=== PATIENT | male | born 1960 | race Caucasian/White ===

== ENCOUNTER 2016-04-30 10:47 | Inpatient (IN) | payer SELFPAY ==
[~2016-04-30] VITALS: Ht 167.6 cm; Wt 80.5 kg
[2016-04-30] VITALS (13 sets, daily range): BP systolic 103–220; BP diastolic 74–139
[2016-04-30] MEDS ORDERED: LABETALOL 20 MG/4 ML DISP.SYRIN. IVP ONE (12:15)
[2016-04-30] MEDS ORDERED: SULFUR HEXAFLUORIDE MICROSPHR 25 MG VIAL. IVP ONE ×3 (12:45→14:15)
[2016-04-30] MEDS: IV NORMAL SALINE 1000ML BAG 1,000 ML IV SCH (13:05)
--- NOTE | 2016-04-30 13:05 | PDOC2 ---
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 He was initially admitted at [facility] and transferred to [facility] for further treatment. Reports of sharp pain between shoulder blades, this started over a a week ago in which he went a PCP and CXR was done which just showed some degenerative changes of the spine and he was given lortab, flexeril, prednisone and ibuprofen (he did not start the ibuprofen). This has been going on everyday and he has been getting some massage treatment as well. There was no noted respiratory infections that involves coughing, fever, nor falls or any injury. Reports that 2 days ago in the morning he had the same pain and started having tingling to his left arm. This increased throughout the day and it got better at some point especially with prednisone. Yesterday he actually felt a little better and actually operated a bobcat but it got worse again. His symptoms became associated with diaphoresis and some SOA otherwise no nausea /vomiting, palpitations. Prior to the medications he started last week, he has not taken any other routine medications and has not seen a physician in the last 15 yrs. 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 He has known HTN but decided not to have this addressed and this has been chronic for him. PAST MEDICAL HISTORY Past Medical History HTN otherwise no other known medical history PAST SURGICAL HISTORY Past Surgical History right hand repair from trauma otherwise no other surgery. FAMILY HISTORY Family History: Coronary Artery Disease (sister at 58) SOCIAL HISTORY Smoke: No ALCOHOL: heavy (6-10 beers daily) Drugs: None Lives: with Family CURRENT MEDICATIONS CURRENT MEDICATIONS Current Medications Medications (Trade) Dose Ordered Sig/Isabel Route PRN Reason Start Time Stop Time Status Last Admin Dose Admin Labetalol HCl (Normodyne) 20 mg 1X ONCE IVP 04/30/16 12:15 04/30/16 12:16 DC 04/30/16 12:14 ALLERGIES ALLERGIES: Coded Allergies: Penicillins (Verified Allergy, Severe, 04/30/16) ROS Review of System 14 point ROS evaluated with pertinent positives noted per HPI PHYSICAL EXAM General: Alert, Oriented X3, Cooperative, No acute distress HEENT: Atraumatic, Mucous membr. moist/pink Heart: Regular rate, Normal S1, Normal S2, No murmurs Abdomen: Soft, No tenderness Extremities: No cyanosis, No edema Skin: No breakdown, No significant lesion Neuro: Sensation intact Psych/Mental Status: Mental status NL, Mood NL MUSCULOSKELETAL: Osteoarthritic changes both hands VITALS VITALS Vital Signs Date Time Temp Pulse Resp B/P Pulse Ox O2 Delivery O2 Flow Rate FiO2 04/30/16 12:14 85 224/139 ASSESSMENT/PLAN ASSESSMENT/PLAN 1. NSTEMI: Initial troponin 18.3. Initial EKG noted with SR with acute ST changes to inferior and anteroseptal leads. ASA was given at [place]. DDIMER normal. CTA chest/abd/pelvis with no acute changes. TTE now. LH today, risks and benefits discussed with pt and spouse and agreeable to proceed. IVF maintenance to start. Lipid panel. 2. Malignant HTN: became hypotensive with NTG/clonidine at [place] and treated with IVF. Currently SBP in the 220s. Will give labetolol x1. Routine antiHTN to start post cath. 3. Rhabdomyolysis with mild transaminitis: Likely related to NSTEMI but ETOH contributing as well. Treatment as above. 4. Alcoholism: 6-10 beers daily. Defer to PCP. Problems: JANA CANCHOLA MD 04/30/16 1737: CARDIAC CONSULT ALLERGIES ALLERGIES: Coded Allergies: Penicillins (Verified Allergy, Severe, 04/30/16) ASSESSMENT/PLAN ASSESSMENT/PLAN Patient seen and examined. Agree with the nurse practitioner note. 55-year-old male initially presented to the outside hospital with stuttering chest pain and malignant hypertension. He underwent a CT scan of the chest that ruled out aortic aneurysm/dissection. Due to an elevated troponin of 18 he was referred to the cardiac catheterization laboratory for further evaluation. He was found to have a mid left circumflex occlusion which was successfully treated with a drug-eluting stent. Medical therapy has been initiated for his cardiovascular comorbidities. Continue supportive care. Anticipate discharge tomorrow if stable overnight with better blood pressure control. Problems: ALBERT SANCHES APRN Apr 30, 2016 13:05 JANA CANCHOLA MD Apr 30, 2016 17:37
[2016-04-30] MEDS ORDERED: MORPHINE SULFATE 2 MG/ML DISP.SYRIN. IV PRN (13:15)
--- NOTE | 2016-04-30 13:21 | PDOC1 ---
History and Physical Past Medical History Past Medical History HTN Family History Family History: Coronary Artery Disease (sister at 58) Social History Smoke: No ALCOHOL: heavy (6-10 beers daily) Drugs: None Current Medications Current Medications Current Medications Medications (Trade) Dose Ordered Sig/Isabel Start Time Stop Time Status Last Admin Dose Admin Labetalol HCl (Normodyne) 20 mg 1X ONCE 04/30/16 12:15 04/30/16 12:16 DC 04/30/16 12:14 20 MG Morphine Sulfate 2 mg PRN Q2HR PRN 04/30/16 13:15 Sodium Chloride (Iv Sodium Chloride 0.9% 1000ml Bag) 1,000 ml @ 75 mls/hr [id number] 04/30/16 13:15 04/30/16 13:05 75 MLS/HR Sulfur Hexafluoride Microspheres 25 mg 25 mg STK-MED ONCE 04/30/16 12:45 04/30/16 12:46 DC Allergies Allergies Allergies Coded Allergies Type Severity Reaction Last Updated Verified Penicillins Allergy Severe 04/30/16 Yes ROS Review of System CONSTITUTIONAL: No fever or chills EYES: No recent changes SKIN: No rash or itching CARDIOVASCULAR: chest pain, NO syncope, palpitations, or edema RESPIRATORY: No SOB or cough GASTROINTESTINAL: No nausea, vomiting or abdominal pain NEUROLOGICAL: No headaches or weakness ENDOCRINE: No cold or heat intolerance GENITOURINARY: No urgency or frequency of urination MUSCULOSKELETAL: No back pain or joint pain LYMPHATICS: No enlarged lymph nodes PSYCHIATRIC: No anxiety or depression Physical Exam Physical Exam GEN.: No apparent distress. Alert and oriented. HEENT: Head is normocephalic, atraumatic NECK: Supple. no jvd LUNGS: Clear to auscultation.normal airflow HEART: RRR, S1, S2 present. Peripheral pulses intact ABDOMEN: Soft, nontender. Positive bowel sounds. EXTREMITIES: Without any cyanosis. NEUROLOGIC: Normal speech, normal tone PSYCHIATRIC: Normal affect, normal mood. SKIN: No visible ulcerations Vitals Vitals Vital Signs Date Time Temp Pulse Resp B/P Pulse Ox O2 Delivery O2 Flow Rate FiO2 04/30/16 13:00 84 21 186/123 97 Room Air 04/30/16 12:15 98.9 2.0 98.9 VTE Prophylaxis Ordered VTE Prophylaxis Devices: Yes VTE Pharmacological Prophylaxi: Yes SHAHEEN SEGURA MD Apr 30, 2016 13:21
[2016-04-30] MEDS ORDERED: LIDOCAINE 2% 20 ML VIAL. ONE (13:26)
[2016-04-30] MEDS ORDERED: IOHEXOL 300 MG/ML 100ML VIAL. ONE ×2 (13:26→14:28)
[2016-04-30] MEDS ORDERED: MIDAZOLAM HCL 2 MG/2 ML VIAL. ONE ×2 (13:27→14:00)
[2016-04-30] MEDS ORDERED: NITROGLYCERIN 200 MCG/2 ML SYRINGE FOR CATH/VASC LAB. ONE (13:27)
[2016-04-30] MEDS ORDERED: HEPARIN for IV BOLUS 10,000 UNIT/10 ML VIAL. ONE (13:27)
[2016-04-30] MEDS ORDERED: VERAPAMIL 5 MG/2 ML VIAL. ONE (13:27)
[2016-04-30] MEDS ORDERED: FENTANYL PF 100 MCG/2 ML VIAL. ONE ×2 (13:27→14:00)
[2016-04-30] MEDS ORDERED: FENTANYL PF 100 MCG/2 ML VIAL. IV ONE ×2 (13:30→14:00)
[2016-04-30] MEDS ORDERED: NITROGLYCERIN 200 MCG/2 ML SYRINGE FOR CATH/VASC LAB. IART ONE (14:00)
[2016-04-30] MEDS ORDERED: LIDOCAINE 2% 20 ML VIAL. IJ ONE (14:00)
[2016-04-30] MEDS ORDERED: HEPARIN for IV BOLUS 10,000 UNIT/10 ML VIAL. IART ONE (14:00)
[2016-04-30] MEDS ORDERED: VERAPAMIL 5 MG/2 ML VIAL. IART ONE (14:00)
[2016-04-30] MEDS ORDERED: MIDAZOLAM HCL 2 MG/2 ML VIAL. IV ONE (14:00)
[2016-04-30] MEDS ORDERED: IOHEXOL 300 MG/ML 100ML VIAL. IART ONE (14:00)
[2016-04-30] MEDS ORDERED: CONTRAST GIVEN MC PRN (14:00)
--- NOTE | 2016-04-30 14:04 | CARD ---
APPROVED REPORT EXAM: Two-dimensional and M-mode echocardiogram with Doppler, color Doppler with contrast. Other Information Quality : Average Rhythm : NSR INDICATION Chest Pain Echo Enhancing Agent Indication: Endocardial border delineation Agent/Amount Used: Lumason 2mL 2D DIMENSIONS RVDd2.3 (2.9-3.5cm)Left Atrium(2D)2.6 (1.6-4.0cm) IVSd1.3 (0.7-1.1cm)Aortic Root(2D)3.1 (2.0-3.7cm) LVDd4.3 (3.9-5.9cm)LVOT Diameter2.4 (1.8-2.4cm) PWd1.3 (0.7-1.1cm)LVDs3.3 (2.5-4.0cm) FS (%) 20.5 %SV39.2 ml LVEF(%)50.3 (>50%) Aortic Valve AoV Peak Hua.85.0cm/sAoV VTI15.0cm AO Peak GR.2.9mmHgLVOT VTI 12.32cm AO Mean GR.2mmHgAVA (VTI)3.60cm2 Mitral Valve MV E Ttmgpcej63.2cm/sMV E Peak Gr.2mmHg MV DECEL [id number] A Gcrzlalx44.5cm/s MV E Mean Gr.1mmHgMV LGT61wp E/A Ratio0.9MV A Fonjhmzg293jg MVA (PHT)4.07cm2 TDI Lateral E' P. V5.63cm/sMedial E' P. V5.13cm/s E/Lateral E'7.9E/Medial E'8.6 Tricuspid Valve TR P. Gimnvtoa613de/sRAP CILKEYMV4gjPn TR Peak Gr.22lkSyNNVQ05haGl LEFT VENTRICLE The left ventricle is normal size. There is borderline to mild concentric left ventricular hypertroph y. Left ventricle systolic function is normal. The Ejection Fraction is 50-55%. There is normal LV se gmental wall motion. The left ventricular diastolic function and filling is normal for age. RIGHT VENTRICLE The right ventricle is normal size. The right ventricular systolic function is normal. ATRIA The left atrium size is normal. The right atrium size is normal. The interatrial septum is intact wit h no evidence for an atrial septal defect or patent foramen ovale as noted on 2-D or Doppler imaging. AORTIC VALVE The aortic valve is normal in structure and function. The aortic valve is trileaflet. Doppler and Col or Flow revealed no significant aortic regurgitation. There is no significant aortic valvular stenosi s. MITRAL VALVE The mitral valve is normal in structure and function. There is no mitral valve stenosis. Doppler and Color Flow revealed mild mitral regurgitation. TRICUSPID VALVE The tricuspid valve is not well visualized. Doppler and Color Flow revealed trace tricuspid regurgita tion. The PA pressure was estimated at 22 mmHg. There is no tricuspid valve stenosis. PULMONIC VALVE The pulmonic valve is not well visualized. Doppler and Color Flow revealed no pulmonic valvular regur gitation. There is no pulmonic valvular stenosis. GREAT VESSELS The aortic root is normal in size. The ascending aorta is normal in size. The IVC was not visualized. PERICARDIAL EFFUSION There is no evidence of significant pericardial effusion. Critical Notification Critical Value: No <Conclusion> The left ventricle is normal size. Left ventricle systolic function is normal. The Ejection Fraction is 50-55%. There is borderline to mild concentric left ventricular hypertrophy. There is no significant aortic valvular stenosis. Doppler and Color Flow revealed no significant aortic regurgitation. Doppler and Color Flow revealed mild mitral regurgitation. Doppler and Color Flow revealed trace tricuspid regurgitation. The PA pressure was estimated at 22 mmHg.
[2016-04-30] MEDS ORDERED: TIROFIBAN 12.5MG -0.9% NS 250 ML IV ONE (14:06)
[2016-04-30 14:09] LABS: CHOLESTEROL/HDL RATIO 4.2
[2016-04-30] MEDS ORDERED: HEPARIN for IV BOLUS 10,000 UNIT/10 ML VIAL. IV ONE (14:15)
[2016-04-30] MEDS ORDERED: TIROFIBAN 12.5MG -0.9% NS 250 ML IV PRN ×2 (14:15→14:45)
[2016-04-30] MEDS ORDERED: ACETAMINOPHEN 325 MG TABLET. PO PRN (14:30)
[2016-04-30] MEDS ORDERED: HYDROCODONE/APAP 5/325MG TABLET. PO PRN (14:30)
[2016-04-30] MEDS ORDERED: ALBUTEROL SULFATE 2.5 MG/3 ML NEBU. NEB PRN (14:30)
[2016-04-30] MEDS ORDERED: ONDANSETRON PF 4 MG/2 ML VIAL. IV PRN (14:30)
[2016-04-30] MEDS ORDERED: NITROGLYCERIN 200 MCG/2 ML SYRINGE FOR CATH/VASC LAB. ICAR ONE (14:30)
[2016-04-30] MEDS ORDERED: hydrALAZINE 20 MG/ML VIAL. IVP PRN (14:30)
[2016-04-30] MEDS ORDERED: TICAGRELOR 90 MG TABLET. PO ONE (14:45)
[2016-04-30] MEDS: CHLORDIAZEPOXIDE HCL 25 MG CAPSULE PO SCH ×2 (16:26→21:50)
[2016-04-30] MEDS: MVI, ADULT NO.4 WITH VIT K 10 ML, THIAMINE 100 MG, FOLIC ACID 1 MG in IV NORMAL SALINE ... IV SCH ×4 (16:26)
[2016-04-30] MEDS: LORAZEPAM 1 MG TABLET. PO SCH ×2 (16:26→21:49)
[2016-04-30] MEDS ORDERED: HYDR-971 PO (16:57)
--- NOTE | 2016-04-30 16:59 | HP ---
ADMIT DATE: 04/30/2016 CHIEF COMPLAINT: Chest and back pain. HISTORY OF PRESENT ILLNESS: A 55-year-old male patient presented to the ER with complaints of chest and back pain; however, the patient had similar complaints for a few days and he has been following with his primary care doctor, who has been treating him with prednisone and Marquez, and also had some imaging studies such as chest x-ray. Probably, he was treated for arthritis. However, this morning, the patient was seen by ER physician at [facility] and given his shoulder pain and left upper extremity tingling sensation, the patient was suspected for aortic dissection. An initial CT did not show any aortic dissection; however, his labs showed elevated troponins, more than 18, along with blood pressures more than 200s. At the time of examination in the ICU at [place], he did not have any symptoms. No fever, no chest pain, which has been controlled. Denies any palpitations. However, his blood pressure is not controlled, still more than 180s systolic. PAST MEDICAL HISTORY AND REVIEW OF SYSTEMS: Please see my electronic H and P. LABORATORY DATA: Troponin is 18 from [place] and hemoglobin 18.6. IMAGING STUDIES: CT of the chest showed no evidence of thoracic aortic dissection, 5 mm left lower lobe subpleural nodule noted. EKG personally reviewed showed some T wave, mild ST depressions in lateral leads and inferior leads. ASSESSMENT: 1. Hypertensive emergency, present on admission. 2. Non-ST elevation myocardial infarction. 3. A 5 mm pulmonary nodule. 4. Alcohol abuse. 5. THC usage. PLAN: 1. The patient has been admitted to Critical Care Unit and his blood pressure has been controlled. He received labetalol. We will try to control his blood pressure, goal is to keep the systolic less than 180. 2. Cardiology has been planning for him to take some cardiac cath, possible PCI based on coronary angiogram. 3. I will start him on alcohol withdrawal protocol. 4. The patient and family have been notified about pulmonary nodule. He needs to follow up with primary care doctor and repeat imaging. 5. CBC, BMP ordered. 6. Mild IV hydration given his contrast. 7. Case discussed with Cardiology. 8. The patient did not have insurance. We will consult psychiatric social worker supervisor for medications at the time of discharge. SHAHEEN SEGURA MD DR: Monik JOB#: [id number] / [id number] MTDJim
--- NOTE | 2016-04-30 17:03 | CARD ---
APPROVED REPORT Procedure(s) performed: Left Heart Catheterization PTCA with Stenting CIRC 139 Omnipaque 300 10.2 Mins of Fluoro 1205.71mGy [id number] HISTORY The patient is a 55 year-old male with a history of : hypertension. INDICATION The indication(s) include : non-STEMI , Patient is a 55-year-old male who presents to the hospital in the setting of stuttering chest pain for 48-72 hours and a troponin elevation of 18. Due to severe e levated blood pressures and back pain as well he underwent a CT scan of the chest and abdomen to rule out an aortic dissection and as this was within normal limits he was brought to the catheterization laboratory for further assessment.. PROCEDURE NARRATIVE The patient was brought electively to the cardiac catheterization lab. A timeout was performed confi rming the patient's name, date of , procedure, and site of procedure. All necessary personnel w ere wearing the appropriate protective equipment and radiation monitor devices. After explaining the risks and benefits of the procedure and alternatives, informed consent was obtained. (See nursing no richelle for medications administered). The right wrist was sterilely prepped and draped in the usual fas hion. The right wrist was infiltrated with 1 mL of 2% lidocaine for subcutaneous anesthesia. A 6 Fr ench Terumo glide sheath was inserted into the right radial artery without difficulty. Right and lef t coronary angiography was performed using a 6Fr TIG 4.0 catheter. Left ventricular end diastolic pr essure was obtained and pullback was performed. HEMODYNAMICS: LVEDP 15 mm Hg No gradient on LV to aortic pullback. LEFT VENTRICULOGRAM: Deferred due to echo with normal LV function prior to procedure and recent contr ast load from CT scan. CORONARY ANGIOGRAPHY: LM is a large caliber vessel with normal angiographic appearance. LAD is a moderate caliber vessel with a mid 30% stenosis. Ramus is a moderate caliber vessel with normal angiographic apeparance. LCx is a moderate caliber non-dominant vessel with mid occlusion prior to the origin of an OM1 and LP L1. OM1 is a moderate caliber vessel with mild diffuse irregularities and spasm. LPL1 is a moderate caliber vessel with a proximal to mid 100% occlusion with JIM 0 flow. Post-PCI, t here was 0% residual stenosis. RCA is a large caliber dominant vessel with normal angiographic appearance. RPDA and RPL are moderate caliber vessels with normal angiographic appearance. INTERVENTIONAL TECHNIQUE: PCI OF LCX INTO LPL1 Based on the present symptoms and angiographic findings of a silent myocardial infarction with left c ircumflex occlusion and intervention was performed. Heparin and tirofiban were used for anticoagulat ion. Through a 6 Armenian EBU 3.5 guide catheter a ProcureSafe run through wire was used to traverse the pr oximal aspect of the lesion and this wire ultimately went into the first obtuse marginal. Balloon an gioplasty with a trek 2.5 x 12 mm balloon then restored flow which revealed a posterior lateral branc h that also had the origin near the obtuse marginal vessel. The initial wire had difficulty traversi ng the stenosis into the LPL branch and therefore a second wire (Choice PT) was used to traverse the lesion and was placed in the distal left posterolateral branch. Repeat angioplasty with a trek 2.5 x 20 mm balloon was performed at 10 phong. Subsequently, the initial wire in the obtuse marginal vessel was removed and the lesion from the mid circumflex into the LPL was then stented with a Xience 2.5 x 33 mm drug-eluting stent which was dilated to 14 phong. Final post PCI angiography revealed excellent stent expansion with JIM 3 flow in the LPL and obtuse marginal vessels with resolution of spasm aft er administration of intracoronary nitroglycerin. All catheter exchanges and advancements were perfor med over a guidewire. At case completion the right radial sheath was removed and a [employer] radial ban d was applied with 13 ml of air. The patient tolerated the procedure well and there were no immediat e complications. The patient received 180 mg of Ticagrelor at case completion and was transferred to the ICU in stable condition. Conclusion 1. Silent posterior lateral infarction with a mid circumflex occlusion successfully treated with a 2 .5 x 33 mm Xience CHING. 2. Normal left ventricular filling pressure. Recommendations Smoking Cessation Cardiac Rehabilitation Referral Aggressive Medical Therapy Aspirin 81 mg daily Ticagrelor 90 mg twice a day Atorvastatin 40 mg daily Start low-dose metoprolol and hydralazine. Initiate low-dose DEEJAY inhibitor therapy for uncontrolled hypertension after reevaluation of renal fun ction tomorrow given high contrast load from the CT scan and cardiac catheterization. We will plan to discharge the patient on a medication list consistent with a $4 prescription program as he does not have insurance.
--- NOTE | 2016-04-30 17:51 | ACF ---
Admission Forms Criteria HYPERTENSION Clinical Indications for Admission to Inpatient Care ( Place "X" for any and all applicable criteria): Admission is indicated for ANY ONE of the following(1)(2)(3)(4): [ ]I. Hypertensive emergency, with evidence of acute and progressing target organ disease as indicated by ANY ONE of the following: [ ]a) Hypertensive encephalopathy (eg, confusion, altered mental status) [ ]b) Cerebral infarction [ ]c) Intracranial hemorrhage [ ]d) Myocardial ischemia or infarction [ ]e) Pulmonary edema [ ]f) Aortic dissection [ ]g) Seizure [ ]h) Acute renal insufficiency [ ]i) Papilledema [ ]j) Microangiopathic hemolytic anemia [ ]II. Adrenergic crisis (eg, severe hypertension due to pheochromocytoma crisis, cocaine or amphetamine intoxication, or clonidine withdrawal) [X ]III. Severe hypertension (SBP greater than 180 mmHg or DBP greater than 110 mmHg or greater than the 95th percentile for age, gender, and height in pediatric patients) that cannot be controlled (eg, to SBP less than 160 mmHg and DBP less than 100 mmHg in adults) by treatment with oral medication in emergency department or observation care Extended stay beyond goal length of stay may be needed for(11)(12)(13): [ ]a) Persistent hypertensive encephalopathy [ ]b) Continuation of pulmonary edema [ ]c) Recurring or persistent severe hypertension [ ]d) Target organ damage (eg, angina, stroke, aortic dissection) [ ]e) Associated renal insufficiency The original [employer] [facility], 1928–[email or web address] content created by [employer] has been revised. The portions of the content which have been revised are identified through the use of italic text or in bold, and [facility] has neither reviewed nor approved the modified material. All other unmodified content is copyright [employer] [facility], 1928–[email or web address]. Please see references footnoted in the original [employer] [facility], [facility]–[email or web address] edition 2016 Admission Criteria Met?: Yes CASSANDRA FERNANDES Apr 30, 2016 17:51
[2016-04-30] MEDS ORDERED: IPRATRPIUM/ALBUTEROL 0.5/2.5MG 3 ML NEBU. NEB SCH (20:00)
[2016-04-30] MEDS ORDERED: ATORVASTATIN CALCIUM 40 MG TABLET. PO SCH (21:00)
[2016-04-30] MEDS: TICAGRELOR 90 MG TABLET. PO SCH (21:50)
[2016-04-30] MEDS: HYDRALAZINE 50 MG TABLET PO SCH (21:50)
[2016-04-30] MEDS: METOPROLOL TART IMMED RELEASE 25 MG TABLET PO SCH (21:51)
[2016-05-01] VITALS (13 sets, daily range): BP systolic 89–114; BP diastolic 54–82
[2016-05-01] MEDS: IV NORMAL SALINE 1000ML BAG 1,000 ML IV SCH (02:35)
[2016-05-01] MEDS: CHLORDIAZEPOXIDE HCL 25 MG CAPSULE PO SCH ×2 (04:00→10:00)
[2016-05-01] MEDS: LORAZEPAM 1 MG TABLET. PO SCH ×2 (04:00→10:00)
[2016-05-01 05:48] LABS: BASO % 0 % (0-3); EOS % 0 % (0-3); HEMATOCRIT 44.3 % (39.0-53.0); LYMPH # 0.8 x10^3/uL (1.0-4.8); LYMPH % 10 % (24-48); MEAN CORPUSCULAR HEMOGLOBIN 32 pg (25-35); MEAN CORPUSCULAR HGB CONC 34 g/dL (31-37); MEAN CORPUSCULAR VOLUME 93 fL (79-100); MONO % 12 % (0-9); NEUT % 78 % (31-73); PLATELET COUNT 242 x10^3/uL (140-400); RED BLOOD COUNT 4.75 x10^6/uL (4.30-5.70); RED CELL DISTRIBUTION WIDTH 13.3 % (11.5-14.5); WHITE BLOOD COUNT 8.3 x10^3/uL (4.0-11.0)
[2016-05-01 05:58] LABS: CALCIUM 8.3 mg/dL (8.5-10.1); GFR 77.3; POTASSIUM 3.6 mmol/L (3.5-5.1)
[2016-05-01] MEDS: MVI, ADULT NO.4 WITH VIT K 10 ML, THIAMINE 100 MG, FOLIC ACID 1 MG in IV NORMAL SALINE ... IV SCH ×4 (07:58)
[2016-05-01] MEDS: HYDRALAZINE 50 MG TABLET PO SCH (07:59)
[2016-05-01] MEDS: METOPROLOL TART IMMED RELEASE 25 MG TABLET PO SCH (07:59)
[2016-05-01] MEDS: TICAGRELOR 90 MG TABLET. PO SCH (07:59)
[2016-05-01] MEDS ORDERED: ASPIRIN ENTERIC COATED 81 MG TABLET.DR. PO SCH (09:00)
--- NOTE | 2016-05-01 11:07 | PDOC ---
ALBERT SANCHES PROGRAM MANAGEMENT PROFESSIONAL 05/01/16 1107: CARDIO Progress Notes Date and Time Date of Service 05/01/2016 Time of Evaluation 1020 Subjective Subjective: No Chest Pain, No shortness of breath, No Palpitations, No Dizziness Vitals Vitals Vital Signs Date Time Temp Pulse Resp B/P Pulse Ox O2 Delivery O2 Flow Rate FiO2 05/01/16 10:00 85 22 89/54 96 Room Air 05/01/16 08:00 97.7 97.7 04/30/16 14:58 4.0 Weight Weight [ ] Input and Output Intake and Output Intake and Output 05/01/16 07:00 Intake Total 2532 ml Output Total 2000 ml Balance 532 ml Intake Oral 680 ml IV Total 1852 ml Output Urine Total 2000 ml Laboratory Labs Laboratory Tests Test 04/30/16 12:42 04/30/16 13:30 05/01/16 05:30 Nasal Screen MRSA (PCR) Negative (Negative) Magnesium Level 2.0mg/dL (1.8-2.4) Triglycerides Level 86mg/dL (0-150) Cholesterol Level 253mg/dL (0-200) LDL Cholesterol, Calculated 176mg/dL (0-100) VLDL Cholesterol, Calculated 17mg/dL (0-40) HDL Cholesterol 60mg/dL (40-60) Cholesterol/HDL Ratio 4.2 White Blood Count 8.3x10^3/uL (4.0-11.0) Red Blood Count 4.75x10^6/uL (4.30-5.70) Hemoglobin 15.0g/dL (13.0-17.5) Hematocrit 44.3% (39.0-53.0) Mean Corpuscular Volume 93fL (79-100) Mean Corpuscular Hemoglobin 32pg (25-35) Mean Corpuscular Hemoglobin Concent 34g/dL (31-37) Red Cell Distribution Width 13.3% (11.5-14.5) Platelet Count 242x10^3/uL (140-400) Neutrophils (%) (Auto) 78% (31-73) Lymphocytes (%) (Auto) 10% (24-48) Monocytes (%) (Auto) 12% (0-9) Eosinophils (%) (Auto) 0% (0-3) Basophils (%) (Auto) 0% (0-3) Neutrophils # (Auto) 6.5x10^3uL (1.8-7.7) Lymphocytes # (Auto) 0.8x10^3/uL (1.0-4.8) Monocytes # (Auto) 1.0x10^3/uL (0.0-1.1) Eosinophils # (Auto) 0.0x10^3/uL (0.0-0.7) Basophils # (Auto) 0.0x10^3/uL (0.0-0.2) Sodium Level 140mmol/L (136-145) Potassium Level 3.6mmol/L (3.5-5.1) Chloride Level 105mmol/L (98-107) Carbon Dioxide Level 25mmol/L (21-32) Anion Gap 10 (6-14) Blood Urea Nitrogen 12mg/dL (8-26) Creatinine 1.0mg/dL (0.7-1.3) Estimated GFR (Cockcroft-Gault) 77.3 Glucose Level 110mg/dL (70-99) Calcium Level 8.3mg/dL (8.5-10.1) Physical Exam HEENT: Neck Supple W Full Motion Chest: Symmetric LUNGS: Clear to Auscultation Heart: S1S2, RRR (No significant ectopies overnight), murmurs (2/6 systolic murmur to LLS border) Abdomen: Soft N/T Extremities: No Calf Tenderness Neurology: alert, oriented, follow commands Other Exams right wrist arteriotomy site intact with no erythema, swelling. Neurovascular status intact. Assessment Assessment 1. NSTEMI: S/P PCI/CHING via right transradial approach. Noted with silent posterior lateral infarction with a mid circumflex occlusion. Tolerated procedure well. Baseline TTE with normal EF and wall motion. DAPT with ECASA 81 and brilinta (discount cards received). Will transition to plavix as an outpt. Dietitian to see pt prior to DC this afternoon. Post cath instructions. Recommend cardiac rehab but pt unable to afford this due to lack of insurance. Encourage lifestyle modification including incorporating diet and exercise. Encourage BP diary. Social Svc on board to help in obtaining medical ins. F/U in office in 4 weeks. 2. Malignant HTN: low this am otherwise controlled. Continue with metoprolol, DC hydralazine and start on lisinopril 10 mg po daily. Tailor made Rx with 4$ prescription list. 3. Rhabdomyolysis with mild transaminitis: Due to DC and contributing ETOH as well. 4. Alcoholism: 6-10 beers daily. Encouraged curbing this. Withdrawal protocol per PCP. 5. HLP: lipitor 40 mg po daily. JANA CANCHOLA MD 05/01/16 1517: CARDIO Progress Notes Plan Plan Patient seen and examined. Agree with nurse practitioner note. No acute events overnight. Has been receiving benzodiazepines for prevention of alcohol withdrawal. On examination he is alert and oriented. Normal heart tones. Right radial access site is within normal limits. Medications reviewed. Labs reviewed. We have started the patient on $4 medication list medications and have provided him samples for Ticagrelor. He'll follow-up in clinic in approximately 6 weeks. ALBERT SANCHES APRN May 01, 2016 11:07 JANA CANCHOLA MD May 01, 2016 15:17
--- NOTE | 2016-05-01 11:32 | PDOC ---
PROGRESS NOTES Chief Complaint Chief Complaint - NSTEMI s/p cardiac cath and stent placement on 04/30/16 - Malignant HTN - Rhabdomyolysis, mild - Transaminitis - Hyperlipidemia - Alcoholism - THC use - Pulmonary nodule History of Present Illness History of Present Illness 55 year old male seen in ICU with present. Patient had cardiac cath with stent placement yesterday. Patient was seated in bed resting comfortably. Denies chest pain or SOA today. After discussion with RN and recent visit from cardiology, patient is planning on being discharged today. and patient are both agreeable with the plan. Vitals Vitals Vital Signs Date Time Temp Pulse Resp B/P Pulse Ox O2 Delivery O2 Flow Rate FiO2 05/01/16 11:00 85 24 105/70 96 Room Air 05/01/16 08:00 97.7 97.7 04/30/16 14:58 4.0 Physical Exam General: Alert, Oriented X3, Cooperative, No acute distress Heart: Regular rate, Normal S1, Normal S2, No murmurs Lungs: Clear, Other (No wheezes) Abdomen: Normal bowel sounds, Soft, No tenderness Extremities: No cyanosis, No edema Skin: No breakdown, No significant lesion Labs LABS Laboratory Tests Test 04/30/16 12:42 04/30/16 13:30 05/01/16 05:30 Nasal Screen MRSA (PCR) Negative (Negative) Magnesium Level 2.0mg/dL (1.8-2.4) Triglycerides Level 86mg/dL (0-150) Cholesterol Level 253mg/dL (0-200) LDL Cholesterol, Calculated 176mg/dL (0-100) VLDL Cholesterol, Calculated 17mg/dL (0-40) HDL Cholesterol 60mg/dL (40-60) Cholesterol/HDL Ratio 4.2 White Blood Count 8.3x10^3/uL (4.0-11.0) Red Blood Count 4.75x10^6/uL (4.30-5.70) Hemoglobin 15.0g/dL (13.0-17.5) Hematocrit 44.3% (39.0-53.0) Mean Corpuscular Volume 93fL (79-100) Mean Corpuscular Hemoglobin 32pg (25-35) Mean Corpuscular Hemoglobin Concent 34g/dL (31-37) Red Cell Distribution Width 13.3% (11.5-14.5) Platelet Count 242x10^3/uL (140-400) Neutrophils (%) (Auto) 78% (31-73) Lymphocytes (%) (Auto) 10% (24-48) Monocytes (%) (Auto) 12% (0-9) Eosinophils (%) (Auto) 0% (0-3) Basophils (%) (Auto) 0% (0-3) Neutrophils # (Auto) 6.5x10^3uL (1.8-7.7) Lymphocytes # (Auto) 0.8x10^3/uL (1.0-4.8) Monocytes # (Auto) 1.0x10^3/uL (0.0-1.1) Eosinophils # (Auto) 0.0x10^3/uL (0.0-0.7) Basophils # (Auto) 0.0x10^3/uL (0.0-0.2) Sodium Level 140mmol/L (136-145) Potassium Level 3.6mmol/L (3.5-5.1) Chloride Level 105mmol/L (98-107) Carbon Dioxide Level 25mmol/L (21-32) Anion Gap 10 (6-14) Blood Urea Nitrogen 12mg/dL (8-26) Creatinine 1.0mg/dL (0.7-1.3) Estimated GFR (Cockcroft-Gault) 77.3 Glucose Level 110mg/dL (70-99) Calcium Level 8.3mg/dL (8.5-10.1) Review of Systems Review of Systems Chest pain improved Denies SOA Assessment and Plan Assessmemt and Plan Assessment: - NSTEMI s/p cardiac cath and stent placement on 04/30/16 and echo showing EF 50- 55% - Malignant HTN - Rhabdomyolysis, mild - Transaminitis - Hyperlipidemia - Alcoholism - THC use - Pulmonary nodule Plan: - Discussed with RN, patient to be discharged home today - ETOH withdrawal protocol to remain until discharge - Continue BP control and close monitoring - Restart home meds - Recheck labs in a.m. if unable to discharge - Appreciate subspecialty input Problems: Comment Review of Relevant I have reviewed the following items macario (where applicable) has been applied. Labs Laboratory Tests Test 04/30/16 12:42 04/30/16 13:30 05/01/16 05:30 Nasal Screen MRSA (PCR) Negative (Negative) Magnesium Level 2.0mg/dL (1.8-2.4) Triglycerides Level 86mg/dL (0-150) Cholesterol Level 253mg/dL (0-200) LDL Cholesterol, Calculated 176mg/dL (0-100) VLDL Cholesterol, Calculated 17mg/dL (0-40) HDL Cholesterol 60mg/dL (40-60) Cholesterol/HDL Ratio 4.2 White Blood Count 8.3x10^3/uL (4.0-11.0) Red Blood Count 4.75x10^6/uL (4.30-5.70) Hemoglobin 15.0g/dL (13.0-17.5) Hematocrit 44.3% (39.0-53.0) Mean Corpuscular Volume 93fL (79-100) Mean Corpuscular Hemoglobin 32pg (25-35) Mean Corpuscular Hemoglobin Concent 34g/dL (31-37) Red Cell Distribution Width 13.3% (11.5-14.5) Platelet Count 242x10^3/uL (140-400) Neutrophils (%) (Auto) 78% (31-73) Lymphocytes (%) (Auto) 10% (24-48) Monocytes (%) (Auto) 12% (0-9) Eosinophils (%) (Auto) 0% (0-3) Basophils (%) (Auto) 0% (0-3) Neutrophils # (Auto) 6.5x10^3uL (1.8-7.7) Lymphocytes # (Auto) 0.8x10^3/uL (1.0-4.8) Monocytes # (Auto) 1.0x10^3/uL (0.0-1.1) Eosinophils # (Auto) 0.0x10^3/uL (0.0-0.7) Basophils # (Auto) 0.0x10^3/uL (0.0-0.2) Sodium Level 140mmol/L (136-145) Potassium Level 3.6mmol/L (3.5-5.1) Chloride Level 105mmol/L (98-107) Carbon Dioxide Level 25mmol/L (21-32) Anion Gap 10 (6-14) Blood Urea Nitrogen 12mg/dL (8-26) Creatinine 1.0mg/dL (0.7-1.3) Estimated GFR (Cockcroft-Gault) 77.3 Glucose Level 110mg/dL (70-99) Calcium Level 8.3mg/dL (8.5-10.1) Laboratory Tests Test 04/30/16 12:42 04/30/16 13:30 05/01/16 05:30 Nasal Screen MRSA (PCR) Negative (Negative) Magnesium Level 2.0mg/dL (1.8-2.4) Triglycerides Level 86mg/dL (0-150) Cholesterol Level 253mg/dL (0-200) LDL Cholesterol, Calculated 176mg/dL (0-100) VLDL Cholesterol, Calculated 17mg/dL (0-40) HDL Cholesterol 60mg/dL (40-60) Cholesterol/HDL Ratio 4.2 White Blood Count 8.3x10^3/uL (4.0-11.0) Red Blood Count 4.75x10^6/uL (4.30-5.70) Hemoglobin 15.0g/dL (13.0-17.5) Hematocrit 44.3% (39.0-53.0) Mean Corpuscular Volume 93fL (79-100) Mean Corpuscular Hemoglobin 32pg (25-35) Mean Corpuscular Hemoglobin Concent 34g/dL (31-37) Red Cell Distribution Width 13.3% (11.5-14.5) Platelet Count 242x10^3/uL (140-400) Neutrophils (%) (Auto) 78% (31-73) Lymphocytes (%) (Auto) 10% (24-48) Monocytes (%) (Auto) 12% (0-9) Eosinophils (%) (Auto) 0% (0-3) Basophils (%) (Auto) 0% (0-3) Neutrophils # (Auto) 6.5x10^3uL (1.8-7.7) Lymphocytes # (Auto) 0.8x10^3/uL (1.0-4.8) Monocytes # (Auto) 1.0x10^3/uL (0.0-1.1) Eosinophils # (Auto) 0.0x10^3/uL (0.0-0.7) Basophils # (Auto) 0.0x10^3/uL (0.0-0.2) Sodium Level 140mmol/L (136-145) Potassium Level 3.6mmol/L (3.5-5.1) Chloride Level 105mmol/L (98-107) Carbon Dioxide Level 25mmol/L (21-32) Anion Gap 10 (6-14) Blood Urea Nitrogen 12mg/dL (8-26) Creatinine 1.0mg/dL (0.7-1.3) Estimated GFR (Cockcroft-Gault) 77.3 Glucose Level 110mg/dL (70-99) Calcium Level 8.3mg/dL (8.5-10.1) Medications Current Medications Labetalol HCl (Normodyne) 20 mg 1X ONCE IVP Last administered on 04/30/16 12: 14; Start 04/30/16 at 12:15; Stop 04/30/16 at 12:16; Status DC Sulfur Hexafluoride Microspheres 25 mg 25 mg STK-MED ONCE IVP ; Start 04/30/16 at 12:45; Stop 04/30/16 at 12:46; Status DC Sodium Chloride (Iv Sodium Chloride 0.9% 1000ml Bag) 1,000 ml @ 75 mls/hr [id number] IV Last administered on 05/01/16 02:35; Start 04/30/16 at 13:15 Morphine Sulfate 2 mg PRN Q2HR PRN IV PAIN; Start 04/30/16 at 13:15; Stop 04/30 at 13:23; Status DC Fentanyl Citrate (Fentanyl 2ml Vial) 50 mcg 1X ONCE IV Last administered on 13:27; Start 04/30/16 at 13:30; Stop 04/30/16 at 13:31; Status DC Iohexol 100 ml 100 ml STK-MED ONCE .ROUTE ; Start 04/30/16 at 13:26; Stop at 13:27; Status DC Heparin Sodium/ Sodium Chloride 1,000 ml @ As Directed STK-MED ONCE .ROUTE ; Start 04/30/16 at 13:26; Stop 04/30/16 at 13:27; Status DC Lidocaine HCl 20 ml STK-MED ONCE .ROUTE ; Start 04/30/16 at 13:26; Stop at 13:27; Status DC Fentanyl Citrate (Fentanyl 2ml Vial) 100 mcg STK-MED ONCE .ROUTE ; Start at 13:27; Stop 04/30/16 at 13:28; Status DC Midazolam HCl (Versed) 2 mg STK-MED ONCE .ROUTE ; Start 04/30/16 at 13:27; Stop 04/30/16 at 13:28; Status DC Nitroglycerin (Nitroglycerin) 200 mcg STK-MED ONCE .ROUTE ; Start 04/30/16 at 13 :27; Stop 04/30/16 at 13:28; Status DC Verapamil HCl (Verapamil) 5 mg STK-MED ONCE .ROUTE ; Start 04/30/16 at 13:27; Stop 04/30/16 at 13:28; Status DC Heparin Sodium (Porcine) 10,000 unit STK-MED ONCE .ROUTE ; Start 04/30/16 at 13: 27; Stop 04/30/16 at 13:28; Status DC Nitroglycerin (Nitroglycerin) 200 mcg 1X ONCE IART Last administered on 14:48; Start 04/30/16 at 14:00; Stop 04/30/16 at 14:01; Status DC Verapamil HCl (Verapamil) 2.5 mg 1X ONCE IART Last administered on 04/30/16 14:52; Start 04/30/16 at 14:00; Stop 04/30/16 at 14:01; Status DC Heparin Sodium (Porcine) 2,500 unit 1X ONCE IART Last administered on 14:53; Start 04/30/16 at 14:00; Stop 04/30/16 at 14:01; Status DC Heparin Sodium/ Sodium Chloride 1,000 unit 1X ONCE IART Last administered on 14:51; Start 04/30/16 at 14:00; Stop 04/30/16 at 14:01; Status DC Heparin Sodium/ Sodium Chloride 1,000 unit 1X ONCE IART Last administered on 14:51; Start 04/30/16 at 14:00; Stop 04/30/16 at 14:01; Status DC Midazolam HCl (Versed) 2 mg 1X ONCE IV Last administered on 04/30/16 14:48; Start 04/30/16 at 14:00; Stop 04/30/16 at 14:01; Status DC Fentanyl Citrate (Fentanyl 2ml Vial) 100 mcg 1X ONCE IV Last administered on 14:51; Start 04/30/16 at 14:00; Stop 04/30/16 at 14:01; Status DC Iohexol (Omnipaque 300 Mg/ml) 100 ml 1X ONCE IART Last administered on 14:51; Start 04/30/16 at 14:00; Stop 04/30/16 at 14:01; Status DC Lidocaine HCl 20 ml 1X ONCE IJ Last administered on 04/30/16 14:48; Start at 14:00; Stop 04/30/16 at 14:01; Status DC Info (Do NOT chart on this entry -- for MONITORING) 1 each PRN DAILY PRN MC SEE COMMENTS; Start 04/30/16 at 14:00; Stop 05/02/16 at 13:59 Fentanyl Citrate (Fentanyl 2ml Vial) 100 mcg STK-MED ONCE .ROUTE ; Start at 14:00; Stop 04/30/16 at 14:01; Status DC Midazolam HCl 2 mg 2 mg STK-MED ONCE .ROUTE ; Start 04/30/16 at 14:00; Stop at 14:01; Status DC Tirofiban/Sodium Chloride (Aggrastat 12.5 Mg/250 ml Premix) 250 ml @ As Directed STK-MED ONCE IV ; Start 04/30/16 at 14:06; Stop 04/30/16 at 14:07; Status DC Heparin Sodium (Porcine) 4000 unit 4,000 unit 1X ONCE IV Last administered on 04/30/16 14:55; Start 04/30/16 at 14:15; Stop 04/30/16 at 14:18; Status DC Tirofiban/Sodium Chloride (Aggrastat 12.5 Mg/250 ml Premix) 250 ml @ 0 mls/hr CONT PRN IV PER PROTOCOL; Start 04/30/16 at 14:15; Stop 04/30/16 at 14:39; Status DC Sulfur Hexafluoride Microspheres (Lumason) 25 mg 1X ONCE IVP ; Start 04/30/16 at 14:15; Stop 04/30/16 at 14:20; Status DC Acetaminophen (Tylenol) 325 mg PRN Q6HRS PRN PO MILD PAIN / TEMP; Start at 14:30 Acetaminophen/ Hydrocodone Bitart (Lortab 5/325) 1 tab PRN Q6HRS PRN PO MODERATE TO SEVERE PAIN; Start 04/30/16 at 14:30 Hydralazine HCl (Apresoline) 10 mg PRN Q4HRS PRN IVP ELEVATED BP, SEE COMMENTS Last administered on 04/30/16 16:54; Start 04/30/16 at 14:30 Ondansetron HCl (Zofran) 4 mg PRN Q8HRS PRN IV NAUSEA/VOMITING; Start 04/30/16 at 14:30 Albuterol Sulfate (Ventolin Neb Soln) 2.5 mg PRN Q4HRS PRN NEB SHORTNESS OF BREATH; Start 04/30/16 at 14:30 Iohexol (Omnipaque 300 Mg/ml) 100 ml STK-MED ONCE .ROUTE ; Start 04/30/16 at 14: 28; Stop 04/30/16 at 14:29; Status DC Nitroglycerin 200 mcg 200 mcg 1X ONCE ICAR Last administered on 04/30/16 14: 48; Start 04/30/16 at 14:30; Stop 04/30/16 at 14:32; Status DC Tirofiban/Sodium Chloride (Aggrastat 12.5 Mg/250 ml Premix) 250 ml @ 0 mls/hr CONT PRN IV PER PROTOCOL Last administered on 04/30/16 14:50; Start 04/30/16 at 14:45; Stop 04/30/16 at 20:30; Status DC Ticagrelor (Brilinta) 180 mg 1X ONCE PO Last administered on 04/30/16 14:49; Start 04/30/16 at 14:45; Stop 04/30/16 at 14:46; Status DC Ticagrelor 90 mg 90 mg BID PO Last administered on 05/01/16 07:59; Start 04/30 at 21:00 Multivitamins/ Minerals/Thiamine HCl/Folic Acid/ Sodium Chloride (Infuvite Adult / Iv Sodium Chloride 0.9% 1000ml Bag) 1,011.2 ml @ 100 mls/ hr DAILY IV Last administered on 05/01/16 07:58; Start 04/30/16 at 16:30; Stop 05/05/16 at 16:29 Lorazepam (Ativan) 2 mg Q6H PO Last administered on 04/30/16 21:49; Start at 16:00; Stop 05/01/16 at 22:01 Chlordiazepoxide (Librium) 25 mg Q6H PO Last administered on 04/30/16 21:50; Start 04/30/16 at 16:00; Stop 05/01/16 at 22:01 Atorvastatin Calcium (Lipitor) 40 mg QHS PO Last administered on 04/30/16 21: 51; Start 04/30/16 at 21:00 Metoprolol Tartrate (Lopressor) 25 mg BID PO Last administered on 05/01/16 07: 59; Start 04/30/16 at 21:00 Hydralazine HCl (Apresoline) 50 mg BID PO Last administered on 05/01/16 07:59 ; Start 04/30/16 at 21:00; Stop 05/01/16 at 10:43; Status DC Albuterol/ Ipratropium (Duoneb) 3 ml RTQID NEB ; Start 04/30/16 at 20:00; Stop 04/30/16 at 20:00; Status DC Sulfur Hexafluoride Microspheres (Lumason) 25 mg STK-MED ONCE IVP ; Start at 13:00; Stop 05/01/16 at 08:10; Status DC Aspirin (Ecotrin) 81 mg [id number] PO Last administered on 05/01/16 10:39; Start 05/01/16 at 09:00 Lisinopril (Prinivil) 10 mg DAILY PO ; Start 05/01/16 at 12:00 Active Scripts Active Reported [place] 5-325 Tablet (Acetaminophen/Hydrocodone Bitart) 1 Each Tablet 1-2 Tab PO Q4-6HRS Vitals/I & O Vital Sign - Last 24 Hours 04/30/16 04/30/16 04/30/16 04/30/16 12:00 12:00 12:14 12:15 Temp 98.9 98.9 98.9 98.9 Pulse 100 85 84 Resp 19 21 B/P 220/139 224/139 184/122 Pulse Ox 94 97 O2 Delivery Nasal Cannula Nasal Cannula Nasal Cannula O2 Flow Rate 2.0 2.0 2.0 04/30/16 04/30/16 04/30/16 04/30/16 13:00 13:27 14:51 14:52 Pulse 84 86 Resp 21 B/P 186/123 145/88 Pulse Ox 97 97 96 O2 Delivery Room Air Nasal Cannula Nasal Cannula O2 Flow Rate 2.0 4.0 04/30/16 04/30/16 04/30/16 04/30/16 14:58 15:15 16:00 16:00 Temp 98.7 98.7 Pulse 86 97 89 Resp 35 B/P 158/109 171/108 Pulse Ox 96 96 94 O2 Delivery Nasal Cannula Room Air Room Air Room Air O2 Flow Rate 4.0 04/30/16 04/30/16 04/30/16 04/30/16 16:54 17:00 18:00 19:00 Pulse 97 114 103 100 Resp B/P 171/108 137/86 129/91 132/91 Pulse Ox 94 94 94 O2 Delivery Room Air Room Air Room Air 04/30/16 04/30/16 04/30/16 04/30/16 19:24 20:00 20:00 21:00 Temp 97.4 97.4 Pulse 102 108 Resp 23 B/P 131/79 119/80 Pulse Ox 94 93 92 O2 Delivery Room Air Room Air Room Air Room Air 04/30/16 04/30/16 04/30/16 04/30/16 21:50 21:51 22:00 23:00 Pulse 100 100 108 102 Resp 35 23 B/P 119/80 119/80 103/74 114/74 Pulse Ox 94 93 O2 Delivery Room Air Room Air 05/01/16 05/01/16 05/01/16 05/01/16 00:00 00:00 01:00 02:00 Temp 97.9 97.9 Pulse 92 86 80 Resp 23 B/P 114/70 95/61 106/70 Pulse Ox 92 92 94 O2 Delivery Room Air Room Air Room Air Room Air 05/01/16 05/01/16 05/01/16 05/01/16 03:00 04:00 04:00 05:00 Temp 98.0 98.0 Pulse 78 76 79 Resp B/P 102/63 112/65 93/71 Pulse Ox 95 94 95 O2 Delivery Room Air Room Air Room Air Room Air 05/01/16 05/01/16 05/01/16 05/01/16 06:00 07:00 07:59 07:59 Pulse 90 82 82 74 Resp 24 22 B/P 107/70 105/69 105/69 110/82 Pulse Ox 96 93 O2 Delivery Room Air Room Air 05/01/16 05/01/16 05/01/16 05/01/16 08:00 08:00 09:00 10:00 Temp 97.7 97.7 Pulse 95 82 85 Resp 35 30 22 B/P 110/82 109/70 89/54 Pulse Ox 96 97 96 O2 Delivery Room Air Room Air Room Air Room Air 05/01/16 11:00 Pulse 85 Resp 24 B/P 105/70 Pulse Ox 96 O2 Delivery Room Air Intake and Output 04/30/16 04/30/16 05/01/16 15:00 23:00 07:00 Intake Total 440 ml 2092 ml Output Total 600 ml 900 ml 500 ml Balance -600 ml -460 ml 1592 ml BARBARA LUCAS III DO May 01, 2016 11:31
[2016-05-01 11:33] LABS: ALBUMIN 3.1 g/dL (3.4-5.0); DIRECT BILIRUBIN 0.2 mg/dL (0.0-0.2); MAGNESIUM 2.2 mg/dL (1.8-2.4); TOTAL BILIRUBIN 1.3 mg/dL (0.2-1.0); TOTAL PROTEIN 6.4 g/dL (6.4-8.2)
[2016-05-01] MEDS ORDERED: LISINOPRIL 10 MG TABLET PO SCH (12:00)
== END 2016-05-01 13:20 | disposition home or self-care (01) | DRG 247 ==
LOC: 1 WEST ICU 11:49
PROVIDERS: ADMIT Internal Medicine; ATTEND Internal Medicine
PROC: 027034Z Dilation of Coronary Artery, One Artery with Drug-eluting Intraluminal Device, Percutaneous Approach (ICD-10-PCS; principal; 2016-04-30)
PROC: 4A023N7 Measurement of Cardiac Sampling and Pressure, Left Heart, Percutaneous Approach (ICD-10-PCS; 2016-04-30)
PROC: B2111ZZ Fluoroscopy of Multiple Coronary Arteries using Low Osmolar Contrast (ICD-10-PCS; 2016-04-30)
PROC: B2151ZZ Fluoroscopy of Left Heart using Low Osmolar Contrast (ICD-10-PCS; 2016-04-30)
DX: I21.4 Non-ST elevation (NSTEMI) myocardial infarction (principal); I16.1 Hypertensive emergency; M62.82 Rhabdomyolysis; E78.5 Hyperlipidemia, unspecified; I10 Essential (primary) hypertension; F10.20 Alcohol dependence, uncomplicated; M19.90 Unspecified osteoarthritis, unspecified site; Z82.49 Family history of ischemic heart disease and other diseases of the circulatory system; Z95.5 Presence of coronary angioplasty implant and graft; Z88.0 Allergy status to penicillin
CPT/HCPCS: 92928; 93458; C8929; 36415; 80048; 80061; 80076; 82550; 83735; 85027; 87641; 93306; 94250; 94760; C1725; C1769; C1874; C1887; C1892; J0360; J2250; J3010; J3490; J7030; Q9967; J3246; Q9950

== ENCOUNTER 2018-07-21 23:49 | Inpatient (IN) | payer OTHER ==
[~2018-07-21] VITALS: Ht 167.6 cm; Wt 82.2 kg
[~2018-07-21 23:49] MED LIST: HYDR-3164 PO
[2018-07-22 02:08] LABS: BASO % 0 % (0-3); EOS % 0 % (0-3); HEMATOCRIT 46.9 % (39.0-53.0); HEMOGLOBIN 15.6 g/dL (13.0-17.5); LYMPH # 1.3 x10^3/uL (1.0-4.8); LYMPH % 11 % (24-48); MEAN CORPUSCULAR HEMOGLOBIN 31 pg (25-35); MEAN CORPUSCULAR HGB CONC 33 g/dL (31-37); MEAN CORPUSCULAR VOLUME 93 fL (79-100); MONO # 1.3 x10^3/uL (0.0-1.1); MONO % 10 % (0-9); NEUT % 79 % (31-73); PLATELET COUNT 265 x10^3/uL (140-400); RED BLOOD COUNT 5.04 x10^6/uL (4.30-5.70); RED CELL DISTRIBUTION WIDTH 13.6 % (11.5-14.5); WHITE BLOOD COUNT 12.7 x10^3/uL (4.0-11.0)
[2018-07-22 02:12] LABS: CALCIUM 9.1 mg/dL (8.5-10.1); CREATININE 1.2 mg/dL (0.7-1.3); GFR 62.2; POTASSIUM 4.1 mmol/L (3.5-5.1)
[2018-07-22 02:18] LABS: ALBUMIN 3.7 g/dL (3.4-5.0); ALBUMIN/GLOBULIN RATIO 0.9 (1.0-1.7); TOTAL BILIRUBIN 2.2 mg/dL (0.2-1.0); TOTAL PROTEIN 7.6 g/dL (6.4-8.2)
[2018-07-22] MEDS ORDERED: VANCOMYCIN 2 GM in IV NORMAL SALINE 500ML BAG 500 ML IV ONE (04:00)
[2018-07-22] MEDS ORDERED: fentaNYL PF VIAL 100 MCG/2 ML VIAL ONE (04:04)
[2018-07-22] MEDS ORDERED: ONDANSETRON PF 4 MG/2 ML VIAL. IV PRN (05:00)
[2018-07-22] MEDS: VANCOMYCIN PER PHARMACY MC PRN (05:25)
--- NOTE | 2018-07-22 05:26 | NUR ---
Pharmacy Vancomycin Dosing Note S:Consulted to monitor and dose vancomycin started 07/22/18. O:KALANI PINEDA is a 57 year old M with Cellulitis . Height: 5 feet, 6 inches Weight: 79.468440 kg [place] Body Weight: 63.80 Adjusted Body Weight: 69.88 Dosing Weight: Actual Other Antibiotics: LABS: Last BUN: 15 Last Creatinine: 1.2 Creatinine Clearance: 66.5 mL/min Last WBC: 12.7 Last Procalcitonin: Tmax (past 24 hours): Microbiology: I/O: Drug Levels: Last level: on at Last dose given 07/22/18 at 0400 Vancomycin Dosing: Loading Dose: 2000 mg x1 Dosing Weight: Actual Target Trough: 10-20 A: Based on: WT AND CRCL P: 1. Begin Vancomycin 1250 mg IV q12h 2. Follow up Trough level on 07/23/18 at 1530 3. Pharmacy will continue to monitor, follow and adjust therapy as needed. MARIBETH HAN RPH, 07/22/18 0526 Signed: 07/22/18 at 525 by MARIBETH HAN RPH PHA
[2018-07-22] MEDS ORDERED: CLOP75TA PO (06:39)
[2018-07-22] MEDS ORDERED: MULT1TAB52 PO (06:39)
[2018-07-22] MEDS ORDERED: ASPI81TA50 PO (06:39)
[2018-07-22] MEDS ORDERED: METO25TA4 PO (06:39)
[2018-07-22] MEDS ORDERED: ATOR40TA59 PO (06:39)
[2018-07-22] MEDS ORDERED: LISI10TA2 PO (06:39)
[2018-07-22 07:00] VITALS: BP 139/85
[2018-07-22] MEDS: ACETAMINOPHEN 500 MG TABLET PO PRN (07:56)
[2018-07-22] MEDS: LISINOPRIL 10 MG TABLET PO SCH (10:03)
[2018-07-22] MEDS: ASPIRIN ENTERIC COATED 81 MG TABLET.DR. PO SCH (10:04)
[2018-07-22] MEDS: MULTIVITAMIN with MINERAL TABLET. PO SCH (10:04)
[2018-07-22] MEDS: IV NORMAL SALINE 1000ML BAG 1,000 ML IV SCH ×2 (10:05→16:07)
[2018-07-22] MEDS: METOPROLOL TART IMMED RELEASE 25 MG TABLET. PO SCH ×2 (10:05→20:30)
[2018-07-22] MEDS: MORPHINE SULFATE 2 MG/ML VIAL. IV PRN ×2 (10:10→17:07)
[2018-07-22 10:51] VITALS: BP 146/88
--- NOTE | 2018-07-22 11:03 | PDOC1 ---
History and Physical Date of Admission Date of Admission DATE: 07/22/18 TIME: 11:01 History of Present Illness History of Present Illness PT SEEN IN ER FOR SEVERE PROGRESSIVE CELLULITIS LEFT LEG. 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, but noticed no injury recently, was playing golf with his son for last 3 days, did not see a spider on the course, but has seen spiders in his home Past Medical History Cardiovascular: CAD, HTN, UT, Hyperlipidemia Pulmonary: COPD Psych: Anxiety, Addictions Family History Family History: Alcohol Abuse, Coronary Artery Disease Social History Smoke: <1 pack per day ALCOHOL: heavy Drugs: None Current Medications Current Medications Current Medications Vancomycin HCl 2 gm/Sodium Chloride 500 ml @ 250 mls/hr 1X ONCE IV Last administered on 07/22/18at 03:23; Start 07/22/18 at 04:00; Stop 07/22/18 at 05:59 ; Status DC Vancomycin HCl (Vanco Per Pharmacy) 1 each PRN DAILY PRN MC SEE COMMENTS Last administered on 07/22/18at 05:25; Start 07/22/18 at 03:15 Fentanyl Citrate (Fentanyl 2ml Vial) 100 mcg STK-MED ONCE .ROUTE ; Start at 04:04; Stop 07/22/18 at 04:05; Status DC Ondansetron HCl (Zofran) 4 mg PRN Q8HRS PRN IV NAUSEA/VOMITING 1ST CHOICE; Start 07/22/18 at 05:00; Stop 07/23/18 at 04:59 Morphine Sulfate (Morphine Sulfate) 2 mg PRN Q2HR PRN IV SEVERE PAIN Last administered on 07/22/18at 10:10; Start 07/22/18 at 05:00; Stop 07/23/18 at 04:59 Vancomycin HCl 1.25 gm/Sodium Chloride 250 ml @ 167 mls/hr Q12H IV ; Start at 16:00 Vancomycin HCl (Vancomycin Trough Level) 1 each 1X ONCE MC ; Start 07/23/18 at 15:30; Stop 07/23/18 at 15:31 Acetaminophen (Tylenol) 1,000 mg PRN Q6HRS PRN PO fever/ mild pain Last administered on 07/22/18at 07:56; Start 07/22/18 at 07:45 Sodium Chloride 1,000 ml @ 100 mls/hr Q10H IV Last administered on 07/22/18at 10:05; Start 07/22/18 at 09:45 Aspirin (Ecotrin) 81 mg DAILY PO Last administered on 07/22/18at 10:04; Start at 10:00 Atorvastatin Calcium (Lipitor) 40 mg QHS PO ; Start 07/22/18 at 21:00 Lisinopril (Prinivil) 10 mg DAILY PO Last administered on 07/22/18at 10:03; Start 07/22/18 at 10:00 Metoprolol Tartrate (Lopressor) 25 mg BID PO Last administered on 07/22/18at 10: 05; Start 07/22/18 at 10:00 Multivitamins (Thera M Plus) 1 tab DAILY PO Last administered on 07/22/18at 10: 04; Start 07/22/18 at 10:00 Active Scripts Active Reported Atorvastatin Calcium 40 Mg Tablet 1 Tab PO DAILY Lisinopril 10 Mg Tablet 1 Tab PO DAILY Clopidogrel (Clopidogrel Bisulfate) 75 Mg Tablet 1 Tab PO DAILY Metoprolol Tartrate 25 Mg Tablet 1 Tab PO BID Aspir-Low (Aspirin) 81 Mg Tablet.dr 1 Tab PO DAILY Multivitamins (Multivitamin) 1 Each Tablet 1 Tab PO DAILY Allergies Allergies: Coded Allergies: Penicillins (Verified Allergy, Severe, 04/30/16) ROS Review of System 14 PT ROS OTHERWISE NEG General: YES: Fatigue PSYCHOLOGICAL ROS: No: Anxiety, Behavioral Disorder, Concentration difficultie , Decreased libido, Depression, Disorientation, Hallucinations, Hostility, Irritablity, Memory difficulties, Mood Swings, Obsessive thoughts, Physical abuse, Sexual abuse, Sleep disturbances, Suicidal ideation, Other Eyes: No Blurry vision, No Decreased vision, No Double vision, No Dry eyes, No Excessive tearing, No Eye Pain, No Itchy Eyes, No Loss of vision, No Photophobia , No Scotomata, No Uses contacts, No Uses glasses, No Other HEENT: No: Heacaches, Visual Changes, Hearing change, Nasal congestion, Nasal discharge, Oral lesions, Sinus pain, Sore Throat, Epistaxis, Sneezing, Snoring, Tinnitus, Vertigo, Vocal changes, Other ALLERGY AND IMMUNOLOGY: No: Hives, Insect Bite Sensitivity, Itchy/Watery Eyes, Nasal Congestion, Post Nasal Drip, Seasonal Allergies, Other Hematological and Lymphatic: No: Bleeding Problems, Blood Clots, Blood Transfusions, Brusing, Night Sweats, Pallor, Swollen Lymph Nodes, Other ENDOCRINE: No: Breast Changes, Galactorrhea, Hair Pattern Changes, Hot Flashes , Malaise/lethargy, Mood Swings, Palpitations, Polydipsia/polyuria, Skin Changes , Temperature Intolerance, Unexpected Weight Changes, Other Breast: No New/Changing Breast Lumps, No Nipple changes, No Nipple discharge, No Other Respiratory: No: Cough, Hemoptysis, Orthopnea, Pleuritic Pain, Shortness of breath, SOB with excertion, Sputum Changes, Stridor, Tachypnea, Wheezing, Other Cardiovascular: No Chest Pain, No Palpitations, No Orthopnea, No Paroxysmal Noc. Dyspnea, No Edema, No Lt Headedness, No Other Gastrointestinal: No Nausea, No Vomiting, No Abdominal Pain, No Diarrhea, No Constipation, No Melena, No Hematochezia, No Other Genitourinary: No Dysuria, No Frequency, No Incontinence, No Hematuria, No Retention, No Discharge, No Urgency, No Pain, No Flank Pain, No Other, No , No , No , No , No , No , No Musculoskeletal: No Gait Disturbance, No Joint Pain, No Joint Stiffness, No Joint Swelling, No Muscle Pain, No Muscular Weakness, No Pain In:, No Swelling In:, No Other Neurological: Yes Gait Disturbance; No Behavorial Changes, No Bowel/Bladder ControlChng, No Confusion, No Dizziness, No Headaches, No Impaired Coord/balance, No Memory Loss, No Numbness/ Tingling, No Seizures, No Speech Problems, No Tremors, No Visual Changes, No Weakness, No Other Skin: Yes Hair Changes, Yes Rash, Yes Skin Lesion Changes Physical Exam General: Alert, Oriented X3, Cooperative, No acute distress, mild distress HEENT: PERRLA Lungs: Clear to auscultation, Normal air movement Heart: RRR, no thrills, no gallops, no murmurs Abdomen: Normal bowel sounds, Soft, No tenderness, No hepatosplenomegaly, No masses Rectal Exam: not examined Skin: Other (extensive cellulitis left upper inner leg with deep tissue involvement) Neuro: Normal speech, Sensation intact, Cranial nerves 3-12 NL Psych/Mental Status: Mental status NL Vitals Vitals Vital Signs Date Time Temp Pulse Resp B/P (MAP) Pulse Ox O2 Delivery O2 Flow Rate FiO2 07/22/18 10:51 100.1 86 20 146/88 (107) 97 Room Air 100.1 Labs Labs Laboratory Tests Test 07/22/18 01:29 White Blood Count 12.7 x10^3/uL (4.0-11.0) Red Blood Count 5.04 x10^6/uL (4.30-5.70) Hemoglobin 15.6 g/dL (13.0-17.5) Hematocrit 46.9 % (39.0-53.0) Mean Corpuscular Volume 93 fL (79-100) Mean Corpuscular Hemoglobin 31 pg (25-35) Mean Corpuscular Hemoglobin Concent 33 g/dL (31-37) Red Cell Distribution Width 13.6 % (11.5-14.5) Platelet Count 265 x10^3/uL (140-400) Neutrophils (%) (Auto) 79 % (31-73) Lymphocytes (%) (Auto) 11 % (24-48) Monocytes (%) (Auto) 10 % (0-9) Eosinophils (%) (Auto) 0 % (0-3) Basophils (%) (Auto) 0 % (0-3) Neutrophils # (Auto) 10.0 x10^3uL (1.8-7.7) Lymphocytes # (Auto) 1.3 x10^3/uL (1.0-4.8) Monocytes # (Auto) 1.3 x10^3/uL (0.0-1.1) Eosinophils # (Auto) 0.0 x10^3/uL (0.0-0.7) Basophils # (Auto) 0.0 x10^3/uL (0.0-0.2) Sodium Level 136 mmol/L (136-145) Potassium Level 4.1 mmol/L (3.5-5.1) Chloride Level 97 mmol/L (98-107) Carbon Dioxide Level 27 mmol/L (21-32) Anion Gap 12 (6-14) Blood Urea Nitrogen 15 mg/dL (8-26) Creatinine 1.2 mg/dL (0.7-1.3) Estimated GFR (Cockcroft-Gault) 62.2 BUN/Creatinine Ratio 13 (6-20) Glucose Level 111 mg/dL (70-99) Lactic Acid Level 0.9 mmol/L (0.4-2.0) Calcium Level 9.1 mg/dL (8.5-10.1) Total Bilirubin 2.2 mg/dL (0.2-1.0) Aspartate Amino Transf (AST/SGOT) 17 U/L (15-37) Alanine Aminotransferase (ALT/SGPT) 28 U/L (16-63) Alkaline Phosphatase 71 U/L (46-116) Total Protein 7.6 g/dL (6.4-8.2) Albumin 3.7 g/dL (3.4-5.0) Albumin/Globulin Ratio 0.9 (1.0-1.7) Laboratory Tests Test 07/22/18 01:29 White Blood Count 12.7 x10^3/uL (4.0-11.0) Red Blood Count 5.04 x10^6/uL (4.30-5.70) Hemoglobin 15.6 g/dL (13.0-17.5) Hematocrit 46.9 % (39.0-53.0) Mean Corpuscular Volume 93 fL (79-100) Mean Corpuscular Hemoglobin 31 pg (25-35) Mean Corpuscular Hemoglobin Concent 33 g/dL (31-37) Red Cell Distribution Width 13.6 % (11.5-14.5) Platelet Count 265 x10^3/uL (140-400) Neutrophils (%) (Auto) 79 % (31-73) Lymphocytes (%) (Auto) 11 % (24-48) Monocytes (%) (Auto) 10 % (0-9) Eosinophils (%) (Auto) 0 % (0-3) Basophils (%) (Auto) 0 % (0-3) Neutrophils # (Auto) 10.0 x10^3uL (1.8-7.7) Lymphocytes # (Auto) 1.3 x10^3/uL (1.0-4.8) Monocytes # (Auto) 1.3 x10^3/uL (0.0-1.1) Eosinophils # (Auto) 0.0 x10^3/uL (0.0-0.7) Basophils # (Auto) 0.0 x10^3/uL (0.0-0.2) Sodium Level 136 mmol/L (136-145) Potassium Level 4.1 mmol/L (3.5-5.1) Chloride Level 97 mmol/L (98-107) Carbon Dioxide Level 27 mmol/L (21-32) Anion Gap 12 (6-14) Blood Urea Nitrogen 15 mg/dL (8-26) Creatinine 1.2 mg/dL (0.7-1.3) Estimated GFR (Cockcroft-Gault) 62.2 BUN/Creatinine Ratio 13 (6-20) Glucose Level 111 mg/dL (70-99) Lactic Acid Level 0.9 mmol/L (0.4-2.0) Calcium Level 9.1 mg/dL (8.5-10.1) Total Bilirubin 2.2 mg/dL (0.2-1.0) Aspartate Amino Transf (AST/SGOT) 17 U/L (15-37) Alanine Aminotransferase (ALT/SGPT) 28 U/L (16-63) Alkaline Phosphatase 71 U/L (46-116) Total Protein 7.6 g/dL (6.4-8.2) Albumin 3.7 g/dL (3.4-5.0) Albumin/Globulin Ratio 0.9 (1.0-1.7) VTE Prophylaxis Ordered VTE Prophylaxis Devices: Contraindicated VTE Pharmacological Prophylaxi: Yes Assessment/Plan Assessment/Plan ASSESSMENT: 1. Hypertensive hx fair control 2. Non-ST elevation myocardial infarction. HX NSTEMI s/p cardiac cath and stent placement on 04/30/16 3. HX 5 mm pulmonary nodule. 4. Alcohol abuse. severe HX, persistent 6 shots/ night 5. THC usage.HX 6. severe cellulitis left upper leg/ thigh, possible infected insect bite with deep tissue involvement 7. sepsis plan iv vanc blood cult ID CONSULT ALCOHOL WITHDRAWAL PREVENTION DVT PROPHYLAXIS wound care, local, wound care nurse to see MELINA MAE MD Jul 22, 2018 11:03
[2018-07-22] MEDS: LORazepam 1 MG TABLET PO SCH ×3 (11:56→23:57)
[2018-07-22] MEDS ORDERED: MULTIVIT INFUSN,ADULT 4,VIT K 10 ML, THIAMINE INJ 100 MG, FOLIC ACID INJ 1 MG in IV NOR... IV ONE (13:00)
[2018-07-22] MEDS ORDERED: TETANUS AND DIPHTHERIA TOX/PF 0.5 ML DISP.SYRIN. VAX IM ONE (13:00)
--- NOTE | 2018-07-22 14:20 | NUR ---
Wound Care Wound care consult for wound to left thigh. Pt has large, red, indurated abscess to left medial thigh. Cleansed area, applied medi-honey and covered with foam, recommend to change every 2 days and PRN. Pt also has multiple small scabs that are reddened over bilat legs. Dr Schmidt is ordering ultrasound and surgical consult. WC will continue to follow for possible changes.
[2018-07-22] MEDS ORDERED: CEFEPIME HCL IV Push 1 GM VIAL. IVP ONE (14:30)
[2018-07-22] MEDS: CLOPIDOGREL BISULFATE 75 MG TABLET PO SCH (14:44)
[2018-07-22] MEDS: ENOXAPARIN 40 MG/0.4 ML SYRINGE. SQ SCH (14:46)
[2018-07-22 15:10] VITALS: BP 113/68
--- NOTE | 2018-07-22 16:46 | RAD ---
EXAM: Left lower extremity venous Doppler sonogram. HISTORY: Pain and swelling. TECHNIQUE: Glover scale and color Doppler sonographic evaluation of the left lower extremity veins with spectral waveform analysis was performed. FINDINGS: There is normal color flow, normal compressibility and there are normal spectral waveforms in the common femoral, superficial femoral, popliteal, posterior tibial and greater saphenous veins. IMPRESSION: No Doppler evidence of lower extremity deep venous thrombosis. Electronically signed by: Brooke Love MD (07/22/2018 4:44 PM) [place] [id number]
[2018-07-22] MEDS: VANCOMYCIN 1.25 GM in IV NORMAL SALINE 250ML 250 ML IV SCH (17:06)
[2018-07-22 19:00] VITALS: BP 147/84
[2018-07-22] MEDS: CEFEPIME HCL IV Push 1 GM VIAL. IVP SCH (20:30)
[2018-07-22] MEDS: LACTOBACILLUS RHAMNOSUS GG 1 CAPSULE. PO SCH (20:30)
[2018-07-22] MEDS: LINEZOLID 600 MG TABLET PO SCH (20:31)
[2018-07-22] MEDS: ATORVASTATIN CALCIUM 40 MG TABLET. PO SCH (20:39)
[2018-07-22 23:00] VITALS: BP 121/84
[2018-07-23] VITALS (7 sets, daily range): BP systolic 106–140; BP diastolic 60–85
--- NOTE | 2018-07-23 00:39 | CONS ---
DATE OF CONSULTATION: 07/22/2018 REFERRING PHYSICIAN: Dr. Palmer. REASON FOR CONSULTATION: Severe left lower extremity cellulitis. HISTORY OF PRESENT ILLNESS: A 57-year-old male with history of coronary artery disease, hypertension, history of CO, history of hyperlipidemia, COPD, anxiety, addiction, presented to the ER with left lower extremity redness, swelling, which started as a small blister. He squeezed the lesion and then started draining. The patient also has seen multiple small skin lesions over both the lower extremities. He was afebrile. 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 He was playing golf with his son a couple of days prior to admission. He was febrile with leukocytosis. He was given IV vancomycin and admitted to the medical floor for further evaluation and treatment. Lactate was within normal limits. ID consult has been requested for antibiotic management. PAST MEDICAL HISTORY: Coronary artery disease, hypertension, CO, hyperlipidemia, COPD, anxiety, addiction. FAMILY HISTORY: As per HPI. SOCIAL HISTORY: Smokes less than 1 pack per day. EtOH: Heavy. Drugs: None. Lives at home. CURRENT MEDICATION: IV vancomycin. Other medications reviewed in medication list. ALLERGIES: PENICILLIN, NOT KNOWN, SAID PASSED OUT WHEN HE WAS A CHILD, BUT HAS TOLERATED AMOXICILLIN IN THE PAST. REVIEW OF SYSTEMS: GENERAL: Fatigue, fevers, subjective chills. HEENT: Negative. RESPIRATORY: Negative. CARDIAC: Negative. GASTROINTESTINAL: Negative. GENITOURINARY: Negative. MUSCULOSKELETAL: Negative. DERMATOLOGIC: As above. NEUROLOGIC: Negative. PSYCHIATRIC: Negative. PHYSICAL EXAMINATION: VITAL SIGNS: Temperature 100.1, T-max 101, pulse 86, respiratory rate 20, blood pressure 146/88, oxygen saturation 97% on room air. GENERAL: Alert, oriented x 3 male, in no acute distress, cooperative, pleasant, lying comfortably in bed. HEENT: Normocephalic, atraumatic, anicteric. No thrush. Oral mucosa moist. NECK: Supple. No JVD. No thyromegaly. LUNGS: Clear bilaterally. No wheezing. HEART: S1, S2. No rubs, gallops, murmurs, or rubs. ABDOMEN: Soft, nontender, nondistended. No rebound, no guarding. EXTREMITIES: Extensive left upper inner thigh redness, swelling with possible early developing abscess. Multiple skin lesions present on both lower extremities with mild pustular opening. NEUROLOGIC: Alert and oriented x 3, grossly nonfocal. PSYCHIATRIC: Cooperative, appropriate mood and affect. LABORATORY DATA: WBC 12.7, hemoglobin 15.6, hematocrit 46.9, platelets 265, neutrophils 79. Sodium 136, potassium 4.1, chloride 97, bicarbonate 27, BUN 16, creatinine 1.2, glucose 111. Lactate 1.0, calcium 9.1, total bilirubin 2.2. LFTs within normal limits. RADIOLOGY: None. Micro: Blood culture done. IMPRESSION: 1. Severe left lower extremity cellulitis with possible early developing abscess Lt thigh. 2. Multiple pustular lesions over both lower extremities. The patient denies any history of insect bite or trauma. 3. Hypertension. 4. History of non-ST elevation myocardial infarction, status post cardiac catheterization and stent placement in 04/2016. 5. Alcohol abuse with hyperbilirubinemia. 6. THC usage by history. 7. Sepsis. 8. Leukocytosis. RECOMMENDATIONS: 1. Continue IV vancomycin. 2. We will start the patient on cefepime, states has tolerated amoxicillin in the past. Monitor closely.Discussed with RN and Pharmacy to start with low dose and escalate if tolerates it well. Pt has agreed. 3. We will add Zyvox for toxin binding. 4. Obtain ultrasound nonvascular of left lower extremity to rule out any underlying abscess. 5. Consult Gen surgery for possible I and D 6. Continue local wound care. 7. Follow up cultures and susceptibility results and lab in a.m. 8. Continue supportive care. D/W RN Thank you, Dr. Palmer, for consulting Infectious Disease to participate in this patient's care. If you have any questions, do not hesitate to contact me. RINA LEMOS MD DR: KATLYN/be JOB#: [id number] / [id number] MATTHEW
[2018-07-23] MEDS: VANCOMYCIN 1.25 GM in IV NORMAL SALINE 250ML 250 ML IV SCH ×2 (04:11→16:37)
[2018-07-23] MEDS: IV NORMAL SALINE 1000ML BAG 1,000 ML IV SCH ×2 (04:12→16:37)
[2018-07-23] MEDS: ACETAMINOPHEN 500 MG TABLET PO PRN ×2 (06:06→20:58)
[2018-07-23] MEDS: LORazepam 1 MG TABLET PO SCH ×2 (06:06→12:21)
[2018-07-23 07:29] LABS: BASO % 0 % (0-3); EOS # 0.1 x10^3/uL (0.0-0.7); EOS % 1 % (0-3); HEMATOCRIT 41.1 % (39.0-53.0); HEMOGLOBIN 13.7 g/dL (13.0-17.5); LYMPH # 1.2 x10^3/uL (1.0-4.8); LYMPH % 14 % (24-48); MEAN CORPUSCULAR HEMOGLOBIN 31 pg (25-35); MEAN CORPUSCULAR HGB CONC 33 g/dL (31-37); MEAN CORPUSCULAR VOLUME 94 fL (79-100); MONO # 0.9 x10^3/uL (0.0-1.1); MONO % 10 % (0-9); NEUT # 6.6 x10^3uL (1.8-7.7); NEUT % 75 % (31-73); PLATELET COUNT 233 x10^3/uL (140-400); RED BLOOD COUNT 4.36 x10^6/uL (4.30-5.70); RED CELL DISTRIBUTION WIDTH 13.5 % (11.5-14.5); WHITE BLOOD COUNT 8.8 x10^3/uL (4.0-11.0)
[2018-07-23 07:46] LABS: ALBUMIN 2.5 g/dL (3.4-5.0); ALBUMIN/GLOBULIN RATIO 0.7 (1.0-1.7); CALCIUM 8.1 mg/dL (8.5-10.1); GFR 76.7; POTASSIUM 3.5 mmol/L (3.5-5.1); TOTAL BILIRUBIN 1.2 mg/dL (0.2-1.0)
[2018-07-23] MEDS: CEFEPIME HCL IV Push 1 GM VIAL. IVP SCH ×2 (08:39→20:50)
[2018-07-23] MEDS: CLOPIDOGREL BISULFATE 75 MG TABLET PO SCH (08:40)
[2018-07-23] MEDS: FOLIC ACID 1 MG TABLET. PO SCH (08:40)
[2018-07-23] MEDS: LISINOPRIL 10 MG TABLET PO SCH (08:40)
[2018-07-23] MEDS: METOPROLOL TART IMMED RELEASE 25 MG TABLET. PO SCH ×2 (08:40→20:49)
[2018-07-23] MEDS: THIAMINE 100 MG TABLET. PO SCH (08:40)
[2018-07-23] MEDS: ASPIRIN ENTERIC COATED 81 MG TABLET.DR. PO SCH (08:40)
[2018-07-23] MEDS: LINEZOLID 600 MG TABLET PO SCH ×2 (08:40→20:49)
[2018-07-23] MEDS: LACTOBACILLUS RHAMNOSUS GG 1 CAPSULE. PO SCH ×2 (08:40→20:50)
[2018-07-23] MEDS: MULTIVITAMIN with MINERAL TABLET. PO SCH (08:40)
[2018-07-23] MEDS ORDERED: THIAMINE INJ 100 MG in IV DEXTROSE 5% 50 ML IV SCH (09:00)
[2018-07-23] MEDS ORDERED: MULTIVITAMIN with MINERAL TABLET. PO SCH (09:00)
--- NOTE | 2018-07-23 09:06 | PDOC ---
Infectious Disease Note Subjective: Subjective Pt says feels ok had low grade fever last night lt thigh wound is draining redness and pain is improving ROS: ROS Negative except for above. Vital Signs: Vital Signs Vital Signs Date Time Temp Pulse Resp B/P (MAP) Pulse Ox O2 Delivery O2 Flow Rate FiO2 07/23/18 08:40 60 124/60 07/23/18 07:00 98.3 17 98 Room Air 98.3 Physical Exam: PHYSICAL EXAM GENERAL: Alert, oriented x 3 male, in no acute distress, cooperative, pleasant, lying comfortably in bed. HEENT: Normocephalic, atraumatic, anicteric. No thrush. Oral mucosa moist. NECK: Supple. No JVD. No thyromegaly. LUNGS: Clear bilaterally. No wheezing. HEART: S1, S2. No rubs, gallops, murmurs, or rubs. ABDOMEN: Soft, nontender, nondistended. No rebound, no guarding. EXTREMITIES: Extensive left upper inner thigh redness, swelling with necrotic appearing lesion with induration,tenderness, likely early developing abscess. Multiple skin lesions present on both lower extremities with mild pustular opening. NEUROLOGIC: Alert and oriented x 3, grossly nonfocal. PSYCHIATRIC: Cooperative, appropriate mood and affect. Medications: Inpatient Meds: Current Medications Medications (Trade) Dose Ordered Sig/[facility] Start Time Stop Time Status Last Admin Dose Admin Acetaminophen (Tylenol) 1,000 mg PRN Q6HRS PRN 07/22/18 07:45 07/23/18 06:06 1,000 MG Aspirin (Ecotrin) 81 mg DAILY 07/22/18 10:00 07/23/18 08:40 81 MG Atorvastatin Calcium (Lipitor) 40 mg QHS 07/22/18 21:00 07/22/18 20:39 40 MG Cefepime HCl (Maxipime) 0.5 gm 1X ONCE 07/22/18 14:30 07/22/18 14:31 DC 07/22/18 14:49 0.5 GM Clopidogrel Bisulfate (Plavix) 75 mg DAILY 07/22/18 12:00 07/23/18 08:40 75 MG Enoxaparin Sodium (Lovenox 40mg Syringe) 40 mg Q24H 07/22/18 13:00 07/22/18 14:46 40 MG Fentanyl Citrate (Fentanyl 2ml Vial) 100 mcg [facility]-MED ONCE 07/22/18 04:04 07/22/18 04:05 DC Folic Acid (Folic Acid) 1 mg DAILY 07/23/18 09:00 07/23/18 08:40 1 MG Lactobacillus Rhamnosus (Culturelle) 1 cap BID 07/22/18 21:00 07/23/18 08:40 1 CAP Linezolid (Zyvox) 600 mg BID 07/22/18 21:00 07/23/18 08:40 600 MG Lisinopril (Prinivil) 10 mg DAILY 07/22/18 10:00 07/23/18 08:40 10 MG Lorazepam (Ativan) 2 mg Q6H 07/22/18 12:00 07/23/18 18:01 07/23/18 06:06 2 MG Metoprolol Tartrate (Lopressor) 25 mg BID 07/22/18 10:00 07/23/18 08:40 25 MG Morphine Sulfate (Morphine Sulfate) 2 mg PRN Q2HR PRN 07/22/18 05:00 07/23/18 04:59 DC 07/22/18 17:07 2 MG Multivitamins (Thera M Plus) 1 tab DAILY 07/23/18 09:00 UNV Multivitamins 10 ml/Thiamine HCl 100 mg/Folic Acid 1 mg/Sodium Chloride 1,011.2 ml @ 100 mls/ hr 1X ONCE 07/22/18 13:00 07/22/18 23:06 DC 07/22/18 14:45 100 MLS/HR Ondansetron HCl (Zofran) 4 mg PRN Q8HRS PRN 07/22/18 05:00 07/23/18 04:59 DC Sodium Chloride 1,000 ml @ 100 mls/hr Q10H 07/22/18 09:45 07/23/18 04:12 100 MLS/HR Tetanus/ Diphtheria Toxoids (Tenivac Syringe) 0.5 ml ONCE ONCE 07/22/18 13:00 07/22/18 13:01 DC 07/22/18 14:48 0.5 ML Thiamine Mononitrate (Vitamin B-1) 100 mg DAILY 07/23/18 09:00 07/23/18 08:40 100 MG Thiamine HCl 100 mg/Dextrose 51 ml @ 100 mls/hr DAILY 07/23/18 09:00 07/27/18 09:31 UNV Vancomycin HCl (Vanco Per Pharmacy) 1 each PRN DAILY PRN 07/22/18 03:15 07/22/18 05:25 1 EACH Vancomycin HCl (Vancomycin Trough Level) 1 each 1X ONCE 07/23/18 15:30 07/23/18 15:31 Vancomycin HCl 1.25 gm/Sodium Chloride 250 ml @ 167 mls/hr Q12H 07/22/18 16:00 07/23/18 04:11 167 MLS/HR Vancomycin HCl 2 gm/Sodium Chloride 500 ml @ 250 mls/hr 1X ONCE 07/22/18 04:00 07/22/18 05:59 DC 07/22/18 03:23 250 MLS/HR Labs: Lab Laboratory Tests Test 07/22/18 12:20 07/23/18 05:50 Lactic Acid Level 1.0 mmol/L (0.4-2.0) White Blood Count 8.8 x10^3/uL (4.0-11.0) Red Blood Count 4.36 x10^6/uL (4.30-5.70) Hemoglobin 13.7 g/dL (13.0-17.5) Hematocrit 41.1 % (39.0-53.0) Mean Corpuscular Volume 94 fL (79-100) Mean Corpuscular Hemoglobin 31 pg (25-35) Mean Corpuscular Hemoglobin Concent 33 g/dL (31-37) Red Cell Distribution Width 13.5 % (11.5-14.5) Platelet Count 233 x10^3/uL (140-400) Neutrophils (%) (Auto) 75 % (31-73) Lymphocytes (%) (Auto) 14 % (24-48) Monocytes (%) (Auto) 10 % (0-9) Eosinophils (%) (Auto) 1 % (0-3) Basophils (%) (Auto) 0 % (0-3) Neutrophils # (Auto) 6.6 x10^3uL (1.8-7.7) Lymphocytes # (Auto) 1.2 x10^3/uL (1.0-4.8) Monocytes # (Auto) 0.9 x10^3/uL (0.0-1.1) Eosinophils # (Auto) 0.1 x10^3/uL (0.0-0.7) Basophils # (Auto) 0.0 x10^3/uL (0.0-0.2) Sodium Level 136 mmol/L (136-145) Potassium Level 3.5 mmol/L (3.5-5.1) Chloride Level 101 mmol/L (98-107) Carbon Dioxide Level 25 mmol/L (21-32) Anion Gap 10 (6-14) Blood Urea Nitrogen 14 mg/dL (8-26) Creatinine 1.0 mg/dL (0.7-1.3) Estimated GFR (Cockcroft-Gault) 76.7 BUN/Creatinine Ratio 14 (6-20) Glucose Level 88 mg/dL (70-99) Calcium Level 8.1 mg/dL (8.5-10.1) Total Bilirubin 1.2 mg/dL (0.2-1.0) Aspartate Amino Transf (AST/SGOT) 15 U/L (15-37) Alanine Aminotransferase (ALT/SGPT) 18 U/L (16-63) Alkaline Phosphatase 54 U/L (46-116) Total Protein 6.0 g/dL (6.4-8.2) Albumin 2.5 g/dL (3.4-5.0) Albumin/Globulin Ratio 0.7 (1.0-1.7) Objective: Assessment: 1. Severe left lower extremity cellulitis with possible early developing abscess Lt thigh.Now draining spontaneously 2. Multiple pustular lesions over both lower extremities. The patient denies any history of insect bite or trauma. 3. Hypertension. 4. History of non-ST elevation myocardial infarction, status post cardiac catheterization and stent placement in 04/2016. 5. Alcohol abuse with hyperbilirubinemia. 6. THC usage by history. 7. Sepsis. 8. Leukocytosis. Plan: Plan of Care IV vancomycin/Cefepime/zyvox Gen surgical consult. wound swab for c/s Continue local wound care. Follow up cultures and susceptibility results and lab in a.m. Continue supportive care. D/W D/W RINA PEDRAZA MD Jul 23, 2018 09:06
--- NOTE | 2018-07-23 10:27 | PDOC ---
PROGRESS NOTES Chief Complaint Chief Complaint ASSESSMENT: severe cellulitis left upper leg/ thigh, possible infected insect bite with deep tissue involvement. multiple pustular lesions in LE. 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 denies insect bites Hypertension HX NSTEMI s/p cardiac cath and stent placement on 04/30/16 HX 5 mm pulmonary nodule. Alcohol abuse. severe HX, persistent 6 shots/ night THC usage.HX PLAN: IV vancomycin/Cefepime/zyvox blood cultures ordered apprec ID local wound care continue home meds ALCOHOL WITHDRAWAL PREVENTION DVT PROPHYLAXIS Vitals Vitals Vital Signs Date Time Temp Pulse Resp B/P (MAP) Pulse Ox O2 Delivery O2 Flow Rate FiO2 07/23/18 08:40 60 124/60 07/23/18 07:00 98.3 17 98 Room Air 98.3 Physical Exam Physical Exam GENERAL: Alert, oriented x 3 male, in no acute distress, cooperative, pleasant, lying comfortably in bed. HEENT: Normocephalic, atraumatic, anicteric. No thrush. Oral mucosa moist. NECK: Supple. No JVD. No thyromegaly. LUNGS: Clear bilaterally. No wheezing. HEART: S1, S2. No rubs, gallops, murmurs, or rubs. ABDOMEN: Soft, nontender, nondistended. No rebound, no guarding. EXTREMITIES: Extensive left upper inner thigh redness, swelling with necrotic appearing lesion with induration,tenderness, likely early developing abscess. Multiple skin lesions present on both lower extremities with mild pustular opening. NEUROLOGIC: Alert and oriented x 3, grossly nonfocal. PSYCHIATRIC: Cooperative, appropriate mood and affect. General: Alert, Oriented X3, Cooperative, No acute distress, mild distress Lungs: Clear, Other Abdomen: Normal bowel sounds, Soft, No tenderness, No hepatosplenomegaly, No masses Skin: Other (extensive cellulitis left upper inner leg with deep tissue involvement) Labs LABS Laboratory Tests Test 07/22/18 12:20 07/23/18 05:50 Lactic Acid Level 1.0 mmol/L (0.4-2.0) White Blood Count 8.8 x10^3/uL (4.0-11.0) Red Blood Count 4.36 x10^6/uL (4.30-5.70) Hemoglobin 13.7 g/dL (13.0-17.5) Hematocrit 41.1 % (39.0-53.0) Mean Corpuscular Volume 94 fL (79-100) Mean Corpuscular Hemoglobin 31 pg (25-35) Mean Corpuscular Hemoglobin Concent 33 g/dL (31-37) Red Cell Distribution Width 13.5 % (11.5-14.5) Platelet Count 233 x10^3/uL (140-400) Neutrophils (%) (Auto) 75 % (31-73) Lymphocytes (%) (Auto) 14 % (24-48) Monocytes (%) (Auto) 10 % (0-9) Eosinophils (%) (Auto) 1 % (0-3) Basophils (%) (Auto) 0 % (0-3) Neutrophils # (Auto) 6.6 x10^3uL (1.8-7.7) Lymphocytes # (Auto) 1.2 x10^3/uL (1.0-4.8) Monocytes # (Auto) 0.9 x10^3/uL (0.0-1.1) Eosinophils # (Auto) 0.1 x10^3/uL (0.0-0.7) Basophils # (Auto) 0.0 x10^3/uL (0.0-0.2) Sodium Level 136 mmol/L (136-145) Potassium Level 3.5 mmol/L (3.5-5.1) Chloride Level 101 mmol/L (98-107) Carbon Dioxide Level 25 mmol/L (21-32) Anion Gap 10 (6-14) Blood Urea Nitrogen 14 mg/dL (8-26) Creatinine 1.0 mg/dL (0.7-1.3) Estimated GFR (Cockcroft-Gault) 76.7 BUN/Creatinine Ratio 14 (6-20) Glucose Level 88 mg/dL (70-99) Calcium Level 8.1 mg/dL (8.5-10.1) Total Bilirubin 1.2 mg/dL (0.2-1.0) Aspartate Amino Transf (AST/SGOT) 15 U/L (15-37) Alanine Aminotransferase (ALT/SGPT) 18 U/L (16-63) Alkaline Phosphatase 54 U/L (46-116) Total Protein 6.0 g/dL (6.4-8.2) Albumin 2.5 g/dL (3.4-5.0) Albumin/Globulin Ratio 0.7 (1.0-1.7) Comment Review of Relevant I have reviewed the following items macario (where applicable) has been applied. Labs Laboratory Tests Test 07/22/18 01:29 07/22/18 12:20 07/23/18 05:50 White Blood Count 12.7 x10^3/uL (4.0-11.0) 8.8 x10^3/uL (4.0-11.0) Red Blood Count 5.04 x10^6/uL (4.30-5.70) 4.36 x10^6/uL (4.30-5.70) Hemoglobin 15.6 g/dL (13.0-17.5) 13.7 g/dL (13.0-17.5) Hematocrit 46.9 % (39.0-53.0) 41.1 % (39.0-53.0) Mean Corpuscular Volume 93 fL (79-100) 94 fL (79-100) Mean Corpuscular Hemoglobin 31 pg (25-35) 31 pg (25-35) Mean Corpuscular Hemoglobin Concent 33 g/dL (31-37) 33 g/dL (31-37) Red Cell Distribution Width 13.6 % (11.5-14.5) 13.5 % (11.5-14.5) Platelet Count 265 x10^3/uL (140-400) 233 x10^3/uL (140-400) Neutrophils (%) (Auto) 79 % (31-73) 75 % (31-73) Lymphocytes (%) (Auto) 11 % (24-48) 14 % (24-48) Monocytes (%) (Auto) 10 % (0-9) 10 % (0-9) Eosinophils (%) (Auto) 0 % (0-3) 1 % (0-3) Basophils (%) (Auto) 0 % (0-3) 0 % (0-3) Neutrophils # (Auto) 10.0 x10^3uL (1.8-7.7) 6.6 x10^3uL (1.8-7.7) Lymphocytes # (Auto) 1.3 x10^3/uL (1.0-4.8) 1.2 x10^3/uL (1.0-4.8) Monocytes # (Auto) 1.3 x10^3/uL (0.0-1.1) 0.9 x10^3/uL (0.0-1.1) Eosinophils # (Auto) 0.0 x10^3/uL (0.0-0.7) 0.1 x10^3/uL (0.0-0.7) Basophils # (Auto) 0.0 x10^3/uL (0.0-0.2) 0.0 x10^3/uL (0.0-0.2) Sodium Level 136 mmol/L (136-145) 136 mmol/L (136-145) Potassium Level 4.1 mmol/L (3.5-5.1) 3.5 mmol/L (3.5-5.1) Chloride Level 97 mmol/L (98-107) 101 mmol/L (98-107) Carbon Dioxide Level 27 mmol/L (21-32) 25 mmol/L (21-32) Anion Gap 12 (6-14) 10 (6-14) Blood Urea Nitrogen 15 mg/dL (8-26) 14 mg/dL (8-26) Creatinine 1.2 mg/dL (0.7-1.3) 1.0 mg/dL (0.7-1.3) Estimated GFR (Cockcroft-Gault) 62.2 76.7 BUN/Creatinine Ratio 13 (6-20) 14 (6-20) Glucose Level 111 mg/dL (70-99) 88 mg/dL (70-99) Lactic Acid Level 0.9 mmol/L (0.4-2.0) 1.0 mmol/L (0.4-2.0) Calcium Level 9.1 mg/dL (8.5-10.1) 8.1 mg/dL (8.5-10.1) Total Bilirubin 2.2 mg/dL (0.2-1.0) 1.2 mg/dL (0.2-1.0) Aspartate Amino Transf (AST/SGOT) 17 U/L (15-37) 15 U/L (15-37) Alanine Aminotransferase (ALT/SGPT) 28 U/L (16-63) 18 U/L (16-63) Alkaline Phosphatase 71 U/L (46-116) 54 U/L (46-116) Total Protein 7.6 g/dL (6.4-8.2) 6.0 g/dL (6.4-8.2) Albumin 3.7 g/dL (3.4-5.0) 2.5 g/dL (3.4-5.0) Albumin/Globulin Ratio 0.9 (1.0-1.7) 0.7 (1.0-1.7) Laboratory Tests Test 07/22/18 12:20 07/23/18 05:50 Lactic Acid Level 1.0 mmol/L (0.4-2.0) White Blood Count 8.8 x10^3/uL (4.0-11.0) Red Blood Count 4.36 x10^6/uL (4.30-5.70) Hemoglobin 13.7 g/dL (13.0-17.5) Hematocrit 41.1 % (39.0-53.0) Mean Corpuscular Volume 94 fL (79-100) Mean Corpuscular Hemoglobin 31 pg (25-35) Mean Corpuscular Hemoglobin Concent 33 g/dL (31-37) Red Cell Distribution Width 13.5 % (11.5-14.5) Platelet Count 233 x10^3/uL (140-400) Neutrophils (%) (Auto) 75 % (31-73) Lymphocytes (%) (Auto) 14 % (24-48) Monocytes (%) (Auto) 10 % (0-9) Eosinophils (%) (Auto) 1 % (0-3) Basophils (%) (Auto) 0 % (0-3) Neutrophils # (Auto) 6.6 x10^3uL (1.8-7.7) Lymphocytes # (Auto) 1.2 x10^3/uL (1.0-4.8) Monocytes # (Auto) 0.9 x10^3/uL (0.0-1.1) Eosinophils # (Auto) 0.1 x10^3/uL (0.0-0.7) Basophils # (Auto) 0.0 x10^3/uL (0.0-0.2) Sodium Level 136 mmol/L (136-145) Potassium Level 3.5 mmol/L (3.5-5.1) Chloride Level 101 mmol/L (98-107) Carbon Dioxide Level 25 mmol/L (21-32) Anion Gap 10 (6-14) Blood Urea Nitrogen 14 mg/dL (8-26) Creatinine 1.0 mg/dL (0.7-1.3) Estimated GFR (Cockcroft-Gault) 76.7 BUN/Creatinine Ratio 14 (6-20) Glucose Level 88 mg/dL (70-99) Calcium Level 8.1 mg/dL (8.5-10.1) Total Bilirubin 1.2 mg/dL (0.2-1.0) Aspartate Amino Transf (AST/SGOT) 15 U/L (15-37) Alanine Aminotransferase (ALT/SGPT) 18 U/L (16-63) Alkaline Phosphatase 54 U/L (46-116) Total Protein 6.0 g/dL (6.4-8.2) Albumin 2.5 g/dL (3.4-5.0) Albumin/Globulin Ratio 0.7 (1.0-1.7) Microbiology 07/22/18 Blood Culture - Preliminary, Resulted NO GROWTH AFTER 1 DAY Medications Current Medications Vancomycin HCl 2 gm/Sodium Chloride 500 ml @ 250 mls/hr 1X ONCE IV Last administered on 07/22/18at 03:23; Start 07/22/18 at 04:00; Stop 07/22/18 at 05:59 ; Status DC Vancomycin HCl (Vanco Per Pharmacy) 1 each PRN DAILY PRN MC SEE COMMENTS Last administered on 07/22/18at 05:25; Start 07/22/18 at 03:15 Fentanyl Citrate (Fentanyl 2ml Vial) 100 mcg STK-MED ONCE .ROUTE ; Start at 04:04; Stop 07/22/18 at 04:05; Status DC Ondansetron HCl (Zofran) 4 mg PRN Q8HRS PRN IV NAUSEA/VOMITING 1ST CHOICE; Start 07/22/18 at 05:00; Stop 07/23/18 at 04:59; Status DC Morphine Sulfate (Morphine Sulfate) 2 mg PRN Q2HR PRN IV SEVERE PAIN Last administered on 07/22/18at 17:07; Start 07/22/18 at 05:00; Stop 07/23/18 at 04:59 ; Status DC Vancomycin HCl 1.25 gm/Sodium Chloride 250 ml @ 167 mls/hr Q12H IV Last administered on 07/23/18at 04:11; Start 07/22/18 at 16:00 Vancomycin HCl (Vancomycin Trough Level) 1 each 1X ONCE MC ; Start 07/23/18 at 15:30; Stop 07/23/18 at 15:31 Acetaminophen (Tylenol) 1,000 mg PRN Q6HRS PRN PO fever/ mild pain Last administered on 07/23/18at 06:06; Start 07/22/18 at 07:45 Sodium Chloride 1,000 ml @ 100 mls/hr Q10H IV Last administered on 07/23/18at 04:12; Start 07/22/18 at 09:45 Aspirin (Ecotrin) 81 mg DAILY PO Last administered on 07/23/18 08:40; Start at 10:00 Atorvastatin Calcium (Lipitor) 40 mg QHS PO Last administered on 07/22/18at 20: 39; Start 07/22/18 at 21:00 Lisinopril (Prinivil) 10 mg DAILY PO Last administered on 07/23/18at 08:40; Start 07/22/18 at 10:00 Metoprolol Tartrate (Lopressor) 25 mg BID PO Last administered on 07/23/18 08: 40; Start 07/22/18 at 10:00 Multivitamins (Thera M Plus) 1 tab DAILY PO Last administered on 07/23/18at 08: 40; Start 07/22/18 at 10:00 Clopidogrel Bisulfate (Plavix) 75 mg DAILY PO Last administered on 07/23/18at 08 :40; Start 07/22/18 at 12:00 Multivitamins 10 ml/Thiamine HCl 100 mg/Folic Acid 1 mg/Sodium Chloride 1,011.2 ml @ 100 mls/ hr 1X ONCE IV Last administered on 07/22/18at 14:45; Start 07/22 at 13:00; Stop 07/22/18 at 23:06; Status DC Multivitamins (Thera M Plus) 1 tab DAILY PO ; Start 07/23/18 at 09:00; Status UNV Folic Acid (Folic Acid) 1 mg DAILY PO Last administered on 07/23/18at 08:40; Start 07/23/18 at 09:00 Thiamine HCl 100 mg/Dextrose 51 ml @ 100 mls/hr DAILY IV ; Start 07/23/18 at 09 :00; Stop 07/27/18 at 09:31; Status UNV Lorazepam (Ativan) 2 mg Q6H PO Last administered on 07/23/18 06:06; Start at 12:00; Stop 07/23/18 at 18:01 Enoxaparin Sodium (Lovenox 40mg Syringe) 40 mg Q24H SQ Last administered on at 14:46; Start 07/22/18 at 13:00 Tetanus/ Diphtheria Toxoids (Tenivac Syringe) 0.5 ml ONCE ONCE VAX IM Last administered on 07/22/18 14:48; Start 07/22/18 at 13:00; Stop 07/22/18 at 13:01 ; Status DC Thiamine Mononitrate (Vitamin B-1) 100 mg DAILY PO Last administered on at 08:40; Start 07/23/18 at 09:00 Lactobacillus Rhamnosus (Culturelle) 1 cap BID PO Last administered on at 08:40; Start 07/22/18 at 21:00 Cefepime HCl (Maxipime) 1 gm Q12HR IVP Last administered on 07/23/18 08:39; Start 07/22/18 at 21:00 Linezolid (Zyvox) 600 mg BID PO Last administered on 07/23/18 08:40; Start at 21:00 Cefepime HCl (Maxipime) 0.5 gm 1X ONCE IVP Last administered on 07/22/18at 14: 49; Start 07/22/18 at 14:30; Stop 07/22/18 at 14:31; Status DC Active Scripts Active Reported Atorvastatin Calcium 40 Mg Tablet 1 Tab PO DAILY Lisinopril 10 Mg Tablet 1 Tab PO DAILY Clopidogrel (Clopidogrel Bisulfate) 75 Mg Tablet 1 Tab PO DAILY Metoprolol Tartrate 25 Mg Tablet 1 Tab PO BID Aspir-Low (Aspirin) 81 Mg Tablet. 1 Tab PO DAILY Multivitamins (Multivitamin) 1 Each Tablet 1 Tab PO DAILY Vitals/I & O Vital Sign - Last 24 Hours 07/22/18 07/22/18 07/22/18 07/22/18 10:51 15:10 17:07 17:37 Temp 100.1 98.2 100.1 98.2 Pulse 86 83 Resp 20 18 18 16 B/P (MAP) 146/88 (107) 113/68 (83) Pulse Ox 97 97 O2 Delivery Room Air Room Air Room Air Room Air 07/22/18 07/22/18 07/22/18 07/22/18 19:00 20:05 20:30 23:00 Temp 98.1 98.0 98.1 98.0 Pulse 107 107 96 Resp 18 18 B/P (MAP) 147/84 (105) 147/84 121/84 (96) Pulse Ox 93 95 O2 Delivery Room Air Room Air Room Air 07/23/18 07/23/18 07/23/18 07/23/18 03:00 07:00 08:40 08:40 Temp 97.8 98.3 97.8 98.3 Pulse 95 60 60 60 Resp 18 17 B/P (MAP) 106/69 (81) 124/60 (81) 124/60 124/60 Pulse Ox 92 98 O2 Delivery Room Air Room Air Intake and Output 07/22/18 07/22/18 07/23/18 15:00 23:00 07:00 Intake Total 600 ml 360 ml 590 ml Output Total 200 ml Balance 600 ml 160 ml 590 ml ANNALEE INFANTE MD Jul 23, 2018 10:27
--- NOTE | 2018-07-23 12:55 | PDOC2 ---
CONSULT Date of Consult Date of Consult DATE: 07/23/18 TIME: 12:50 Reason for Consult Reason for Consult: left thigh wound Referring Physician Referring Physician: YASMANI Identification/Chief Complaint Chief Complaint left thigh pain Source Source: Caregiver, Chart review, Patient History of Present Illness Reason for Visit: Mr Mckinney is a 57 yo who spent the last few days golfing with his sonl He has several skin lesions on his legs that suggest bug bites. One area on the medial mid thigh is deeply erythematous, indurated, painful and has some necrotic debris in the center. I cannot appreciate any fluctuance Past Medical History Cardiovascular: CAD, HTN, [place], Hyperlipidemia Pulmonary: COPD Psych: Anxiety, Addictions Family History Family History: Alcohol Abuse, Coronary Artery Disease Social History <1 pack per day ALCOHOL: heavy Drugs: None Lives: with Family Current Medications Current Medications Current Medications Vancomycin HCl 2 gm/Sodium Chloride 500 ml @ 250 mls/hr 1X ONCE IV Last administered on 07/22/18at 03:23; Start 07/22/18 at 04:00; Stop 07/22/18 at 05:59 ; Status DC Vancomycin HCl (Vanco Per Pharmacy) 1 each PRN DAILY PRN MC SEE COMMENTS Last administered on 07/22/18at 05:25; Start 07/22/18 at 03:15 Fentanyl Citrate (Fentanyl 2ml Vial) 100 mcg STK-MED ONCE .ROUTE ; Start at 04:04; Stop 07/22/18 at 04:05; Status DC Ondansetron HCl (Zofran) 4 mg PRN Q8HRS PRN IV NAUSEA/VOMITING 1ST CHOICE; Start 07/22/18 at 05:00; Stop 07/23/18 at 04:59; Status DC Morphine Sulfate (Morphine Sulfate) 2 mg PRN Q2HR PRN IV SEVERE PAIN Last administered on 07/22/18at 17:07; Start 07/22/18 at 05:00; Stop 07/23/18 at 04:59 ; Status DC Vancomycin HCl 1.25 gm/Sodium Chloride 250 ml @ 167 mls/hr Q12H IV Last administered on 07/23/18at 04:11; Start 07/22/18 at 16:00 Vancomycin HCl (Vancomycin Trough Level) 1 each 1X ONCE MC ; Start 07/23/18 at 15:30; Stop 07/23/18 at 15:31 Acetaminophen (Tylenol) 1,000 mg PRN Q6HRS PRN PO fever/ mild pain Last administered on 07/23/18 06:06; Start 07/22/18 at 07:45 Sodium Chloride 1,000 ml @ 100 mls/hr Q10H IV Last administered on 07/23/18at 04:12; Start 07/22/18 at 09:45 Aspirin (Ecotrin) 81 mg DAILY PO Last administered on 07/23/18 08:40; Start at 10:00 Atorvastatin Calcium (Lipitor) 40 mg QHS PO Last administered on 07/22/18 20: 39; Start 07/22/18 at 21:00 Lisinopril (Prinivil) 10 mg DAILY PO Last administered on 07/23/18 08:40; Start 07/22/18 at 10:00 Metoprolol Tartrate (Lopressor) 25 mg BID PO Last administered on 07/23/18 08: 40; Start 07/22/18 at 10:00 Multivitamins (Thera M Plus) 1 tab DAILY PO Last administered on 07/23/18at 08: 40; Start 07/22/18 at 10:00 Clopidogrel Bisulfate (Plavix) 75 mg DAILY PO Last administered on 07/23/18 08 :40; Start 07/22/18 at 12:00 Multivitamins 10 ml/Thiamine HCl 100 mg/Folic Acid 1 mg/Sodium Chloride 1,011.2 ml @ 100 mls/ hr 1X ONCE IV Last administered on 07/22/18at 14:45; Start 07/22 at 13:00; Stop 07/22/18 at 23:06; Status DC Multivitamins (Thera M Plus) 1 tab DAILY PO ; Start 07/23/18 at 09:00; Status UNV Folic Acid (Folic Acid) 1 mg DAILY PO Last administered on 07/23/18 08:40; Start 07/23/18 at 09:00 Thiamine HCl 100 mg/Dextrose 51 ml @ 100 mls/hr DAILY IV ; Start 07/23/18 at 09 :00; Stop 07/27/18 at 09:31; Status UNV Lorazepam (Ativan) 2 mg Q6H PO Last administered on 07/23/18at 06:06; Start at 12:00; Stop 07/23/18 at 18:01 Enoxaparin Sodium (Lovenox 40mg Syringe) 40 mg Q24H SQ Last administered on at 14:46; Start 07/22/18 at 13:00 Tetanus/ Diphtheria Toxoids (Tenivac Syringe) 0.5 ml ONCE ONCE VAX IM Last administered on 07/22/18at 14:48; Start 07/22/18 at 13:00; Stop 07/22/18 at 13:01 ; Status DC Thiamine Mononitrate (Vitamin B-1) 100 mg DAILY PO Last administered on 08:40; Start 07/23/18 at 09:00 Lactobacillus Rhamnosus (Culturelle) 1 cap BID PO Last administered on at 08:40; Start 07/22/18 at 21:00 Cefepime HCl (Maxipime) 1 gm Q12HR IVP Last administered on 07/23/18at 08:39; Start 07/22/18 at 21:00 Linezolid (Zyvox) 600 mg BID PO Last administered on 07/23/18at 08:40; Start at 21:00 Cefepime HCl (Maxipime) 0.5 gm 1X ONCE IVP Last administered on 07/22/18at 14: 49; Start 07/22/18 at 14:30; Stop 07/22/18 at 14:31; Status DC Active Scripts Active Reported Atorvastatin Calcium 40 Mg Tablet 1 Tab PO DAILY Lisinopril 10 Mg Tablet 1 Tab PO DAILY Clopidogrel (Clopidogrel Bisulfate) 75 Mg Tablet 1 Tab PO DAILY Metoprolol Tartrate 25 Mg Tablet 1 Tab PO BID Aspir-Low (Aspirin) 81 Mg Tablet.dr 1 Tab PO DAILY Multivitamins (Multivitamin) 1 Each Tablet 1 Tab PO DAILY Allergies Allergies: Coded Allergies: Penicillins (Verified Allergy, Severe, 04/30/16) ROS Review of System negative with exception of present complaints Physical Exam General: Alert, No acute distress HEENT: Atraumatic Lungs: Normal air movement Heart: Regular rate Abdomen: Soft Skin: Other (multiple "bites" lower extrmities, area in the medial mid thigh with erythema,warmth,TTP, no definate fluctuance) Vitals VITALS Vital Signs Date Time Temp Pulse Resp B/P (MAP) Pulse Ox O2 Delivery O2 Flow Rate FiO2 4/17/19 11:00 97.7 74 17 126/76 (93) 93 Room Air 97.7 Labs Labs Laboratory Tests Test 07/22/18 01:29 07/22/18 12:20 07/23/18 05:50 White Blood Count 12.7 x10^3/uL (4.0-11.0) 8.8 x10^3/uL (4.0-11.0) Red Blood Count 5.04 x10^6/uL (4.30-5.70) 4.36 x10^6/uL (4.30-5.70) Hemoglobin 15.6 g/dL (13.0-17.5) 13.7 g/dL (13.0-17.5) Hematocrit 46.9 % (39.0-53.0) 41.1 % (39.0-53.0) Mean Corpuscular Volume 93 fL (79-100) 94 fL (79-100) Mean Corpuscular Hemoglobin 31 pg (25-35) 31 pg (25-35) Mean Corpuscular Hemoglobin Concent 33 g/dL (31-37) 33 g/dL (31-37) Red Cell Distribution Width 13.6 % (11.5-14.5) 13.5 % (11.5-14.5) Platelet Count 265 x10^3/uL (140-400) 233 x10^3/uL (140-400) Neutrophils (%) (Auto) 79 % (31-73) 75 % (31-73) Lymphocytes (%) (Auto) 11 % (24-48) 14 % (24-48) Monocytes (%) (Auto) 10 % (0-9) 10 % (0-9) Eosinophils (%) (Auto) 0 % (0-3) 1 % (0-3) Basophils (%) (Auto) 0 % (0-3) 0 % (0-3) Neutrophils # (Auto) 10.0 x10^3uL (1.8-7.7) 6.6 x10^3uL (1.8-7.7) Lymphocytes # (Auto) 1.3 x10^3/uL (1.0-4.8) 1.2 x10^3/uL (1.0-4.8) Monocytes # (Auto) 1.3 x10^3/uL (0.0-1.1) 0.9 x10^3/uL (0.0-1.1) Eosinophils # (Auto) 0.0 x10^3/uL (0.0-0.7) 0.1 x10^3/uL (0.0-0.7) Basophils # (Auto) 0.0 x10^3/uL (0.0-0.2) 0.0 x10^3/uL (0.0-0.2) Sodium Level 136 mmol/L (136-145) 136 mmol/L (136-145) Potassium Level 4.1 mmol/L (3.5-5.1) 3.5 mmol/L (3.5-5.1) Chloride Level 97 mmol/L (98-107) 101 mmol/L (98-107) Carbon Dioxide Level 27 mmol/L (21-32) 25 mmol/L (21-32) Anion Gap 12 (6-14) 10 (6-14) Blood Urea Nitrogen 15 mg/dL (8-26) 14 mg/dL (8-26) Creatinine 1.2 mg/dL (0.7-1.3) 1.0 mg/dL (0.7-1.3) Estimated GFR (Cockcroft-Gault) 62.2 76.7 BUN/Creatinine Ratio 13 (6-20) 14 (6-20) Glucose Level 111 mg/dL (70-99) 88 mg/dL (70-99) Lactic Acid Level 0.9 mmol/L (0.4-2.0) 1.0 mmol/L (0.4-2.0) Calcium Level 9.1 mg/dL (8.5-10.1) 8.1 mg/dL (8.5-10.1) Total Bilirubin 2.2 mg/dL (0.2-1.0) 1.2 mg/dL (0.2-1.0) Aspartate Amino Transf (AST/SGOT) 17 U/L (15-37) 15 U/L (15-37) Alanine Aminotransferase (ALT/SGPT) 28 U/L (16-63) 18 U/L (16-63) Alkaline Phosphatase 71 U/L (46-116) 54 U/L (46-116) Total Protein 7.6 g/dL (6.4-8.2) 6.0 g/dL (6.4-8.2) Albumin 3.7 g/dL (3.4-5.0) 2.5 g/dL (3.4-5.0) Albumin/Globulin Ratio 0.9 (1.0-1.7) 0.7 (1.0-1.7) Laboratory Tests Test 07/23/18 05:50 White Blood Count 8.8 x10^3/uL (4.0-11.0) Red Blood Count 4.36 x10^6/uL (4.30-5.70) Hemoglobin 13.7 g/dL (13.0-17.5) Hematocrit 41.1 % (39.0-53.0) Mean Corpuscular Volume 94 fL (79-100) Mean Corpuscular Hemoglobin 31 pg (25-35) Mean Corpuscular Hemoglobin Concent 33 g/dL (31-37) Red Cell Distribution Width 13.5 % (11.5-14.5) Platelet Count 233 x10^3/uL (140-400) Neutrophils (%) (Auto) 75 % (31-73) Lymphocytes (%) (Auto) 14 % (24-48) Monocytes (%) (Auto) 10 % (0-9) Eosinophils (%) (Auto) 1 % (0-3) Basophils (%) (Auto) 0 % (0-3) Neutrophils # (Auto) 6.6 x10^3uL (1.8-7.7) Lymphocytes # (Auto) 1.2 x10^3/uL (1.0-4.8) Monocytes # (Auto) 0.9 x10^3/uL (0.0-1.1) Eosinophils # (Auto) 0.1 x10^3/uL (0.0-0.7) Basophils # (Auto) 0.0 x10^3/uL (0.0-0.2) Sodium Level 136 mmol/L (136-145) Potassium Level 3.5 mmol/L (3.5-5.1) Chloride Level 101 mmol/L (98-107) Carbon Dioxide Level 25 mmol/L (21-32) Anion Gap 10 (6-14) Blood Urea Nitrogen 14 mg/dL (8-26) Creatinine 1.0 mg/dL (0.7-1.3) Estimated GFR (Cockcroft-Gault) 76.7 BUN/Creatinine Ratio 14 (6-20) Glucose Level 88 mg/dL (70-99) Calcium Level 8.1 mg/dL (8.5-10.1) Total Bilirubin 1.2 mg/dL (0.2-1.0) Aspartate Amino Transf (AST/SGOT) 15 U/L (15-37) Alanine Aminotransferase (ALT/SGPT) 18 U/L (16-63) Alkaline Phosphatase 54 U/L (46-116) Total Protein 6.0 g/dL (6.4-8.2) Albumin 2.5 g/dL (3.4-5.0) Albumin/Globulin Ratio 0.7 (1.0-1.7) Images Images LEUS negative for DVT Assessment/Plan Assessment/Plan insect bites, cellulitis, possible abscess will ask for soft tissue US to assess for possible abscess will follow Thanks for consult JORGE MOELLER MD Jul 23, 2018 12:55
[2018-07-23] MEDS: ENOXAPARIN 40 MG/0.4 ML SYRINGE. SQ SCH (13:24)
--- NOTE | 2018-07-23 13:34 | RAD ---
EXAM: Left thigh sonogram. HISTORY: Pain and swelling. TECHNIQUE: Sonographic imaging of the left thigh at the site of reported pain and swelling was performed. COMPARISON: None. FINDINGS: There is soft tissue edema within the medial left thigh at a site of reported concern. No loculated fluid collection is seen. No mass is seen. IMPRESSION: Soft tissue edema within the medial left thigh. No abscess or drainable fluid collection is seen. Electronically signed by: Brooke Love MD (07/23/2018 1:31 PM) [facility]
[2018-07-23 15:59] LABS: VANC TR 10.2 mcg/mL (10.0-20.0)
[2018-07-23] MEDS: VANCOMYCIN PER PHARMACY MC PRN (16:12)
--- NOTE | 2018-07-23 16:13 | NUR ---
Pharmacy Vancomycin Dosing Note S:Consulted to monitor and dose vancomycin started 07/22/18. O:KALANI PINEDA is a 57 year old M with Cellulitis . Height: 5 feet, 6 inches Weight: 82.900776 kg [place] Body Weight: 63.80 Adjusted Body Weight: 69.88 Dosing Weight: Actual Other Antibiotics: CEFEPIME ZYVOX LABS: Last BUN: 14 Last Creatinine: 1.0 Creatinine Clearance: 81 mL/min Last WBC: 8.8 Last Procalcitonin: Tmax (past 24 hours): 98.3 Microbiology: 07/22- BLOOD: NO GROWTH TO DATE I/O: 1550/200 Drug Levels: Last Trough level: 10.2 on 07/23/18 at 1530 Last dose given 07/23/18 at 0411 Vancomycin Dosing: Loading Dose: 2000 mg x1 Dosing Weight: Actual Target Trough: 10-20 A: Based on: Therapeutic trough P: 1. Continue Vancomycin 1250 mg IV q12h. 2. Follow up Trough level as needed. 3. Pharmacy will continue to monitor, follow and adjust therapy as needed. NITIN PEDERSEN RPH, 07/23/18 [id number]
[2018-07-23] MEDS: ATORVASTATIN CALCIUM 40 MG TABLET. PO SCH (20:49)
[2018-07-24 03:00] VITALS: BP 126/89
[2018-07-24] MEDS: IV NORMAL SALINE 1000ML BAG 1,000 ML IV SCH ×2 (03:50→10:56)
[2018-07-24] MEDS: VANCOMYCIN 1.25 GM in IV NORMAL SALINE 250ML 250 ML IV SCH ×2 (03:50→15:40)
[2018-07-24 04:02] LABS: CREATININE 0.9 mg/dL (0.7-1.3); GFR 86.7
[2018-07-24 07:00] VITALS: BP 167/96
--- NOTE | 2018-07-24 08:22 | NUR ---
SW following pt for anticipated dc needs. Chart reviewed JUANITO RN. Pt lives at home with spouse and spouse is also currently admitted at [facility] as well. ID and Gen Sx following pt. No dc recommendations noted at this time. Will continue to assess needs.
[2018-07-24] MEDS: CLOPIDOGREL BISULFATE 75 MG TABLET PO SCH (08:39)
[2018-07-24] MEDS: MULTIVITAMIN with MINERAL TABLET. PO SCH (08:39)
[2018-07-24] MEDS: FOLIC ACID 1 MG TABLET. PO SCH (08:39)
[2018-07-24] MEDS: THIAMINE 100 MG TABLET. PO SCH (08:39)
[2018-07-24] MEDS: LINEZOLID 600 MG TABLET PO SCH ×2 (08:39→20:40)
[2018-07-24] MEDS: ACETAMINOPHEN 500 MG TABLET PO PRN ×2 (08:39→20:55)
[2018-07-24] MEDS: LISINOPRIL 10 MG TABLET PO SCH (08:39)
[2018-07-24] MEDS: METOPROLOL TART IMMED RELEASE 25 MG TABLET. PO SCH ×2 (08:40→20:40)
[2018-07-24] MEDS: CEFEPIME HCL IV Push 1 GM VIAL. IVP SCH ×2 (08:41→20:40)
[2018-07-24] MEDS: ASPIRIN ENTERIC COATED 81 MG TABLET.DR. PO SCH (08:43)
[2018-07-24] MEDS: LACTOBACILLUS RHAMNOSUS GG 1 CAPSULE. PO SCH ×2 (08:43→20:40)
--- NOTE | 2018-07-24 09:57 | PDOC ---
Infectious Disease Note Subjective: Subjective Pt says feels somewhat better fever pattern is improving lt thigh wound is draining ROS: ROS Negative except for above. Vital Signs: Vital Signs Vital Signs Date Time Temp Pulse Resp B/P (MAP) Pulse Ox O2 Delivery O2 Flow Rate FiO2 07/24/18 08:40 79 167/96 07/24/18 07:00 98.5 18 95 Room Air 98.5 Physical Exam: PHYSICAL EXAM GENERAL: Alert, oriented x 3 male, in no acute distress, cooperative, pleasant, lying comfortably in bed. HEENT: Normocephalic, atraumatic, anicteric. No thrush. Oral mucosa moist. NECK: Supple. No JVD. No thyromegaly. LUNGS: Clear bilaterally. No wheezing. HEART: S1, S2. No rubs, gallops, murmurs, or rubs. ABDOMEN: Soft, nontender, nondistended. No rebound, no guarding. EXTREMITIES: Extensive left upper inner thigh redness, swelling with necrotic appearing lesion with induration,tenderness, likely early developing abscess. Multiple skin lesions present on both lower extremities with mild pustular opening. NEUROLOGIC: Alert and oriented x 3, grossly nonfocal. PSYCHIATRIC: Cooperative, appropriate mood and affect. Medications: Inpatient Meds: Current Medications Medications (Trade) Dose Ordered Sig/Isabel Start Time Stop Time Status Last Admin Dose Admin Acetaminophen (Tylenol) 1,000 mg PRN Q6HRS PRN 07/22/18 07:45 07/24/18 08:39 1,000 MG Aspirin (Ecotrin) 81 mg DAILY 07/22/18 10:00 07/24/18 08:43 81 MG Atorvastatin Calcium (Lipitor) 40 mg QHS 07/22/18 21:00 07/23/18 20:49 40 MG Cefepime HCl (Maxipime) 0.5 gm 1X ONCE 07/22/18 14:30 07/22/18 14:31 DC 07/22/18 14:49 0.5 GM Clopidogrel Bisulfate (Plavix) 75 mg DAILY 07/22/18 12:00 07/24/18 08:39 75 MG Enoxaparin Sodium (Lovenox 40mg Syringe) 40 mg Q24H 07/22/18 13:00 07/23/18 13:24 40 MG Fentanyl Citrate (Fentanyl 2ml Vial) 100 mcg STK-MED ONCE 07/22/18 04:04 07/22/18 04:05 DC Folic Acid (Folic Acid) 1 mg DAILY 07/23/18 09:00 07/24/18 08:39 1 MG Lactobacillus Rhamnosus (Culturelle) 1 cap BID 07/22/18 21:00 07/24/18 08:43 1 CAP Linezolid (Zyvox) 600 mg BID 07/22/18 21:00 07/24/18 08:39 600 MG Lisinopril (Prinivil) 10 mg DAILY 07/22/18 10:00 07/24/18 08:39 10 MG Lorazepam (Ativan) 2 mg Q6H 07/22/18 12:00 07/23/18 18:01 DC 07/23/18 06:06 2 MG Metoprolol Tartrate (Lopressor) 25 mg BID 07/22/18 10:00 07/24/18 08:40 25 MG Morphine Sulfate (Morphine Sulfate) 2 mg PRN Q2HR PRN 07/22/18 05:00 07/23/18 04:59 DC 07/22/18 17:07 2 MG Multivitamins (Thera M Plus) 1 tab DAILY 07/23/18 09:00 UNV Multivitamins 10 ml/Thiamine HCl 100 mg/Folic Acid 1 mg/Sodium Chloride 1,011.2 ml @ 100 mls/ hr 1X ONCE 07/22/18 13:00 07/22/18 23:06 DC 07/22/18 14:45 100 MLS/HR Ondansetron HCl (Zofran) 4 mg PRN Q8HRS PRN 07/22/18 05:00 07/23/18 04:59 DC Sodium Chloride 1,000 ml @ 100 mls/hr Q10H 07/22/18 09:45 07/24/18 03:50 100 MLS/HR Tetanus/ Diphtheria Toxoids (Tenivac Syringe) 0.5 ml ONCE ONCE 07/22/18 13:00 07/22/18 13:01 DC 07/22/18 14:48 0.5 ML Thiamine Mononitrate (Vitamin B-1) 100 mg DAILY 07/23/18 09:00 07/24/18 08:39 100 MG Thiamine HCl 100 mg/Dextrose 51 ml @ 100 mls/hr DAILY 07/23/18 09:00 07/27/18 09:31 UNV Vancomycin HCl (Vanco Per Pharmacy) 1 each PRN DAILY PRN 07/22/18 03:15 07/23/18 16:12 1 EACH Vancomycin HCl (Vancomycin Trough Level) 1 each 1X ONCE 07/23/18 15:30 07/23/18 15:31 DC 07/23/18 15:30 1 EACH Vancomycin HCl 1.25 gm/Sodium Chloride 250 ml @ 167 mls/hr Q12H 07/22/18 16:00 07/24/18 03:50 167 MLS/HR Vancomycin HCl 2 gm/Sodium Chloride 500 ml @ 250 mls/hr 1X ONCE 07/22/18 04:00 07/22/18 05:59 DC 07/22/18 03:23 250 MLS/HR Labs: Lab Laboratory Tests Test 07/23/18 15:30 07/24/18 03:20 Vancomycin Level Trough 10.2 mcg/mL (10.0-20.0) Vancomycin Last Dose Date 07/23/18 Vancomycin Last Dose Time 0400 Creatinine 0.9 mg/dL (0.7-1.3) Estimated GFR (Cockcroft-Gault) 86.7 Objective: Assessment: 1. Severe left lower extremity cellulitis with furuncle Lt thigh.Now draining spontaneously,U/S neg for abscess BC neg Wound c/s neg 2. Multiple pustular lesions over both lower extremities. The patient denies any history of insect bite or trauma. 3. Hypertension. 4. History of non-ST elevation myocardial infarction, status post cardiac catheterization and stent placement in 04/2016. 5. Alcohol abuse with hyperbilirubinemia. 6. THC usage by history. 7. Sepsis.resolved 8. Leukocytosis. resolved Plan: Plan of Care IV vancomycin/Cefepime/zyvox repeat wound c/s sent to lab Gen surgical following.May need I and D f/u wound c/s Continue local wound care. Follow up cultures and susceptibility results and lab in a.m. Continue supportive care. D/W RINA PEDRAZA MD Jul 24, 2018 09:57
--- NOTE | 2018-07-24 10:14 | PDOC ---
JARRET CLIFTON [employer] 07/24/18 1014: SURGICAL PROGRESS NOTE Subjective tolerating diet still pain, maybe a little better Vital Signs Vital Signs Date Time Temp Pulse Resp B/P (MAP) Pulse Ox O2 Delivery O2 Flow Rate FiO2 07/24/18 08:40 79 167/96 07/24/18 07:00 98.5 18 95 Room Air 98.5 I&O Intake and Output 07/24/18 07:00 Intake Total 1480 ml Output Total 1820 ml Balance -340 ml Intake Oral 1480 ml Stool Total 1820 ml # Voids 2 # Bowel Movements 2 General: Alert, Oriented X3, Cooperative, No acute distress Skin: Other (erythema seems improved, wound in center some drainage, some necrosis in central wound ) Labs Laboratory Tests Test 07/22/18 12:20 07/23/18 05:50 07/23/18 15:30 07/24/18 03:20 Lactic Acid Level 1.0 mmol/L (0.4-2.0) White Blood Count 8.8 x10^3/uL (4.0-11.0) Red Blood Count 4.36 x10^6/uL (4.30-5.70) Hemoglobin 13.7 g/dL (13.0-17.5) Hematocrit 41.1 % (39.0-53.0) Mean Corpuscular Volume 94 fL (79-100) Mean Corpuscular Hemoglobin 31 pg (25-35) Mean Corpuscular Hemoglobin Concent 33 g/dL (31-37) Red Cell Distribution Width 13.5 % (11.5-14.5) Platelet Count 233 x10^3/uL (140-400) Neutrophils (%) (Auto) 75 % (31-73) Lymphocytes (%) (Auto) 14 % (24-48) Monocytes (%) (Auto) 10 % (0-9) Eosinophils (%) (Auto) 1 % (0-3) Basophils (%) (Auto) 0 % (0-3) Neutrophils # (Auto) 6.6 x10^3uL (1.8-7.7) Lymphocytes # (Auto) 1.2 x10^3/uL (1.0-4.8) Monocytes # (Auto) 0.9 x10^3/uL (0.0-1.1) Eosinophils # (Auto) 0.1 x10^3/uL (0.0-0.7) Basophils # (Auto) 0.0 x10^3/uL (0.0-0.2) Sodium Level 136 mmol/L (136-145) Potassium Level 3.5 mmol/L (3.5-5.1) Chloride Level 101 mmol/L (98-107) Carbon Dioxide Level 25 mmol/L (21-32) Anion Gap 10 (6-14) Blood Urea Nitrogen 14 mg/dL (8-26) Creatinine 1.0 mg/dL (0.7-1.3) 0.9 mg/dL (0.7-1.3) Estimated GFR (Cockcroft-Gault) 76.7 86.7 BUN/Creatinine Ratio 14 (6-20) Glucose Level 88 mg/dL (70-99) Calcium Level 8.1 mg/dL (8.5-10.1) Total Bilirubin 1.2 mg/dL (0.2-1.0) Aspartate Amino Transf (AST/SGOT) 15 U/L (15-37) Alanine Aminotransferase (ALT/SGPT) 18 U/L (16-63) Alkaline Phosphatase 54 U/L (46-116) Total Protein 6.0 g/dL (6.4-8.2) Albumin 2.5 g/dL (3.4-5.0) Albumin/Globulin Ratio 0.7 (1.0-1.7) Vancomycin Level Trough 10.2 mcg/mL (10.0-20.0) Vancomycin Last Dose Date 07/23/18 Vancomycin Last Dose Time 0400 Laboratory Tests Test 07/23/18 15:30 07/24/18 03:20 Vancomycin Level Trough 10.2 mcg/mL (10.0-20.0) Vancomycin Last Dose Date 07/23/18 Vancomycin Last Dose Time 0400 Creatinine 0.9 mg/dL (0.7-1.3) Estimated GFR (Cockcroft-Gault) 86.7 Assessment/Plan no abscess continue wound care, abx will review with JORGE Parisi MD 07/24/18 1232: SURGICAL PROGRESS NOTE Assessment/Plan d/w Mr Mckinney in his [facility] (she is admitted with cellulitis) explained would assess wound in AM for possible debridement NPO at midnight JARRET Del Valle [employer] Jul 24, 2018 10:14 JORGE MOELLER MD Jul 24, 2018 12:32
[2018-07-24] MEDS: hydrALAZINE 25 MG TABLET PO PRN (10:55)
[2018-07-24 11:00] VITALS: BP 181/104
[2018-07-24] MEDS: ENOXAPARIN 40 MG/0.4 ML SYRINGE. SQ SCH (13:00)
[2018-07-24] MEDS: VANCOMYCIN PER PHARMACY MC PRN (14:17)
--- NOTE | 2018-07-24 14:23 | PDOC ---
PROGRESS NOTES Chief Complaint Chief Complaint ASSESSMENT: severe cellulitis left upper leg/ thigh, possible infected insect bite with deep tissue involvement. multiple pustular lesions in LE. 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 denies insect bites Hypertension HX NSTEMI s/p cardiac cath and stent placement on 04/30/16 HX 5 mm pulmonary nodule. Alcohol abuse. severe HX, persistent 6 shots/ night THC usage.HX PLAN: IV vancomycin/Cefepime/zyvox blood cultures ordered wound cx pending apprec ID and gen sx if not improvement diamante will need debridement NPO past midnight local wound care continue home meds ALCOHOL WITHDRAWAL PREVENTION DVT PROPHYLAXIS Vitals Vitals Vital Signs Date Time Temp Pulse Resp B/P (MAP) Pulse Ox O2 Delivery O2 Flow Rate FiO2 07/24/18 11:00 98.5 94 18 181/104 (129) 93 Room Air 98.5 Physical Exam Physical Exam GENERAL: Alert, oriented x 3 male, in no acute distress, cooperative, pleasant, lying comfortably in bed. HEENT: Normocephalic, atraumatic, anicteric. No thrush. Oral mucosa moist. NECK: Supple. No JVD. No thyromegaly. LUNGS: Clear bilaterally. No wheezing. HEART: S1, S2. No rubs, gallops, murmurs, or rubs. ABDOMEN: Soft, nontender, nondistended. No rebound, no guarding. EXTREMITIES: Extensive left upper inner thigh redness, swelling with necrotic appearing lesion with induration,tenderness, likely early developing abscess. Multiple skin lesions present on both lower extremities with mild pustular opening. NEUROLOGIC: Alert and oriented x 3, grossly nonfocal. PSYCHIATRIC: Cooperative, appropriate mood and affect. General: Alert, Oriented X3, Cooperative, No acute distress Heart: Regular rate Lungs: Clear, Other Abdomen: Soft Skin: Other (erythema seems improved, wound in center some drainage, some necrosis in central wound ) Labs LABS Laboratory Tests Test 07/23/18 15:30 07/24/18 03:20 Vancomycin Level Trough 10.2 mcg/mL (10.0-20.0) Vancomycin Last Dose Date 07/23/18 Vancomycin Last Dose Time 0400 Creatinine 0.9 mg/dL (0.7-1.3) Estimated GFR (Cockcroft-Gault) 86.7 Comment Review of Relevant I have reviewed the following items macario (where applicable) has been applied. Labs Laboratory Tests Test 07/23/18 05:50 07/23/18 15:30 07/24/18 03:20 White Blood Count 8.8 x10^3/uL (4.0-11.0) Red Blood Count 4.36 x10^6/uL (4.30-5.70) Hemoglobin 13.7 g/dL (13.0-17.5) Hematocrit 41.1 % (39.0-53.0) Mean Corpuscular Volume 94 fL (79-100) Mean Corpuscular Hemoglobin 31 pg (25-35) Mean Corpuscular Hemoglobin Concent 33 g/dL (31-37) Red Cell Distribution Width 13.5 % (11.5-14.5) Platelet Count 233 x10^3/uL (140-400) Neutrophils (%) (Auto) 75 % (31-73) Lymphocytes (%) (Auto) 14 % (24-48) Monocytes (%) (Auto) 10 % (0-9) Eosinophils (%) (Auto) 1 % (0-3) Basophils (%) (Auto) 0 % (0-3) Neutrophils # (Auto) 6.6 x10^3uL (1.8-7.7) Lymphocytes # (Auto) 1.2 x10^3/uL (1.0-4.8) Monocytes # (Auto) 0.9 x10^3/uL (0.0-1.1) Eosinophils # (Auto) 0.1 x10^3/uL (0.0-0.7) Basophils # (Auto) 0.0 x10^3/uL (0.0-0.2) Sodium Level 136 mmol/L (136-145) Potassium Level 3.5 mmol/L (3.5-5.1) Chloride Level 101 mmol/L (98-107) Carbon Dioxide Level 25 mmol/L (21-32) Anion Gap 10 (6-14) Blood Urea Nitrogen 14 mg/dL (8-26) Creatinine 1.0 mg/dL (0.7-1.3) 0.9 mg/dL (0.7-1.3) Estimated GFR (Cockcroft-Gault) 76.7 86.7 BUN/Creatinine Ratio 14 (6-20) Glucose Level 88 mg/dL (70-99) Calcium Level 8.1 mg/dL (8.5-10.1) Total Bilirubin 1.2 mg/dL (0.2-1.0) Aspartate Amino Transf (AST/SGOT) 15 U/L (15-37) Alanine Aminotransferase (ALT/SGPT) 18 U/L (16-63) Alkaline Phosphatase 54 U/L (46-116) Total Protein 6.0 g/dL (6.4-8.2) Albumin 2.5 g/dL (3.4-5.0) Albumin/Globulin Ratio 0.7 (1.0-1.7) Vancomycin Level Trough 10.2 mcg/mL (10.0-20.0) Vancomycin Last Dose Date 07/23/18 Vancomycin Last Dose Time 0400 Laboratory Tests Test 07/23/18 15:30 07/24/18 03:20 Vancomycin Level Trough 10.2 mcg/mL (10.0-20.0) Vancomycin Last Dose Date 07/23/18 Vancomycin Last Dose Time 0400 Creatinine 0.9 mg/dL (0.7-1.3) Estimated GFR (Cockcroft-Gault) 86.7 Microbiology 07/22/18 Blood Culture - Preliminary, Resulted NO GROWTH AFTER 2 DAYS Medications Current Medications Vancomycin HCl 2 gm/Sodium Chloride 500 ml @ 250 mls/hr 1X ONCE IV Last administered on 07/22/18at 03:23; Start 07/22/18 at 04:00; Stop 07/22/18 at 05:59 ; Status DC Vancomycin HCl (Vanco Per Pharmacy) 1 each PRN DAILY PRN MC SEE COMMENTS Last administered on 07/24/18at 14:17; Start 07/22/18 at 03:15 Fentanyl Citrate (Fentanyl 2ml Vial) 100 mcg STK-MED ONCE .ROUTE ; Start at 04:04; Stop 07/22/18 at 04:05; Status DC Ondansetron HCl (Zofran) 4 mg PRN Q8HRS PRN IV NAUSEA/VOMITING 1ST CHOICE; Start 07/22/18 at 05:00; Stop 07/23/18 at 04:59; Status DC Morphine Sulfate (Morphine Sulfate) 2 mg PRN Q2HR PRN IV SEVERE PAIN Last administered on 07/22/18at 17:07; Start 07/22/18 at 05:00; Stop 07/23/18 at 04:59 ; Status DC Vancomycin HCl 1.25 gm/Sodium Chloride 250 ml @ 167 mls/hr Q12H IV Last administered on 07/24/18at 03:50; Start 07/22/18 at 16:00 Vancomycin HCl (Vancomycin Trough Level) 1 each 1X ONCE MC Last administered on 07/23/18 15:30; Start 07/23/18 at 15:30; Stop 07/23/18 at 15:31; Status DC Acetaminophen (Tylenol) 1,000 mg PRN Q6HRS PRN PO fever/ mild pain Last administered on 07/24/18 08:39; Start 07/22/18 at 07:45 Sodium Chloride 1,000 ml @ 100 mls/hr Q10H IV Last administered on 07/24/18 10:56; Start 07/22/18 at 09:45 Aspirin (Ecotrin) 81 mg DAILY PO Last administered on 07/24/18 08:43; Start at 10:00 Atorvastatin Calcium (Lipitor) 40 mg QHS PO Last administered on 07/23/18 20: 49; Start 07/22/18 at 21:00 Lisinopril (Prinivil) 10 mg DAILY PO Last administered on 07/24/18 08:39; Start 07/22/18 at 10:00 Metoprolol Tartrate (Lopressor) 25 mg BID PO Last administered on 07/24/18 08: 40; Start 07/22/18 at 10:00 Multivitamins (Thera M Plus) 1 tab DAILY PO Last administered on 07/24/18 08: 39; Start 07/22/18 at 10:00 Clopidogrel Bisulfate (Plavix) 75 mg DAILY PO Last administered on 07/24/18 08 :39; Start 07/22/18 at 12:00 Multivitamins 10 ml/Thiamine HCl 100 mg/Folic Acid 1 mg/Sodium Chloride 1,011.2 ml @ 100 mls/ hr 1X ONCE IV Last administered on 07/22/18 14:45; Start 07/22 at 13:00; Stop 07/22/18 at 23:06; Status DC Multivitamins (Thera M Plus) 1 tab DAILY PO ; Start 07/23/18 at 09:00; Status UNV Folic Acid (Folic Acid) 1 mg DAILY PO Last administered on 07/24/18 08:39; Start 07/23/18 at 09:00 Thiamine HCl 100 mg/Dextrose 51 ml @ 100 mls/hr DAILY IV ; Start 07/23/18 at 09 :00; Stop 07/27/18 at 09:31; Status UNV Lorazepam (Ativan) 2 mg Q6H PO Last administered on 07/23/18 06:06; Start at 12:00; Stop 07/23/18 at 18:01; Status DC Enoxaparin Sodium (Lovenox 40mg Syringe) 40 mg Q24H SQ Last administered on 13:24; Start 07/22/18 at 13:00 Tetanus/ Diphtheria Toxoids (Tenivac Syringe) 0.5 ml ONCE ONCE VAX IM Last administered on 07/22/18 14:48; Start 07/22/18 at 13:00; Stop 07/22/18 at 13:01 ; Status DC Thiamine Mononitrate (Vitamin B-1) 100 mg DAILY PO Last administered on 08:39; Start 07/23/18 at 09:00 Lactobacillus Rhamnosus (Culturelle) 1 cap BID PO Last administered on 08:43; Start 07/22/18 at 21:00 Cefepime HCl (Maxipime) 1 gm Q12HR IVP Last administered on 07/24/18 08:41; Start 07/22/18 at 21:00 Linezolid (Zyvox) 600 mg BID PO Last administered on 07/24/18 08:39; Start at 21:00 Cefepime HCl (Maxipime) 0.5 gm 1X ONCE IVP Last administered on 07/22/18 14: 49; Start 07/22/18 at 14:30; Stop 07/22/18 at 14:31; Status DC Hydralazine HCl (Apresoline) 25 mg PRN TID PRN PO ELEVATED BP, SEE COMMENTS Last administered on 07/24/18at 10:55; Start 07/24/18 at 10:45 Active Scripts Active Reported Atorvastatin Calcium 40 Mg Tablet 1 Tab PO DAILY Lisinopril 10 Mg Tablet 1 Tab PO DAILY Clopidogrel (Clopidogrel Bisulfate) 75 Mg Tablet 1 Tab PO DAILY Metoprolol Tartrate 25 Mg Tablet 1 Tab PO BID Aspir-Low (Aspirin) 81 Mg Tablet.dr 1 Tab PO DAILY Multivitamins (Multivitamin) 1 Each Tablet 1 Tab PO DAILY Vitals/I & O Vital Sign - Last 24 Hours 07/23/18 07/23/18 07/23/18 07/23/18 15:00 15:02 15:02 19:00 Temp 98.3 208.9 98.3 98.7 98.3 208.9 98.3 98.7 Pulse 78 78 78 89 Resp 17 18 B/P (MAP) 136/82 (100) 136/82 (100) 136/82 (100) 140/85 (103) Pulse Ox 96 96 96 95 O2 Delivery Room Air Room Air Room Air Room Air 07/23/18 07/23/18 07/23/18 07/24/18 20:00 20:49 23:00 03:00 Temp 97.3 97.8 97.3 97.8 Pulse 89 74 67 Resp 18 B/P (MAP) 140/85 117/77 (90) 126/89 (101) Pulse Ox 97 95 O2 Delivery Room Air Room Air Room Air 07/24/18 07/24/18 07/24/18 07/24/18 07:00 08:00 08:39 08:40 Temp 98.5 98.5 Pulse 79 79 79 Resp 18 B/P (MAP) 167/96 (119) 167/96 167/96 Pulse Ox 95 O2 Delivery Room Air Room Air 07/24/18 07/24/18 10:55 11:00 Temp 98.5 98.5 Pulse 94 Resp 18 B/P (MAP) 181/104 181/104 (129) Pulse Ox 93 O2 Delivery Room Air Intake and Output 07/23/18 07/23/18 07/24/18 15:00 23:00 07:00 Intake Total 480 ml 400 ml 600 ml Output Total 220 ml 1600 ml Balance 480 ml 180 ml -1000 ml ANNALEE INFANTE MD Jul 24, 2018 14:22
[2018-07-24 15:00] VITALS: BP 143/84
[2018-07-24 19:00] VITALS: BP 149/91
[2018-07-24] MEDS: ATORVASTATIN CALCIUM 40 MG TABLET. PO SCH (20:40)
[2018-07-24 23:00] VITALS: BP 143/82
[2018-07-25 03:00] VITALS: BP 153/98
[2018-07-25] MEDS: IV NORMAL SALINE 1000ML BAG 1,000 ML IV SCH ×3 (03:48→16:14)
[2018-07-25] MEDS: VANCOMYCIN 1.25 GM in IV NORMAL SALINE 250ML 250 ML IV SCH ×2 (03:49→15:59)
[2018-07-25 07:00] VITALS: BP 149/92
[2018-07-25] MEDS ORDERED: ONDANSETRON PF 4 MG/2 ML VIAL. IV PRN (07:00)
[2018-07-25] MEDS ORDERED: HYDROmorphone 2 MG/ML VIAL IV PRN (07:00)
[2018-07-25] MEDS ORDERED: IV RINGERS,LACTATED 1000ML 1,000 ML IV SCH (07:00)
[2018-07-25] MEDS ORDERED: PROCHLORPERAZINE 10 MG/2 ML VIAL. IV PRN (07:00)
--- NOTE | 2018-07-25 08:56 | PDOC ---
SURGICAL PROGRESS NOTE Subjective resting some pain to leg has been npo Vital Signs Vital Signs Date Time Temp Pulse Resp B/P (MAP) Pulse Ox O2 Delivery O2 Flow Rate FiO2 07/25/18 07:00 98.3 67 18 149/92 (111) 94 Room Air 98.3 I&O Intake and Output 07/25/18 07:00 Intake Total 2130 ml Output Total 2550 ml Balance -420 ml Intake Oral 880 ml IV Total 1250 ml Output Urine Total 2550 ml # Voids 5 General: Alert, Oriented X3, Cooperative, No acute distress Skin: Other (leg with erythema, central wound with necrosis) Labs Laboratory Tests Test 07/23/18 15:30 07/24/18 03:20 Vancomycin Level Trough 10.2 mcg/mL (10.0-20.0) Vancomycin Last Dose Date 07/23/18 Vancomycin Last Dose Time 0400 Creatinine 0.9 mg/dL (0.7-1.3) Estimated GFR (Cockcroft-Gault) 86.7 Assessment/Plan plan for debridement today JARRET CLIFTON [employer] Jul 25, 2018 08:56
[2018-07-25] MEDS: CEFEPIME HCL IV Push 1 GM VIAL. IVP SCH ×2 (08:59→21:30)
[2018-07-25] MEDS: MULTIVITAMIN with MINERAL TABLET. PO SCH (09:00)
[2018-07-25] MEDS: FOLIC ACID 1 MG TABLET. PO SCH (09:00)
[2018-07-25] MEDS: LINEZOLID 600 MG TABLET PO SCH ×2 (09:00→21:22)
[2018-07-25] MEDS: LACTOBACILLUS RHAMNOSUS GG 1 CAPSULE. PO SCH ×2 (09:00→21:22)
[2018-07-25] MEDS: METOPROLOL TART IMMED RELEASE 25 MG TABLET. PO SCH ×2 (09:00→21:22)
[2018-07-25] MEDS: CLOPIDOGREL BISULFATE 75 MG TABLET PO SCH (09:00)
[2018-07-25] MEDS: LISINOPRIL 10 MG TABLET PO SCH (09:00)
[2018-07-25] MEDS: ASPIRIN ENTERIC COATED 81 MG TABLET.DR. PO SCH (09:00)
[2018-07-25] MEDS: THIAMINE 100 MG TABLET. PO SCH (09:00)
--- NOTE | 2018-07-25 09:20 | PDOC ---
PROGRESS NOTES Chief Complaint Chief Complaint ASSESSMENT: severe cellulitis left upper leg/ thigh, possible infected insect bite with deep tissue involvement. multiple pustular lesions in LE. 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 denies insect bites Hypertension HX NSTEMI s/p cardiac cath and stent placement on 04/30/16 HX 5 mm pulmonary nodule. Alcohol abuse. severe HX, persistent 6 shots/ night THC usage.HX sepsis pos wound cult suspect staph PLAN: IV vancomycin/Cefepime/zyvox blood cultures ordered wound cx pending apprec ID and gen sx 07/25 will need debridement in OR NPO past midnight local wound care continue home meds ALCOHOL WITHDRAWAL PREVENTION DVT PROPHYLAXIS 45 min pt exam, chart review, > 50% of time spent with exam, chart review, pt care coordination Vitals Vitals Vital Signs Date Time Temp Pulse Resp B/P (MAP) Pulse Ox O2 Delivery O2 Flow Rate FiO2 07/25/18 07:00 98.3 67 18 149/92 (111) 94 Room Air 98.3 Physical Exam Physical Exam GENERAL: Alert, oriented x 3 male, in no acute distress, cooperative, pleasant, lying comfortably in bed. HEENT: Normocephalic, atraumatic, anicteric. No thrush. Oral mucosa moist. NECK: Supple. No JVD. No thyromegaly. LUNGS: Clear bilaterally. No wheezing. HEART: S1, S2. No rubs, gallops, murmurs, or rubs. ABDOMEN: Soft, nontender, nondistended. No rebound, no guarding. EXTREMITIES: Extensive left upper inner thigh redness, swelling with necrotic appearing lesion with induration,tenderness, likely early developing abscess. Multiple skin lesions present on both lower extremities with mild pustular opening. NEUROLOGIC: Alert and oriented x 3, grossly nonfocal. PSYCHIATRIC: Cooperative, appropriate mood and affect. General: Alert, Oriented X3, Cooperative, No acute distress, mild distress Heart: Regular rate, Normal S1, Normal S2, No murmurs Lungs: Clear, Other Abdomen: Normal bowel sounds, Soft Extremities: No cyanosis Skin: Other (leg with erythema, central wound with necrosis) Labs LABS SPEC #: [id number] MIGUEL: 07/23/18-1020 STATUS: RES REQ #: [id number] RECD: 07/23/18-[address]: RINA LEMOS MD SOURCE: THIGH ENTR: 07/23/18-[address] [facility] [address]: RUMA BRIAN DO [facility]: WOUND JORGE MOELLER MD, MANEESH MD ORDERED: ANAER/AEROB/GS Procedure Result ANAEROBIC-AEROBIC CULTURE PENDING ANAEROBIC RES 1 PENDING AEROBIC CULT PENDING AEROBIC RES 1 PENDING GRAM STAIN Final Final report GRAM STAIN RES 1 Final Comment No white blood cells seen. GRAM STAIN RES 2 Final Comment Gram positive cocci in clusters Performed at: [facility] [address], [place] [id number] Elevator Attendant: STAN Salazar MD, Phone: [phone] END OF REPORT EXAM: Left thigh sonogram. HISTORY: Pain and swelling. TECHNIQUE: Sonographic imaging of the left thigh at the site of reported pain and swelling was performed. COMPARISON: None. FINDINGS: There is soft tissue edema within the medial left thigh at a site of reported concern. No loculated fluid collection is seen. No mass is seen. IMPRESSION: Soft tissue edema within the medial left thigh. No abscess or drainable fluid collection is seen. Electronically signed by: Brooke Love MD (07/23/2018 1:31 PM) [place] [id number] Comment Review of Relevant I have reviewed the following items macario (where applicable) has been applied. Labs Laboratory Tests Test 07/23/18 15:30 07/24/18 03:20 Vancomycin Level Trough 10.2 mcg/mL (10.0-20.0) Vancomycin Last Dose Date 07/23/18 Vancomycin Last Dose Time 0400 Creatinine 0.9 mg/dL (0.7-1.3) Estimated GFR (Cockcroft-Gault) 86.7 Microbiology 07/22/18 Blood Culture - Preliminary, Resulted NO GROWTH AFTER 3 DAYS 07/23/18 Anaerobic/Aerobic Culture, Resulted Pending 07/23/18 Anaerobic Culture Result 1 (ELFEGO), Resulted Pending 07/23/18 Aerobic Culture, Resulted Pending 07/23/18 Aerobic Culture Result 1 (ELFEGO), Resulted Pending 07/23/18 Gram Stain - Final, Resulted 07/23/18 Gram Stain Result 1 (ELFEGO) - Final, Resulted 07/23/18 Gram Stain Result 2 (ELFEGO) - Final, Resulted Medications Current Medications Vancomycin HCl 2 gm/Sodium Chloride 500 ml @ 250 mls/hr 1X ONCE IV Last administered on 07/22/18at 03:23; Start 07/22/18 at 04:00; Stop 07/22/18 at 05:59 ; Status DC Vancomycin HCl (Vanco Per Pharmacy) 1 each PRN DAILY PRN MC SEE COMMENTS Last administered on 07/24/18at 14:17; Start 07/22/18 at 03:15 Fentanyl Citrate (Fentanyl 2ml Vial) 100 mcg STK-MED ONCE .ROUTE ; Start at 04:04; Stop 07/22/18 at 04:05; Status DC Ondansetron HCl (Zofran) 4 mg PRN Q8HRS PRN IV NAUSEA/VOMITING 1ST CHOICE; Start 07/22/18 at 05:00; Stop 07/23/18 at 04:59; Status DC Morphine Sulfate (Morphine Sulfate) 2 mg PRN Q2HR PRN IV SEVERE PAIN Last administered on 07/22/18at 17:07; Start 07/22/18 at 05:00; Stop 07/23/18 at 04:59 ; Status DC Vancomycin HCl 1.25 gm/Sodium Chloride 250 ml @ 167 mls/hr Q12H IV Last administered on 07/25/18 03:49; Start 07/22/18 at 16:00 Vancomycin HCl (Vancomycin Trough Level) 1 each 1X ONCE MC Last administered on 07/23/18 15:30; Start 07/23/18 at 15:30; Stop 07/23/18 at 15:31; Status DC Acetaminophen (Tylenol) 1,000 mg PRN Q6HRS PRN PO fever/ mild pain Last administered on 07/24/18 20:55; Start 07/22/18 at 07:45 Sodium Chloride 1,000 ml @ 100 mls/hr Q10H IV Last administered on 07/25/18 03:48; Start 07/22/18 at 09:45 Aspirin (Ecotrin) 81 mg DAILY PO Last administered on 07/24/18 08:43; Start at 10:00 Atorvastatin Calcium (Lipitor) 40 mg QHS PO Last administered on 07/24/18 20: 40; Start 07/22/18 at 21:00 Lisinopril (Prinivil) 10 mg DAILY PO Last administered on 07/24/18 08:39; Start 07/22/18 at 10:00 Metoprolol Tartrate (Lopressor) 25 mg BID PO Last administered on 07/24/18 20: 40; Start 07/22/18 at 10:00 Multivitamins (Thera M Plus) 1 tab DAILY PO Last administered on 07/24/18 08: 39; Start 07/22/18 at 10:00 Clopidogrel Bisulfate (Plavix) 75 mg DAILY PO Last administered on 07/24/18 08 :39; Start 07/22/18 at 12:00 Multivitamins 10 ml/Thiamine HCl 100 mg/Folic Acid 1 mg/Sodium Chloride 1,011.2 ml @ 100 mls/ hr 1X ONCE IV Last administered on 07/22/18 14:45; Start 07/22 at 13:00; Stop 07/22/18 at 23:06; Status DC Multivitamins (Thera M Plus) 1 tab DAILY PO ; Start 07/23/18 at 09:00; Status UNV Folic Acid (Folic Acid) 1 mg DAILY PO Last administered on 07/24/18 08:39; Start 07/23/18 at 09:00 Thiamine HCl 100 mg/Dextrose 51 ml @ 100 mls/hr DAILY IV ; Start 07/23/18 at 09 :00; Stop 07/27/18 at 09:31; Status UNV Lorazepam (Ativan) 2 mg Q6H PO Last administered on 07/23/18 06:06; Start at 12:00; Stop 07/23/18 at 18:01; Status DC Enoxaparin Sodium (Lovenox 40mg Syringe) 40 mg Q24H SQ Last administered on 13:24; Start 07/22/18 at 13:00 Tetanus/ Diphtheria Toxoids (Tenivac Syringe) 0.5 ml ONCE ONCE VAX IM Last administered on 07/22/18 14:48; Start 07/22/18 at 13:00; Stop 07/22/18 at 13:01 ; Status DC Thiamine Mononitrate (Vitamin B-1) 100 mg DAILY PO Last administered on 08:39; Start 07/23/18 at 09:00 Lactobacillus Rhamnosus (Culturelle) 1 cap BID PO Last administered on 20:40; Start 07/22/18 at 21:00 Cefepime HCl (Maxipime) 1 gm Q12HR IVP Last administered on 07/25/18 08:59; Start 07/22/18 at 21:00 Linezolid (Zyvox) 600 mg BID PO Last administered on 07/24/18 20:40; Start at 21:00 Cefepime HCl (Maxipime) 0.5 gm 1X ONCE IVP Last administered on 07/22/18 14: 49; Start 07/22/18 at 14:30; Stop 07/22/18 at 14:31; Status DC Hydralazine HCl (Apresoline) 25 mg PRN TID PRN PO ELEVATED BP, SEE COMMENTS Last administered on 07/24/18at 10:55; Start 07/24/18 at 10:45 Ondansetron HCl (Zofran) 4 mg PRN Q6HRS PRN IV NAUSEA/VOMITING; Start 07/25/18 at 07:00; Stop 07/26/18 at 06:59 Morphine Sulfate (Morphine Sulfate) 1 mg PRN Q10MIN PRN IV SEVERE PAIN; Start 07/25/18 at 07:00; Stop 07/26/18 at 06:59 Ringer's Solution 1,000 ml @ 30 mls/hr Q24H IV ; Start 07/25/18 at 07:00; Stop 07/25/18 at 18:59 Hydromorphone HCl (Dilaudid) 0.5 mg PRN Q10MIN PRN IV SEV PAIN, Second choice; Start 07/25/18 at 07:00; Stop 07/26/18 at 06:59 Prochlorperazine Edisylate (Compazine) 5 mg PACU PRN PRN IV NAUSEA, MRX1; Start 07/25/18 at 07:00; Stop 07/26/18 at 06:59 Active Scripts Active Reported Atorvastatin Calcium 40 Mg Tablet 1 Tab PO DAILY Lisinopril 10 Mg Tablet 1 Tab PO DAILY Clopidogrel (Clopidogrel Bisulfate) 75 Mg Tablet 1 Tab PO DAILY Metoprolol Tartrate 25 Mg Tablet 1 Tab PO BID Aspir-Low (Aspirin) 81 Mg Tablet. 1 Tab PO DAILY Multivitamins (Multivitamin) 1 Each Tablet 1 Tab PO DAILY Vitals/I & O Vital Sign - Last 24 Hours 07/24/18 07/24/18 07/24/18 07/24/18 10:55 11:00 15:00 19:00 Temp 98.5 98.3 98.1 98.5 98.3 98.1 Pulse 94 71 83 Resp 18 18 18 B/P (MAP) 181/104 181/104 (129) 143/84 (103) 149/91 (110) Pulse Ox 93 95 94 O2 Delivery Room Air Room Air Room Air 07/24/18 07/24/18 07/24/18 07/25/18 20:20 20:40 23:00 03:00 Temp 98.1 97.6 98.1 97.6 Pulse 83 66 78 Resp 18 18 B/P (MAP) 149/91 143/82 (102) 153/98 (116) Pulse Ox 97 96 O2 Delivery Room Air Room Air Room Air 07/25/18 07:00 Temp 98.3 98.3 Pulse 67 Resp 18 B/P (MAP) 149/92 (111) Pulse Ox 94 O2 Delivery Room Air Intake and Output 07/24/18 07/24/18 07/25/18 15:00 23:00 07:00 Intake Total 480 ml 150 ml 1500 ml Output Total 400 ml 1750 ml 400 ml Balance 80 ml -1600 ml 1100 ml MELINA MAE MD Jul 25, 2018 09:20
--- NOTE | 2018-07-25 09:25 | PDOC ---
Infectious Disease Note Subjective: Subjective Pt says feels the same ROS: ROS Negative for f/c/n/v/d Vital Signs: Vital Signs Vital Signs Date Time Temp Pulse Resp B/P (MAP) Pulse Ox O2 Delivery O2 Flow Rate FiO2 07/25/18 07:00 98.3 67 18 149/92 (111) 94 Room Air 98.3 Physical Exam: PHYSICAL EXAM GENERAL: Alert, oriented x 3 male, in no acute distress, cooperative, pleasant, lying comfortably in bed. HEENT: Normocephalic, atraumatic, anicteric. No thrush. Oral mucosa moist. NECK: Supple. No JVD. No thyromegaly. LUNGS: Clear bilaterally. No wheezing. HEART: S1, S2. No rubs, gallops, murmurs, or rubs. ABDOMEN: Soft, nontender, nondistended. No rebound, no guarding. EXTREMITIES: Extensive left upper inner thigh redness, swelling with necrotic appearing lesion with induration,tenderness, likely early developing abscess. Multiple skin lesions present on both lower extremities with mild pustular opening. NEUROLOGIC: Alert and oriented x 3, grossly nonfocal. PSYCHIATRIC: Cooperative, appropriate mood and affect. Medications: Inpatient Meds: Current Medications Medications (Trade) Dose Ordered Sig/Isabel Start Time Stop Time Status Last Admin Dose Admin Acetaminophen (Tylenol) 1,000 mg PRN Q6HRS PRN 07/22/18 07:45 07/24/18 20:55 1,000 MG Aspirin (Ecotrin) 81 mg DAILY 07/22/18 10:00 07/24/18 08:43 81 MG Atorvastatin Calcium (Lipitor) 40 mg QHS 07/22/18 21:00 07/24/18 20:40 40 MG Cefepime HCl (Maxipime) 0.5 gm 1X ONCE 07/22/18 14:30 07/22/18 14:31 DC 07/22/18 14:49 0.5 GM Clopidogrel Bisulfate (Plavix) 75 mg DAILY 07/22/18 12:00 07/24/18 08:39 75 MG Enoxaparin Sodium (Lovenox 40mg Syringe) 40 mg Q24H 07/22/18 13:00 07/23/18 13:24 40 MG Fentanyl Citrate (Fentanyl 2ml Vial) 100 mcg STK-MED ONCE 07/22/18 04:04 07/22/18 04:05 DC Folic Acid (Folic Acid) 1 mg DAILY 07/23/18 09:00 07/24/18 08:39 1 MG Hydralazine HCl (Apresoline) 25 mg PRN TID PRN 07/24/18 10:45 07/24/18 10:55 25 MG Hydromorphone HCl (Dilaudid) 0.5 mg PRN Q10MIN PRN 07/25/18 07:00 07/26/18 06:59 Lactobacillus Rhamnosus (Culturelle) 1 cap BID 07/22/18 21:00 07/24/18 20:40 1 CAP Linezolid (Zyvox) 600 mg BID 07/22/18 21:00 07/24/18 20:40 600 MG Lisinopril (Prinivil) 10 mg DAILY 07/22/18 10:00 07/24/18 08:39 10 MG Lorazepam (Ativan) 2 mg Q6H 07/22/18 12:00 07/23/18 18:01 DC 07/23/18 06:06 2 MG Metoprolol Tartrate (Lopressor) 25 mg BID 07/22/18 10:00 07/24/18 20:40 25 MG Morphine Sulfate (Morphine Sulfate) 1 mg PRN Q10MIN PRN 07/25/18 07:00 07/26/18 06:59 Multivitamins (Thera M Plus) 1 tab DAILY 07/23/18 09:00 UNV Multivitamins 10 ml/Thiamine HCl 100 mg/Folic Acid 1 mg/Sodium Chloride 1,011.2 ml @ 100 mls/ hr 1X ONCE 07/22/18 13:00 07/22/18 23:06 DC 07/22/18 14:45 100 MLS/HR Ondansetron HCl (Zofran) 4 mg PRN Q6HRS PRN 07/25/18 07:00 07/26/18 06:59 Prochlorperazine Edisylate (Compazine) 5 mg PACU PRN PRN 07/25/18 07:00 07/26/18 06:59 Ringer's Solution 1,000 ml @ 30 mls/hr Q24H 07/25/18 07:00 07/25/18 18:59 Sodium Chloride 1,000 ml @ 100 mls/hr Q10H 07/22/18 09:45 07/25/18 03:48 100 MLS/HR Tetanus/ Diphtheria Toxoids (Tenivac Syringe) 0.5 ml ONCE ONCE 07/22/18 13:00 07/22/18 13:01 DC 07/22/18 14:48 0.5 ML Thiamine Mononitrate (Vitamin B-1) 100 mg DAILY 07/23/18 09:00 07/24/18 08:39 100 MG Thiamine HCl 100 mg/Dextrose 51 ml @ 100 mls/hr DAILY 07/23/18 09:00 07/27/18 09:31 UNV Vancomycin HCl (Vanco Per Pharmacy) 1 each PRN DAILY PRN 07/22/18 03:15 07/24/18 14:17 1 EACH Vancomycin HCl (Vancomycin Trough Level) 1 each 1X ONCE 07/23/18 15:30 07/23/18 15:31 DC 07/23/18 15:30 1 EACH Vancomycin HCl 1.25 gm/Sodium Chloride 250 ml @ 167 mls/hr Q12H 07/22/18 16:00 07/25/18 03:49 167 MLS/HR Vancomycin HCl 2 gm/Sodium Chloride 500 ml @ 250 mls/hr 1X ONCE 07/22/18 04:00 07/22/18 05:59 DC 07/22/18 03:23 250 MLS/HR Labs: Micro RUN DATE: 07/24/18 PAGE 1 RUN TIME: 180 [facility] [address] [place] [address] Yusuf Law M.D., Chief Technology Officer PATIENT: KALANI PINEDA ACCT: [id number] LOC: [address] [place] [address] U : [id number] AGE/SX: 57/M ROOM: [facility] REG : 07/22/[address]: ANNALEE INFANTE MD : 1960 BED: 1 DIS : STATUS: ADM IN TLOC: SPEC #: [id number] MIGUEL: 07/23/18 STATUS: RES REQ #: [id number] RECD: 07/23/[address] [facility] [address]: RINA LEMOS MD SOURCE: THIGH ENTR: 07/23/18 [facility] DR: RUMA BRIAN DO [facility]: WOUND JORGE MOELLER MD, MANEESH MD ORDERED: ANAER/AEROB/GS Procedure Result ANAEROBIC-AEROBIC CULTURE PENDING ANAEROBIC RES 1 PENDING AEROBIC CULT PENDING AEROBIC RES 1 PENDING GRAM STAIN Final Final report GRAM STAIN RES 1 Final Comment No white blood cells seen. GRAM STAIN RES 2 Final Comment Gram positive cocci in clusters Performed at: - [facility], [place], [place] [id number] Clay Molder: STAN Salazar MD, Phone: [phone] Objective: Assessment: 1. Severe left lower extremity cellulitis with furuncle Lt thigh.Now draining spontaneously,U/S neg for abscess BC neg Wound c/s GPC in clusters 2. Multiple pustular lesions over both lower extremities. The patient denies any history of insect bite or trauma. 3. Hypertension. 4. History of non-ST elevation myocardial infarction, status post cardiac catheterization and stent placement in 04/2016. 5. Alcohol abuse with hyperbilirubinemia. 6. THC usage by history. 7. Sepsis.resolved 8. Leukocytosis. resolved Plan: Plan of Care IV vancomycin/Cefepime/zyvox awaiting I and D today f/u wound c/s and bc Continue local wound care. Follow up lab in a.m. Continue supportive care. D/W RINA PEDRAZA MD Jul 25, 2018 09:25
[2018-07-25 11:00] VITALS: BP 166/95
[2018-07-25 11:24] LABS: BASO % 0 % (0-3); EOS # 0.2 x10^3/uL (0.0-0.7); EOS % 3 % (0-3); HEMATOCRIT 43.8 % (39.0-53.0); HEMOGLOBIN 14.7 g/dL (13.0-17.5); LYMPH # 1.1 x10^3/uL (1.0-4.8); LYMPH % 21 % (24-48); MEAN CORPUSCULAR HEMOGLOBIN 31 pg (25-35); MEAN CORPUSCULAR HGB CONC 34 g/dL (31-37); MEAN CORPUSCULAR VOLUME 93 fL (79-100); MONO # 0.5 x10^3/uL (0.0-1.1); MONO % 10 % (0-9); NEUT # 3.5 x10^3uL (1.8-7.7); NEUT % 65 % (31-73); PLATELET COUNT 359 x10^3/uL (140-400); RED BLOOD COUNT 4.69 x10^6/uL (4.30-5.70); RED CELL DISTRIBUTION WIDTH 13.5 % (11.5-14.5); WHITE BLOOD COUNT 5.4 x10^3/uL (4.0-11.0)
[2018-07-25 11:30] LABS: ALBUMIN 2.9 g/dL (3.4-5.0); ALBUMIN/GLOBULIN RATIO 0.7 (1.0-1.7); CALCIUM 8.9 mg/dL (8.5-10.1); CREATININE 0.9 mg/dL (0.7-1.3); GFR 86.7; POTASSIUM 3.7 mmol/L (3.5-5.1); TOTAL BILIRUBIN 0.6 mg/dL (0.2-1.0); TOTAL PROTEIN 6.9 g/dL (6.4-8.2)
[2018-07-25] MEDS ORDERED: PROPOFOL 20 ML IV ONE ×2 (11:53→13:47)
[2018-07-25] MEDS ORDERED: ONDANSETRON PF 4 MG/2 ML VIAL. ONE (11:53)
[2018-07-25] MEDS ORDERED: LIDOCAINE 2% PF 5 ML VIAL. ONE ×2 (11:53→13:47)
[2018-07-25] MEDS ORDERED: fentaNYL PF VIAL 100 MCG/2 ML VIAL ONE ×2 (11:53→13:24)
[2018-07-25] MEDS ORDERED: MIDAZOLAM HCL/PF 2 MG/2 ML VIAL. ONE (11:56)
[2018-07-25] MEDS ORDERED: SEVOFLURANE 16 TO 30 MINUTES. IH ONE ×2 (12:49→14:41)
[2018-07-25] MEDS: ENOXAPARIN 40 MG/0.4 ML SYRINGE. SQ SCH (13:00)
[2018-07-25] MEDS: MORPHINE SULFATE 2 MG/ML VIAL. IV PRN ×4 (13:12→23:45)
[2018-07-25] MEDS ORDERED: SURGICEL HEMOSTAT 4X8 EACH. ONE ×2 (13:13→13:48)
--- NOTE | 2018-07-25 13:21 | PDOC ---
BRIEF OPERATIVE NOTE Date: Jul 25, 2018 Pre-Op Diagnosis abscess left thigh Post-Op Diagnosis same Procedure Performed incision and drainage Surgeon Jean Anesthesia Type: General Blood Loss 50cc IV Fluid 500cc Specimens Obtained cultures Findings large area proximal to area of necrosis Complications none JORGE MOELLER MD Jul 25, 2018 13:21
[2018-07-25] MEDS: fentaNYL PF VIAL 100 MCG/2 ML VIAL IV PRN ×3 (13:30→16:16)
--- NOTE | 2018-07-25 13:45 | PDOC ---
Provider Note Provider Note wound is bleeding will go back to OR to evaluate JORGE MOELLER MD Jul 25, 2018 13:45
[2018-07-25] MEDS ORDERED: DEXAMETHASONE SOD PHOS 20 MG/5 ML VIAL. ONE (13:47)
[2018-07-25 14:29] LABS: HEMATOCRIT 39.6 % (39.0-53.0); HEMOGLOBIN 13.3 g/dL (13.0-17.5); RED BLOOD COUNT 4.25 x10^6/uL (4.30-5.70); RED CELL DISTRIBUTION WIDTH 13.4 % (11.5-14.5)
[2018-07-25] MEDS: VANCOMYCIN PER PHARMACY MC PRN (14:32)
[2018-07-25 14:38] LABS: PROTHROMBIN TIME PATIENT 14.2 SEC (11.7-14.0)
--- NOTE | 2018-07-25 15:32 | OP ---
DATE OF SURGERY: 07/25/2018 PREOPERATIVE DIAGNOSIS: Abscess, left thigh. POSTOPERATIVE DIAGNOSIS: Abscess, left thigh. PROCEDURE: Incision and drainage. SURGEON: Jorge Moeller MD ANESTHESIA: General LMA. ESTIMATED BLOOD LOSS: 50. IV FLUID: 500. INDICATIONS: The patient is a 57-year-old with necrotic tissue and erythema around an apparent bug bite on his left thigh, brought for debridement. OPERATIVE REPORT: The patient was brought to the operating suite, given a general LMA and the left thigh prepped and draped in usual sterile fashion. The necrotic skin was excised with cautery and digital exploration used to explore the wound, which extended proximally towards the groin. Two traction incisions were made superiorly and the wound was irrigated. A [place] drain was placed in a looped fashion to provide postoperative drainage. When hemostasis was present, the wound was packed with 1-inch plain Nu Gauze soaked in saline. Sterile dressing applied. The patient was awakened from his anesthetic and taken to the recovery room in satisfactory condition. JORGE MOELLER MD DR: BENNIE/be JOB#: [id number] / [id number]
[2018-07-25] MEDS: hydrALAZINE 25 MG TABLET PO PRN (15:59)
[2018-07-25 17:30] VITALS: BP 131/84
--- NOTE | 2018-07-25 18:01 | NUR ---
At 1730 it was discovered by this write that the patient had bled through his pressure dressing and onto his bed. His blood pressure was taken and it was 131/84 and dorsalis pedis pulses were taken on both lower extremities and they were both normal upon palpation. This write called the answering service for Dr. Pena and left a message. Dr. Baker returned the page and said he would contact Dr. Pena. Will continue to monitor.
[2018-07-25 19:00] VITALS: BP 143/87
--- NOTE | 2018-07-25 21:05 | PDOC ---
BRIEF OPERATIVE NOTE Date: Jul 25, 2018 Pre-Op Diagnosis bleeding from surgical wound Post-Op Diagnosis same Procedure Performed wound exploration Surgeon Jean Anesthesia Type: General Blood Loss 50cc IV Fluid 500cc Specimens Obtained none Findings oozing from the wound bed Complications none JORGE MOELLER MD Jul 25, 2018 21:05
[2018-07-25] MEDS: ACETAMINOPHEN 500 MG TABLET PO PRN (21:21)
[2018-07-25] MEDS: ATORVASTATIN CALCIUM 40 MG TABLET. PO SCH (21:22)
[2018-07-25 22:49] LABS: HEMOGLOBIN 11.4 g/dL (13.0-17.5); RED BLOOD COUNT 3.65 x10^6/uL (4.30-5.70); RED CELL DISTRIBUTION WIDTH 13.6 % (11.5-14.5); WHITE BLOOD COUNT 5.9 x10^3/uL (4.0-11.0)
[2018-07-25 23:45] VITALS: BP 140/83
[2018-07-26] VITALS (8 sets, daily range): BP systolic 124–135; BP diastolic 69–85
[2018-07-26] MEDS: fentaNYL PF VIAL 100 MCG/2 ML VIAL IV PRN ×6 (00:14→22:07)
[2018-07-26] MEDS: IV NORMAL SALINE 1000ML BAG 1,000 ML IV SCH ×3 (03:58→22:07)
[2018-07-26] MEDS: VANCOMYCIN 1.25 GM in IV NORMAL SALINE 250ML 250 ML IV SCH (03:59)
[2018-07-26] MEDS: ACETAMINOPHEN 500 MG TABLET PO PRN ×2 (05:28→13:03)
[2018-07-26 05:39] LABS: BASO % 0 % (0-3); EOS % 0 % (0-3); HEMATOCRIT 31.5 % (39.0-53.0); HEMOGLOBIN 10.7 g/dL (13.0-17.5); LYMPH # 0.8 x10^3/uL (1.0-4.8); LYMPH % 11 % (24-48); MEAN CORPUSCULAR HEMOGLOBIN 32 pg (25-35); MEAN CORPUSCULAR HGB CONC 34 g/dL (31-37); MEAN CORPUSCULAR VOLUME 93 fL (79-100); MONO # 0.6 x10^3/uL (0.0-1.1); MONO % 8 % (0-9); NEUT # 6.1 x10^3uL (1.8-7.7); NEUT % 81 % (31-73); PLATELET COUNT 392 x10^3/uL (140-400); RED BLOOD COUNT 3.38 x10^6/uL (4.30-5.70); RED CELL DISTRIBUTION WIDTH 13.3 % (11.5-14.5); WHITE BLOOD COUNT 7.5 x10^3/uL (4.0-11.0)
[2018-07-26 05:56] LABS: ALBUMIN 2.5 g/dL (3.4-5.0); ALBUMIN/GLOBULIN RATIO 0.8 (1.0-1.7); CALCIUM 8.2 mg/dL (8.5-10.1); CREATININE 0.9 mg/dL (0.7-1.3); GFR 86.7; POTASSIUM 3.9 mmol/L (3.5-5.1); TOTAL BILIRUBIN 0.3 mg/dL (0.2-1.0); TOTAL PROTEIN 5.8 g/dL (6.4-8.2)
[2018-07-26] MEDS: LINEZOLID 600 MG TABLET PO SCH ×2 (08:32→20:54)
[2018-07-26] MEDS: MULTIVITAMIN with MINERAL TABLET. PO SCH (08:32)
[2018-07-26] MEDS: THIAMINE 100 MG TABLET. PO SCH (08:32)
[2018-07-26] MEDS: LACTOBACILLUS RHAMNOSUS GG 1 CAPSULE. PO SCH ×2 (08:32→20:54)
[2018-07-26] MEDS: FOLIC ACID 1 MG TABLET. PO SCH (08:33)
[2018-07-26] MEDS: METOPROLOL TART IMMED RELEASE 25 MG TABLET. PO SCH ×2 (08:33→20:54)
[2018-07-26] MEDS: LISINOPRIL 10 MG TABLET PO SCH (08:33)
[2018-07-26] MEDS: CEFEPIME HCL IV Push 1 GM VIAL. IVP SCH (08:34)
[2018-07-26] MEDS: CLOPIDOGREL BISULFATE 75 MG TABLET PO SCH (09:00)
[2018-07-26] MEDS: VANCOMYCIN PER PHARMACY MC PRN (09:47)
--- NOTE | 2018-07-26 11:43 | PDOC ---
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 LUNGS: Clear bilaterally. No wheezing. HEART: S1, S2. ABDOMEN: Soft, nontender, nondistended. EXTREMITIES: Left thigh post-op dressing dry. NEUROLOGIC: Alert and oriented x 3, grossly nonfocal. SKIN: No rash. Multiple skin lesions lower extremities PIV Labs Lab Laboratory Tests Test 07/25/18 14:10 07/25/18 22:35 07/26/18 04:55 White Blood Count 9.0 x10^3/uL (4.0-11.0) 5.9 x10^3/uL (4.0-11.0) 7.5 x10^3/uL (4.0-11.0) Red Blood Count 4.25 x10^6/uL (4.30-5.70) 3.65 x10^6/uL (4.30-5.70) 3.38 x10^6/uL (4.30-5.70) Hemoglobin 13.3 g/dL (13.0-17.5) 11.4 g/dL (13.0-17.5) 10.7 g/dL (13.0-17.5) Hematocrit 39.6 % (39.0-53.0) 34.0 % (39.0-53.0) 31.5 % (39.0-53.0) Mean Corpuscular Volume 93 fL (79-100) 93 fL (79-100) 93 fL (79-100) Mean Corpuscular Hemoglobin 31 pg (25-35) 31 pg (25-35) 32 pg (25-35) Mean Corpuscular Hemoglobin Concent 34 g/dL (31-37) 33 g/dL (31-37) 34 g/dL (31-37) Red Cell Distribution Width 13.4 % (11.5-14.5) 13.6 % (11.5-14.5) 13.3 % (11.5-14.5) Platelet Count 463 x10^3/uL (140-400) 366 x10^3/uL (140-400) 392 x10^3/uL (140-400) Prothrombin Time 14.2 SEC (11.7-14.0) Prothromb Time International Ratio 1.1 (0.8-1.1) Neutrophils (%) (Auto) 81 % (31-73) Lymphocytes (%) (Auto) 11 % (24-48) Monocytes (%) (Auto) 8 % (0-9) Eosinophils (%) (Auto) 0 % (0-3) Basophils (%) (Auto) 0 % (0-3) Neutrophils # (Auto) 6.1 x10^3uL (1.8-7.7) Lymphocytes # (Auto) 0.8 x10^3/uL (1.0-4.8) Monocytes # (Auto) 0.6 x10^3/uL (0.0-1.1) Eosinophils # (Auto) 0.0 x10^3/uL (0.0-0.7) Basophils # (Auto) 0.0 x10^3/uL (0.0-0.2) Sodium Level 139 mmol/L (136-145) Potassium Level 3.9 mmol/L (3.5-5.1) Chloride Level 104 mmol/L (98-107) Carbon Dioxide Level 26 mmol/L (21-32) Anion Gap 9 (6-14) Blood Urea Nitrogen 10 mg/dL (8-26) Creatinine 0.9 mg/dL (0.7-1.3) Estimated GFR (Cockcroft-Gault) 86.7 BUN/Creatinine Ratio 11 (6-20) Glucose Level 155 mg/dL (70-99) Calcium Level 8.2 mg/dL (8.5-10.1) Total Bilirubin 0.3 mg/dL (0.2-1.0) Aspartate Amino Transf (AST/SGOT) 17 U/L (15-37) Alanine Aminotransferase (ALT/SGPT) 23 U/L (16-63) Alkaline Phosphatase 65 U/L (46-116) Total Protein 5.8 g/dL (6.4-8.2) Albumin 2.5 g/dL (3.4-5.0) Albumin/Globulin Ratio 0.8 (1.0-1.7) Micro 07/22/18 Blood Culture - Preliminary, Resulted NO GROWTH AFTER 4 DAYS 07/23. AEROBIC RES 1 Preliminary Staphylococcus aureus Objective Assessment Severe left lower extremity cellulitis with furuncle left thigh. spontaneously draining, Staph aureus (susceptibilities pending) s/p I and D on 07/25. Intra-op cultures pending Multiple pustular lesions over both lower extremities. The patient denies any history of insect bite or trauma. PCN allergy. age of 3, passed out after an injection. Hypertension. History of non-ST elevation myocardial infarction, status post cardiac catheterization and stent placement in 04/2016. Alcohol abuse with hyperbilirubinemia. THC usage by history. Sepsis. resolved Leukocytosis. resolved Plan Plan of Care Cont Zyvox D/c IV Vanc and Cefepime f/u cultures Monitor WBC/temp and renal function closely D/w at bedside Attending Co-Sign Attending Co-Sign The patient was seen and interviewed as well as examined at the bedside. The chart was reviewed. The case was discussed. Agree with the plan of care. MARVIN EMERY APRN Jul 26, 2018 11:43 DEENA AKERS MD Jul 26, 2018 15:16
--- NOTE | 2018-07-26 12:01 | PDOC ---
PROGRESS NOTES Chief Complaint Chief Complaint ASSESSMENT: severe cellulitis left upper leg/ thigh, possible infected insect bite with deep tissue involvement. multiple pustular lesions in LE. 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 denies insect bites Hypertension HX NSTEMI s/p cardiac cath and stent placement on 04/30/16 HX 5 mm pulmonary nodule. Alcohol abuse. severe HX, persistent 6 shots/ night THC usage.HX sepsis pos wound cult suspect staph PLAN: IV vancomycin/Cefepime/zyvox blood cultures ordered wound cx pending apprec ID and gen sx 07/25 will need debridement in OR NPO past midnight local wound care continue home meds ALCOHOL WITHDRAWAL PREVENTION DVT PROPHYLAXIS 42 min pt exam, chart review, > 50% of time spent with exam, chart review, pt care coordination Vitals Vitals Vital Signs Date Time Temp Pulse Resp B/P (MAP) Pulse Ox O2 Delivery O2 Flow Rate FiO2 07/26/18 11:00 98.1 74 16 132/74 (93) 96 Room Air 98.1 07/25/18 15:10 10.0 Physical Exam Physical Exam GENERAL: Propped up in bed, alert, relaxed HEENT: Facial redness, Oral cavity clear NECK: Supple. LUNGS: Clear bilaterally. No wheezing. HEART: S1, S2. ABDOMEN: Soft, nontender, nondistended. EXTREMITIES: Left thigh post-op dressing dry. NEUROLOGIC: Alert and oriented x 3, grossly nonfocal. SKIN: No rash. Multiple skin lesions lower extremities PIV General: Alert, Oriented X3, Cooperative, No acute distress, mild distress Heart: Regular rate, Normal S1, Normal S2, No murmurs Lungs: Clear, Other Abdomen: Normal bowel sounds, Soft Extremities: No cyanosis Skin: Other (leg with erythema, central wound with necrosis) Labs LABS Laboratory Tests Test 07/25/18 14:10 07/25/18 22:35 07/26/18 04:55 White Blood Count 9.0 x10^3/uL (4.0-11.0) 5.9 x10^3/uL (4.0-11.0) 7.5 x10^3/uL (4.0-11.0) Red Blood Count 4.25 x10^6/uL (4.30-5.70) 3.65 x10^6/uL (4.30-5.70) 3.38 x10^6/uL (4.30-5.70) Hemoglobin 13.3 g/dL (13.0-17.5) 11.4 g/dL (13.0-17.5) 10.7 g/dL (13.0-17.5) Hematocrit 39.6 % (39.0-53.0) 34.0 % (39.0-53.0) 31.5 % (39.0-53.0) Mean Corpuscular Volume 93 fL (79-100) 93 fL (79-100) 93 fL (79-100) Mean Corpuscular Hemoglobin 31 pg (25-35) 31 pg (25-35) 32 pg (25-35) Mean Corpuscular Hemoglobin Concent 34 g/dL (31-37) 33 g/dL (31-37) 34 g/dL (31-37) Red Cell Distribution Width 13.4 % (11.5-14.5) 13.6 % (11.5-14.5) 13.3 % (11.5-14.5) Platelet Count 463 x10^3/uL (140-400) 366 x10^3/uL (140-400) 392 x10^3/uL (140-400) Prothrombin Time 14.2 SEC (11.7-14.0) Prothromb Time International Ratio 1.1 (0.8-1.1) Neutrophils (%) (Auto) 81 % (31-73) Lymphocytes (%) (Auto) 11 % (24-48) Monocytes (%) (Auto) 8 % (0-9) Eosinophils (%) (Auto) 0 % (0-3) Basophils (%) (Auto) 0 % (0-3) Neutrophils # (Auto) 6.1 x10^3uL (1.8-7.7) Lymphocytes # (Auto) 0.8 x10^3/uL (1.0-4.8) Monocytes # (Auto) 0.6 x10^3/uL (0.0-1.1) Eosinophils # (Auto) 0.0 x10^3/uL (0.0-0.7) Basophils # (Auto) 0.0 x10^3/uL (0.0-0.2) Sodium Level 139 mmol/L (136-145) Potassium Level 3.9 mmol/L (3.5-5.1) Chloride Level 104 mmol/L (98-107) Carbon Dioxide Level 26 mmol/L (21-32) Anion Gap 9 (6-14) Blood Urea Nitrogen 10 mg/dL (8-26) Creatinine 0.9 mg/dL (0.7-1.3) Estimated GFR (Cockcroft-Gault) 86.7 BUN/Creatinine Ratio 11 (6-20) Glucose Level 155 mg/dL (70-99) Calcium Level 8.2 mg/dL (8.5-10.1) Total Bilirubin 0.3 mg/dL (0.2-1.0) Aspartate Amino Transf (AST/SGOT) 17 U/L (15-37) Alanine Aminotransferase (ALT/SGPT) 23 U/L (16-63) Alkaline Phosphatase 65 U/L (46-116) Total Protein 5.8 g/dL (6.4-8.2) Albumin 2.5 g/dL (3.4-5.0) Albumin/Globulin Ratio 0.8 (1.0-1.7) Assessment and Plan Assessmemt and Plan SPEC #: [id number] MIGUEL: 07/23/18 STATUS: RES REQ #: [id number] RECD: 07/23/[address] [facility] [address]: RINA LEMOS MD SOURCE: THIGH ENTR: 07/23/18 [facility] [place]: [facility] JORGE MOELLER MD, MANEESH MD ORDERED: BRIGIDA/ARTEMIO/CARISA Procedure Result ANAEROBIC-AEROBIC CULTURE Preliminary Preliminary report ANAEROBIC RES 1 Preliminary Comment No anaerobes recovered in 48 hours. AEROBIC CULT Preliminary Preliminary report AEROBIC RES 1 Preliminary Staphylococcus aureus 4+ GRAM STAIN Final Final report GRAM STAIN RES 1 Final Comment No white blood cells seen. GRAM STAIN RES 2 Final Comment Gram positive cocci in clusters Performed at: - [facility] [id number] [facility] [address], [place], [place] [id number] Commercial Estimator: STAN Salazar MD, Phone: [phone] Comment Review of Relevant I have reviewed the following items macario (where applicable) has been applied. Labs Laboratory Tests Test 07/25/18 10:55 07/25/18 14:10 07/25/18 22:35 07/26/18 04:55 White Blood Count 5.4 x10^3/uL (4.0-11.0) 9.0 x10^3/uL (4.0-11.0) 5.9 x10^3/uL (4.0-11.0) 7.5 x10^3/uL (4.0-11.0) Red Blood Count 4.69 x10^6/uL (4.30-5.70) 4.25 x10^6/uL (4.30-5.70) 3.65 x10^6/uL (4.30-5.70) 3.38 x10^6/uL (4.30-5.70) Hemoglobin 14.7 g/dL (13.0-17.5) 13.3 g/dL (13.0-17.5) 11.4 g/dL (13.0-17.5) 10.7 g/dL (13.0-17.5) Hematocrit 43.8 % (39.0-53.0) 39.6 % (39.0-53.0) 34.0 % (39.0-53.0) 31.5 % (39.0-53.0) Mean Corpuscular Volume 93 fL (79-100) 93 fL (79-100) 93 fL (79-100) 93 fL ( 79-100) Mean Corpuscular Hemoglobin 31 pg (25-35) 31 pg (25-35) 31 pg (25-35) 32 pg ( 25-35) Mean Corpuscular Hemoglobin Concent 34 g/dL (31-37) 34 g/dL (31-37) 33 g/dL (31-37) 34 g/dL (31-37) Red Cell Distribution Width 13.5 % (11.5-14.5) 13.4 % (11.5-14.5) 13.6 % (11.5-14.5) 13.3 % (11.5-14.5) Platelet Count 359 x10^3/uL (140-400) 463 x10^3/uL (140-400) 366 x10^3/uL (140-400) 392 x10^3/uL (140-400) Neutrophils (%) (Auto) 65 % (31-73) 81 % (31-73) Lymphocytes (%) (Auto) 21 % (24-48) 11 % (24-48) Monocytes (%) (Auto) 10 % (0-9) 8 % (0-9) Eosinophils (%) (Auto) 3 % (0-3) 0 % (0-3) Basophils (%) (Auto) 0 % (0-3) 0 % (0-3) Neutrophils # (Auto) 3.5 x10^3uL (1.8-7.7) 6.1 x10^3uL (1.8-7.7) Lymphocytes # (Auto) 1.1 x10^3/uL (1.0-4.8) 0.8 x10^3/uL (1.0-4.8) Monocytes # (Auto) 0.5 x10^3/uL (0.0-1.1) 0.6 x10^3/uL (0.0-1.1) Eosinophils # (Auto) 0.2 x10^3/uL (0.0-0.7) 0.0 x10^3/uL (0.0-0.7) Basophils # (Auto) 0.0 x10^3/uL (0.0-0.2) 0.0 x10^3/uL (0.0-0.2) Sodium Level 138 mmol/L (136-145) 139 mmol/L (136-145) Potassium Level 3.7 mmol/L (3.5-5.1) 3.9 mmol/L (3.5-5.1) Chloride Level 102 mmol/L (98-107) 104 mmol/L (98-107) Carbon Dioxide Level 26 mmol/L (21-32) 26 mmol/L (21-32) Anion Gap 10 (6-14) 9 (6-14) Blood Urea Nitrogen 10 mg/dL (8-26) 10 mg/dL (8-26) Creatinine 0.9 mg/dL (0.7-1.3) 0.9 mg/dL (0.7-1.3) Estimated GFR (Cockcroft-Gault) 86.7 86.7 BUN/Creatinine Ratio 11 (6-20) 11 (6-20) Glucose Level 93 mg/dL (70-99) 155 mg/dL (70-99) Calcium Level 8.9 mg/dL (8.5-10.1) 8.2 mg/dL (8.5-10.1) Total Bilirubin 0.6 mg/dL (0.2-1.0) 0.3 mg/dL (0.2-1.0) Aspartate Amino Transf (AST/SGOT) 18 U/L (15-37) 17 U/L (15-37) Alanine Aminotransferase (ALT/SGPT) 28 U/L (16-63) 23 U/L (16-63) Alkaline Phosphatase 70 U/L (46-116) 65 U/L (46-116) Total Protein 6.9 g/dL (6.4-8.2) 5.8 g/dL (6.4-8.2) Albumin 2.9 g/dL (3.4-5.0) 2.5 g/dL (3.4-5.0) Albumin/Globulin Ratio 0.7 (1.0-1.7) 0.8 (1.0-1.7) Prothrombin Time 14.2 SEC (11.7-14.0) Prothromb Time International Ratio 1.1 (0.8-1.1) Laboratory Tests Test 07/25/18 14:10 07/25/18 22:35 07/26/18 04:55 White Blood Count 9.0 x10^3/uL (4.0-11.0) 5.9 x10^3/uL (4.0-11.0) 7.5 x10^3/uL (4.0-11.0) Red Blood Count 4.25 x10^6/uL (4.30-5.70) 3.65 x10^6/uL (4.30-5.70) 3.38 x10^6/uL (4.30-5.70) Hemoglobin 13.3 g/dL (13.0-17.5) 11.4 g/dL (13.0-17.5) 10.7 g/dL (13.0-17.5) Hematocrit 39.6 % (39.0-53.0) 34.0 % (39.0-53.0) 31.5 % (39.0-53.0) Mean Corpuscular Volume 93 fL (79-100) 93 fL (79-100) 93 fL (79-100) Mean Corpuscular Hemoglobin 31 pg (25-35) 31 pg (25-35) 32 pg (25-35) Mean Corpuscular Hemoglobin Concent 34 g/dL (31-37) 33 g/dL (31-37) 34 g/dL (31-37) Red Cell Distribution Width 13.4 % (11.5-14.5) 13.6 % (11.5-14.5) 13.3 % (11.5-14.5) Platelet Count 463 x10^3/uL (140-400) 366 x10^3/uL (140-400) 392 x10^3/uL (140-400) Prothrombin Time 14.2 SEC (11.7-14.0) Prothromb Time International Ratio 1.1 (0.8-1.1) Neutrophils (%) (Auto) 81 % (31-73) Lymphocytes (%) (Auto) 11 % (24-48) Monocytes (%) (Auto) 8 % (0-9) Eosinophils (%) (Auto) 0 % (0-3) Basophils (%) (Auto) 0 % (0-3) Neutrophils # (Auto) 6.1 x10^3uL (1.8-7.7) Lymphocytes # (Auto) 0.8 x10^3/uL (1.0-4.8) Monocytes # (Auto) 0.6 x10^3/uL (0.0-1.1) Eosinophils # (Auto) 0.0 x10^3/uL (0.0-0.7) Basophils # (Auto) 0.0 x10^3/uL (0.0-0.2) Sodium Level 139 mmol/L (136-145) Potassium Level 3.9 mmol/L (3.5-5.1) Chloride Level 104 mmol/L (98-107) Carbon Dioxide Level 26 mmol/L (21-32) Anion Gap 9 (6-14) Blood Urea Nitrogen 10 mg/dL (8-26) Creatinine 0.9 mg/dL (0.7-1.3) Estimated GFR (Cockcroft-Gault) 86.7 BUN/Creatinine Ratio 11 (6-20) Glucose Level 155 mg/dL (70-99) Calcium Level 8.2 mg/dL (8.5-10.1) Total Bilirubin 0.3 mg/dL (0.2-1.0) Aspartate Amino Transf (AST/SGOT) 17 U/L (15-37) Alanine Aminotransferase (ALT/SGPT) 23 U/L (16-63) Alkaline Phosphatase 65 U/L (46-116) Total Protein 5.8 g/dL (6.4-8.2) Albumin 2.5 g/dL (3.4-5.0) Albumin/Globulin Ratio 0.8 (1.0-1.7) Microbiology 07/22/18 Blood Culture - Preliminary, Resulted NO GROWTH AFTER 4 DAYS 07/24/18 Aerobic Culture, Resulted Pending 07/24/18 Aerobic Culture Result 1 (ELFEGO), Resulted Pending 07/24/18 Gram Stain - Final, Resulted 07/24/18 Gram Stain Result 1 (ELFEGO) - Final, Resulted 07/24/18 Gram Stain Result 2 (ELFEGO) - Final, Resulted Medications Current Medications Vancomycin HCl 2 gm/Sodium Chloride 500 ml @ 250 mls/hr 1X ONCE IV Last administered on 07/22/18 03:23; Start 07/22/18 at 04:00; Stop 07/22/18 at 05:59 ; Status DC Vancomycin HCl (Vanco Per Pharmacy) 1 each PRN DAILY PRN MC SEE COMMENTS Last administered on 07/26/18at 09:47; Start 07/22/18 at 03:15 Fentanyl Citrate (Fentanyl 2ml Vial) 100 mcg STK-MED ONCE .ROUTE ; Start at 04:04; Stop 07/22/18 at 04:05; Status DC Ondansetron HCl (Zofran) 4 mg PRN Q8HRS PRN IV NAUSEA/VOMITING 1ST CHOICE; Start 07/22/18 at 05:00; Stop 07/23/18 at 04:59; Status DC Morphine Sulfate (Morphine Sulfate) 2 mg PRN Q2HR PRN IV SEVERE PAIN Last administered on 07/22/18 17:07; Start 07/22/18 at 05:00; Stop 07/23/18 at 04:59 ; Status DC Vancomycin HCl 1.25 gm/Sodium Chloride 250 ml @ 167 mls/hr Q12H IV Last administered on 07/26/18 03:59; Start 07/22/18 at 16:00 Vancomycin HCl (Vancomycin Trough Level) 1 each 1X ONCE MC Last administered on 07/23/18 15:30; Start 07/23/18 at 15:30; Stop 07/23/18 at 15:31; Status DC Acetaminophen (Tylenol) 1,000 mg PRN Q6HRS PRN PO fever/ mild pain Last administered on 07/26/18 05:28; Start 07/22/18 at 07:45 Sodium Chloride 1,000 ml @ 100 mls/hr Q10H IV Last administered on 07/26/18 03:58; Start 07/22/18 at 09:45 Aspirin (Ecotrin) 81 mg DAILY PO Last administered on 07/24/18 08:43; Start at 10:00 Atorvastatin Calcium (Lipitor) 40 mg QHS PO Last administered on 07/25/18 21: 22; Start 07/22/18 at 21:00 Lisinopril (Prinivil) 10 mg DAILY PO Last administered on 07/26/18 08:33; Start 07/22/18 at 10:00 Metoprolol Tartrate (Lopressor) 25 mg BID PO Last administered on 07/26/18at 08: 33; Start 07/22/18 at 10:00 Multivitamins (Thera M Plus) 1 tab DAILY PO Last administered on 07/26/18at 08: 32; Start 07/22/18 at 10:00 Clopidogrel Bisulfate (Plavix) 75 mg DAILY PO Last administered on 07/24/18at 08 :39; Start 07/22/18 at 12:00 Multivitamins 10 ml/Thiamine HCl 100 mg/Folic Acid 1 mg/Sodium Chloride 1,011.2 ml @ 100 mls/ hr 1X ONCE IV Last administered on 07/22/18at 14:45; Start 07/22 at 13:00; Stop 07/22/18 at 23:06; Status DC Multivitamins (Thera M Plus) 1 tab DAILY PO ; Start 07/23/18 at 09:00; Status UNV Folic Acid (Folic Acid) 1 mg DAILY PO Last administered on 07/26/18at 08:33; Start 07/23/18 at 09:00 Thiamine HCl 100 mg/Dextrose 51 ml @ 100 mls/hr DAILY IV ; Start 07/23/18 at 09 :00; Stop 07/27/18 at 09:31; Status UNV Lorazepam (Ativan) 2 mg Q6H PO Last administered on 07/23/18at 06:06; Start at 12:00; Stop 07/23/18 at 18:01; Status DC Enoxaparin Sodium (Lovenox 40mg Syringe) 40 mg Q24H SQ Last administered on at 13:24; Start 07/22/18 at 13:00; Stop 07/25/18 at 15:40; Status DC Tetanus/ Diphtheria Toxoids (Tenivac Syringe) 0.5 ml ONCE ONCE VAX IM Last administered on 07/22/18at 14:48; Start 07/22/18 at 13:00; Stop 07/22/18 at 13:01 ; Status DC Thiamine Mononitrate (Vitamin B-1) 100 mg DAILY PO Last administered on at 08:32; Start 07/23/18 at 09:00 Lactobacillus Rhamnosus (Culturelle) 1 cap BID PO Last administered on 08:32; Start 07/22/18 at 21:00 Cefepime HCl (Maxipime) 1 gm Q12HR IVP Last administered on 07/26/18 08:34; Start 07/22/18 at 21:00 Linezolid (Zyvox) 600 mg BID PO Last administered on 07/26/18 08:32; Start at 21:00 Cefepime HCl (Maxipime) 0.5 gm 1X ONCE IVP Last administered on 07/22/18at 14: 49; Start 07/22/18 at 14:30; Stop 07/22/18 at 14:31; Status DC Hydralazine HCl (Apresoline) 25 mg PRN TID PRN PO ELEVATED BP, SEE COMMENTS Last administered on 07/25/18at 15:59; Start 07/24/18 at 10:45 Ondansetron HCl (Zofran) 4 mg PRN Q6HRS PRN IV NAUSEA/VOMITING; Start 07/25/18 at 07:00; Stop 07/26/18 at 06:59; Status DC Morphine Sulfate (Morphine Sulfate) 1 mg PRN Q10MIN PRN IV SEVERE PAIN Last administered on 07/25/18at 23:45; Start 07/25/18 at 07:00; Stop 07/26/18 at 06:59 ; Status DC Ringer's Solution 1,000 ml @ 30 mls/hr Q24H IV Last administered on 07/25/18at 15:10; Start 07/25/18 at 07:00; Stop 07/25/18 at 18:59; Status DC Hydromorphone HCl (Dilaudid) 0.5 mg PRN Q10MIN PRN IV SEV PAIN, Second choice; Start 07/25/18 at 07:00; Stop 07/26/18 at 06:59; Status DC Prochlorperazine Edisylate (Compazine) 5 mg PACU PRN PRN IV NAUSEA, MRX1; Start 07/25/18 at 07:00; Stop 07/26/18 at 06:59; Status DC Propofol 20 ml @ As Directed STK-MED ONCE IV ; Start 07/25/18 at 11:53; Stop at 11:54; Status DC Lidocaine HCl (Lidocaine Pf 2% Vial) 5 ml STK-MED ONCE .ROUTE ; Start 07/25/18 at 11:53; Stop 07/25/18 at 11:54; Status DC Ondansetron HCl (Zofran) 4 mg STK-MED ONCE .ROUTE ; Start 07/25/18 at 11:53; Stop 07/25/18 at 11:54; Status DC Fentanyl Citrate (Fentanyl 2ml Vial) 100 mcg STK-MED ONCE .ROUTE ; Start at 11:53; Stop 07/25/18 at 11:54; Status DC Midazolam HCl (Versed) 2 mg STK-MED ONCE .ROUTE ; Start 07/25/18 at 11:56; Stop 07/25/18 at 11:57; Status DC Sevoflurane (Ultane) 15 ml STK-MED ONCE IH ; Start 07/25/18 at 12:49; Stop 07/25 at 12:50; Status DC Fentanyl Citrate (Fentanyl 2ml Vial) 100 mcg STK-MED ONCE .ROUTE ; Start at 13:24; Stop 07/25/18 at 13:25; Status DC Fentanyl Citrate (Fentanyl 2ml Vial) 50 mcg PRN Q10MIN PRN IV PAIN Last administered on 07/26/18at 00:14; Start 07/25/18 at 13:30; Stop 07/26/18 at 09:44 ; Status DC Dexamethasone Sodium Phosphate (Decadron) 20 mg STK-MED ONCE .ROUTE ; Start at 13:47; Stop 07/25/18 at 13:48; Status DC Propofol 20 ml @ As Directed STK-MED ONCE IV ; Start 07/25/18 at 13:47; Stop at 13:48; Status DC Lidocaine HCl (Lidocaine Pf 2% Vial) 5 ml STK-MED ONCE .ROUTE ; Start 07/25/18 at 13:47; Stop 07/25/18 at 13:48; Status DC Cellulose (Surgicel Hemostat 4x8) 1 each STK-MED ONCE .ROUTE Last administered on 07/25/18at 14:47; Start 07/25/18 at 13:13; Stop 07/25/18 at 14:14; Status DC Sevoflurane (Ultane) 15 ml STK-MED ONCE IH ; Start 07/25/18 at 14:41; Stop 07/25 at 14:42; Status DC Cellulose (Surgicel Hemostat 4x8) 1 each STK-MED ONCE .ROUTE ; Start 07/25/18 at 13:48; Stop 07/25/18 at 14:48; Status DC Fentanyl Citrate (Fentanyl 2ml Vial) 50 mcg PRN Q3HRS PRN IV PAIN Last administered on 07/26/18at 10:19; Start 07/26/18 at 02:30 Active Scripts Active Reported Atorvastatin Calcium 40 Mg Tablet 1 Tab PO DAILY Lisinopril 10 Mg Tablet 1 Tab PO DAILY Clopidogrel (Clopidogrel Bisulfate) 75 Mg Tablet 1 Tab PO DAILY Metoprolol Tartrate 25 Mg Tablet 1 Tab PO BID Aspir-Low (Aspirin) 81 Mg Tablet. 1 Tab PO DAILY Multivitamins (Multivitamin) 1 Each Tablet 1 Tab PO DAILY Vitals/I & O Vital Sign - Last 24 Hours 07/25/18 07/25/18 07/25/18 07/25/18 12:15 12:59 12:59 13:12 Temp 98.2 97.0 98.2 97.0 Pulse 75 83 Resp 20 20 20 B/P (MAP) 174/93 155/94 Pulse Ox 97 100 99 O2 Delivery Room Air Simple Mask Mask Simple Mask O2 Flow Rate 10 10 10.0 07/25/18 07/25/18 07/25/18 07/25/18 13:14 13:29 13:30 13:31 Pulse 92 68 Resp 20 20 20 20 B/P (MAP) 171/90 164/102 Pulse Ox 95 95 99 99 O2 Delivery Simple Mask Room Air Room Air Room Air O2 Flow Rate 10 07/25/18 07/25/18 07/25/18 07/25/18 13:44 13:59 14:15 14:57 Pulse 86 60 75 Resp 20 20 20 B/P (MAP) 154/85 105/55 106/59 Pulse Ox 91 89 89 O2 Delivery Nasal Cannula Mask O2 Flow Rate 2 2 4 10 07/25/18 07/25/18 07/25/18 07/25/18 15:10 15:14 15:29 15:44 Temp 97.3 97.3 Pulse 88 81 78 Resp 20 20 20 20 B/P (MAP) 164/91 164/88 165/90 Pulse Ox 99 93 93 95 O2 Delivery Simple Mask Room Air Room Air Room Air O2 Flow Rate 10.0 07/25/18 07/25/18 07/25/18 07/25/18 15:59 17:30 19:00 20:25 Temp 98.3 98.3 Pulse 111 Resp 16 B/P (MAP) 165/100 131/84 (100) 143/87 (105) Pulse Ox 94 O2 Delivery Room Air Room Air 07/25/18 07/25/18 07/25/18 07/25/18 21:22 21:22 23:45 23:45 Temp 99.3 99.3 Pulse 111 90 Resp 16 B/P (MAP) 143/87 140/83 (102) Pulse Ox 94 O2 Delivery Room Air Room Air Room Air 07/25/18 07/26/18 07/26/18 07/26/18 23:45 00:07 00:14 00:18 Temp 99.3 99.0 99.3 99.0 Pulse 90 85 Resp 16 16 B/P (MAP) 140/83 134/84 O2 Delivery Room Air Room Air 07/26/18 07/26/18 07/26/18 07/26/18 00:43 00:43 02:43 02:46 Temp 98.7 98.4 98.7 98.4 Pulse 83 76 Resp 18 16 B/P (MAP) 135/85 126/79 (95) Pulse Ox 93 O2 Delivery Room Air Room Air Room Air 07/26/18 07/26/18 07/26/18 07/26/18 06:55 07:00 07:25 08:33 Temp 98.1 98.1 Pulse 72 72 Resp 18 18 B/P (MAP) 128/76 (93) 128/76 Pulse Ox 97 O2 Delivery Room Air Room Air Room Air 07/26/18 07/26/18 07/26/18 08:33 10:19 11:00 Temp 98.1 98.1 Pulse 72 74 Resp 18 16 B/P (MAP) 128/76 132/74 (93) Pulse Ox 97 96 O2 Delivery Room Air Room Air Intake and Output 07/25/18 07/25/18 07/26/18 15:00 23:00 07:00 Intake Total 1520 ml 2210 ml 678 ml Output Total 200 ml 1175 ml 1401 ml Balance 1320 ml 1035 ml -723 ml MELINA MAE MD Jul 26, 2018 12:01
--- NOTE | 2018-07-26 12:03 | PDOC ---
PROGRESS NOTES Subjective Subjective pain overnight, gradually improving, good control of bleeding with current dressing Objective Objective Vital Signs Date Time Temp Pulse Resp B/P (MAP) Pulse Ox O2 Delivery O2 Flow Rate FiO2 07/26/18 11:00 98.1 74 16 132/74 (93) 96 Room Air 98.1 07/25/18 15:10 10.0 Intake and Output 07/26/18 07:00 Intake Total 4408 ml Output Total 2776 ml Balance 1632 ml Intake Oral 1430 ml IV Total 2900 ml Blood Product IV Normal Saline Flush 78 ml Output Urine Total 2576 ml Estimated Blood Loss 200 ml # Voids 1 Physical Exam Physical Exam dressing clean and dry Plan Plan of Care Keep current dressing on, will check wound tomorrow Comment Review of Relevant I have reviewed the following items macario (where applicable) has been applied. Labs Laboratory Tests Test 07/25/18 10:55 07/25/18 14:10 07/25/18 22:35 07/26/18 04:55 White Blood Count 5.4 x10^3/uL (4.0-11.0) 9.0 x10^3/uL (4.0-11.0) 5.9 x10^3/uL (4.0-11.0) 7.5 x10^3/uL (4.0-11.0) Red Blood Count 4.69 x10^6/uL (4.30-5.70) 4.25 x10^6/uL (4.30-5.70) 3.65 x10^6/uL (4.30-5.70) 3.38 x10^6/uL (4.30-5.70) Hemoglobin 14.7 g/dL (13.0-17.5) 13.3 g/dL (13.0-17.5) 11.4 g/dL (13.0-17.5) 10.7 g/dL (13.0-17.5) Hematocrit 43.8 % (39.0-53.0) 39.6 % (39.0-53.0) 34.0 % (39.0-53.0) 31.5 % (39.0-53.0) Mean Corpuscular Volume 93 fL (79-100) 93 fL (79-100) 93 fL (79-100) 93 fL ( 79-100) Mean Corpuscular Hemoglobin 31 pg (25-35) 31 pg (25-35) 31 pg (25-35) 32 pg ( 25-35) Mean Corpuscular Hemoglobin Concent 34 g/dL (31-37) 34 g/dL (31-37) 33 g/dL (31-37) 34 g/dL (31-37) Red Cell Distribution Width 13.5 % (11.5-14.5) 13.4 % (11.5-14.5) 13.6 % (11.5-14.5) 13.3 % (11.5-14.5) Platelet Count 359 x10^3/uL (140-400) 463 x10^3/uL (140-400) 366 x10^3/uL (140-400) 392 x10^3/uL (140-400) Neutrophils (%) (Auto) 65 % (31-73) 81 % (31-73) Lymphocytes (%) (Auto) 21 % (24-48) 11 % (24-48) Monocytes (%) (Auto) 10 % (0-9) 8 % (0-9) Eosinophils (%) (Auto) 3 % (0-3) 0 % (0-3) Basophils (%) (Auto) 0 % (0-3) 0 % (0-3) Neutrophils # (Auto) 3.5 x10^3uL (1.8-7.7) 6.1 x10^3uL (1.8-7.7) Lymphocytes # (Auto) 1.1 x10^3/uL (1.0-4.8) 0.8 x10^3/uL (1.0-4.8) Monocytes # (Auto) 0.5 x10^3/uL (0.0-1.1) 0.6 x10^3/uL (0.0-1.1) Eosinophils # (Auto) 0.2 x10^3/uL (0.0-0.7) 0.0 x10^3/uL (0.0-0.7) Basophils # (Auto) 0.0 x10^3/uL (0.0-0.2) 0.0 x10^3/uL (0.0-0.2) Sodium Level 138 mmol/L (136-145) 139 mmol/L (136-145) Potassium Level 3.7 mmol/L (3.5-5.1) 3.9 mmol/L (3.5-5.1) Chloride Level 102 mmol/L (98-107) 104 mmol/L (98-107) Carbon Dioxide Level 26 mmol/L (21-32) 26 mmol/L (21-32) Anion Gap 10 (6-14) 9 (6-14) Blood Urea Nitrogen 10 mg/dL (8-26) 10 mg/dL (8-26) Creatinine 0.9 mg/dL (0.7-1.3) 0.9 mg/dL (0.7-1.3) Estimated GFR (Cockcroft-Gault) 86.7 86.7 BUN/Creatinine Ratio 11 (6-20) 11 (6-20) Glucose Level 93 mg/dL (70-99) 155 mg/dL (70-99) Calcium Level 8.9 mg/dL (8.5-10.1) 8.2 mg/dL (8.5-10.1) Total Bilirubin 0.6 mg/dL (0.2-1.0) 0.3 mg/dL (0.2-1.0) Aspartate Amino Transf (AST/SGOT) 18 U/L (15-37) 17 U/L (15-37) Alanine Aminotransferase (ALT/SGPT) 28 U/L (16-63) 23 U/L (16-63) Alkaline Phosphatase 70 U/L (46-116) 65 U/L (46-116) Total Protein 6.9 g/dL (6.4-8.2) 5.8 g/dL (6.4-8.2) Albumin 2.9 g/dL (3.4-5.0) 2.5 g/dL (3.4-5.0) Albumin/Globulin Ratio 0.7 (1.0-1.7) 0.8 (1.0-1.7) Prothrombin Time 14.2 SEC (11.7-14.0) Prothromb Time International Ratio 1.1 (0.8-1.1) Laboratory Tests Test 07/25/18 14:10 07/25/18 22:35 07/26/18 04:55 White Blood Count 9.0 x10^3/uL (4.0-11.0) 5.9 x10^3/uL (4.0-11.0) 7.5 x10^3/uL (4.0-11.0) Red Blood Count 4.25 x10^6/uL (4.30-5.70) 3.65 x10^6/uL (4.30-5.70) 3.38 x10^6/uL (4.30-5.70) Hemoglobin 13.3 g/dL (13.0-17.5) 11.4 g/dL (13.0-17.5) 10.7 g/dL (13.0-17.5) Hematocrit 39.6 % (39.0-53.0) 34.0 % (39.0-53.0) 31.5 % (39.0-53.0) Mean Corpuscular Volume 93 fL (79-100) 93 fL (79-100) 93 fL (79-100) Mean Corpuscular Hemoglobin 31 pg (25-35) 31 pg (25-35) 32 pg (25-35) Mean Corpuscular Hemoglobin Concent 34 g/dL (31-37) 33 g/dL (31-37) 34 g/dL (31-37) Red Cell Distribution Width 13.4 % (11.5-14.5) 13.6 % (11.5-14.5) 13.3 % (11.5-14.5) Platelet Count 463 x10^3/uL (140-400) 366 x10^3/uL (140-400) 392 x10^3/uL (140-400) Prothrombin Time 14.2 SEC (11.7-14.0) Prothromb Time International Ratio 1.1 (0.8-1.1) Neutrophils (%) (Auto) 81 % (31-73) Lymphocytes (%) (Auto) 11 % (24-48) Monocytes (%) (Auto) 8 % (0-9) Eosinophils (%) (Auto) 0 % (0-3) Basophils (%) (Auto) 0 % (0-3) Neutrophils # (Auto) 6.1 x10^3uL (1.8-7.7) Lymphocytes # (Auto) 0.8 x10^3/uL (1.0-4.8) Monocytes # (Auto) 0.6 x10^3/uL (0.0-1.1) Eosinophils # (Auto) 0.0 x10^3/uL (0.0-0.7) Basophils # (Auto) 0.0 x10^3/uL (0.0-0.2) Sodium Level 139 mmol/L (136-145) Potassium Level 3.9 mmol/L (3.5-5.1) Chloride Level 104 mmol/L (98-107) Carbon Dioxide Level 26 mmol/L (21-32) Anion Gap 9 (6-14) Blood Urea Nitrogen 10 mg/dL (8-26) Creatinine 0.9 mg/dL (0.7-1.3) Estimated GFR (Cockcroft-Gault) 86.7 BUN/Creatinine Ratio 11 (6-20) Glucose Level 155 mg/dL (70-99) Calcium Level 8.2 mg/dL (8.5-10.1) Total Bilirubin 0.3 mg/dL (0.2-1.0) Aspartate Amino Transf (AST/SGOT) 17 U/L (15-37) Alanine Aminotransferase (ALT/SGPT) 23 U/L (16-63) Alkaline Phosphatase 65 U/L (46-116) Total Protein 5.8 g/dL (6.4-8.2) Albumin 2.5 g/dL (3.4-5.0) Albumin/Globulin Ratio 0.8 (1.0-1.7) Microbiology 07/22/18 Blood Culture - Preliminary, Resulted NO GROWTH AFTER 4 DAYS 07/24/18 Aerobic Culture, Resulted Pending 07/24/18 Aerobic Culture Result 1 (ELFEGO), Resulted Pending 07/24/18 Gram Stain - Final, Resulted 07/24/18 Gram Stain Result 1 (ELFEGO) - Final, Resulted 07/24/18 Gram Stain Result 2 (ELFEGO) - Final, Resulted Medications Current Medications Vancomycin HCl 2 gm/Sodium Chloride 500 ml @ 250 mls/hr 1X ONCE IV Last administered on 07/22/18at 03:23; Start 07/22/18 at 04:00; Stop 07/22/18 at 05:59 ; Status DC Vancomycin HCl (Vanco Per Pharmacy) 1 each PRN DAILY PRN MC SEE COMMENTS Last administered on 07/26/18at 09:47; Start 07/22/18 at 03:15 Fentanyl Citrate (Fentanyl 2ml Vial) 100 mcg STK-MED ONCE .ROUTE ; Start at 04:04; Stop 07/22/18 at 04:05; Status DC Ondansetron HCl (Zofran) 4 mg PRN Q8HRS PRN IV NAUSEA/VOMITING 1ST CHOICE; Start 07/22/18 at 05:00; Stop 07/23/18 at 04:59; Status DC Morphine Sulfate (Morphine Sulfate) 2 mg PRN Q2HR PRN IV SEVERE PAIN Last administered on 07/22/18at 17:07; Start 07/22/18 at 05:00; Stop 07/23/18 at 04:59 ; Status DC Vancomycin HCl 1.25 gm/Sodium Chloride 250 ml @ 167 mls/hr Q12H IV Last administered on 07/26/18at 03:59; Start 07/22/18 at 16:00 Vancomycin HCl (Vancomycin Trough Level) 1 each 1X ONCE MC Last administered on 07/23/18at 15:30; Start 07/23/18 at 15:30; Stop 07/23/18 at 15:31; Status DC Acetaminophen (Tylenol) 1,000 mg PRN Q6HRS PRN PO fever/ mild pain Last administered on 07/26/18 05:28; Start 07/22/18 at 07:45 Sodium Chloride 1,000 ml @ 100 mls/hr Q10H IV Last administered on 07/26/18at 03:58; Start 07/22/18 at 09:45 Aspirin (Ecotrin) 81 mg DAILY PO Last administered on 07/24/18at 08:43; Start at 10:00 Atorvastatin Calcium (Lipitor) 40 mg QHS PO Last administered on 07/25/18 21: 22; Start 07/22/18 at 21:00 Lisinopril (Prinivil) 10 mg DAILY PO Last administered on 07/26/18at 08:33; Start 07/22/18 at 10:00 Metoprolol Tartrate (Lopressor) 25 mg BID PO Last administered on 07/26/18 08: 33; Start 07/22/18 at 10:00 Multivitamins (Thera M Plus) 1 tab DAILY PO Last administered on 07/26/18 08: 32; Start 07/22/18 at 10:00 Clopidogrel Bisulfate (Plavix) 75 mg DAILY PO Last administered on 07/24/18at 08 :39; Start 07/22/18 at 12:00 Multivitamins 10 ml/Thiamine HCl 100 mg/Folic Acid 1 mg/Sodium Chloride 1,011.2 ml @ 100 mls/ hr 1X ONCE IV Last administered on 07/22/18 14:45; Start 07/22 at 13:00; Stop 07/22/18 at 23:06; Status DC Multivitamins (Thera M Plus) 1 tab DAILY PO ; Start 07/23/18 at 09:00; Status UNV Folic Acid (Folic Acid) 1 mg DAILY PO Last administered on 07/26/18 08:33; Start 07/23/18 at 09:00 Thiamine HCl 100 mg/Dextrose 51 ml @ 100 mls/hr DAILY IV ; Start 07/23/18 at 09 :00; Stop 07/27/18 at 09:31; Status UNV Lorazepam (Ativan) 2 mg Q6H PO Last administered on 07/23/18at 06:06; Start at 12:00; Stop 07/23/18 at 18:01; Status DC Enoxaparin Sodium (Lovenox 40mg Syringe) 40 mg Q24H SQ Last administered on 13:24; Start 07/22/18 at 13:00; Stop 07/25/18 at 15:40; Status DC Tetanus/ Diphtheria Toxoids (Tenivac Syringe) 0.5 ml ONCE ONCE VAX IM Last administered on 07/22/18at 14:48; Start 07/22/18 at 13:00; Stop 07/22/18 at 13:01 ; Status DC Thiamine Mononitrate (Vitamin B-1) 100 mg DAILY PO Last administered on 08:32; Start 07/23/18 at 09:00 Lactobacillus Rhamnosus (Culturelle) 1 cap BID PO Last administered on 08:32; Start 07/22/18 at 21:00 Cefepime HCl (Maxipime) 1 gm Q12HR IVP Last administered on 07/26/18 08:34; Start 07/22/18 at 21:00 Linezolid (Zyvox) 600 mg BID PO Last administered on 07/26/18at 08:32; Start at 21:00 Cefepime HCl (Maxipime) 0.5 gm 1X ONCE IVP Last administered on 07/22/18at 14: 49; Start 07/22/18 at 14:30; Stop 07/22/18 at 14:31; Status DC Hydralazine HCl (Apresoline) 25 mg PRN TID PRN PO ELEVATED BP, SEE COMMENTS Last administered on 07/25/18at 15:59; Start 07/24/18 at 10:45 Ondansetron HCl (Zofran) 4 mg PRN Q6HRS PRN IV NAUSEA/VOMITING; Start 07/25/18 at 07:00; Stop 07/26/18 at 06:59; Status DC Morphine Sulfate (Morphine Sulfate) 1 mg PRN Q10MIN PRN IV SEVERE PAIN Last administered on 07/25/18at 23:45; Start 07/25/18 at 07:00; Stop 07/26/18 at 06:59 ; Status DC Ringer's Solution 1,000 ml @ 30 mls/hr Q24H IV Last administered on 07/25/18at 15:10; Start 07/25/18 at 07:00; Stop 07/25/18 at 18:59; Status DC Hydromorphone HCl (Dilaudid) 0.5 mg PRN Q10MIN PRN IV SEV PAIN, Second choice; Start 07/25/18 at 07:00; Stop 07/26/18 at 06:59; Status DC Prochlorperazine Edisylate (Compazine) 5 mg PACU PRN PRN IV NAUSEA, MRX1; Start 07/25/18 at 07:00; Stop 07/26/18 at 06:59; Status DC Propofol 20 ml @ As Directed STK-MED ONCE IV ; Start 07/25/18 at 11:53; Stop at 11:54; Status DC Lidocaine HCl (Lidocaine Pf 2% Vial) 5 ml STK-MED ONCE .ROUTE ; Start 07/25/18 at 11:53; Stop 07/25/18 at 11:54; Status DC Ondansetron HCl (Zofran) 4 mg STK-MED ONCE .ROUTE ; Start 07/25/18 at 11:53; Stop 07/25/18 at 11:54; Status DC Fentanyl Citrate (Fentanyl 2ml Vial) 100 mcg STK-MED ONCE .ROUTE ; Start at 11:53; Stop 07/25/18 at 11:54; Status DC Midazolam HCl (Versed) 2 mg STK-MED ONCE .ROUTE ; Start 07/25/18 at 11:56; Stop 07/25/18 at 11:57; Status DC Sevoflurane (Ultane) 15 ml STK-MED ONCE IH ; Start 07/25/18 at 12:49; Stop 07/25 at 12:50; Status DC Fentanyl Citrate (Fentanyl 2ml Vial) 100 mcg STK-MED ONCE .ROUTE ; Start at 13:24; Stop 07/25/18 at 13:25; Status DC Fentanyl Citrate (Fentanyl 2ml Vial) 50 mcg PRN Q10MIN PRN IV PAIN Last administered on 07/26/18at 00:14; Start 07/25/18 at 13:30; Stop 07/26/18 at 09:44 ; Status DC Dexamethasone Sodium Phosphate (Decadron) 20 mg STK-MED ONCE .ROUTE ; Start at 13:47; Stop 07/25/18 at 13:48; Status DC Propofol 20 ml @ As Directed STK-MED ONCE IV ; Start 07/25/18 at 13:47; Stop at 13:48; Status DC Lidocaine HCl (Lidocaine Pf 2% Vial) 5 ml STK-MED ONCE .ROUTE ; Start 07/25/18 at 13:47; Stop 07/25/18 at 13:48; Status DC Cellulose (Surgicel Hemostat 4x8) 1 each STK-MED ONCE .ROUTE Last administered on 07/25/18at 14:47; Start 07/25/18 at 13:13; Stop 07/25/18 at 14:14; Status DC Sevoflurane (Ultane) 15 ml STK-MED ONCE IH ; Start 07/25/18 at 14:41; Stop 07/25 at 14:42; Status DC Cellulose (Surgicel Hemostat 4x8) 1 each STK-MED ONCE .ROUTE ; Start 07/25/18 at 13:48; Stop 07/25/18 at 14:48; Status DC Fentanyl Citrate (Fentanyl 2ml Vial) 50 mcg PRN Q3HRS PRN IV PAIN Last administered on 07/26/18at 10:19; Start 07/26/18 at 02:30 Active Scripts Active Reported Atorvastatin Calcium 40 Mg Tablet 1 Tab PO DAILY Lisinopril 10 Mg Tablet 1 Tab PO DAILY Clopidogrel (Clopidogrel Bisulfate) 75 Mg Tablet 1 Tab PO DAILY Metoprolol Tartrate 25 Mg Tablet 1 Tab PO BID Aspir-Low (Aspirin) 81 Mg Tablet. 1 Tab PO DAILY Multivitamins (Multivitamin) 1 Each Tablet 1 Tab PO DAILY Vitals/I & O Vital Sign - Last 24 Hours 07/25/18 07/25/18 07/25/18 07/25/18 12:15 12:59 12:59 13:12 Temp 98.2 97.0 98.2 97.0 Pulse 75 83 Resp 20 20 20 B/P (MAP) 174/93 155/94 Pulse Ox 97 100 99 O2 Delivery Room Air Simple Mask Mask Simple Mask O2 Flow Rate 10 10 10.0 07/25/18 07/25/18 07/25/18 07/25/18 13:14 13:29 13:30 13:31 Pulse 92 68 Resp 20 20 20 20 B/P (MAP) 171/90 164/102 Pulse Ox 95 95 99 99 O2 Delivery Simple Mask Room Air Room Air Room Air O2 Flow Rate 10 07/25/18 07/25/18 07/25/18 07/25/18 13:44 13:59 14:15 14:57 Pulse 86 60 75 Resp 20 20 20 B/P (MAP) 154/85 105/55 106/59 Pulse Ox 91 89 89 O2 Delivery Nasal Cannula Mask O2 Flow Rate 2 2 4 10 07/25/18 07/25/18 07/25/18 07/25/18 15:10 15:14 15:29 15:44 Temp 97.3 97.3 Pulse 88 81 78 Resp 20 20 20 20 B/P (MAP) 164/91 164/88 165/90 Pulse Ox 99 93 93 95 O2 Delivery Simple Mask Room Air Room Air Room Air O2 Flow Rate 10.0 07/25/18 07/25/18 07/25/18 07/25/18 15:59 17:30 19:00 20:25 Temp 98.3 98.3 Pulse 111 Resp 16 B/P (MAP) 165/100 131/84 (100) 143/87 (105) Pulse Ox 94 O2 Delivery Room Air Room Air 07/25/18 07/25/18 07/25/18 07/25/18 21:22 21:22 23:45 23:45 Temp 99.3 99.3 Pulse 111 90 Resp 16 B/P (MAP) 143/87 140/83 (102) Pulse Ox 94 O2 Delivery Room Air Room Air Room Air 07/25/18 07/26/18 07/26/18 07/26/18 23:45 00:07 00:14 00:18 Temp 99.3 99.0 99.3 99.0 Pulse 90 85 Resp 16 16 B/P (MAP) 140/83 134/84 O2 Delivery Room Air Room Air 07/26/18 07/26/18 07/26/18 07/26/18 00:43 00:43 02:43 02:46 Temp 98.7 98.4 98.7 98.4 Pulse 83 76 Resp 18 16 B/P (MAP) 135/85 126/79 (95) Pulse Ox 93 O2 Delivery Room Air Room Air Room Air 07/26/18 07/26/18 07/26/18 07/26/18 06:55 07:00 07:25 08:33 Temp 98.1 98.1 Pulse 72 72 Resp 18 18 B/P (MAP) 128/76 (93) 128/76 Pulse Ox 97 O2 Delivery Room Air Room Air Room Air 07/26/18 07/26/18 07/26/18 08:33 10:19 11:00 Temp 98.1 98.1 Pulse 72 74 Resp 18 16 B/P (MAP) 128/76 132/74 (93) Pulse Ox 97 96 O2 Delivery Room Air Room Air Intake and Output 07/25/18 07/25/18 07/26/18 15:00 23:00 07:00 Intake Total 1520 ml 2210 ml 678 ml Output Total 200 ml 1175 ml 1401 ml Balance 1320 ml 1035 ml -723 ml MARGOT DAWSON MD Jul 26, 2018 12:03
[2018-07-26] MEDS: ASPIRIN ENTERIC COATED 81 MG TABLET.DR. PO SCH (13:03)
[2018-07-26] MEDS: ATORVASTATIN CALCIUM 40 MG TABLET. PO SCH (20:54)
[2018-07-27] VITALS (7 sets, daily range): BP systolic 109–137; BP diastolic 65–82
[2018-07-27] MEDS: fentaNYL PF VIAL 100 MCG/2 ML VIAL IV PRN ×4 (03:48→22:35)
[2018-07-27] MEDS: FOLIC ACID 1 MG TABLET. PO SCH (07:53)
[2018-07-27] MEDS: CLOPIDOGREL BISULFATE 75 MG TABLET PO SCH ×2 (07:53→19:48)
[2018-07-27] MEDS: MULTIVITAMIN with MINERAL TABLET. PO SCH (07:53)
[2018-07-27] MEDS: THIAMINE 100 MG TABLET. PO SCH (07:53)
[2018-07-27] MEDS: ASPIRIN ENTERIC COATED 81 MG TABLET.DR. PO SCH (07:53)
[2018-07-27] MEDS: LINEZOLID 600 MG TABLET PO SCH ×2 (07:53→20:29)
[2018-07-27] MEDS: LACTOBACILLUS RHAMNOSUS GG 1 CAPSULE. PO SCH ×2 (07:53→20:29)
[2018-07-27] MEDS: ACETAMINOPHEN 500 MG TABLET PO PRN ×2 (07:53→14:03)
[2018-07-27] MEDS: METOPROLOL TART IMMED RELEASE 25 MG TABLET. PO SCH ×2 (08:18→20:30)
[2018-07-27] MEDS: LISINOPRIL 10 MG TABLET PO SCH (08:18)
--- NOTE | 2018-07-27 09:46 | PDOC ---
PROGRESS NOTES Chief Complaint Chief Complaint ASSESSMENT: severe cellulitis left upper leg/ thigh, possible infected insect bite with deep tissue involvement. multiple pustular lesions in LE. 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 denies insect bites Hypertension HX NSTEMI s/p cardiac cath and stent placement on 04/30/16 HX 5 mm pulmonary nodule. Alcohol abuse. severe HX, persistent 6 shots/ night THC usage.HX sepsis pos wound cult suspect staph PLAN: IV vancomycin/Cefepime/zyvox blood cultures ordered wound cx pending apprec ID and gen sx 07/25 will need debridement in OR NPO past midnight local wound care continue home meds ALCOHOL WITHDRAWAL PREVENTION DVT PROPHYLAXIS 46 min pt exam, chart review, > 50% of time spent with exam, chart review, pt care coordination Vitals Vitals Vital Signs Date Time Temp Pulse Resp B/P (MAP) Pulse Ox O2 Delivery O2 Flow Rate FiO2 07/27/18 09:35 20 96 Room Air 07/27/18 08:18 64 130/82 07/27/18 08:15 99.7 99.7 07/27/18 04:18 10.0 Physical Exam Physical Exam GENERAL: Propped up in bed, alert, relaxed HEENT: Facial redness, Oral cavity clear NECK: Supple. LUNGS: Clear bilaterally. No wheezing. HEART: S1, S2. ABDOMEN: Soft, nontender, nondistended. EXTREMITIES: Left thigh post-op dressing dry. NEUROLOGIC: Alert and oriented x 3, grossly nonfocal. SKIN: No rash. Multiple skin lesions lower extremities PIV General: Alert, Oriented X3, Cooperative, No acute distress, mild distress Heart: Regular rate, Normal S1, Normal S2, No murmurs Lungs: Clear, Other Abdomen: Normal bowel sounds, Soft Extremities: No cyanosis Skin: Other (leg with erythema, central wound with necrosis) Labs LABS PATIENT: KALANI PINEDA ACCT: [id number] LOC: [address] [place] [address] U : [id number] AGE/SX: 57/M ROOM: 538 REG : 07/22/[address]: ANNALEE INFANTE MD : 1960 BED: 1 DIS : STATUS: ADM IN TLOC: SPEC #: [id number] MIGUEL: 07/25/18 STATUS: RES REQ #: [id number] RECD: 07/25/[address]: ANNALEE INFANTE MD SOURCE: THIGH ENTR: 07/25/[address] [facility] [address]: RUMA BRIAN DO [facility]: LEFT RINA LEMOS MD, LEE V MD ORDERED: ANAER/AEROB/GS Procedure Result ANAEROBIC-AEROBIC CULTURE PENDING ANAEROBIC RES 1 PENDING AEROBIC CULT PENDING AEROBIC RES 1 PENDING GRAM STAIN Final Final report GRAM STAIN RES 1 Final Comment No white blood cells seen. GRAM STAIN RES 2 Final No organisms seen Performed at: [facility] [address] [id number] Hog Grader: STAN Salazar MD, Phone: [phone] Comment Review of Relevant I have reviewed the following items macario (where applicable) has been applied. Labs Laboratory Tests Test 07/25/18 10:55 07/25/18 14:10 07/25/18 22:35 07/26/18 04:55 White Blood Count 5.4 x10^3/uL (4.0-11.0) 9.0 x10^3/uL (4.0-11.0) 5.9 x10^3/uL (4.0-11.0) 7.5 x10^3/uL (4.0-11.0) Red Blood Count 4.69 x10^6/uL (4.30-5.70) 4.25 x10^6/uL (4.30-5.70) 3.65 x10^6/uL (4.30-5.70) 3.38 x10^6/uL (4.30-5.70) Hemoglobin 14.7 g/dL (13.0-17.5) 13.3 g/dL (13.0-17.5) 11.4 g/dL (13.0-17.5) 10.7 g/dL (13.0-17.5) Hematocrit 43.8 % (39.0-53.0) 39.6 % (39.0-53.0) 34.0 % (39.0-53.0) 31.5 % (39.0-53.0) Mean Corpuscular Volume 93 fL (79-100) 93 fL (79-100) 93 fL (79-100) 93 fL ( 79-100) Mean Corpuscular Hemoglobin 31 pg (25-35) 31 pg (25-35) 31 pg (25-35) 32 pg ( 25-35) Mean Corpuscular Hemoglobin Concent 34 g/dL (31-37) 34 g/dL (31-37) 33 g/dL (31-37) 34 g/dL (31-37) Red Cell Distribution Width 13.5 % (11.5-14.5) 13.4 % (11.5-14.5) 13.6 % (11.5-14.5) 13.3 % (11.5-14.5) Platelet Count 359 x10^3/uL (140-400) 463 x10^3/uL (140-400) 366 x10^3/uL (140-400) 392 x10^3/uL (140-400) Neutrophils (%) (Auto) 65 % (31-73) 81 % (31-73) Lymphocytes (%) (Auto) 21 % (24-48) 11 % (24-48) Monocytes (%) (Auto) 10 % (0-9) 8 % (0-9) Eosinophils (%) (Auto) 3 % (0-3) 0 % (0-3) Basophils (%) (Auto) 0 % (0-3) 0 % (0-3) Neutrophils # (Auto) 3.5 x10^3uL (1.8-7.7) 6.1 x10^3uL (1.8-7.7) Lymphocytes # (Auto) 1.1 x10^3/uL (1.0-4.8) 0.8 x10^3/uL (1.0-4.8) Monocytes # (Auto) 0.5 x10^3/uL (0.0-1.1) 0.6 x10^3/uL (0.0-1.1) Eosinophils # (Auto) 0.2 x10^3/uL (0.0-0.7) 0.0 x10^3/uL (0.0-0.7) Basophils # (Auto) 0.0 x10^3/uL (0.0-0.2) 0.0 x10^3/uL (0.0-0.2) Sodium Level 138 mmol/L (136-145) 139 mmol/L (136-145) Potassium Level 3.7 mmol/L (3.5-5.1) 3.9 mmol/L (3.5-5.1) Chloride Level 102 mmol/L (98-107) 104 mmol/L (98-107) Carbon Dioxide Level 26 mmol/L (21-32) 26 mmol/L (21-32) Anion Gap 10 (6-14) 9 (6-14) Blood Urea Nitrogen 10 mg/dL (8-26) 10 mg/dL (8-26) Creatinine 0.9 mg/dL (0.7-1.3) 0.9 mg/dL (0.7-1.3) Estimated GFR (Cockcroft-Gault) 86.7 86.7 BUN/Creatinine Ratio 11 (6-20) 11 (6-20) Glucose Level 93 mg/dL (70-99) 155 mg/dL (70-99) Calcium Level 8.9 mg/dL (8.5-10.1) 8.2 mg/dL (8.5-10.1) Total Bilirubin 0.6 mg/dL (0.2-1.0) 0.3 mg/dL (0.2-1.0) Aspartate Amino Transf (AST/SGOT) 18 U/L (15-37) 17 U/L (15-37) Alanine Aminotransferase (ALT/SGPT) 28 U/L (16-63) 23 U/L (16-63) Alkaline Phosphatase 70 U/L (46-116) 65 U/L (46-116) Total Protein 6.9 g/dL (6.4-8.2) 5.8 g/dL (6.4-8.2) Albumin 2.9 g/dL (3.4-5.0) 2.5 g/dL (3.4-5.0) Albumin/Globulin Ratio 0.7 (1.0-1.7) 0.8 (1.0-1.7) Prothrombin Time 14.2 SEC (11.7-14.0) Prothromb Time International Ratio 1.1 (0.8-1.1) Microbiology 07/22/18 Blood Culture - Final, Complete NO GROWTH AFTER 5 DAYS 07/25/18 Anaerobic/Aerobic Culture, Resulted Pending 07/25/18 Anaerobic Culture Result 1 (ELFEGO), Resulted Pending 07/25/18 Aerobic Culture, Resulted Pending 07/25/18 Aerobic Culture Result 1 (ELFEGO), Resulted Pending 07/25/18 Gram Stain - Final, Resulted 07/25/18 Gram Stain Result 1 (ELFEGO) - Final, Resulted 07/25/18 Gram Stain Result 2 (ELFEGO) - Final, Resulted Medications Current Medications Vancomycin HCl 2 gm/Sodium Chloride 500 ml @ 250 mls/hr 1X ONCE IV Last administered on 07/22/18at 03:23; Start 07/22/18 at 04:00; Stop 07/22/18 at 05:59 ; Status DC Vancomycin HCl (Vanco Per Pharmacy) 1 each PRN DAILY PRN MC SEE COMMENTS Last administered on 07/26/18at 09:47; Start 07/22/18 at 03:15; Stop 07/26/18 at 15:16 ; Status DC Fentanyl Citrate (Fentanyl 2ml Vial) 100 mcg STK-MED ONCE .ROUTE ; Start at 04:04; Stop 07/22/18 at 04:05; Status DC Ondansetron HCl (Zofran) 4 mg PRN Q8HRS PRN IV NAUSEA/VOMITING 1ST CHOICE; Start 07/22/18 at 05:00; Stop 07/23/18 at 04:59; Status DC Morphine Sulfate (Morphine Sulfate) 2 mg PRN Q2HR PRN IV SEVERE PAIN Last administered on 07/22/18at 17:07; Start 07/22/18 at 05:00; Stop 07/23/18 at 04:59 ; Status DC Vancomycin HCl 1.25 gm/Sodium Chloride 250 ml @ 167 mls/hr Q12H IV Last administered on 07/26/18at 03:59; Start 07/22/18 at 16:00; Stop 07/26/18 at 15:16 ; Status DC Vancomycin HCl (Vancomycin Trough Level) 1 each 1X ONCE MC Last administered on 07/23/18at 15:30; Start 07/23/18 at 15:30; Stop 07/23/18 at 15:31; Status DC Acetaminophen (Tylenol) 1,000 mg PRN Q6HRS PRN PO fever/ mild pain Last administered on 07/27/18at 07:53; Start 07/22/18 at 07:45 Sodium Chloride 1,000 ml @ 100 mls/hr Q10H IV Last administered on 07/26/18at 22:07; Start 07/22/18 at 09:45 Aspirin (Ecotrin) 81 mg DAILY PO Last administered on 07/27/18 07:53; Start at 10:00 Atorvastatin Calcium (Lipitor) 40 mg QHS PO Last administered on 07/26/18at 20: 54; Start 07/22/18 at 21:00 Lisinopril (Prinivil) 10 mg DAILY PO Last administered on 07/27/18 08:18; Start 07/22/18 at 10:00 Metoprolol Tartrate (Lopressor) 25 mg BID PO Last administered on 07/27/18 08: 18; Start 07/22/18 at 10:00 Multivitamins (Thera M Plus) 1 tab DAILY PO Last administered on 07/27/18 07: 53; Start 07/22/18 at 10:00 Clopidogrel Bisulfate (Plavix) 75 mg DAILY PO Last administered on 07/27/18 07 :53; Start 07/22/18 at 12:00 Multivitamins 10 ml/Thiamine HCl 100 mg/Folic Acid 1 mg/Sodium Chloride 1,011.2 ml @ 100 mls/ hr 1X ONCE IV Last administered on 07/22/18 14:45; Start 07/22 at 13:00; Stop 07/22/18 at 23:06; Status DC Multivitamins (Thera M Plus) 1 tab DAILY PO ; Start 07/23/18 at 09:00; Status UNV Folic Acid (Folic Acid) 1 mg DAILY PO Last administered on 07/27/18at 07:53; Start 07/23/18 at 09:00 Thiamine HCl 100 mg/Dextrose 51 ml @ 100 mls/hr DAILY IV ; Start 07/23/18 at 09 :00; Stop 07/27/18 at 09:31; Status UNV Lorazepam (Ativan) 2 mg Q6H PO Last administered on 07/23/18at 06:06; Start at 12:00; Stop 07/23/18 at 18:01; Status DC Enoxaparin Sodium (Lovenox 40mg Syringe) 40 mg Q24H SQ Last administered on at 13:24; Start 07/22/18 at 13:00; Stop 07/25/18 at 15:40; Status DC Tetanus/ Diphtheria Toxoids (Tenivac Syringe) 0.5 ml ONCE ONCE VAX IM Last administered on 07/22/18 14:48; Start 07/22/18 at 13:00; Stop 07/22/18 at 13:01 ; Status DC Thiamine Mononitrate (Vitamin B-1) 100 mg DAILY PO Last administered on 07:53; Start 07/23/18 at 09:00 Lactobacillus Rhamnosus (Culturelle) 1 cap BID PO Last administered on 07:53; Start 07/22/18 at 21:00 Cefepime HCl (Maxipime) 1 gm Q12HR IVP Last administered on 07/26/18 08:34; Start 07/22/18 at 21:00; Stop 07/26/18 at 15:15; Status DC Linezolid (Zyvox) 600 mg BID PO Last administered on 07/27/18 07:53; Start at 21:00 Cefepime HCl (Maxipime) 0.5 gm 1X ONCE IVP Last administered on 07/22/18 14: 49; Start 07/22/18 at 14:30; Stop 07/22/18 at 14:31; Status DC Hydralazine HCl (Apresoline) 25 mg PRN TID PRN PO ELEVATED BP, SEE COMMENTS Last administered on 07/25/18at 15:59; Start 07/24/18 at 10:45 Ondansetron HCl (Zofran) 4 mg PRN Q6HRS PRN IV NAUSEA/VOMITING; Start 07/25/18 at 07:00; Stop 07/26/18 at 06:59; Status DC Morphine Sulfate (Morphine Sulfate) 1 mg PRN Q10MIN PRN IV SEVERE PAIN Last administered on 07/25/18 23:45; Start 07/25/18 at 07:00; Stop 07/26/18 at 06:59 ; Status DC Ringer's Solution 1,000 ml @ 30 mls/hr Q24H IV Last administered on 07/25/18 15:10; Start 07/25/18 at 07:00; Stop 07/25/18 at 18:59; Status DC Hydromorphone HCl (Dilaudid) 0.5 mg PRN Q10MIN PRN IV SEV PAIN, Second choice; Start 07/25/18 at 07:00; Stop 07/26/18 at 06:59; Status DC Prochlorperazine Edisylate (Compazine) 5 mg PACU PRN PRN IV NAUSEA, MRX1; Start 07/25/18 at 07:00; Stop 07/26/18 at 06:59; Status DC Propofol 20 ml @ As Directed STK-MED ONCE IV ; Start 07/25/18 at 11:53; Stop at 11:54; Status DC Lidocaine HCl (Lidocaine Pf 2% Vial) 5 ml STK-MED ONCE .ROUTE ; Start 07/25/18 at 11:53; Stop 07/25/18 at 11:54; Status DC Ondansetron HCl (Zofran) 4 mg STK-MED ONCE .ROUTE ; Start 07/25/18 at 11:53; Stop 07/25/18 at 11:54; Status DC Fentanyl Citrate (Fentanyl 2ml Vial) 100 mcg STK-MED ONCE .ROUTE ; Start at 11:53; Stop 07/25/18 at 11:54; Status DC Midazolam HCl (Versed) 2 mg STK-MED ONCE .ROUTE ; Start 07/25/18 at 11:56; Stop 07/25/18 at 11:57; Status DC Sevoflurane (Ultane) 15 ml STK-MED ONCE IH ; Start 07/25/18 at 12:49; Stop 07/25 at 12:50; Status DC Fentanyl Citrate (Fentanyl 2ml Vial) 100 mcg STK-MED ONCE .ROUTE ; Start at 13:24; Stop 07/25/18 at 13:25; Status DC Fentanyl Citrate (Fentanyl 2ml Vial) 50 mcg PRN Q10MIN PRN IV PAIN Last administered on 07/26/18at 00:14; Start 07/25/18 at 13:30; Stop 07/26/18 at 09:44 ; Status DC Dexamethasone Sodium Phosphate (Decadron) 20 mg STK-MED ONCE .ROUTE ; Start at 13:47; Stop 07/25/18 at 13:48; Status DC Propofol 20 ml @ As Directed STK-MED ONCE IV ; Start 07/25/18 at 13:47; Stop at 13:48; Status DC Lidocaine HCl (Lidocaine Pf 2% Vial) 5 ml STK-MED ONCE .ROUTE ; Start 07/25/18 at 13:47; Stop 07/25/18 at 13:48; Status DC Cellulose (Surgicel Hemostat 4x8) 1 each STK-MED ONCE .ROUTE Last administered on 07/25/18at 14:47; Start 07/25/18 at 13:13; Stop 07/25/18 at 14:14; Status DC Sevoflurane (Ultane) 15 ml STK-MED ONCE IH ; Start 07/25/18 at 14:41; Stop 07/25 at 14:42; Status DC Cellulose (Surgicel Hemostat 4x8) 1 each STK-MED ONCE .ROUTE ; Start 07/25/18 at 13:48; Stop 07/25/18 at 14:48; Status DC Fentanyl Citrate (Fentanyl 2ml Vial) 50 mcg PRN Q3HRS PRN IV PAIN Last administered on 07/27/18at 09:35; Start 07/26/18 at 02:30 Active Scripts Active Reported Atorvastatin Calcium 40 Mg Tablet 1 Tab PO DAILY Lisinopril 10 Mg Tablet 1 Tab PO DAILY Clopidogrel (Clopidogrel Bisulfate) 75 Mg Tablet 1 Tab PO DAILY Metoprolol Tartrate 25 Mg Tablet 1 Tab PO BID Aspir-Low (Aspirin) 81 Mg Tablet. 1 Tab PO DAILY Multivitamins (Multivitamin) 1 Each Tablet 1 Tab PO DAILY Vitals/I & O Vital Sign - Last 24 Hours 07/26/18 07/26/18 07/26/18 07/26/18 10:19 10:49 11:00 15:00 Temp 98.1 98.4 98.1 98.4 Pulse 74 68 Resp 18 20 16 18 B/P (MAP) 132/74 (93) 125/73 (90) Pulse Ox 97 96 96 O2 Delivery Room Air Room Air Room Air 07/26/18 07/26/18 07/26/18 07/26/18 17:25 19:00 20:00 20:54 Temp 98.6 98.6 Pulse 80 80 Resp 20 18 B/P (MAP) 124/69 (87) 124/69 Pulse Ox 96 97 O2 Delivery Room Air Room Air Room Air 07/26/18 07/26/18 07/27/18 07/27/18 22:07 22:45 03:00 03:48 Temp 98.4 97.8 98.4 97.8 Pulse 68 75 Resp 18 18 B/P (MAP) 128/75 (92) 109/72 (84) Pulse Ox 97 96 95 95 O2 Delivery Room Air Room Air Room Air Room Air O2 Flow Rate 10.0 07/27/18 07/27/18 07/27/18 07/27/18 04:18 08:00 08:15 08:18 Temp 99.7 99.7 Pulse 64 64 Resp 18 B/P (MAP) 130/82 (98) 130/82 Pulse Ox 95 96 O2 Delivery Room Air Room Air Room Air O2 Flow Rate 10.0 07/27/18 07/27/18 08:18 09:35 Pulse 64 Resp 20 B/P (MAP) 130/82 Pulse Ox 96 O2 Delivery Room Air Intake and Output 07/26/18 07/26/18 07/27/18 14:59 22:59 06:59 Intake Total 360 ml Output Total 350 ml 300 ml 300 ml Balance 10 ml -300 ml -300 ml MELINA MAE MD Jul 27, 2018 09:46
--- NOTE | 2018-07-27 09:52 | PDOC ---
PROGRESS NOTES Subjective Subjective pt feeling "ok" Objective Objective Vital Signs Date Time Temp Pulse Resp B/P (MAP) Pulse Ox O2 Delivery O2 Flow Rate FiO2 07/27/18 09:35 20 96 Room Air 07/27/18 08:18 64 130/82 07/27/18 08:15 99.7 99.7 07/27/18 07:00 10.0 Intake and Output 07/27/18 07:00 Intake Total 180 ml Output Total 600 ml Balance -420 ml Intake Oral 180 ml Output Urine Total 600 ml # Voids 1 Physical Exam Physical Exam dressing change done, mild oozing persists at wounds Plan Plan of Care continue with wound care, pressure dressing reapplied Comment Review of Relevant I have reviewed the following items macario (where applicable) has been applied. Labs Laboratory Tests Test 07/25/18 10:55 07/25/18 14:10 07/25/18 22:35 07/26/18 04:55 White Blood Count 5.4 x10^3/uL (4.0-11.0) 9.0 x10^3/uL (4.0-11.0) 5.9 x10^3/uL (4.0-11.0) 7.5 x10^3/uL (4.0-11.0) Red Blood Count 4.69 x10^6/uL (4.30-5.70) 4.25 x10^6/uL (4.30-5.70) 3.65 x10^6/uL (4.30-5.70) 3.38 x10^6/uL (4.30-5.70) Hemoglobin 14.7 g/dL (13.0-17.5) 13.3 g/dL (13.0-17.5) 11.4 g/dL (13.0-17.5) 10.7 g/dL (13.0-17.5) Hematocrit 43.8 % (39.0-53.0) 39.6 % (39.0-53.0) 34.0 % (39.0-53.0) 31.5 % (39.0-53.0) Mean Corpuscular Volume 93 fL (79-100) 93 fL (79-100) 93 fL (79-100) 93 fL ( 79-100) Mean Corpuscular Hemoglobin 31 pg (25-35) 31 pg (25-35) 31 pg (25-35) 32 pg ( 25-35) Mean Corpuscular Hemoglobin Concent 34 g/dL (31-37) 34 g/dL (31-37) 33 g/dL (31-37) 34 g/dL (31-37) Red Cell Distribution Width 13.5 % (11.5-14.5) 13.4 % (11.5-14.5) 13.6 % (11.5-14.5) 13.3 % (11.5-14.5) Platelet Count 359 x10^3/uL (140-400) 463 x10^3/uL (140-400) 366 x10^3/uL (140-400) 392 x10^3/uL (140-400) Neutrophils (%) (Auto) 65 % (31-73) 81 % (31-73) Lymphocytes (%) (Auto) 21 % (24-48) 11 % (24-48) Monocytes (%) (Auto) 10 % (0-9) 8 % (0-9) Eosinophils (%) (Auto) 3 % (0-3) 0 % (0-3) Basophils (%) (Auto) 0 % (0-3) 0 % (0-3) Neutrophils # (Auto) 3.5 x10^3uL (1.8-7.7) 6.1 x10^3uL (1.8-7.7) Lymphocytes # (Auto) 1.1 x10^3/uL (1.0-4.8) 0.8 x10^3/uL (1.0-4.8) Monocytes # (Auto) 0.5 x10^3/uL (0.0-1.1) 0.6 x10^3/uL (0.0-1.1) Eosinophils # (Auto) 0.2 x10^3/uL (0.0-0.7) 0.0 x10^3/uL (0.0-0.7) Basophils # (Auto) 0.0 x10^3/uL (0.0-0.2) 0.0 x10^3/uL (0.0-0.2) Sodium Level 138 mmol/L (136-145) 139 mmol/L (136-145) Potassium Level 3.7 mmol/L (3.5-5.1) 3.9 mmol/L (3.5-5.1) Chloride Level 102 mmol/L (98-107) 104 mmol/L (98-107) Carbon Dioxide Level 26 mmol/L (21-32) 26 mmol/L (21-32) Anion Gap 10 (6-14) 9 (6-14) Blood Urea Nitrogen 10 mg/dL (8-26) 10 mg/dL (8-26) Creatinine 0.9 mg/dL (0.7-1.3) 0.9 mg/dL (0.7-1.3) Estimated GFR (Cockcroft-Gault) 86.7 86.7 BUN/Creatinine Ratio 11 (6-20) 11 (6-20) Glucose Level 93 mg/dL (70-99) 155 mg/dL (70-99) Calcium Level 8.9 mg/dL (8.5-10.1) 8.2 mg/dL (8.5-10.1) Total Bilirubin 0.6 mg/dL (0.2-1.0) 0.3 mg/dL (0.2-1.0) Aspartate Amino Transf (AST/SGOT) 18 U/L (15-37) 17 U/L (15-37) Alanine Aminotransferase (ALT/SGPT) 28 U/L (16-63) 23 U/L (16-63) Alkaline Phosphatase 70 U/L (46-116) 65 U/L (46-116) Total Protein 6.9 g/dL (6.4-8.2) 5.8 g/dL (6.4-8.2) Albumin 2.9 g/dL (3.4-5.0) 2.5 g/dL (3.4-5.0) Albumin/Globulin Ratio 0.7 (1.0-1.7) 0.8 (1.0-1.7) Prothrombin Time 14.2 SEC (11.7-14.0) Prothromb Time International Ratio 1.1 (0.8-1.1) Microbiology 07/22/18 Blood Culture - Final, Complete NO GROWTH AFTER 5 DAYS 07/25/18 Anaerobic/Aerobic Culture, Resulted Pending 07/25/18 Anaerobic Culture Result 1 (ELFEGO), Resulted Pending 07/25/18 Aerobic Culture, Resulted Pending 07/25/18 Aerobic Culture Result 1 (ELFEGO), Resulted Pending 07/25/18 Gram Stain - Final, Resulted 07/25/18 Gram Stain Result 1 (ELFEGO) - Final, Resulted 07/25/18 Gram Stain Result 2 (ELFEGO) - Final, Resulted Medications Current Medications Vancomycin HCl 2 gm/Sodium Chloride 500 ml @ 250 mls/hr 1X ONCE IV Last administered on 07/22/18at 03:23; Start 07/22/18 at 04:00; Stop 07/22/18 at 05:59 ; Status DC Vancomycin HCl (Vanco Per Pharmacy) 1 each PRN DAILY PRN MC SEE COMMENTS Last administered on 07/26/18at 09:47; Start 07/22/18 at 03:15; Stop 07/26/18 at 15:16 ; Status DC Fentanyl Citrate (Fentanyl 2ml Vial) 100 mcg STK-MED ONCE .ROUTE ; Start at 04:04; Stop 07/22/18 at 04:05; Status DC Ondansetron HCl (Zofran) 4 mg PRN Q8HRS PRN IV NAUSEA/VOMITING 1ST CHOICE; Start 07/22/18 at 05:00; Stop 07/23/18 at 04:59; Status DC Morphine Sulfate (Morphine Sulfate) 2 mg PRN Q2HR PRN IV SEVERE PAIN Last administered on 07/22/18at 17:07; Start 07/22/18 at 05:00; Stop 07/23/18 at 04:59 ; Status DC Vancomycin HCl 1.25 gm/Sodium Chloride 250 ml @ 167 mls/hr Q12H IV Last administered on 07/26/18at 03:59; Start 07/22/18 at 16:00; Stop 07/26/18 at 15:16 ; Status DC Vancomycin HCl (Vancomycin Trough Level) 1 each 1X ONCE MC Last administered on 07/23/18at 15:30; Start 07/23/18 at 15:30; Stop 07/23/18 at 15:31; Status DC Acetaminophen (Tylenol) 1,000 mg PRN Q6HRS PRN PO fever/ mild pain Last administered on 07/27/18at 07:53; Start 07/22/18 at 07:45 Sodium Chloride 1,000 ml @ 100 mls/hr Q10H IV Last administered on 07/26/18 22:07; Start 07/22/18 at 09:45 Aspirin (Ecotrin) 81 mg DAILY PO Last administered on 07/27/18 07:53; Start at 10:00 Atorvastatin Calcium (Lipitor) 40 mg QHS PO Last administered on 07/26/18at 20: 54; Start 07/22/18 at 21:00 Lisinopril (Prinivil) 10 mg DAILY PO Last administered on 07/27/18 08:18; Start 07/22/18 at 10:00 Metoprolol Tartrate (Lopressor) 25 mg BID PO Last administered on 07/27/18 08: 18; Start 07/22/18 at 10:00 Multivitamins (Thera M Plus) 1 tab DAILY PO Last administered on 07/27/18at 07: 53; Start 07/22/18 at 10:00 Clopidogrel Bisulfate (Plavix) 75 mg DAILY PO Last administered on 07/27/18 07 :53; Start 07/22/18 at 12:00 Multivitamins 10 ml/Thiamine HCl 100 mg/Folic Acid 1 mg/Sodium Chloride 1,011.2 ml @ 100 mls/ hr 1X ONCE IV Last administered on 07/22/18at 14:45; Start 07/22 at 13:00; Stop 07/22/18 at 23:06; Status DC Multivitamins (Thera M Plus) 1 tab DAILY PO ; Start 07/23/18 at 09:00; Status UNV Folic Acid (Folic Acid) 1 mg DAILY PO Last administered on 07/27/18at 07:53; Start 07/23/18 at 09:00 Thiamine HCl 100 mg/Dextrose 51 ml @ 100 mls/hr DAILY IV ; Start 07/23/18 at 09 :00; Stop 07/27/18 at 09:31; Status UNV Lorazepam (Ativan) 2 mg Q6H PO Last administered on 07/23/18at 06:06; Start at 12:00; Stop 07/23/18 at 18:01; Status DC Enoxaparin Sodium (Lovenox 40mg Syringe) 40 mg Q24H SQ Last administered on at 13:24; Start 07/22/18 at 13:00; Stop 07/25/18 at 15:40; Status DC Tetanus/ Diphtheria Toxoids (Tenivac Syringe) 0.5 ml ONCE ONCE VAX IM Last administered on 07/22/18 14:48; Start 07/22/18 at 13:00; Stop 07/22/18 at 13:01 ; Status DC Thiamine Mononitrate (Vitamin B-1) 100 mg DAILY PO Last administered on 07:53; Start 07/23/18 at 09:00 Lactobacillus Rhamnosus (Culturelle) 1 cap BID PO Last administered on 07:53; Start 07/22/18 at 21:00 Cefepime HCl (Maxipime) 1 gm Q12HR IVP Last administered on 07/26/18 08:34; Start 07/22/18 at 21:00; Stop 07/26/18 at 15:15; Status DC Linezolid (Zyvox) 600 mg BID PO Last administered on 07/27/18 07:53; Start at 21:00 Cefepime HCl (Maxipime) 0.5 gm 1X ONCE IVP Last administered on 07/22/18 14: 49; Start 07/22/18 at 14:30; Stop 07/22/18 at 14:31; Status DC Hydralazine HCl (Apresoline) 25 mg PRN TID PRN PO ELEVATED BP, SEE COMMENTS Last administered on 07/25/18at 15:59; Start 07/24/18 at 10:45 Ondansetron HCl (Zofran) 4 mg PRN Q6HRS PRN IV NAUSEA/VOMITING; Start 07/25/18 at 07:00; Stop 07/26/18 at 06:59; Status DC Morphine Sulfate (Morphine Sulfate) 1 mg PRN Q10MIN PRN IV SEVERE PAIN Last administered on 07/25/18 23:45; Start 07/25/18 at 07:00; Stop 07/26/18 at 06:59 ; Status DC Ringer's Solution 1,000 ml @ 30 mls/hr Q24H IV Last administered on 07/25/18 15:10; Start 07/25/18 at 07:00; Stop 07/25/18 at 18:59; Status DC Hydromorphone HCl (Dilaudid) 0.5 mg PRN Q10MIN PRN IV SEV PAIN, Second choice; Start 07/25/18 at 07:00; Stop 07/26/18 at 06:59; Status DC Prochlorperazine Edisylate (Compazine) 5 mg PACU PRN PRN IV NAUSEA, MRX1; Start 07/25/18 at 07:00; Stop 07/26/18 at 06:59; Status DC Propofol 20 ml @ As Directed STK-MED ONCE IV ; Start 07/25/18 at 11:53; Stop at 11:54; Status DC Lidocaine HCl (Lidocaine Pf 2% Vial) 5 ml STK-MED ONCE .ROUTE ; Start 07/25/18 at 11:53; Stop 07/25/18 at 11:54; Status DC Ondansetron HCl (Zofran) 4 mg STK-MED ONCE .ROUTE ; Start 07/25/18 at 11:53; Stop 07/25/18 at 11:54; Status DC Fentanyl Citrate (Fentanyl 2ml Vial) 100 mcg STK-MED ONCE .ROUTE ; Start at 11:53; Stop 07/25/18 at 11:54; Status DC Midazolam HCl (Versed) 2 mg STK-MED ONCE .ROUTE ; Start 07/25/18 at 11:56; Stop 07/25/18 at 11:57; Status DC Sevoflurane (Ultane) 15 ml STK-MED ONCE IH ; Start 07/25/18 at 12:49; Stop 07/25 at 12:50; Status DC Fentanyl Citrate (Fentanyl 2ml Vial) 100 mcg STK-MED ONCE .ROUTE ; Start at 13:24; Stop 07/25/18 at 13:25; Status DC Fentanyl Citrate (Fentanyl 2ml Vial) 50 mcg PRN Q10MIN PRN IV PAIN Last administered on 07/26/18at 00:14; Start 07/25/18 at 13:30; Stop 07/26/18 at 09:44 ; Status DC Dexamethasone Sodium Phosphate (Decadron) 20 mg STK-MED ONCE .ROUTE ; Start at 13:47; Stop 07/25/18 at 13:48; Status DC Propofol 20 ml @ As Directed STK-MED ONCE IV ; Start 07/25/18 at 13:47; Stop at 13:48; Status DC Lidocaine HCl (Lidocaine Pf 2% Vial) 5 ml STK-MED ONCE .ROUTE ; Start 07/25/18 at 13:47; Stop 07/25/18 at 13:48; Status DC Cellulose (Surgicel Hemostat 4x8) 1 each STK-MED ONCE .ROUTE Last administered on 07/25/18at 14:47; Start 07/25/18 at 13:13; Stop 07/25/18 at 14:14; Status DC Sevoflurane (Ultane) 15 ml STK-MED ONCE IH ; Start 07/25/18 at 14:41; Stop 07/25 at 14:42; Status DC Cellulose (Surgicel Hemostat 4x8) 1 each STK-MED ONCE .ROUTE ; Start 07/25/18 at 13:48; Stop 07/25/18 at 14:48; Status DC Fentanyl Citrate (Fentanyl 2ml Vial) 50 mcg PRN Q3HRS PRN IV PAIN Last administered on 07/27/18at 09:35; Start 07/26/18 at 02:30 Active Scripts Active Reported Atorvastatin Calcium 40 Mg Tablet 1 Tab PO DAILY Lisinopril 10 Mg Tablet 1 Tab PO DAILY Clopidogrel (Clopidogrel Bisulfate) 75 Mg Tablet 1 Tab PO DAILY Metoprolol Tartrate 25 Mg Tablet 1 Tab PO BID Aspir-Low (Aspirin) 81 Mg Tablet.dr 1 Tab PO DAILY Multivitamins (Multivitamin) 1 Each Tablet 1 Tab PO DAILY Vitals/I & O Vital Sign - Last 24 Hours 07/26/18 07/26/18 07/26/18 07/26/18 10:19 10:49 11:00 15:00 Temp 98.1 98.4 98.1 98.4 Pulse 74 68 Resp 18 20 16 18 B/P (MAP) 132/74 (93) 125/73 (90) Pulse Ox 97 96 96 O2 Delivery Room Air Room Air Room Air 07/26/18 07/26/18 07/26/18 07/26/18 17:25 19:00 20:00 20:54 Temp 98.6 98.6 Pulse 80 80 Resp 20 18 B/P (MAP) 124/69 (87) 124/69 Pulse Ox 96 97 O2 Delivery Room Air Room Air Room Air 4/07/26/18 07/27/18 07/27/18 22:07 22:45 03:00 03:48 Temp 98.4 97.8 98.4 97.8 Pulse 68 75 Resp 18 18 B/P (MAP) 128/75 (92) 109/72 (84) Pulse Ox 97 96 95 95 O2 Delivery Room Air Room Air Room Air Room Air O2 Flow Rate 10.0 07/27/18 07/27/18 07/27/18 07/27/18 04:18 07:00 08:00 08:15 Temp 99.7 99.7 99.7 99.7 Pulse 64 64 Resp 20 18 B/P (MAP) 130/82 (98) 130/82 (98) Pulse Ox 95 95 96 O2 Delivery Room Air Room Air Room Air Room Air O2 Flow Rate 10.0 10.0 07/27/18 07/27/18 07/27/18 08:18 08:18 09:35 Pulse 64 64 Resp 20 B/P (MAP) 130/82 130/82 Pulse Ox 96 O2 Delivery Room Air Intake and Output 07/26/18 07/26/18 07/27/18 15:00 23:00 07:00 Intake Total 180 ml Output Total 300 ml 300 ml Balance 180 ml -300 ml -300 ml MARGOT DAWSON MD Jul 27, 2018 09:52
[2018-07-27] MEDS: IV NORMAL SALINE 1000ML BAG 1,000 ML IV SCH ×2 (12:08→19:45)
--- NOTE | 2018-07-27 12:46 | PDOC ---
Infectious Disease Note Subjective Subjective Comfortable, pain controlled No fevers last 72 hours Appetite fair Denies N/V/D/SOA/rash ROS ROS o/w neg Vital Sign Vital Signs Vital Signs Date Time Temp Pulse Resp B/P (MAP) Pulse Ox O2 Delivery O2 Flow Rate FiO2 07/27/18 11:00 98.3 64 16 116/65 (82) 97 Room Air 10.0 98.3 Physical Exam PHYSICAL EXAM GENERAL: Propped up in bed, alert, relaxed HEENT: Facial redness, Oral cavity clear NECK: Supple. LUNGS: Clear bilaterally. No wheezing. HEART: S1, S2. ABDOMEN: Soft, nontender, nondistended. EXTREMITIES: Left thigh post-op dressing dry. NEUROLOGIC: Alert and oriented x 3, grossly nonfocal. SKIN: No rash. Multiple skin lesions lower extremities PIV Labs Micro Microbiology 07/22/18 Blood Culture - Final, Complete NO GROWTH AFTER 5 DAYS 07/25/18 Anaerobic/Aerobic Culture, Resulted Pending 07/25/18 Anaerobic Culture Result 1 (ELFEGO), Resulted Pending 07/25/18 Aerobic Culture, Resulted Pending 07/25/18 Aerobic Culture Result 1 (ELFEGO), Resulted Pending 07/25/18 Gram Stain - Final, Resulted 07/25/18 Gram Stain Result 1 (ELFEGO) - Final, Resulted 07/25/18 Gram Stain Result 2 (ELFEGO) - Final, Resulted Objective Assessment Severe left lower extremity cellulitis with furuncle left thigh. spontaneously draining, Staph aureus (susceptibilities pending) s/p I and D on 07/25. Intra-op cultures pending Multiple pustular lesions over both lower extremities. The patient denies any history of insect bite or trauma. PCN allergy. age of 3, passed out after an injection. Hypertension. History of non-ST elevation myocardial infarction, status post cardiac catheterization and stent placement in 04/2016. Alcohol abuse with hyperbilirubinemia. THC usage by history. Sepsis. resolved Leukocytosis. resolved Plan Plan of Care Cont Zyvox f/u cultures Monitor WBC/temp and renal function closely D/w DEENA AKERS MD Jul 27, 2018 12:46
--- NOTE | 2018-07-27 19:48 | NUR ---
Holding am plavix per surgery rec.
[2018-07-27] MEDS: ATORVASTATIN CALCIUM 40 MG TABLET. PO SCH (20:29)
[2018-07-28 03:00] VITALS: BP 124/81
[2018-07-28] MEDS: fentaNYL PF VIAL 100 MCG/2 ML VIAL IV PRN ×3 (04:17→14:15)
[2018-07-28 07:00] VITALS: BP 144/86
[2018-07-28] MEDS: IV NORMAL SALINE 1000ML BAG 1,000 ML IV SCH ×2 (08:07→15:45)
[2018-07-28] MEDS: ASPIRIN ENTERIC COATED 81 MG TABLET.DR. PO SCH (08:07)
[2018-07-28] MEDS: LACTOBACILLUS RHAMNOSUS GG 1 CAPSULE. PO SCH ×2 (08:07→20:32)
[2018-07-28] MEDS: THIAMINE 100 MG TABLET. PO SCH (08:07)
[2018-07-28] MEDS: LISINOPRIL 10 MG TABLET PO SCH (08:08)
[2018-07-28] MEDS: LINEZOLID 600 MG TABLET PO SCH ×2 (08:08→20:32)
[2018-07-28] MEDS: MULTIVITAMIN with MINERAL TABLET. PO SCH (08:08)
[2018-07-28] MEDS: FOLIC ACID 1 MG TABLET. PO SCH (08:08)
[2018-07-28] MEDS: METOPROLOL TART IMMED RELEASE 25 MG TABLET. PO SCH ×2 (08:08→20:33)
--- NOTE | 2018-07-28 08:39 | NUR ---
IP: Pt is mrsa + in thigh wound requiring contact precautions.
--- NOTE | 2018-07-28 08:53 | PDOC ---
JARRET CLIFTON APRN 07/28/18 0853: SURGICAL PROGRESS NOTE Subjective resting some pain has been taking it easy Vital Signs Vital Signs Date Time Temp Pulse Resp B/P (MAP) Pulse Ox O2 Delivery O2 Flow Rate FiO2 07/28/18 08:40 95 Room Air 10.0 07/28/18 08:08 73 144/86 07/28/18 07:00 97.7 18 97.7 I&O Intake and Output 07/28/18 07:00 Intake Total 1250 ml Output Total 3430 ml Balance -2180 ml Intake Oral 1250 ml Output Urine Total 3430 ml # Voids 1 # Bowel Movements 3 General: Alert, Oriented X3, Cooperative, No acute distress Skin: Other (dressing removed, clotting noted around drain sites, central wound still some oozing, reapplied pressure dressing ) Assessment/Plan still some oozing from wound, pressure dressing applied, hold plavix will review with JORGE Gaytan MD 07/29/18 0911: SURGICAL PROGRESS NOTE Assessment/Plan pt seen dressing intact will change dressing in the AM JARRET CLIFTON APRN Jul 28, 2018 08:53 JORGE MOELLER MD Jul 29, 2018 09:11
[2018-07-28 09:51] LABS: BASO % 1 % (0-3); EOS # 0.2 x10^3/uL (0.0-0.7); EOS % 3 % (0-3); HEMATOCRIT 30.6 % (39.0-53.0); HEMOGLOBIN 10.5 g/dL (13.0-17.5); LYMPH # 1.5 x10^3/uL (1.0-4.8); LYMPH % 25 % (24-48); MEAN CORPUSCULAR HEMOGLOBIN 32 pg (25-35); MEAN CORPUSCULAR HGB CONC 34 g/dL (31-37); MEAN CORPUSCULAR VOLUME 94 fL (79-100); MONO # 0.4 x10^3/uL (0.0-1.1); MONO % 7 % (0-9); NEUT # 3.9 x10^3uL (1.8-7.7); NEUT % 64 % (31-73); PLATELET COUNT 481 x10^3/uL (140-400); RED BLOOD COUNT 3.27 x10^6/uL (4.30-5.70); RED CELL DISTRIBUTION WIDTH 13.4 % (11.5-14.5)
--- NOTE | 2018-07-28 09:57 | PDOC ---
PROGRESS NOTES Chief Complaint Chief Complaint severe cellulitis left upper leg/ thigh, possible infected insect bite with deep tissue involvement. multiple pustular lesions in LE. 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 denies insect bites Hypertension HX NSTEMI s/p cardiac cath and stent placement on 04/30/16 HX 5 mm pulmonary nodule. Alcohol abuse. severe HX, persistent 6 shots/ night THC usage.HX sepsis pos wound cult suspect staph IV vancomycin/Cefepime/zyvox blood cultures ordered wound cx pending apprec ID and gen sx 07/25 will need debridement in OR NPO past midnight local wound care continue home meds History of Present Illness History of Present Illness try to DC today Vitals Vitals Vital Signs Date Time Temp Pulse Resp B/P (MAP) Pulse Ox O2 Delivery O2 Flow Rate FiO2 07/28/18 09:48 95 Room Air 10.0 07/28/18 08:08 73 144/86 07/28/18 07:00 97.7 18 97.7 Physical Exam Physical Exam GENERAL: Propped up in bed, alert, relaxed HEENT: Facial redness, Oral cavity clear NECK: Supple. LUNGS: Clear bilaterally. No wheezing. HEART: S1, S2. ABDOMEN: Soft, nontender, nondistended. EXTREMITIES: Left thigh post-op dressing dry. NEUROLOGIC: Alert and oriented x 3, grossly nonfocal. SKIN: No rash. Multiple skin lesions lower extremities PIV General: Alert, Oriented X3, Cooperative, No acute distress Heart: Regular rate, Normal S1, Normal S2, No murmurs Lungs: Clear, Other Abdomen: Normal bowel sounds, Soft Extremities: No cyanosis Skin: Other (dressing removed, clotting noted around drain sites, central wound still some oozing, reapplied pressure dressing ) Labs LABS Laboratory Tests Test 07/28/18 09:15 White Blood Count 6.0 x10^3/uL (4.0-11.0) Red Blood Count 3.27 x10^6/uL (4.30-5.70) Hemoglobin 10.5 g/dL (13.0-17.5) Hematocrit 30.6 % (39.0-53.0) Mean Corpuscular Volume 94 fL (79-100) Mean Corpuscular Hemoglobin 32 pg (25-35) Mean Corpuscular Hemoglobin Concent 34 g/dL (31-37) Red Cell Distribution Width 13.4 % (11.5-14.5) Platelet Count 481 x10^3/uL (140-400) Neutrophils (%) (Auto) 64 % (31-73) Lymphocytes (%) (Auto) 25 % (24-48) Monocytes (%) (Auto) 7 % (0-9) Eosinophils (%) (Auto) 3 % (0-3) Basophils (%) (Auto) 1 % (0-3) Neutrophils # (Auto) 3.9 x10^3uL (1.8-7.7) Lymphocytes # (Auto) 1.5 x10^3/uL (1.0-4.8) Monocytes # (Auto) 0.4 x10^3/uL (0.0-1.1) Eosinophils # (Auto) 0.2 x10^3/uL (0.0-0.7) Basophils # (Auto) 0.0 x10^3/uL (0.0-0.2) Comment Review of Relevant I have reviewed the following items macario (where applicable) has been applied. Labs Laboratory Tests Test 07/28/18 09:15 White Blood Count 6.0 x10^3/uL (4.0-11.0) Red Blood Count 3.27 x10^6/uL (4.30-5.70) Hemoglobin 10.5 g/dL (13.0-17.5) Hematocrit 30.6 % (39.0-53.0) Mean Corpuscular Volume 94 fL (79-100) Mean Corpuscular Hemoglobin 32 pg (25-35) Mean Corpuscular Hemoglobin Concent 34 g/dL (31-37) Red Cell Distribution Width 13.4 % (11.5-14.5) Platelet Count 481 x10^3/uL (140-400) Neutrophils (%) (Auto) 64 % (31-73) Lymphocytes (%) (Auto) 25 % (24-48) Monocytes (%) (Auto) 7 % (0-9) Eosinophils (%) (Auto) 3 % (0-3) Basophils (%) (Auto) 1 % (0-3) Neutrophils # (Auto) 3.9 x10^3uL (1.8-7.7) Lymphocytes # (Auto) 1.5 x10^3/uL (1.0-4.8) Monocytes # (Auto) 0.4 x10^3/uL (0.0-1.1) Eosinophils # (Auto) 0.2 x10^3/uL (0.0-0.7) Basophils # (Auto) 0.0 x10^3/uL (0.0-0.2) Laboratory Tests Test 07/28/18 09:15 White Blood Count 6.0 x10^3/uL (4.0-11.0) Red Blood Count 3.27 x10^6/uL (4.30-5.70) Hemoglobin 10.5 g/dL (13.0-17.5) Hematocrit 30.6 % (39.0-53.0) Mean Corpuscular Volume 94 fL (79-100) Mean Corpuscular Hemoglobin 32 pg (25-35) Mean Corpuscular Hemoglobin Concent 34 g/dL (31-37) Red Cell Distribution Width 13.4 % (11.5-14.5) Platelet Count 481 x10^3/uL (140-400) Neutrophils (%) (Auto) 64 % (31-73) Lymphocytes (%) (Auto) 25 % (24-48) Monocytes (%) (Auto) 7 % (0-9) Eosinophils (%) (Auto) 3 % (0-3) Basophils (%) (Auto) 1 % (0-3) Neutrophils # (Auto) 3.9 x10^3uL (1.8-7.7) Lymphocytes # (Auto) 1.5 x10^3/uL (1.0-4.8) Monocytes # (Auto) 0.4 x10^3/uL (0.0-1.1) Eosinophils # (Auto) 0.2 x10^3/uL (0.0-0.7) Basophils # (Auto) 0.0 x10^3/uL (0.0-0.2) Microbiology 07/22/18 Blood Culture - Final, Complete NO GROWTH AFTER 5 DAYS 07/25/18 Anaerobic/Aerobic Culture, Resulted Pending 07/25/18 Anaerobic Culture Result 1 (ELFEGO), Resulted Pending 07/25/18 Aerobic Culture - Preliminary, Resulted 07/25/18 Aerobic Culture Result 1 (ELFEGO) - Preliminary, Resulted 07/25/18 Gram Stain - Final, Resulted 07/25/18 Gram Stain Result 1 (ELFEGO) - Final, Resulted 07/25/18 Gram Stain Result 2 (ELFEGO) - Final, Resulted Medications Current Medications Vancomycin HCl 2 gm/Sodium Chloride 500 ml @ 250 mls/hr 1X ONCE IV Last administered on 07/22/18at 03:23; Start 07/22/18 at 04:00; Stop 07/22/18 at 05:59 ; Status DC Vancomycin HCl (Vanco Per Pharmacy) 1 each PRN DAILY PRN MC SEE COMMENTS Last administered on 07/26/18at 09:47; Start 07/22/18 at 03:15; Stop 07/26/18 at 15:16 ; Status DC Fentanyl Citrate (Fentanyl 2ml Vial) 100 mcg STK-MED ONCE .ROUTE ; Start at 04:04; Stop 07/22/18 at 04:05; Status DC Ondansetron HCl (Zofran) 4 mg PRN Q8HRS PRN IV NAUSEA/VOMITING 1ST CHOICE; Start 07/22/18 at 05:00; Stop 07/23/18 at 04:59; Status DC Morphine Sulfate (Morphine Sulfate) 2 mg PRN Q2HR PRN IV SEVERE PAIN Last administered on 07/22/18at 17:07; Start 07/22/18 at 05:00; Stop 07/23/18 at 04:59 ; Status DC Vancomycin HCl 1.25 gm/Sodium Chloride 250 ml @ 167 mls/hr Q12H IV Last administered on 07/26/18at 03:59; Start 07/22/18 at 16:00; Stop 07/26/18 at 15:16 ; Status DC Vancomycin HCl (Vancomycin Trough Level) 1 each 1X ONCE MC Last administered on 07/23/18at 15:30; Start 07/23/18 at 15:30; Stop 07/23/18 at 15:31; Status DC Acetaminophen (Tylenol) 1,000 mg PRN Q6HRS PRN PO fever/ mild pain Last administered on 07/27/18at 14:03; Start 07/22/18 at 07:45 Sodium Chloride 1,000 ml @ 100 mls/hr Q10H IV Last administered on 07/28/18at 08:07; Start 07/22/18 at 09:45 Aspirin (Ecotrin) 81 mg DAILY PO Last administered on 4/22/19at 08:07; Start at 10:00 Atorvastatin Calcium (Lipitor) 40 mg QHS PO Last administered on 07/27/18 20: 29; Start 07/22/18 at 21:00 Lisinopril (Prinivil) 10 mg DAILY PO Last administered on 07/28/18 08:08; Start 07/22/18 at 10:00 Metoprolol Tartrate (Lopressor) 25 mg BID PO Last administered on 07/28/18 08: 08; Start 07/22/18 at 10:00 Multivitamins (Thera M Plus) 1 tab DAILY PO Last administered on 07/28/18 08: 08; Start 07/22/18 at 10:00 Clopidogrel Bisulfate (Plavix) 75 mg DAILY PO Last administered on 07/27/18 07 :53; Start 07/22/18 at 12:00 Multivitamins 10 ml/Thiamine HCl 100 mg/Folic Acid 1 mg/Sodium Chloride 1,011.2 ml @ 100 mls/ hr 1X ONCE IV Last administered on 07/22/18at 14:45; Start 07/22 at 13:00; Stop 07/22/18 at 23:06; Status DC Multivitamins (Thera M Plus) 1 tab DAILY PO ; Start 07/23/18 at 09:00; Status UNV Folic Acid (Folic Acid) 1 mg DAILY PO Last administered on 07/28/18at 08:08; Start 07/23/18 at 09:00 Thiamine HCl 100 mg/Dextrose 51 ml @ 100 mls/hr DAILY IV ; Start 07/23/18 at 09 :00; Stop 07/27/18 at 09:31; Status UNV Lorazepam (Ativan) 2 mg Q6H PO Last administered on 07/23/18 06:06; Start at 12:00; Stop 07/23/18 at 18:01; Status DC Enoxaparin Sodium (Lovenox 40mg Syringe) 40 mg Q24H SQ Last administered on at 13:24; Start 07/22/18 at 13:00; Stop 07/25/18 at 15:40; Status DC Tetanus/ Diphtheria Toxoids (Tenivac Syringe) 0.5 ml ONCE ONCE VAX IM Last administered on 07/22/18at 14:48; Start 07/22/18 at 13:00; Stop 07/22/18 at 13:01 ; Status DC Thiamine Mononitrate (Vitamin B-1) 100 mg DAILY PO Last administered on 08:07; Start 07/23/18 at 09:00 Lactobacillus Rhamnosus (Culturelle) 1 cap BID PO Last administered on 08:07; Start 07/22/18 at 21:00 Cefepime HCl (Maxipime) 1 gm Q12HR IVP Last administered on 07/26/18 08:34; Start 07/22/18 at 21:00; Stop 07/26/18 at 15:15; Status DC Linezolid (Zyvox) 600 mg BID PO Last administered on 07/28/18 08:08; Start at 21:00 Cefepime HCl (Maxipime) 0.5 gm 1X ONCE IVP Last administered on 07/22/18 14: 49; Start 07/22/18 at 14:30; Stop 07/22/18 at 14:31; Status DC Hydralazine HCl (Apresoline) 25 mg PRN TID PRN PO ELEVATED BP, SEE COMMENTS Last administered on 07/25/18at 15:59; Start 07/24/18 at 10:45 Ondansetron HCl (Zofran) 4 mg PRN Q6HRS PRN IV NAUSEA/VOMITING; Start 07/25/18 at 07:00; Stop 07/26/18 at 06:59; Status DC Morphine Sulfate (Morphine Sulfate) 1 mg PRN Q10MIN PRN IV SEVERE PAIN Last administered on 07/25/18at 23:45; Start 07/25/18 at 07:00; Stop 07/26/18 at 06:59 ; Status DC Ringer's Solution 1,000 ml @ 30 mls/hr Q24H IV Last administered on 07/25/18at 15:10; Start 07/25/18 at 07:00; Stop 07/25/18 at 18:59; Status DC Hydromorphone HCl (Dilaudid) 0.5 mg PRN Q10MIN PRN IV SEV PAIN, Second choice; Start 07/25/18 at 07:00; Stop 07/26/18 at 06:59; Status DC Prochlorperazine Edisylate (Compazine) 5 mg PACU PRN PRN IV NAUSEA, MRX1; Start 07/25/18 at 07:00; Stop 07/26/18 at 06:59; Status DC Propofol 20 ml @ As Directed STK-MED ONCE IV ; Start 07/25/18 at 11:53; Stop at 11:54; Status DC Lidocaine HCl (Lidocaine Pf 2% Vial) 5 ml STK-MED ONCE .ROUTE ; Start 07/25/18 at 11:53; Stop 07/25/18 at 11:54; Status DC Ondansetron HCl (Zofran) 4 mg STK-MED ONCE .ROUTE ; Start 07/25/18 at 11:53; Stop 07/25/18 at 11:54; Status DC Fentanyl Citrate (Fentanyl 2ml Vial) 100 mcg STK-MED ONCE .ROUTE ; Start at 11:53; Stop 07/25/18 at 11:54; Status DC Midazolam HCl (Versed) 2 mg STK-MED ONCE .ROUTE ; Start 07/25/18 at 11:56; Stop 07/25/18 at 11:57; Status DC Sevoflurane (Ultane) 15 ml STK-MED ONCE IH ; Start 07/25/18 at 12:49; Stop 07/25 at 12:50; Status DC Fentanyl Citrate (Fentanyl 2ml Vial) 100 mcg STK-MED ONCE .ROUTE ; Start at 13:24; Stop 07/25/18 at 13:25; Status DC Fentanyl Citrate (Fentanyl 2ml Vial) 50 mcg PRN Q10MIN PRN IV PAIN Last administered on 07/26/18at 00:14; Start 07/25/18 at 13:30; Stop 07/26/18 at 09:44 ; Status DC Dexamethasone Sodium Phosphate (Decadron) 20 mg STK-MED ONCE .ROUTE ; Start at 13:47; Stop 07/25/18 at 13:48; Status DC Propofol 20 ml @ As Directed STK-MED ONCE IV ; Start 07/25/18 at 13:47; Stop at 13:48; Status DC Lidocaine HCl (Lidocaine Pf 2% Vial) 5 ml STK-MED ONCE .ROUTE ; Start 07/25/18 at 13:47; Stop 07/25/18 at 13:48; Status DC Cellulose (Surgicel Hemostat 4x8) 1 each STK-MED ONCE .ROUTE Last administered on 07/25/18at 14:47; Start 07/25/18 at 13:13; Stop 07/25/18 at 14:14; Status DC Sevoflurane (Ultane) 15 ml STK-MED ONCE IH ; Start 07/25/18 at 14:41; Stop 07/25 at 14:42; Status DC Cellulose (Surgicel Hemostat 4x8) 1 each STK-MED ONCE .ROUTE ; Start 07/25/18 at 13:48; Stop 07/25/18 at 14:48; Status DC Fentanyl Citrate (Fentanyl 2ml Vial) 50 mcg PRN Q3HRS PRN IV PAIN Last administered on 07/28/18at 08:40; Start 07/26/18 at 02:30 Active Scripts Active Reported Atorvastatin Calcium 40 Mg Tablet 1 Tab PO DAILY Lisinopril 10 Mg Tablet 1 Tab PO DAILY Clopidogrel (Clopidogrel Bisulfate) 75 Mg Tablet 1 Tab PO DAILY Metoprolol Tartrate 25 Mg Tablet 1 Tab PO BID Aspir-Low (Aspirin) 81 Mg Tablet. 1 Tab PO DAILY Multivitamins (Multivitamin) 1 Each Tablet 1 Tab PO DAILY Vitals/I & O Vital Sign - Last 24 Hours 07/27/18 07/27/18 07/27/18 07/27/18 11:00 15:00 16:43 19:00 Temp 98.3 98.2 98.3 98.3 98.2 98.3 Pulse 64 66 75 Resp 16 18 20 18 B/P (MAP) 116/65 (82) 114/69 (84) 137/79 (98) Pulse Ox 97 96 96 96 O2 Delivery Room Air Room Air Room Air Room Air O2 Flow Rate 10.0 10.0 07/27/18 07/27/18 07/27/18 07/27/18 20:05 20:30 22:35 22:46 Temp 98.1 98.1 Pulse 75 65 Resp 16 18 B/P (MAP) 137/79 113/69 (84) Pulse Ox 96 O2 Delivery Room Air Room Air 07/28/18 07/28/18 07/28/18 07/28/18 03:00 04:17 04:47 07:00 Temp 98.4 97.7 98.4 97.7 Pulse 57 73 Resp 18 16 16 18 B/P (MAP) 124/81 (95) 144/86 (105) Pulse Ox 97 95 O2 Delivery Room Air Room Air Room Air 07/28/18 07/28/18 07/28/18 07/28/18 08:08 08:08 08:40 09:48 Pulse 73 73 B/P (MAP) 144/86 144/86 Pulse Ox 95 95 O2 Delivery Room Air Room Air O2 Flow Rate 10.0 10.0 Intake and Output 07/27/18 07/27/18 07/28/18 14:59 22:59 06:59 Intake Total 750 ml 500 ml Output Total 980 ml 2450 ml Balance -230 ml 500 ml -2450 ml RANJAN LANDAVERDE MD Jul 28, 2018 09:57
[2018-07-28] MEDS ORDERED: LINE600T PO (09:59)
[2018-07-28] MEDS ORDERED: OXYC1TAB15 PO (10:01)
[2018-07-28 10:05] LABS: ALBUMIN 2.7 g/dL (3.4-5.0); ALBUMIN/GLOBULIN RATIO 0.8 (1.0-1.7); CALCIUM 8.9 mg/dL (8.5-10.1); CREATININE 1.1 mg/dL (0.7-1.3); GFR 68.8; POTASSIUM 3.4 mmol/L (3.5-5.1); TOTAL BILIRUBIN 0.3 mg/dL (0.2-1.0)
--- NOTE | 2018-07-28 10:30 | NUR ---
Wound care: Patient seen per wound care follow up. Patient is s/p I & D of right upper thigh abscess. Dressing removed and wound cleansed, assessed, measured, and pictured. Recommendations for Xeroform gauze, ABD pads, kerlix and DEEJAY wrap to hold dressing in place. Wound is still reddened, indurated, with a significant amount of swelling. Surgery to see patient today to assess wound. Dressing applied and patient tolerated well. Patient up in chair at this time. Ice pack placed on patient's right thigh per request. No other wounds noted upon complete head to toe assessment. Call light in reach. Wound care will follow up with patient.
--- NOTE | 2018-07-28 10:59 | PDOC ---
Infectious Disease Note Subjective Subjective Comfortable, pain controlled No fevers last 72 hours Appetite fair Denies N/V/D/SOA/rash Vital Sign Vital Signs Vital Signs Date Time Temp Pulse Resp B/P (MAP) Pulse Ox O2 Delivery O2 Flow Rate FiO2 07/28/18 09:48 95 Room Air 10.0 07/28/18 08:08 73 144/86 07/28/18 07:00 97.7 18 97.7 Physical Exam PHYSICAL EXAM GENERAL: Propped up in bed after sitting in chair and moving over, alert, relaxed HEENT: Facial redness, Oral cavity clear NECK: Supple. LUNGS: Clear bilaterally. No wheezing. HEART: S1, S2. ABDOMEN: Soft, nontender, nondistended. EXTREMITIES: Left thigh post-op dressing dry.- Kyle in place. Some mild superior induration NEUROLOGIC: Alert and oriented x 3, grossly nonfocal. SKIN: No rash. Multiple skin lesions lower extremities PIV Labs Lab Laboratory Tests Test 07/28/18 09:15 White Blood Count 6.0 x10^3/uL (4.0-11.0) Red Blood Count 3.27 x10^6/uL (4.30-5.70) Hemoglobin 10.5 g/dL (13.0-17.5) Hematocrit 30.6 % (39.0-53.0) Mean Corpuscular Volume 94 fL (79-100) Mean Corpuscular Hemoglobin 32 pg (25-35) Mean Corpuscular Hemoglobin Concent 34 g/dL (31-37) Red Cell Distribution Width 13.4 % (11.5-14.5) Platelet Count 481 x10^3/uL (140-400) Neutrophils (%) (Auto) 64 % (31-73) Lymphocytes (%) (Auto) 25 % (24-48) Monocytes (%) (Auto) 7 % (0-9) Eosinophils (%) (Auto) 3 % (0-3) Basophils (%) (Auto) 1 % (0-3) Neutrophils # (Auto) 3.9 x10^3uL (1.8-7.7) Lymphocytes # (Auto) 1.5 x10^3/uL (1.0-4.8) Monocytes # (Auto) 0.4 x10^3/uL (0.0-1.1) Eosinophils # (Auto) 0.2 x10^3/uL (0.0-0.7) Basophils # (Auto) 0.0 x10^3/uL (0.0-0.2) Sodium Level 141 mmol/L (136-145) Potassium Level 3.4 mmol/L (3.5-5.1) Chloride Level 105 mmol/L (98-107) Carbon Dioxide Level 29 mmol/L (21-32) Anion Gap 7 (6-14) Blood Urea Nitrogen 12 mg/dL (8-26) Creatinine 1.1 mg/dL (0.7-1.3) Estimated GFR (Cockcroft-Gault) 68.8 BUN/Creatinine Ratio 11 (6-20) Glucose Level 125 mg/dL (70-99) Calcium Level 8.9 mg/dL (8.5-10.1) Total Bilirubin 0.3 mg/dL (0.2-1.0) Aspartate Amino Transf (AST/SGOT) 27 U/L (15-37) Alanine Aminotransferase (ALT/SGPT) 42 U/L (16-63) Alkaline Phosphatase 59 U/L (46-116) Total Protein 6.0 g/dL (6.4-8.2) Albumin 2.7 g/dL (3.4-5.0) Albumin/Globulin Ratio 0.8 (1.0-1.7) Micro Methicillin - resistant Staphylococcus aureus 4+ Based on resistance to oxacillin this isolate would be resistant to all currently available beta-lactam antimicrobial agents, with the exception of the newer cephalosporins with anti-MRSA activity, such as Ceftaroline This isolate does not demonstrate inducible clindamycin resistance in vitro by D test. ANTIMICROBIAL SUSCEPTIBILITY Final Comment S = Susceptible; I = Intermediate; R = Resistant P = Positive; N = Negative MICS are expressed in micrograms per mL Antibiotic RSLT#1 RSLT#2 RSLT#3 RSLT#4 Ciprofloxacin R>=8 Clindamycin S<=0.25 Erythromycin R>=8 Gentamicin S<=0.5 Levofloxacin I =4 Linezolid S =2 Oxacillin R>=4 Penicillin R>=0.5 CONTINUED ON NEXT PAGE RUN DATE: 07/27/18 PAGE 2 RUN TIME: 1508 [facility] [address] [place] [address] Yusuf Law M.D., [employer] SPEC: [id number] PATIENT: KALANI PINEDA [id number] (Continued) Procedure Result ---- ANTIMICROBIAL SUSCEPTIBILITY Final (continued) Rifampin S<=0.5 Tetracycline S<=1 Trimethoprim/Sulfa S<=10 Vancomycin S =1 Microbiology 07/22/18 Blood Culture - Final, Complete NO GROWTH AFTER 5 DAYS 07/25/18 Anaerobic/Aerobic Culture, Resulted Pending 07/25/18 Anaerobic Culture Result 1 (ELFEGO), Resulted Pending 07/25/18 Aerobic Culture, Resulted Pending 07/25/18 Aerobic Culture Result 1 (ELFEGO), Resulted Pending 07/25/18 Gram Stain - Final, Resulted 07/25/18 Gram Stain Result 1 (ELFEGO) - Final, Resulted 07/25/18 Gram Stain Result 2 (ELFEGO) - Final, Resulted Objective Assessment Severe left lower extremity cellulitis with furuncle left thigh. spontaneously draining, Staph aureus (MRSA) s/p I and D on 07/25. Intra-op cultures pending Multiple pustular lesions over both lower extremities. The patient denies any history of insect bite or trauma. PCN allergy. age of 3, passed out after an injection. Hypertension. History of non-ST elevation myocardial infarction, status post cardiac catheterization and stent placement in 04/2016. Alcohol abuse with hyperbilirubinemia. THC usage by history. Sepsis. resolved Leukocytosis. resolved Plan Plan of Care Cont Zyvox f/u cultures D/w DEENA AKERS MD Jul 28, 2018 10:59
[2018-07-28 11:00] VITALS: BP 128/70
[2018-07-28 15:00] VITALS: BP 114/70
[2018-07-28 19:00] VITALS: BP 120/72
[2018-07-28] MEDS: ATORVASTATIN CALCIUM 40 MG TABLET. PO SCH (20:33)
[2018-07-28 23:00] VITALS: BP 118/76
[2018-07-29] MEDS: IV NORMAL SALINE 1000ML BAG 1,000 ML IV SCH ×3 (01:49→20:42)
[2018-07-29] MEDS: fentaNYL PF VIAL 100 MCG/2 ML VIAL IV PRN ×2 (01:49→09:12)
[2018-07-29 03:00] VITALS: BP 132/78
[2018-07-29 07:00] VITALS: BP 129/84
[2018-07-29] MEDS: LACTOBACILLUS RHAMNOSUS GG 1 CAPSULE. PO SCH ×2 (08:06→20:43)
[2018-07-29] MEDS: MULTIVITAMIN with MINERAL TABLET. PO SCH (08:07)
[2018-07-29] MEDS: FOLIC ACID 1 MG TABLET. PO SCH (08:07)
[2018-07-29] MEDS: LISINOPRIL 10 MG TABLET PO SCH (08:07)
[2018-07-29] MEDS: LINEZOLID 600 MG TABLET PO SCH ×2 (08:07→20:42)
[2018-07-29] MEDS: METOPROLOL TART IMMED RELEASE 25 MG TABLET. PO SCH ×2 (08:08→20:43)
[2018-07-29] MEDS: THIAMINE 100 MG TABLET. PO SCH (08:08)
--- NOTE | 2018-07-29 09:10 | PDOC ---
SURGICAL PROGRESS NOTE Subjective adequate pain control Vital Signs Vital Signs Date Time Temp Pulse Resp B/P (MAP) Pulse Ox O2 Delivery O2 Flow Rate FiO2 07/29/18 08:08 65 132/78 07/29/18 07:00 97.6 24 94 Room Air 97.6 07/28/18 14:55 10.0 I&O Intake and Output 07/29/18 07:00 Intake Total 700 ml Output Total 850 ml Balance -150 ml Intake Oral 700 ml Output Urine Total 850 ml # Voids 1 PATIENT HAS A CARLTON: No General: Alert, Oriented X3, No acute distress Extremities: Other (left thigh wound with some swelling 2/2 old blood, no active bleeding seen, erythema less) Labs Laboratory Tests Test 07/28/18 09:15 White Blood Count 6.0 x10^3/uL (4.0-11.0) Red Blood Count 3.27 x10^6/uL (4.30-5.70) Hemoglobin 10.5 g/dL (13.0-17.5) Hematocrit 30.6 % (39.0-53.0) Mean Corpuscular Volume 94 fL (79-100) Mean Corpuscular Hemoglobin 32 pg (25-35) Mean Corpuscular Hemoglobin Concent 34 g/dL (31-37) Red Cell Distribution Width 13.4 % (11.5-14.5) Platelet Count 481 x10^3/uL (140-400) Neutrophils (%) (Auto) 64 % (31-73) Lymphocytes (%) (Auto) 25 % (24-48) Monocytes (%) (Auto) 7 % (0-9) Eosinophils (%) (Auto) 3 % (0-3) Basophils (%) (Auto) 1 % (0-3) Neutrophils # (Auto) 3.9 x10^3uL (1.8-7.7) Lymphocytes # (Auto) 1.5 x10^3/uL (1.0-4.8) Monocytes # (Auto) 0.4 x10^3/uL (0.0-1.1) Eosinophils # (Auto) 0.2 x10^3/uL (0.0-0.7) Basophils # (Auto) 0.0 x10^3/uL (0.0-0.2) Sodium Level 141 mmol/L (136-145) Potassium Level 3.4 mmol/L (3.5-5.1) Chloride Level 105 mmol/L (98-107) Carbon Dioxide Level 29 mmol/L (21-32) Anion Gap 7 (6-14) Blood Urea Nitrogen 12 mg/dL (8-26) Creatinine 1.1 mg/dL (0.7-1.3) Estimated GFR (Cockcroft-Gault) 68.8 BUN/Creatinine Ratio 11 (6-20) Glucose Level 125 mg/dL (70-99) Calcium Level 8.9 mg/dL (8.5-10.1) Total Bilirubin 0.3 mg/dL (0.2-1.0) Aspartate Amino Transf (AST/SGOT) 27 U/L (15-37) Alanine Aminotransferase (ALT/SGPT) 42 U/L (16-63) Alkaline Phosphatase 59 U/L (46-116) Total Protein 6.0 g/dL (6.4-8.2) Albumin 2.7 g/dL (3.4-5.0) Albumin/Globulin Ratio 0.8 (1.0-1.7) Laboratory Tests Test 07/28/18 09:15 White Blood Count 6.0 x10^3/uL (4.0-11.0) Red Blood Count 3.27 x10^6/uL (4.30-5.70) Hemoglobin 10.5 g/dL (13.0-17.5) Hematocrit 30.6 % (39.0-53.0) Mean Corpuscular Volume 94 fL (79-100) Mean Corpuscular Hemoglobin 32 pg (25-35) Mean Corpuscular Hemoglobin Concent 34 g/dL (31-37) Red Cell Distribution Width 13.4 % (11.5-14.5) Platelet Count 481 x10^3/uL (140-400) Neutrophils (%) (Auto) 64 % (31-73) Lymphocytes (%) (Auto) 25 % (24-48) Monocytes (%) (Auto) 7 % (0-9) Eosinophils (%) (Auto) 3 % (0-3) Basophils (%) (Auto) 1 % (0-3) Neutrophils # (Auto) 3.9 x10^3uL (1.8-7.7) Lymphocytes # (Auto) 1.5 x10^3/uL (1.0-4.8) Monocytes # (Auto) 0.4 x10^3/uL (0.0-1.1) Eosinophils # (Auto) 0.2 x10^3/uL (0.0-0.7) Basophils # (Auto) 0.0 x10^3/uL (0.0-0.2) Sodium Level 141 mmol/L (136-145) Potassium Level 3.4 mmol/L (3.5-5.1) Chloride Level 105 mmol/L (98-107) Carbon Dioxide Level 29 mmol/L (21-32) Anion Gap 7 (6-14) Blood Urea Nitrogen 12 mg/dL (8-26) Creatinine 1.1 mg/dL (0.7-1.3) Estimated GFR (Cockcroft-Gault) 68.8 BUN/Creatinine Ratio 11 (6-20) Glucose Level 125 mg/dL (70-99) Calcium Level 8.9 mg/dL (8.5-10.1) Total Bilirubin 0.3 mg/dL (0.2-1.0) Aspartate Amino Transf (AST/SGOT) 27 U/L (15-37) Alanine Aminotransferase (ALT/SGPT) 42 U/L (16-63) Alkaline Phosphatase 59 U/L (46-116) Total Protein 6.0 g/dL (6.4-8.2) Albumin 2.7 g/dL (3.4-5.0) Albumin/Globulin Ratio 0.8 (1.0-1.7) I have reviewed the following labs,wound Problem List POD 4 I and D left thigh wound continue po abx, +MRSA d/w Dr Kaylene MOELLER,JORGE Madrigal MD Jul 29, 2018 09:10
--- NOTE | 2018-07-29 09:38 | PDOC ---
Infectious Disease Note Subjective Subjective Comfortable, pain controlled No fevers last 72 hours Appetite fair Denies N/V/D/SOA/rash Vital Sign Vital Signs Vital Signs Date Time Temp Pulse Resp B/P (MAP) Pulse Ox O2 Delivery O2 Flow Rate FiO2 07/29/18 09:12 14 94 Room Air 10.0 07/29/18 08:08 65 132/78 07/29/18 07:00 97.6 97.6 Physical Exam PHYSICAL EXAM GENERAL: Propped up in bed after sitting in chair and moving over, alert, relaxed HEENT: Facial redness, Oral cavity clear NECK: Supple. LUNGS: Clear bilaterally. No wheezing. HEART: S1, S2. ABDOMEN: Soft, nontender, nondistended. EXTREMITIES: Left thigh post-op dressing dry.- Penroses in place. Some mild superior induration - softer NEUROLOGIC: Alert and oriented x 3, grossly nonfocal. SKIN: No rash. Multiple skin lesions lower extremities PIV Labs Micro Methicillin - resistant Staphylococcus aureus 4+ Based on resistance to oxacillin this isolate would be resistant to all currently available beta-lactam antimicrobial agents, with the exception of the newer cephalosporins with anti-MRSA activity, such as Ceftaroline This isolate does not demonstrate inducible clindamycin resistance in vitro by D test. ANTIMICROBIAL SUSCEPTIBILITY Final Comment S = Susceptible; I = Intermediate; R = Resistant P = Positive; N = Negative MICS are expressed in micrograms per mL Antibiotic RSLT#1 RSLT#2 RSLT#3 RSLT#4 Ciprofloxacin R>=8 Clindamycin S<=0.25 Erythromycin R>=8 Gentamicin S<=0.5 Levofloxacin I =4 Linezolid S =2 Oxacillin R>=4 Penicillin R>=0.5 CONTINUED ON NEXT PAGE RUN DATE: 07/27/18 PAGE 2 RUN TIME: 1508 [facility] [address] [place] [address] Yusuf Law M.D., [employer] Up SPEC: [id number] PATIENT: KALANI PINEDA [id number] (Continued) -- Procedure Result ANTIMICROBIAL SUSCEPTIBILITY Final (continued) Rifampin S<=0.5 Tetracycline S<=1 Trimethoprim/Sulfa S<=10 Vancomycin S =1 Microbiology 07/22/18 Blood Culture - Final, Complete NO GROWTH AFTER 5 DAYS 07/25/18 Anaerobic/Aerobic Culture, Resulted Pending 07/25/18 Anaerobic Culture Result 1 (ELFEGO), Resulted Pending 07/25/18 Aerobic Culture, Resulted Pending 07/25/18 Aerobic Culture Result 1 (ELFEGO), Resulted Pending 07/25/18 Gram Stain - Final, Resulted 07/25/18 Gram Stain Result 1 (ELFEGO) - Final, Resulted 07/25/18 Gram Stain Result 2 (ELFEGO) - Final, Resulted Objective Assessment Severe left lower extremity cellulitis with furuncle left thigh. spontaneously draining, Staph aureus (MRSA) s/p I and D on 07/25. Intra-op cultures pending Multiple pustular lesions over both lower extremities. The patient denies any history of insect bite or trauma. PCN allergy. age of 3, passed out after an injection. Hypertension. History of non-ST elevation myocardial infarction, status post cardiac catheterization and stent placement in 04/2016. Alcohol abuse with hyperbilirubinemia. THC usage by history. Sepsis. resolved Leukocytosis. resolved Plan Plan of Care Cont Zyvox check outpatient cost F/u wound response - hopefully will not need additional I and D D/w DEENA AKERS MD Jul 29, 2018 09:38
[2018-07-29 11:00] VITALS: BP 112/67
--- NOTE | 2018-07-29 11:31 | OP ---
DATE OF SURGERY: 07/25/2018 PREOPERATIVE DIAGNOSIS: Bleeding from surgical wound. POSTOPERATIVE DIAGNOSIS: Bleeding from surgical wound. PROCEDURE: Wound exploration. SURGEON: Jorge Moeller MD. ANESTHESIA: General. ESTIMATED BLOOD LOSS: 50 mL. IV FLUID: 500 mL. INDICATIONS: The patient had I and D of a large abscess, proximal left thigh earlier today. He is having bleeding from the surgical area and is brought back for exploration. DESCRIPTION OF PROCEDURE: The patient was taken to the operating suite, given a general endotracheal anesthetic. Left thigh prepped and draped in usual sterile fashion. The packing placed at the previous surgery was removed and the wound was copiously irrigated with saline. Hemostasis with cautery. Good hemostasis was obtained. The wound was dressed with Surgicel and Carmelina. Compression dressing placed. The patient was taken to the postoperative area in stable condition having tolerated the procedure well. JORGE MOELLER MD DR: BENNIE/nts JOB#: [id number] / [id number]
--- NOTE | 2018-07-29 13:14 | NUR ---
SW following pt. Pt does not have skilled needs. Spoke with Kristy at [facility] In [place]. Kristy requested for orders to be faxed to pt's Pharmacy so they can run benefits for PO Zyvox. Orders faxed to Pharmacy and awaiting to hear back on benefits.
--- NOTE | 2018-07-29 13:40 | NUR ---
SW following pt. Spoke with Kristy at pt's Pharmacy and co-pay for PO Zyvox is $10. Spoke with pt's and she is agreeable. Pt's reported they might need home health for pt for wound care. Pt currently does not have a PCP and SW informed to make an appointment with preferred Physician for start of care. already has list of [facility] PCP providers and will be speaking with pt about setting up an appointment. Pt's notified SW is not able to set up HH if pt does not have PCP. JUANITO RN.
[2018-07-29 15:00] VITALS: BP 122/69
[2018-07-29] MEDS: oxyCODONE/APAP 5/325 1 TAB TABLET PO PRN (16:19)
--- NOTE | 2018-07-29 16:34 | PDOC ---
PROGRESS NOTES Chief Complaint Chief Complaint severe cellulitis left upper leg/ thigh, possible infected insect bite with deep tissue involvement. multiple pustular lesions in LE. 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 denies insect bites Hypertension HX NSTEMI s/p cardiac cath and stent placement on 04/30/16 HX 5 mm pulmonary nodule. Alcohol abuse. severe HX, persistent 6 shots/ night THC usage.HX sepsis pos wound cult suspect staph IV vancomycin/Cefepime/zyvox blood cultures ordered wound cx pending apprec ID and gen sx 07/25 will need debridement in OR NPO past midnight local wound care continue home meds History of Present Illness History of Present Illness Dr. Garcia may need to repeat debridement in AM, NPO in AM, willeval Vitals Vitals Vital Signs Date Time Temp Pulse Resp B/P (MAP) Pulse Ox O2 Delivery O2 Flow Rate FiO2 07/29/18 16:19 14 Room Air 07/29/18 15:00 98.0 73 122/69 (86) 96 98.0 07/29/18 09:42 10.0 Physical Exam Physical Exam GENERAL: Propped up in bed after sitting in chair and moving over, alert, relaxed HEENT: Facial redness, Oral cavity clear NECK: Supple. LUNGS: Clear bilaterally. No wheezing. HEART: S1, S2. ABDOMEN: Soft, nontender, nondistended. EXTREMITIES: Left thigh post-op dressing dry.- Penroses in place. Some mild superior induration - softer NEUROLOGIC: Alert and oriented x 3, grossly nonfocal. SKIN: No rash. Multiple skin lesions lower extremities PIV General: Alert, Oriented X3, No acute distress Heart: Regular rate, Normal S1, Normal S2, No murmurs Lungs: Clear, Other Abdomen: Normal bowel sounds, Soft Extremities: Other (left thigh wound with some swelling 2/2 old blood, no active bleeding seen, erythema less) Skin: Other (dressing removed, clotting noted around drain sites, central wound still some oozing, reapplied pressure dressing ) Comment Review of Relevant I have reviewed the following items macario (where applicable) has been applied. Labs Laboratory Tests Test 07/28/18 09:15 White Blood Count 6.0 x10^3/uL (4.0-11.0) Red Blood Count 3.27 x10^6/uL (4.30-5.70) Hemoglobin 10.5 g/dL (13.0-17.5) Hematocrit 30.6 % (39.0-53.0) Mean Corpuscular Volume 94 fL (79-100) Mean Corpuscular Hemoglobin 32 pg (25-35) Mean Corpuscular Hemoglobin Concent 34 g/dL (31-37) Red Cell Distribution Width 13.4 % (11.5-14.5) Platelet Count 481 x10^3/uL (140-400) Neutrophils (%) (Auto) 64 % (31-73) Lymphocytes (%) (Auto) 25 % (24-48) Monocytes (%) (Auto) 7 % (0-9) Eosinophils (%) (Auto) 3 % (0-3) Basophils (%) (Auto) 1 % (0-3) Neutrophils # (Auto) 3.9 x10^3uL (1.8-7.7) Lymphocytes # (Auto) 1.5 x10^3/uL (1.0-4.8) Monocytes # (Auto) 0.4 x10^3/uL (0.0-1.1) Eosinophils # (Auto) 0.2 x10^3/uL (0.0-0.7) Basophils # (Auto) 0.0 x10^3/uL (0.0-0.2) Sodium Level 141 mmol/L (136-145) Potassium Level 3.4 mmol/L (3.5-5.1) Chloride Level 105 mmol/L (98-107) Carbon Dioxide Level 29 mmol/L (21-32) Anion Gap 7 (6-14) Blood Urea Nitrogen 12 mg/dL (8-26) Creatinine 1.1 mg/dL (0.7-1.3) Estimated GFR (Cockcroft-Gault) 68.8 BUN/Creatinine Ratio 11 (6-20) Glucose Level 125 mg/dL (70-99) Calcium Level 8.9 mg/dL (8.5-10.1) Total Bilirubin 0.3 mg/dL (0.2-1.0) Aspartate Amino Transf (AST/SGOT) 27 U/L (15-37) Alanine Aminotransferase (ALT/SGPT) 42 U/L (16-63) Alkaline Phosphatase 59 U/L (46-116) Total Protein 6.0 g/dL (6.4-8.2) Albumin 2.7 g/dL (3.4-5.0) Albumin/Globulin Ratio 0.8 (1.0-1.7) Microbiology 07/22/18 Blood Culture - Final, Complete NO GROWTH AFTER 5 DAYS 07/25/18 Anaerobic/Aerobic Culture - Final, Complete 07/25/18 Anaerobic Culture Result 1 (ELFEGO) - Final, Complete 07/25/18 Aerobic Culture - Final, Complete 07/25/18 Aerobic Culture Result 1 (ELFEGO) - Final, Complete 07/25/18 Antimicrobic Susceptibility - Final, Complete 07/25/18 Gram Stain - Final, Complete 07/25/18 Gram Stain Result 1 (ELFEGO) - Final, Complete 07/25/18 Gram Stain Result 2 (ELFEGO) - Final, Complete Medications Current Medications Vancomycin HCl 2 gm/Sodium Chloride 500 ml @ 250 mls/hr 1X ONCE IV Last administered on 07/22/18at 03:23; Start 07/22/18 at 04:00; Stop 07/22/18 at 05:59; Status DC Vancomycin HCl (Vanco Per Pharmacy) 1 each PRN DAILY PRN MC SEE COMMENTS Last administered on 07/26/18at 09:47; Start 07/22/18 at 03:15; Stop 07/26/18 at 15:16; Status DC Fentanyl Citrate (Fentanyl 2ml Vial) 100 mcg STK-MED ONCE .ROUTE ; Start 07/22/18 at 04:04; Stop 07/22/18 at 04:05; Status DC Ondansetron HCl (Zofran) 4 mg PRN Q8HRS PRN IV NAUSEA/VOMITING 1ST CHOICE; Start 07/22/18 at 05:00; Stop 07/23/18 at 04:59; Status DC Morphine Sulfate (Morphine Sulfate) 2 mg PRN Q2HR PRN IV SEVERE PAIN Last administered on 07/22/18at 17:07; Start 07/22/18 at 05:00; Stop 07/23/18 at 04:59; Status DC Vancomycin HCl 1.25 gm/Sodium Chloride 250 ml @ 167 mls/hr Q12H IV Last administered on 07/26/18at 03:59; Start 07/22/18 at 16:00; Stop 07/26/18 at 15:16; Status DC Vancomycin HCl (Vancomycin Trough Level) 1 each 1X ONCE MC Last administered on 07/23/18 15:30; Start 07/23/18 at 15:30; Stop 07/23/18 at 15:31; Status DC Acetaminophen (Tylenol) 1,000 mg PRN Q6HRS PRN PO fever/ mild pain Last administered on 07/27/18 14:03; Start 07/22/18 at 07:45 Sodium Chloride 1,000 ml @ 100 mls/hr Q10H IV Last administered on 07/29/18 09:56; Start 07/22/18 at 09:45 Aspirin (Ecotrin) 81 mg DAILY PO Last administered on 07/28/18 08:07; Start 07/22/18 at 10:00; Stop 07/28/18 at 12:09; Status DC Atorvastatin Calcium (Lipitor) 40 mg QHS PO Last administered on 07/28/18 20:33; Start 07/22/18 at 21:00 Lisinopril (Prinivil) 10 mg DAILY PO Last administered on 07/29/18 08:07; Start 07/22/18 at 10:00 Metoprolol Tartrate (Lopressor) 25 mg BID PO Last administered on 07/29/18 08:08; Start 07/22/18 at 10:00 Multivitamins (Thera M Plus) 1 tab DAILY PO Last administered on 07/29/18 08:07; Start 07/22/18 at 10:00 Clopidogrel Bisulfate (Plavix) 75 mg DAILY PO Last administered on 07/27/18 07:53; Start 07/22/18 at 12:00; Stop 07/28/18 at 12:09; Status DC Multivitamins 10 ml/Thiamine HCl 100 mg/Folic Acid 1 mg/Sodium Chloride 1,011.2 ml @ 100 mls/ hr 1X ONCE IV Last administered on 07/22/18 14:45; Start 07/22/18 at 13:00; Stop 07/22/18 at 23:06; Status DC Multivitamins (Thera M Plus) 1 tab DAILY PO ; Start 07/23/18 at 09:00; Status UNV Folic Acid (Folic Acid) 1 mg DAILY PO Last administered on 07/29/18 08:07; Start 07/23/18 at 09:00 Thiamine HCl 100 mg/Dextrose 51 ml @ 100 mls/hr DAILY IV ; Start 07/23/18 at 09:00; Stop 07/27/18 at 09:31; Status UNV Lorazepam (Ativan) 2 mg Q6H PO Last administered on 07/23/18 06:06; Start 07/22/18 at 12:00; Stop 07/23/18 at 18:01; Status DC Enoxaparin Sodium (Lovenox 40mg Syringe) 40 mg Q24H SQ Last administered on 07/23/18at 13:24; Start 07/22/18 at 13:00; Stop 07/25/18 at 15:40; Status DC Tetanus/ Diphtheria Toxoids (Tenivac Syringe) 0.5 ml ONCE ONCE VAX IM Last administered on 07/22/18 14:48; Start 07/22/18 at 13:00; Stop 07/22/18 at 13:01; Status DC Thiamine Mononitrate (Vitamin B-1) 100 mg DAILY PO Last administered on 07/29/18 08:08; Start 07/23/18 at 09:00 Lactobacillus Rhamnosus (Culturelle) 1 cap BID PO Last administered on 07/29/18 08:06; Start 07/22/18 at 21:00 Cefepime HCl (Maxipime) 1 gm Q12HR IVP Last administered on 07/26/18 08:34; Start 07/22/18 at 21:00; Stop 07/26/18 at 15:15; Status DC Linezolid (Zyvox) 600 mg BID PO Last administered on 07/29/18 08:07; Start 07/22/18 at 21:00 Cefepime HCl (Maxipime) 0.5 gm 1X ONCE IVP Last administered on 07/22/18at 14:49; Start 07/22/18 at 14:30; Stop 07/22/18 at 14:31; Status DC Hydralazine HCl (Apresoline) 25 mg PRN TID PRN PO ELEVATED BP, SEE COMMENTS Last administered on 07/25/18at 15:59; Start 07/24/18 at 10:45 Ondansetron HCl (Zofran) 4 mg PRN Q6HRS PRN IV NAUSEA/VOMITING; Start 07/25/18 at 07:00; Stop 07/26/18 at 06:59; Status DC Morphine Sulfate (Morphine Sulfate) 1 mg PRN Q10MIN PRN IV SEVERE PAIN Last administered on 07/25/18at 23:45; Start 07/25/18 at 07:00; Stop 07/26/18 at 06:59; Status DC Ringer's Solution 1,000 ml @ 30 mls/hr Q24H IV Last administered on 07/25/18at 15:10; Start 07/25/18 at 07:00; Stop 07/25/18 at 18:59; Status DC Hydromorphone HCl (Dilaudid) 0.5 mg PRN Q10MIN PRN IV SEV PAIN, Second choice; Start 07/25/18 at 07:00; Stop 07/26/18 at 06:59; Status DC Prochlorperazine Edisylate (Compazine) 5 mg PACU PRN PRN IV NAUSEA, MRX1; Start 07/25/18 at 07:00; Stop 07/26/18 at 06:59; Status DC Propofol 20 ml @ As Directed STK-MED ONCE IV ; Start 07/25/18 at 11:53; Stop 07/25/18 at 11:54; Status DC Lidocaine HCl (Lidocaine Pf 2% Vial) 5 ml STK-MED ONCE .ROUTE ; Start 07/25/18 at 11:53; Stop 07/25/18 at 11:54; Status DC Ondansetron HCl (Zofran) 4 mg STK-MED ONCE .ROUTE ; Start 07/25/18 at 11:53; Stop 07/25/18 at 11:54; Status DC Fentanyl Citrate (Fentanyl 2ml Vial) 100 mcg STK-MED ONCE .ROUTE ; Start 07/25/18 at 11:53; Stop 07/25/18 at 11:54; Status DC Midazolam HCl (Versed) 2 mg STK-MED ONCE .ROUTE ; Start 07/25/18 at 11:56; Stop 07/25/18 at 11:57; Status DC Sevoflurane (Ultane) 15 ml STK-MED ONCE IH ; Start 07/25/18 at 12:49; Stop 07/25/18 at 12:50; Status DC Fentanyl Citrate (Fentanyl 2ml Vial) 100 mcg STK-MED ONCE .ROUTE ; Start 9 at 13:24; Stop 07/25/18 at 13:25; Status DC Fentanyl Citrate (Fentanyl 2ml Vial) 50 mcg PRN Q10MIN PRN IV PAIN Last administered on 07/26/18at 00:14; Start 07/25/18 at 13:30; Stop 07/26/18 at 09:44; Status DC Dexamethasone Sodium Phosphate (Decadron) 20 mg STK-MED ONCE .ROUTE ; Start 07/25/18 at 13:47; Stop 07/25/18 at 13:48; Status DC Propofol 20 ml @ As Directed STK-MED ONCE IV ; Start 07/25/18 at 13:47; Stop 07/25/18 at 13:48; Status DC Lidocaine HCl (Lidocaine Pf 2% Vial) 5 ml STK-MED ONCE .ROUTE ; Start 07/25/18 at 13:47; Stop 07/25/18 at 13:48; Status DC Cellulose (Surgicel Hemostat 4x8) 1 each STK-MED ONCE .ROUTE Last administered on 07/25/18at 14:47; Start 07/25/18 at 13:13; Stop 07/25/18 at 14:14; Status DC Sevoflurane (Ultane) 15 ml STK-MED ONCE IH ; Start 07/25/18 at 14:41; Stop 07/25/18 at 14:42; Status DC Cellulose (Surgicel Hemostat 4x8) 1 each STK-MED ONCE .ROUTE ; Start 07/25/18 at 13:48; Stop 07/25/18 at 14:48; Status DC Fentanyl Citrate (Fentanyl 2ml Vial) 50 mcg PRN Q3HRS PRN IV PAIN Last administered on 07/29/18at 09:12; Start 07/26/18 at 02:30 Oxycodone/ Acetaminophen (Percocet 5/325) 1 tab PRN Q4HRS PRN PO PAIN Last administered on 07/29/18at 16:19; Start 07/29/18 at 11:15 Active Scripts Active Percocet 5-325 Mg Tablet (Oxycodone/Acetaminophen) 1 Each Tablet 1 Tab PO PRN Q6HRS PRN Zyvox (Linezolid) 600 Mg Tablet 600 Mg PO BID Reported Atorvastatin Calcium 40 Mg Tablet 1 Tab PO DAILY Lisinopril 10 Mg Tablet 1 Tab PO DAILY Clopidogrel (Clopidogrel Bisulfate) 75 Mg Tablet 1 Tab PO DAILY Metoprolol Tartrate 25 Mg Tablet 1 Tab PO BID Aspir-Low (Aspirin) 81 Mg Tablet. 1 Tab PO DAILY Multivitamins (Multivitamin) 1 Each Tablet 1 Tab PO DAILY Vitals/I & O Vital Sign - Last 24 Hours 07/28/18 07/28/18 07/28/18 07/28/18 19:00 20:00 20:33 23:00 Temp 98.4 97.9 98.4 97.9 Pulse 72 72 66 Resp 16 16 B/P (MAP) 120/72 (88) 120/72 118/76 (90) Pulse Ox 96 95 O2 Delivery Room Air Room Air Room Air 07/29/18 07/29/18 07/29/18 07/29/18 01:49 02:19 03:00 07:00 Temp 98.1 97.6 98.1 97.6 Pulse 65 66 Resp 16 16 16 24 B/P (MAP) 132/78 (96) 129/84 (99) Pulse Ox 95 94 O2 Delivery Room Air Room Air 07/29/18 07/29/18 07/29/18 07/29/18 08:00 08:07 08:08 09:12 Pulse 65 65 Resp 14 B/P (MAP) 132/78 132/78 Pulse Ox 94 O2 Delivery Room Air Room Air O2 Flow Rate 10.0 10.0 07/29/18 07/29/18 07/29/18 07/29/18 09:42 11:00 15:00 16:19 Temp 97.8 98.0 97.8 98.0 Pulse 72 73 Resp 14 14 14 B/P (MAP) 112/67 (82) 122/69 (86) Pulse Ox 94 96 96 O2 Delivery Room Air Room Air Room Air Room Air O2 Flow Rate 10.0 Intake and Output 07/28/18 07/28/18 07/29/18 15:00 23:00 07:00 Intake Total 500 ml 200 ml Output Total 750 ml 100 ml Balance -750 ml 500 ml 100 ml RANJAN LANDAVERDE MD Jul 29, 2018 16:34
[2018-07-29 19:00] VITALS: BP 113/74
[2018-07-29] MEDS: ATORVASTATIN CALCIUM 40 MG TABLET. PO SCH (20:42)
[2018-07-29 23:00] VITALS: BP 120/70
[2018-07-30] VITALS (9 sets, daily range): BP systolic 114–159; BP diastolic 66–97
[2018-07-30] MEDS: oxyCODONE/APAP 5/325 1 TAB TABLET PO PRN (01:01)
[2018-07-30] MEDS: LACTOBACILLUS RHAMNOSUS GG 1 CAPSULE. PO SCH ×2 (09:00→20:45)
[2018-07-30] MEDS: FOLIC ACID 1 MG TABLET. PO SCH (09:00)
[2018-07-30] MEDS: THIAMINE 100 MG TABLET. PO SCH (09:00)
[2018-07-30] MEDS: MULTIVITAMIN with MINERAL TABLET. PO SCH (09:00)
--- NOTE | 2018-07-30 09:02 | PDOC ---
Infectious Disease Note Subjective Subjective Comfortable, pain controlled No fevers last 72 hours Appetite fair Denies N/V/D/SOA/rash ROS ROS o/w neg Vital Sign Vital Signs Vital Signs Date Time Temp Pulse Resp B/P (MAP) Pulse Ox O2 Delivery O2 Flow Rate FiO2 07/30/18 07:00 98.3 65 131/70 (90) 97 Room Air 98.3 07/30/18 03:00 18 07/29/18 09:42 10.0 Physical Exam PHYSICAL EXAM GENERAL: Propped up in bed after sitting in chair and moving over, alert, relaxed HEENT: Facial redness, Oral cavity clear NECK: Supple. LUNGS: Clear bilaterally. No wheezing. HEART: S1, S2. ABDOMEN: Soft, nontender, nondistended. EXTREMITIES: Left thigh post-op dressing dry.- Penroses in place. Some mild superior induration - softer - + clot still with likely clot undermining superior NEUROLOGIC: Alert and oriented x 3, grossly nonfocal. SKIN: No rash. Multiple skin lesions lower extremities - drying PIV Labs Micro Methicillin - resistant Staphylococcus aureus 4+ Based on resistance to oxacillin this isolate would be resistant to all currently available beta-lactam antimicrobial agents, with the exception of the newer cephalosporins with anti-MRSA activity, such as Ceftaroline This isolate does not demonstrate inducible clindamycin resistance in vitro by D test. ANTIMICROBIAL SUSCEPTIBILITY Final Comment S = Susceptible; I = Intermediate; R = Resistant P = Positive; N = Negative MICS are expressed in micrograms per mL Antibiotic RSLT#1 RSLT#2 RSLT#3 RSLT#4 Ciprofloxacin R>=8 Clindamycin S<=0.25 Erythromycin R>=8 Gentamicin S<=0.5 Levofloxacin I =4 Linezolid S =2 Oxacillin R>=4 Penicillin R>=0.5 CONTINUED ON NEXT PAGE RUN DATE: 07/27/18 PAGE 2 RUN TIME: 1508 [facility] [address] [place] [address] Yusuf Law M.D., Gas Analyst SPEC: [id number] PATIENT: KALANI PINEDA [id number] (Continued) Procedure Result ANTIMICROBIAL SUSCEPTIBILITY Final (continued) Rifampin S<=0.5 Tetracycline S<=1 Trimethoprim/Sulfa S<=10 Vancomycin S =1 Microbiology 07/22/18 Blood Culture - Final, Complete NO GROWTH AFTER 5 DAYS 07/25/18 Anaerobic/Aerobic Culture, Resulted Pending 07/25/18 Anaerobic Culture Result 1 (ELFEGO), Resulted Pending 07/25/18 Aerobic Culture, Resulted Pending 07/25/18 Aerobic Culture Result 1 (ELFEGO), Resulted Pending 07/25/18 Gram Stain - Final, Resulted 07/25/18 Gram Stain Result 1 (ELFEGO) - Final, Resulted 07/25/18 Gram Stain Result 2 (ELFEGO) - Final, Resulted Objective Assessment Severe left lower extremity cellulitis with furuncle left thigh. spontaneously draining, Staph aureus (MRSA) s/p I and D on 07/25. Intra-op cultures pending Multiple pustular lesions over both lower extremities - improving. The patient denies any history of insect bite or trauma. PCN allergy. age of 3, passed out after an injection. Hypertension. History of non-ST elevation myocardial infarction, status post cardiac catheterization and stent placement in 04/2016. Alcohol abuse with hyperbilirubinemia. THC usage by history. Sepsis. resolved Leukocytosis. resolved Plan Plan of Care D/w Dr. Pena - may need I and D and vac Cont Zyvox check outpatient cost DEENA AKERS MD Jul 30, 2018 09:02
--- NOTE | 2018-07-30 10:14 | PDOC ---
SURGICAL PROGRESS NOTE Subjective feeling well Vital Signs Vital Signs Date Time Temp Pulse Resp B/P (MAP) Pulse Ox O2 Delivery O2 Flow Rate FiO2 07/30/18 07:00 98.3 65 131/70 (90) 97 Room Air 98.3 07/30/18 03:00 18 07/29/18 09:42 10.0 I&O Intake and Output 07/30/18 07:00 Intake Total 2250 ml Output Total 450 ml Balance 1800 ml Intake Oral 250 ml IV Total 2000 ml Output Urine Total 450 ml # Voids 4 # Bowel Movements 1 General: Alert, Oriented X3, Cooperative, No acute distress Skin: Other (dressing removed, no active bleeding, clot in place, darby drain in place) Assessment/Plan continue abx, wound care will review with JARRET Bennett RISK OFFICER Jul 30, 2018 10:14
[2018-07-30] MEDS: METOPROLOL TART IMMED RELEASE 25 MG TABLET. PO SCH ×2 (10:53→20:45)
[2018-07-30] MEDS: LINEZOLID 600 MG TABLET PO SCH ×2 (10:53→20:44)
[2018-07-30] MEDS: IV NORMAL SALINE 1000ML BAG 1,000 ML IV SCH ×2 (10:53→21:44)
[2018-07-30] MEDS: LISINOPRIL 10 MG TABLET PO SCH (10:54)
[2018-07-30] MEDS: fentaNYL PF VIAL 100 MCG/2 ML VIAL IV PRN ×2 (10:55→14:49)
--- NOTE | 2018-07-30 15:38 | PDOC ---
PROGRESS NOTES Chief Complaint Chief Complaint severe cellulitis left upper leg/ thigh, possible infected insect bite with deep tissue involvement. multiple pustular lesions in LE. 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 denies insect bites Hypertension HX NSTEMI s/p cardiac cath and stent placement on 04/30/16 HX 5 mm pulmonary nodule. Alcohol abuse. severe HX, persistent 6 shots/ night THC usage.HX sepsis pos wound cult suspect staph IV vancomycin/Cefepime/zyvox blood cultures ordered wound cx pending apprec ID and gen sx 07/25 will need debridement in OR NPO past midnight local wound care continue home meds History of Present Illness History of Present Illness to surg today may need wound vac will do DC plan, soon Vitals Vitals Vital Signs Date Time Temp Pulse Resp B/P (MAP) Pulse Ox O2 Delivery O2 Flow Rate FiO2 07/30/18 15:00 98.2 71 14 159/78 (105) 95 Room Air 98.2 07/29/18 09:42 10.0 Physical Exam Physical Exam GENERAL: Propped up in bed after sitting in chair and moving over, alert, relaxed HEENT: Facial redness, Oral cavity clear NECK: Supple. LUNGS: Clear bilaterally. No wheezing. HEART: S1, S2. ABDOMEN: Soft, nontender, nondistended. EXTREMITIES: Left thigh post-op dressing dry.- Penroses in place. Some mild superior induration - softer - + clot still with likely clot undermining superior NEUROLOGIC: Alert and oriented x 3, grossly nonfocal. SKIN: No rash. Multiple skin lesions lower extremities - drying PIV General: Alert, Oriented X3, Cooperative, No acute distress Heart: Regular rate, Normal S1, Normal S2, No murmurs Lungs: Clear, Other Abdomen: Normal bowel sounds, Soft Extremities: Other (left thigh wound with some swelling 2/2 old blood, no active bleeding seen, erythema less) Skin: Other (dressing removed, no active bleeding, clot in place, darby drain in place) Comment Review of Relevant I have reviewed the following items macario (where applicable) has been applied. Labs Microbiology 07/22/18 Blood Culture - Final, Complete NO GROWTH AFTER 5 DAYS 07/25/18 Anaerobic/Aerobic Culture - Final, Complete 07/25/18 Anaerobic Culture Result 1 (ELFEGO) - Final, Complete 07/25/18 Aerobic Culture - Final, Complete 07/25/18 Aerobic Culture Result 1 (ELFEGO) - Final, Complete 07/25/18 Antimicrobic Susceptibility - Final, Complete 07/25/18 Gram Stain - Final, Complete 07/25/18 Gram Stain Result 1 (ELFEGO) - Final, Complete 07/25/18 Gram Stain Result 2 (ELFEGO) - Final, Complete Medications Current Medications Vancomycin HCl 2 gm/Sodium Chloride 500 ml @ 250 mls/hr 1X ONCE IV Last administered on 07/22/18at 03:23; Start 07/22/18 at 04:00; Stop 07/22/18 at 05:59; Status DC Vancomycin HCl (Vanco Per Pharmacy) 1 each PRN DAILY PRN MC SEE COMMENTS Last administered on 07/26/18at 09:47; Start 07/22/18 at 03:15; Stop 07/26/18 at 15:16; Status DC Fentanyl Citrate (Fentanyl 2ml Vial) 100 mcg STK-MED ONCE .ROUTE ; Start 07/22/18 at 04:04; Stop 07/22/18 at 04:05; Status DC Ondansetron HCl (Zofran) 4 mg PRN Q8HRS PRN IV NAUSEA/VOMITING 1ST CHOICE; Start 07/22/18 at 05:00; Stop 07/23/18 at 04:59; Status DC Morphine Sulfate (Morphine Sulfate) 2 mg PRN Q2HR PRN IV SEVERE PAIN Last administered on 07/22/18at 17:07; Start 07/22/18 at 05:00; Stop 07/23/18 at 04:59; Status DC Vancomycin HCl 1.25 gm/Sodium Chloride 250 ml @ 167 mls/hr Q12H IV Last administered on 07/26/18at 03:59; Start 07/22/18 at 16:00; Stop 07/26/18 at 15:16; Status DC Vancomycin HCl (Vancomycin Trough Level) 1 each 1X ONCE MC Last administered on 07/23/18at 15:30; Start 07/23/18 at 15:30; Stop 07/23/18 at 15:31; Status DC Acetaminophen (Tylenol) 1,000 mg PRN Q6HRS PRN PO fever/ mild pain Last administered on 07/27/18at 14:03; Start 07/22/18 at 07:45 Sodium Chloride 1,000 ml @ 100 mls/hr Q10H IV Last administered on 07/30/18 10:53; Start 07/22/18 at 09:45 Aspirin (Ecotrin) 81 mg DAILY PO Last administered on 07/28/18 08:07; Start 07/22/18 at 10:00; Stop 07/28/18 at 12:09; Status DC Atorvastatin Calcium (Lipitor) 40 mg QHS PO Last administered on 07/29/18 20:42; Start 07/22/18 at 21:00 Lisinopril (Prinivil) 10 mg DAILY PO Last administered on 07/30/18 10:54; Start 07/22/18 at 10:00 Metoprolol Tartrate (Lopressor) 25 mg BID PO Last administered on 07/30/18 10:53; Start 07/22/18 at 10:00 Multivitamins (Thera M Plus) 1 tab DAILY PO Last administered on 07/29/18 08:07; Start 07/22/18 at 10:00 Clopidogrel Bisulfate (Plavix) 75 mg DAILY PO Last administered on 07/27/18 07:53; Start 07/22/18 at 12:00; Stop 07/28/18 at 12:09; Status DC Multivitamins 10 ml/Thiamine HCl 100 mg/Folic Acid 1 mg/Sodium Chloride 1,011.2 ml @ 100 mls/ hr 1X ONCE IV Last administered on 07/22/18 14:45; Start 07/22/18 at 13:00; Stop 07/22/18 at 23:06; Status DC Multivitamins (Thera M Plus) 1 tab DAILY PO ; Start 07/23/18 at 09:00; Status UNV Folic Acid (Folic Acid) 1 mg DAILY PO Last administered on 07/29/18 08:07; Start 07/23/18 at 09:00 Thiamine HCl 100 mg/Dextrose 51 ml @ 100 mls/hr DAILY IV ; Start 07/23/18 at 09:00; Stop 07/27/18 at 09:31; Status UNV Lorazepam (Ativan) 2 mg Q6H PO Last administered on 07/23/18 06:06; Start 07/22/18 at 12:00; Stop 07/23/18 at 18:01; Status DC Enoxaparin Sodium (Lovenox 40mg Syringe) 40 mg Q24H SQ Last administered on 07/23/18 13:24; Start 07/22/18 at 13:00; Stop 07/25/18 at 15:40; Status DC Tetanus/ Diphtheria Toxoids (Tenivac Syringe) 0.5 ml ONCE ONCE VAX IM Last administered on 07/22/18 14:48; Start 07/22/18 at 13:00; Stop 07/22/18 at 13:01; Status DC Thiamine Mononitrate (Vitamin B-1) 100 mg DAILY PO Last administered on 07/29/18 08:08; Start 07/23/18 at 09:00 Lactobacillus Rhamnosus (Culturelle) 1 cap BID PO Last administered on 07/29/18 20:43; Start 07/22/18 at 21:00 Cefepime HCl (Maxipime) 1 gm Q12HR IVP Last administered on 07/26/18 08:34; Start 07/22/18 at 21:00; Stop 07/26/18 at 15:15; Status DC Linezolid (Zyvox) 600 mg BID PO Last administered on 07/30/18 10:53; Start 07/22/18 at 21:00 Cefepime HCl (Maxipime) 0.5 gm 1X ONCE IVP Last administered on 07/22/18 14:49; Start 07/22/18 at 14:30; Stop 07/22/18 at 14:31; Status DC Hydralazine HCl (Apresoline) 25 mg PRN TID PRN PO ELEVATED BP, SEE COMMENTS Last administered on 07/25/18at 15:59; Start 07/24/18 at 10:45 Ondansetron HCl (Zofran) 4 mg PRN Q6HRS PRN IV NAUSEA/VOMITING; Start 07/25/18 at 07:00; Stop 07/26/18 at 06:59; Status DC Morphine Sulfate (Morphine Sulfate) 1 mg PRN Q10MIN PRN IV SEVERE PAIN Last administered on 07/25/18 23:45; Start 07/25/18 at 07:00; Stop 07/26/18 at 06:59; Status DC Ringer's Solution 1,000 ml @ 30 mls/hr Q24H IV Last administered on 07/25/18at 15:10; Start 07/25/18 at 07:00; Stop 07/25/18 at 18:59; Status DC Hydromorphone HCl (Dilaudid) 0.5 mg PRN Q10MIN PRN IV SEV PAIN, Second choice; Start 07/25/18 at 07:00; Stop 07/26/18 at 06:59; Status DC Prochlorperazine Edisylate (Compazine) 5 mg PACU PRN PRN IV NAUSEA, MRX1; Start 07/25/18 at 07:00; Stop 07/26/18 at 06:59; Status DC Propofol 20 ml @ As Directed STK-MED ONCE IV ; Start 07/25/18 at 11:53; Stop 07/25/18 at 11:54; Status DC Lidocaine HCl (Lidocaine Pf 2% Vial) 5 ml STK-MED ONCE .ROUTE ; Start 07/25/18 at 11:53; Stop 07/25/18 at 11:54; Status DC Ondansetron HCl (Zofran) 4 mg STK-MED ONCE .ROUTE ; Start 07/25/18 at 11:53; Stop 07/25/18 at 11:54; Status DC Fentanyl Citrate (Fentanyl 2ml Vial) 100 mcg STK-MED ONCE .ROUTE ; Start 07/25/18 at 11:53; Stop 07/25/18 at 11:54; Status DC Midazolam HCl (Versed) 2 mg STK-MED ONCE .ROUTE ; Start 07/25/18 at 11:56; Stop 07/25/18 at 11:57; Status DC Sevoflurane (Ultane) 15 ml STK-MED ONCE IH ; Start 07/25/18 at 12:49; Stop 07/25/18 at 12:50; Status DC Fentanyl Citrate (Fentanyl 2ml Vial) 100 mcg STK-MED ONCE .ROUTE ; Start 07/25/18 at 13:24; Stop 07/25/18 at 13:25; Status DC Fentanyl Citrate (Fentanyl 2ml Vial) 50 mcg PRN Q10MIN PRN IV PAIN Last administered on 07/26/18at 00:14; Start 07/25/18 at 13:30; Stop 07/26/18 at 09:44; Status DC Dexamethasone Sodium Phosphate (Decadron) 20 mg STK-MED ONCE .ROUTE ; Start 07/25/18 at 13:47; Stop 07/25/18 at 13:48; Status DC Propofol 20 ml @ As Directed STK-MED ONCE IV ; Start 07/25/18 at 13:47; Stop 07/25/18 at 13:48; Status DC Lidocaine HCl (Lidocaine Pf 2% Vial) 5 ml STK-MED ONCE .ROUTE ; Start 07/25/18 at 13:47; Stop 07/25/18 at 13:48; Status DC Cellulose (Surgicel Hemostat 4x8) 1 each STK-MED ONCE .ROUTE Last administered on 07/25/18at 14:47; Start 07/25/18 at 13:13; Stop 07/25/18 at 14:14; Status DC Sevoflurane (Ultane) 15 ml STK-MED ONCE IH ; Start 07/25/18 at 14:41; Stop 07/25/18 at 14:42; Status DC Cellulose (Surgicel Hemostat 4x8) 1 each STK-MED ONCE .ROUTE ; Start 07/25/18 at 13:48; Stop 07/25/18 at 14:48; Status DC Fentanyl Citrate (Fentanyl 2ml Vial) 50 mcg PRN Q3HRS PRN IV PAIN Last administered on 07/30/18at 14:49; Start 07/26/18 at 02:30 Oxycodone/ Acetaminophen (Percocet 5/325) 1 tab PRN Q4HRS PRN PO PAIN Last administered on 07/30/18at 01:01; Start 07/29/18 at 11:15 Active Scripts Active Percocet 5-325 Mg Tablet (Oxycodone/Acetaminophen) 1 Each Tablet 1 Tab PO PRN Q6HRS PRN Zyvox (Linezolid) 600 Mg Tablet 600 Mg PO BID Reported Atorvastatin Calcium 40 Mg Tablet 1 Tab PO DAILY Lisinopril 10 Mg Tablet 1 Tab PO DAILY Clopidogrel (Clopidogrel Bisulfate) 75 Mg Tablet 1 Tab PO DAILY Metoprolol Tartrate 25 Mg Tablet 1 Tab PO BID Aspir-Low (Aspirin) 81 Mg Tablet. 1 Tab PO DAILY Multivitamins (Multivitamin) 1 Each Tablet 1 Tab PO DAILY Vitals/I & O Vital Sign - Last 24 Hours 07/29/18 07/29/18 07/29/18 07/29/18 16:19 19:00 20:20 20:43 Temp 98.5 98.5 Pulse 86 86 Resp 14 16 B/P (MAP) 113/74 (87) 113/74 Pulse Ox 94 O2 Delivery Room Air Room Air 07/29/18 07/30/18 07/30/18 07/30/18 23:00 01:01 02:01 03:00 Temp 98.5 98.4 98.5 98.4 Pulse 85 79 Resp 17 18 20 18 B/P (MAP) 120/70 (87) 114/66 (82) Pulse Ox 95 96 O2 Delivery Room Air Room Air 07/30/18 07/30/18 07/30/18 07/30/18 07:00 10:53 10:54 10:55 Temp 98.3 98.3 Pulse 65 65 65 Resp 18 B/P (MAP) 131/70 (90) 131/70 131/70 Pulse Ox 97 O2 Delivery Room Air Room Air 07/30/18 07/30/18 07/30/18 07/30/18 11:00 11:25 14:49 15:00 Temp 98.2 98.2 98.2 98.2 Pulse 77 71 Resp 18 18 20 14 B/P (MAP) 151/79 (103) 159/78 (105) Pulse Ox 95 95 O2 Delivery Room Air Room Air Room Air Room Air Intake and Output 07/29/18 07/29/18 07/30/18 15:00 23:00 07:00 Intake Total 1000 ml 1000 ml 250 ml Output Total 450 ml Balance 550 ml 1000 ml 250 ml RANJAN LANDAVERDE MD Jul 30, 2018 15:38
--- NOTE | 2018-07-30 15:40 | NUR ---
Patient to surgery per bed, family here with patient. Pt IVF NS sent with patient per surgery request. Pt cell phone with .
[2018-07-30] MEDS ORDERED: SURGICEL HEMOSTAT 4X8 EACH. ONE (16:10)
[2018-07-30] MEDS ORDERED: LIDOCAINE 2% PF 5 ML VIAL. ONE (16:59)
[2018-07-30] MEDS ORDERED: PROPOFOL 20 ML IV ONE (16:59)
[2018-07-30] MEDS ORDERED: KETOROLAC 30 MG/ML INJ FOR OR. INJ ONE (16:59)
[2018-07-30] MEDS ORDERED: DEXAMETHASONE SOD PHOS 20 MG/5 ML VIAL. ONE (16:59)
[2018-07-30] MEDS ORDERED: ONDANSETRON PF 4 MG/2 ML VIAL. ONE (16:59)
[2018-07-30] MEDS ORDERED: SEVOFLURANE 61 TO 120 MINUTES. IH ONE (16:59)
[2018-07-30] MEDS ORDERED: MORPHINE SULFATE 10 MG/ML VIAL. ONE (17:07)
[2018-07-30] MEDS ORDERED: SURGICEL HEMOSTAT 4X8 EACH. TP ONE (17:13)
[2018-07-30] MEDS ORDERED: PHENYLEPHRINE in 0.9% NACL PF 1 MG/10 ML SYRINGE. IV ONE (17:15)
--- NOTE | 2018-07-30 17:46 | PDOC ---
BRIEF OPERATIVE NOTE Date: Jul 30, 2018 Pre-Op Diagnosis abscess/cellulitis left thigh, s/p previous I and D Post-Op Diagnosis same with wound hematoma Procedure Performed excisional debridement of skin and subcutaneous tissue Surgeon Jean Anesthesia Type: General Blood Loss 25cc IV Fluid 600cc Specimens Obtained none Findings hematoma, small area of questionable skin Complications none Operative Note WK # [id number] JORGE MOELLER MD Jul 30, 2018 17:46
--- NOTE | 2018-07-30 17:55 | OP ---
DATE OF SURGERY: 07/30/2018 PREOPERATIVE DIAGNOSIS: Abscess/cellulitis, left thigh, status post previous incision and drainage. POSTOPERATIVE DIAGNOSES: Abscess/cellulitis, left thigh, status post previous incision and drainage with wound hematoma. PROCEDURE: Excisional debridement of skin and subcutaneous tissue, evacuation of hematoma. SURGEON: Francesco Moeller MD. ANESTHESIA: General LMA. BLOOD LOSS: 25 mL. INTRAVENOUS: 600 mL. DESCRIPTION OF PROCEDURE: The patient brought to the operating suite, given a general LMA and the left thigh prepped and draped in usual sterile fashion. The previously placed drains were removed. The clot was gently expressed and the wound copiously irrigated with 3 liters of normal saline. A small rim of threatened skin was excised with cautery. Remainder of the wound appeared viable and without evidence of active bleeding. A Kyle drain was placed at the 12-4 o'clock position from previous openings. The wound was dressed with Surgicel, Xeroform, 4 x 4s, Kerlix and 4-inch Wenceslao wraps. The patient tolerated well, was awakened from his anesthetic and taken to the recovery room in satisfactory condition. FRANCESCO MOELLER MD DR: BENNIE/be JOB#: [id number] / [id number]
--- NOTE | 2018-07-30 18:30 | NUR ---
Patient has returned from surgery. Pt alert and oriented, denies pain at this time. Dressing/wrap left thigh dry and intact. in to visit. NS has been resumed at 100ml/hr. Left leg elevated.
[2018-07-30] MEDS: ATORVASTATIN CALCIUM 40 MG TABLET. PO SCH (20:44)
[2018-07-31] MEDS: fentaNYL PF VIAL 100 MCG/2 ML VIAL IV PRN ×3 (01:48→15:50)
[2018-07-31 02:55] VITALS: BP 129/76
[2018-07-31 07:52] VITALS: BP 139/83
[2018-07-31] MEDS: IV NORMAL SALINE 1000ML BAG 1,000 ML IV SCH ×3 (08:24→23:45)
[2018-07-31] MEDS: MULTIVITAMIN with MINERAL TABLET. PO SCH (08:25)
[2018-07-31] MEDS: METOPROLOL TART IMMED RELEASE 25 MG TABLET. PO SCH ×2 (08:25→20:55)
[2018-07-31] MEDS: LACTOBACILLUS RHAMNOSUS GG 1 CAPSULE. PO SCH ×2 (08:25→20:55)
[2018-07-31] MEDS: THIAMINE 100 MG TABLET. PO SCH (08:25)
[2018-07-31] MEDS: LISINOPRIL 10 MG TABLET PO SCH (08:25)
[2018-07-31] MEDS: LINEZOLID 600 MG TABLET PO SCH ×2 (08:26→20:54)
[2018-07-31] MEDS: FOLIC ACID 1 MG TABLET. PO SCH (08:26)
--- NOTE | 2018-07-31 09:50 | PDOC ---
JARRET CLIFTON TAWER 07/31/18 0950: SURGICAL PROGRESS NOTE Subjective no complaints Vital Signs Vital Signs Date Time Temp Pulse Resp B/P (MAP) Pulse Ox O2 Delivery O2 Flow Rate FiO2 07/31/18 08:25 72 139/83 07/31/18 07:52 98.3 13 96 Room Air 10.0 98.3 I&O Intake and Output 07/31/18 07:00 Intake Total 1080 ml Output Total 1875 ml Balance -795 ml Intake Oral 480 ml IV Total 600 ml Output Urine Total 1850 ml Estimated Blood Loss 25 ml # Voids 4 # Bowel Movements 1 General: Alert, Oriented X3, Cooperative, No acute distress Skin: Other (dressing dry, intact) Assessment/Plan s/p debridement will leave dressing in place today JORGE MOELLER MD 07/31/189: SURGICAL PROGRESS NOTE Assessment/Plan pt seen in room possible dismissal tomorrow JARRET CLIFTON APRN Jul 31, 2018 09:50 JORGE MOELLER MD Jul 31, 2018 19:29
[2018-07-31] MEDS ORDERED: POTASSIUM CHLORIDE 20 MEQ TABLET.ER. PO ONE (10:00)
--- NOTE | 2018-07-31 10:10 | PDOC ---
PROGRESS NOTES Chief Complaint Chief Complaint Cellulitis of the L leg History of Present Illness History of Present Illness Patient was resting comfortably in bed today. He has no complaints. He has surgery yesterday (07/30)- I & D with hematoma evacuation Vitals Vitals Vital Signs Date Time Temp Pulse Resp B/P (MAP) Pulse Ox O2 Delivery O2 Flow Rate FiO2 07/31/18 08:25 72 139/83 07/31/18 07:52 98.3 13 96 Room Air 10.0 98.3 Physical Exam General: Alert, Oriented X3, Cooperative, No acute distress Heart: Regular rate, Normal S1, Normal S2, No murmurs Lungs: Clear (No wheezes, rales, or rhonchi), Other Abdomen: Soft, No tenderness, No masses Extremities: No edema, Normal pulses, Other (left thigh wound, clean, dry, and intact) Skin: No rashes, No breakdown, No significant lesion, Other (dressing dry, intact) Review of Systems Review of Systems Patient denies fevers, chills, N/V, CP, SOB, diarrhea. Assessment and Plan Assessmemt and Plan Assessment: Severe cellulitis left upper leg/ thigh, possible infected insect bite with deep tissue involvement. multiple pustular lesions in LE. 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 denies insect bites Hypertension HX NSTEMI s/p cardiac cath and stent placement on 04/30/16 HX 5 mm pulmonary nodule. Alcohol abuse. severe HX, persistent 6 shots/ night THC usage.HX sepsis pos wound cult suspect staph Plan: POD1 for I & D with hematoma evacuation IV zyvox 40 meq KCl PO (3.4) blood cultures negative wound cx- MRSA ID consult General surgery consult wound care- possible wound vac F/u labs DVT prophylaxis PT/OT Continue home meds DC disposition pending Comment Review of Relevant I have reviewed the following items macario (where applicable) has been applied. Labs Microbiology 07/22/18 Blood Culture - Final, Complete NO GROWTH AFTER 5 DAYS 07/25/18 Anaerobic/Aerobic Culture - Final, Complete 07/25/18 Anaerobic Culture Result 1 (ELFEGO) - Final, Complete 07/25/18 Aerobic Culture - Final, Complete 07/25/18 Aerobic Culture Result 1 (ELFEGO) - Final, Complete 07/25/18 Antimicrobic Susceptibility - Final, Complete 07/25/18 Gram Stain - Final, Complete 07/25/18 Gram Stain Result 1 (ELFEGO) - Final, Complete 07/25/18 Gram Stain Result 2 (ELFEGO) - Final, Complete Medications Current Medications Vancomycin HCl 2 gm/Sodium Chloride 500 ml @ 250 mls/hr 1X ONCE IV Last administered on 07/22/18at 03:23; Start 07/22/18 at 04:00; Stop 07/22/18 at 05:59; Status DC Vancomycin HCl (Vanco Per Pharmacy) 1 each PRN DAILY PRN MC SEE COMMENTS Last administered on 07/26/18at 09:47; Start 07/22/18 at 03:15; Stop 07/26/18 at 15:16; Status DC Fentanyl Citrate (Fentanyl 2ml Vial) 100 mcg STK-MED ONCE .ROUTE ; Start 07/22/18 at 04:04; Stop 07/22/18 at 04:05; Status DC Ondansetron HCl (Zofran) 4 mg PRN Q8HRS PRN IV NAUSEA/VOMITING 1ST CHOICE; Start 07/22/18 at 05:00; Stop 07/23/18 at 04:59; Status DC Morphine Sulfate (Morphine Sulfate) 2 mg PRN Q2HR PRN IV SEVERE PAIN Last administered on 07/22/18at 17:07; Start 07/22/18 at 05:00; Stop 07/23/18 at 04:59; Status DC Vancomycin HCl 1.25 gm/Sodium Chloride 250 ml @ 167 mls/hr Q12H IV Last administered on 07/26/18at 03:59; Start 07/22/18 at 16:00; Stop 07/26/18 at 15:16; Status DC Vancomycin HCl (Vancomycin Trough Level) 1 each 1X ONCE MC Last administered on 07/23/18at 15:30; Start 07/23/18 at 15:30; Stop 07/23/18 at 15:31; Status DC Acetaminophen (Tylenol) 1,000 mg PRN Q6HRS PRN PO fever/ mild pain Last administered on 07/27/18at 14:03; Start 07/22/18 at 07:45 Sodium Chloride 1,000 ml @ 100 mls/hr Q10H IV Last administered on 07/31/18at 08:24; Start 07/22/18 at 09:45 Aspirin (Ecotrin) 81 mg DAILY PO Last administered on 07/28/18 08:07; Start 07/22/18 at 10:00; Stop 07/28/18 at 12:09; Status DC Atorvastatin Calcium (Lipitor) 40 mg QHS PO Last administered on 07/30/18at 20:44; Start 07/22/18 at 21:00 Lisinopril (Prinivil) 10 mg DAILY PO Last administered on 07/31/18 08:25; Start 07/22/18 at 10:00 Metoprolol Tartrate (Lopressor) 25 mg BID PO Last administered on 07/31/18 08:25; Start 07/22/18 at 10:00 Multivitamins (Thera M Plus) 1 tab DAILY PO Last administered on 07/31/18 08:25; Start 07/22/18 at 10:00 Clopidogrel Bisulfate (Plavix) 75 mg DAILY PO Last administered on 07/27/18 07:53; Start 07/22/18 at 12:00; Stop 07/28/18 at 12:09; Status DC Multivitamins 10 ml/Thiamine HCl 100 mg/Folic Acid 1 mg/Sodium Chloride 1,011.2 ml @ 100 mls/ hr 1X ONCE IV Last administered on 07/22/18 14:45; Start 07/22/18 at 13:00; Stop 07/22/18 at 23:06; Status DC Multivitamins (Thera M Plus) 1 tab DAILY PO ; Start 07/23/18 at 09:00; Status UNV Folic Acid (Folic Acid) 1 mg DAILY PO Last administered on 07/31/18 08:26; Start 07/23/18 at 09:00 Thiamine HCl 100 mg/Dextrose 51 ml @ 100 mls/hr DAILY IV ; Start 07/23/18 at 09:00; Stop 07/27/18 at 09:31; Status UNV Lorazepam (Ativan) 2 mg Q6H PO Last administered on 07/23/18at 06:06; Start 07/22/18 at 12:00; Stop 07/23/18 at 18:01; Status DC Enoxaparin Sodium (Lovenox 40mg Syringe) 40 mg Q24H SQ Last administered on 07/23/18at 13:24; Start 07/22/18 at 13:00; Stop 07/25/18 at 15:40; Status DC Tetanus/ Diphtheria Toxoids (Tenivac Syringe) 0.5 ml ONCE ONCE VAX IM Last administered on 07/22/18 14:48; Start 07/22/18 at 13:00; Stop 07/22/18 at 13:01; Status DC Thiamine Mononitrate (Vitamin B-1) 100 mg DAILY PO Last administered on 07/31/18 08:25; Start 07/23/18 at 09:00 Lactobacillus Rhamnosus (Culturelle) 1 cap BID PO Last administered on 07/31/18 08:25; Start 07/22/18 at 21:00 Cefepime HCl (Maxipime) 1 gm Q12HR IVP Last administered on 07/26/18 08:34; Start 07/22/18 at 21:00; Stop 07/26/18 at 15:15; Status DC Linezolid (Zyvox) 600 mg BID PO Last administered on 07/31/18 08:26; Start 07/22/18 at 21:00 Cefepime HCl (Maxipime) 0.5 gm 1X ONCE IVP Last administered on 07/22/18 14:49; Start 07/22/18 at 14:30; Stop 07/22/18 at 14:31; Status DC Hydralazine HCl (Apresoline) 25 mg PRN TID PRN PO ELEVATED BP, SEE COMMENTS Last administered on 07/25/18at 15:59; Start 07/24/18 at 10:45 Ondansetron HCl (Zofran) 4 mg PRN Q6HRS PRN IV NAUSEA/VOMITING; Start 07/25/18 at 07:00; Stop 07/26/18 at 06:59; Status DC Morphine Sulfate (Morphine Sulfate) 1 mg PRN Q10MIN PRN IV SEVERE PAIN Last administered on 07/25/18at 23:45; Start 07/25/18 at 07:00; Stop 07/26/18 at 06:59; Status DC Ringer's Solution 1,000 ml @ 30 mls/hr Q24H IV Last administered on 07/25/18 15:10; Start 07/25/18 at 07:00; Stop 07/25/18 at 18:59; Status DC Hydromorphone HCl (Dilaudid) 0.5 mg PRN Q10MIN PRN IV SEV PAIN, Second choice; Start 07/25/18 at 07:00; Stop 07/26/18 at 06:59; Status DC Prochlorperazine Edisylate (Compazine) 5 mg PACU PRN PRN IV NAUSEA, MRX1; Start 07/25/18 at 07:00; Stop 07/26/18 at 06:59; Status DC Propofol 20 ml @ As Directed STK-MED ONCE IV ; Start 07/25/18 at 11:53; Stop 07/25/18 at 11:54; Status DC Lidocaine HCl (Lidocaine Pf 2% Vial) 5 ml STK-MED ONCE .ROUTE ; Start 07/25/18 at 11:53; Stop 07/25/18 at 11:54; Status DC Ondansetron HCl (Zofran) 4 mg STK-MED ONCE .ROUTE ; Start 07/25/18 at 11:53; Stop 07/25/18 at 11:54; Status DC Fentanyl Citrate (Fentanyl 2ml Vial) 100 mcg STK-MED ONCE .ROUTE ; Start 07/25/18 at 11:53; Stop 07/25/18 at 11:54; Status DC Midazolam HCl (Versed) 2 mg STK-MED ONCE .ROUTE ; Start 07/25/18 at 11:56; Stop 07/25/18 at 11:57; Status DC Sevoflurane (Ultane) 15 ml STK-MED ONCE IH ; Start 07/25/18 at 12:49; Stop 07/25/18 at 12:50; Status DC Fentanyl Citrate (Fentanyl 2ml Vial) 100 mcg STK-MED ONCE .ROUTE ; Start 07/25/18 at 13:24; Stop 07/25/18 at 13:25; Status DC Fentanyl Citrate (Fentanyl 2ml Vial) 50 mcg PRN Q10MIN PRN IV PAIN Last administered on 07/26/18at 00:14; Start 07/25/18 at 13:30; Stop 07/26/18 at 09:44; Status DC Dexamethasone Sodium Phosphate (Decadron) 20 mg STK-MED ONCE .ROUTE ; Start 07/25/18 at 13:47; Stop 07/25/18 at 13:48; Status DC Propofol 20 ml @ As Directed STK-MED ONCE IV ; Start 07/25/18 at 13:47; Stop 07/25/18 at 13:48; Status DC Lidocaine HCl (Lidocaine Pf 2% Vial) 5 ml STK-MED ONCE .ROUTE ; Start 07/25/18 at 13:47; Stop 07/25/18 at 13:48; Status DC Cellulose (Surgicel Hemostat 4x8) 1 each STK-MED ONCE .ROUTE Last administered on 07/25/18at 14:47; Start 07/25/18 at 13:13; Stop 07/25/18 at 14:14; Status DC Sevoflurane (Ultane) 15 ml STK-MED ONCE IH ; Start 07/25/18 at 14:41; Stop 07/25/18 at 14:42; Status DC Cellulose (Surgicel Hemostat 4x8) 1 each STK-MED ONCE .ROUTE ; Start 07/25/18 at 13:48; Stop 07/25/18 at 14:48; Status DC Fentanyl Citrate (Fentanyl 2ml Vial) 50 mcg PRN Q3HRS PRN IV PAIN Last administered on 07/31/18at 01:48; Start 07/26/18 at 02:30 Oxycodone/ Acetaminophen (Percocet 5/325) 1 tab PRN Q4HRS PRN PO PAIN Last administered on 07/30/18at 01:01; Start 07/29/18 at 11:15 Sevoflurane (Ultane) 60 ml STK-MED ONCE IH ; Start 07/30/18 at 16:59; Stop 07/30/18 at 17:00; Status DC Dexamethasone Sodium Phosphate (Decadron) 20 mg STK-MED ONCE .ROUTE ; Start 07/30/18 at 16:59; Stop 07/30/18 at 17:00; Status DC Ketorolac Tromethamine (Toradol For Or Only) 30 mg STK-MED ONCE INJ ; Start 07/30/18 at 16:59; Stop 07/30/18 at 17:00; Status DC Ondansetron HCl (Zofran) 4 mg STK-MED ONCE .ROUTE ; Start 07/30/18 at 16:59; Stop 07/30/18 at 17:00; Status DC Lidocaine HCl (Lidocaine Pf 2% Vial) 5 ml STK-MED ONCE .ROUTE ; Start 07/30/18 at 16:59; Stop 07/30/18 at 17:00; Status DC Propofol 20 ml @ As Directed STK-MED ONCE IV ; Start 07/30/18 at 16:59; Stop 07/30/18 at 17:00; Status DC Morphine Sulfate (Morphine Sulfate) 10 mg STK-MED ONCE .ROUTE ; Start 07/30/18 at 17:07; Stop 07/30/18 at 17:08; Status DC Cellulose (Surgicel Hemostat 4x8) 1 each STK-MED ONCE .ROUTE ; Start 07/30/18 at 16:10; Stop 07/30/18 at 17:11; Status DC Phenylephrine HCl (PHENYLEPHRINE in 0.9% NACL PF) 1 mg STK-MED ONCE IV ; Start 07/30/18 at 17:15; Stop 07/30/18 at 17:16; Status DC Cellulose (Surgicel Hemostat 4x8) 1 each STK-MED ONCE TP Last administered on 07/30/18at 17:13; Start 07/30/18 at 17:13; Stop 07/30/18 at 17:40; Status DC Potassium Chloride (Klor-Con) 40 meq 1X ONCE PO ; Start 07/31/18 at 10:00; Stop 07/31/18 at 10:01; Status UNV Active Scripts Active Percocet 5-325 Mg Tablet (Oxycodone/Acetaminophen) 1 Each Tablet 1 Tab PO PRN Q6HRS PRN Zyvox (Linezolid) 600 Mg Tablet 600 Mg PO BID Reported Atorvastatin Calcium 40 Mg Tablet 1 Tab PO DAILY Lisinopril 10 Mg Tablet 1 Tab PO DAILY Clopidogrel (Clopidogrel Bisulfate) 75 Mg Tablet 1 Tab PO DAILY Metoprolol Tartrate 25 Mg Tablet 1 Tab PO BID Aspir-Low (Aspirin) 81 Mg Tablet. 1 Tab PO DAILY Multivitamins (Multivitamin) 1 Each Tablet 1 Tab PO DAILY Vitals/I & O Vital Sign - Last 24 Hours 07/30/18 07/30/18 07/30/18 07/30/18 10:53 10:54 10:55 11:00 Temp 98.2 98.2 Pulse 65 65 77 Resp 18 18 B/P (MAP) 131/70 131/70 151/79 (103) Pulse Ox 95 O2 Delivery Room Air Room Air 07/30/18 07/30/18 07/30/18 07/30/18 14:49 15:00 15:19 15:40 Temp 98.2 98.5 98.2 98.5 Pulse 71 78 Resp 20 14 18 16 B/P (MAP) 159/78 (105) 133/78 Pulse Ox 95 96 O2 Delivery Room Air Room Air Room Air 07/30/18 07/30/18 07/30/18 07/30/18 17:30 17:30 17:45 18:00 Temp 98.2 98.2 98.2 98.2 98.2 98.2 Pulse 69 72 61 Resp 16 18 19 B/P (MAP) 134/77 137/82 148/86 Pulse Ox 99 96 97 O2 Delivery Room Air Room Air Room Air Room Air 07/30/18 07/30/18 07/30/18 07/30/18 19:00 19:30 20:00 20:00 Temp 98.0 97.6 98.6 98.0 97.6 98.6 Pulse 78 101 98 Resp 18 18 16 B/P (MAP) 156/86 (109) 154/97 (116) 134/83 (100) Pulse Ox 96 95 95 O2 Delivery Room Air Room Air Room Air Room Air 07/30/18 07/30/18 07/30/18 07/31/18 20:45 22:00 22:46 01:48 Temp 98.0 98.0 98.0 98.0 Pulse 101 91 94 Resp 16 16 B/P (MAP) 134/83 130/72 (91) 151/89 (109) Pulse Ox 95 94 94 O2 Delivery Room Air Room Air Room Air O2 Flow Rate 10.0 07/31/18 07/31/18 07/31/18 07/31/18 02:18 02:55 07:52 08:25 Temp 98.6 98.3 98.6 98.3 Pulse 89 72 72 Resp 16 13 B/P (MAP) 129/76 (93) 139/83 (101) 139/83 Pulse Ox 94 91 96 O2 Delivery Room Air Room Air Room Air O2 Flow Rate 10.0 10.0 07/31/18 08:25 Pulse 72 B/P (MAP) 139/83 Intake and Output 07/30/18 07/30/18 07/31/18 14:59 22:59 06:59 Intake Total 240 ml 840 ml Output Total 25 ml 1850 ml Balance 240 ml 815 ml -1850 ml CASTLE,NIAL K III DO Jul 31, 2018 10:10
[2018-07-31 11:13] VITALS: BP 131/76
--- NOTE | 2018-07-31 11:32 | PDOC ---
Infectious Disease Note Subjective Subjective Comfortable, pain controlled - feels better today No fevers Appetite fair Denies N/V/D/SOA/rash ROS ROS o/w neg Vital Sign Vital Signs Vital Signs Date Time Temp Pulse Resp B/P (MAP) Pulse Ox O2 Delivery O2 Flow Rate FiO2 07/31/18 11:13 98.1 89 20 131/76 (94) 94 Room Air 98.1 07/31/18 07:52 10.0 Physical Exam PHYSICAL EXAM GENERAL: Propped up in bed after sitting in chair and moving over, alert, r elaxed HEENT: Facial redness, Oral cavity clear NECK: Supple. LUNGS: Clear bilaterally. No wheezing. HEART: S1, S2. ABDOMEN: Soft, nontender, nondistended. EXTREMITIES: Left thigh post-op dressing in place dry.- Penroses in place at top of dressing NEUROLOGIC: Alert and oriented x 3, grossly nonfocal. SKIN: No rash. Multiple skin lesions lower extremities - drying PIV Labs Micro Methicillin - resistant Staphylococcus aureus 4+ Based on resistance to oxacillin this isolate would be resistant to all currently available beta-lactam antimicrobial agents, with the exception of the newer cephalosporins with anti-MRSA activity, such as Ceftaroline This isolate does not demonstrate inducible clindamycin resistance in vitro by D test. ANTIMICROBIAL SUSCEPTIBILITY Final Comment S = Susceptible; I = Intermediate; R = Resistant P = Positive; N = Negative MICS are expressed in micrograms per mL Antibiotic RSLT#1 RSLT#2 RSLT#3 RSLT#4 Ciprofloxacin R>=8 Clindamycin S<=0.25 Erythromycin R>=8 Gentamicin S<=0.5 Levofloxacin I =4 Linezolid S =2 Oxacillin R>=4 Penicillin R>=0.5 CONTINUED ON NEXT PAGE RUN DATE: 07/27/18 PAGE 2 RUN TIME: 1508 [facility] [address] [place] [address] Yusuf Law M.D., Railroad Car Checker SPEC: [id number] PATIENT: KALANI PINEDA [id number] (Continued) -- Procedure Result ANTIMICROBIAL SUSCEPTIBILITY Final (continued) Rifampin S<=0.5 Tetracycline S<=1 Trimethoprim/Sulfa S<=10 Vancomycin S =1 Microbiology 07/22/18 Blood Culture - Final, Complete NO GROWTH AFTER 5 DAYS 07/25/18 Anaerobic/Aerobic Culture, Resulted Pending 07/25/18 Anaerobic Culture Result 1 (ELFEGO), Resulted Pending 07/25/18 Aerobic Culture, Resulted Pending 07/25/18 Aerobic Culture Result 1 (ELFEGO), Resulted Pending 07/25/18 Gram Stain - Final, Resulted 07/25/18 Gram Stain Result 1 (ELFEGO) - Final, Resulted 07/25/18 Gram Stain Result 2 (ELFEGO) - Final, Resulted Objective Assessment S/p I and D 07/30 of left thigh Severe left lower extremity cellulitis with furuncle left thigh. spontaneously draining, Staph aureus (MRSA) s/p I and D on 07/25. Intra-op cultures pending Multiple pustular lesions over both lower extremities - improving. The patient denies any history of insect bite or trauma. PCN allergy. age of 3, passed out after an injection. Hypertension. History of non-ST elevation myocardial infarction, status post cardiac catheterization and stent placement in 04/2016. Alcohol abuse with hyperbilirubinemia. THC usage by history. Sepsis. resolved Leukocytosis. resolved Plan Plan of Care Cont Zyvox check outpatient cost Wound care per Surgery DEENA AKERS MD Jul 31, 2018 11:32
--- NOTE | 2018-07-31 14:52 | NUR ---
SW following. Spoke with wound care and awaiting on Surgeon's recommendation for wound care at home (wound vac vs dressing changes). Will continue to follow.
--- NOTE | 2018-07-31 14:57 | NUR ---
Wound care: Patient seen per wound care follow up. Patient is s/p I & D 07/30/18 of right upper thigh abscess. Dressing removed and wound cleansed, assessed, measured, and pictured. Recommendations for Aquacel AG, ABD pads, kerlix and DEEJAY wrap to hold dressing in place. Recommend to change daily. Wound is still indurated, with a significant amount of swelling. Dressing applied and patient tolerated well. Patient up in chair at this time. No other wounds noted upon complete head to toe assessment. Call light in reach. Wound care will follow up with patient.
[2018-07-31 15:00] VITALS: BP 112/53
[2018-07-31] MEDS: hydrALAZINE 25 MG TABLET PO PRN (15:51)
[2018-07-31 19:00] VITALS: BP 136/79
[2018-07-31] MEDS: ATORVASTATIN CALCIUM 40 MG TABLET. PO SCH (20:55)
[2018-07-31] MEDS: oxyCODONE/APAP 5/325 1 TAB TABLET PO PRN (21:07)
[2018-07-31 23:00] VITALS: BP 121/92
[2018-08-01] MEDS: oxyCODONE/APAP 5/325 1 TAB TABLET PO PRN ×3 (02:22→13:06)
[2018-08-01 03:00] VITALS: BP 119/90
--- NOTE | 2018-08-01 03:49 | NUR ---
Patient had asked if the iv could be disconnected, so 'I can sleep better', this abstract writer disconnected, monitoring
[2018-08-01 07:00] VITALS: BP 130/85
[2018-08-01] MEDS: IV NORMAL SALINE 1000ML BAG 1,000 ML IV SCH (08:22)
[2018-08-01] MEDS: THIAMINE 100 MG TABLET. PO SCH (08:55)
[2018-08-01] MEDS: LACTOBACILLUS RHAMNOSUS GG 1 CAPSULE. PO SCH (08:56)
[2018-08-01] MEDS: MULTIVITAMIN with MINERAL TABLET. PO SCH (08:56)
[2018-08-01] MEDS: LINEZOLID 600 MG TABLET PO SCH (08:56)
[2018-08-01] MEDS: METOPROLOL TART IMMED RELEASE 25 MG TABLET. PO SCH (08:57)
[2018-08-01] MEDS: LISINOPRIL 10 MG TABLET PO SCH (08:57)
[2018-08-01] MEDS: FOLIC ACID 1 MG TABLET. PO SCH (09:55)
[2018-08-01 10:19] LABS: BASO % 1 % (0-3); EOS # 0.1 x10^3/uL (0.0-0.7); EOS % 2 % (0-3); HEMATOCRIT 34.2 % (39.0-53.0); HEMOGLOBIN 11.7 g/dL (13.0-17.5); LYMPH # 1.9 x10^3/uL (1.0-4.8); LYMPH % 30 % (24-48); MEAN CORPUSCULAR HEMOGLOBIN 32 pg (25-35); MEAN CORPUSCULAR HGB CONC 34 g/dL (31-37); MEAN CORPUSCULAR VOLUME 94 fL (79-100); MONO # 0.5 x10^3/uL (0.0-1.1); MONO % 8 % (0-9); NEUT # 3.8 x10^3uL (1.8-7.7); NEUT % 60 % (31-73); PLATELET COUNT 638 x10^3/uL (140-400); RED BLOOD COUNT 3.64 x10^6/uL (4.30-5.70); RED CELL DISTRIBUTION WIDTH 13.9 % (11.5-14.5); WHITE BLOOD COUNT 6.3 x10^3/uL (4.0-11.0)
[2018-08-01 10:38] LABS: CALCIUM 9.2 mg/dL (8.5-10.1); CREATININE 1.1 mg/dL (0.7-1.3); GFR 68.8; POTASSIUM 3.9 mmol/L (3.5-5.1)
--- NOTE | 2018-08-01 10:43 | PDOC ---
JARRET CLIFTON LINE SUPERVISOR 08/01/18 1043: SURGICAL PROGRESS NOTE Subjective doing well possible home today Vital Signs Vital Signs Date Time Temp Pulse Resp B/P (MAP) Pulse Ox O2 Delivery O2 Flow Rate FiO2 08/01/18 09:56 18 Room Air 08/01/18 08:57 66 130/85 08/01/18 07:00 97.9 95 97.9 07/31/18 07:52 10.0 I&O Intake and Output 08/01/18 06:59 Intake Total 760 ml Output Total 2500 ml Balance -1740 ml Intake Oral 760 ml Output Urine Total 2500 ml General: Alert, Oriented X3, Cooperative, No acute distress Skin: Other (wound dressing in place) Labs Laboratory Tests Test 08/01/18 09:57 White Blood Count 6.3 x10^3/uL (4.0-11.0) Red Blood Count 3.64 x10^6/uL (4.30-5.70) Hemoglobin 11.7 g/dL (13.0-17.5) Hematocrit 34.2 % (39.0-53.0) Mean Corpuscular Volume 94 fL (79-100) Mean Corpuscular Hemoglobin 32 pg (25-35) Mean Corpuscular Hemoglobin Concent 34 g/dL (31-37) Red Cell Distribution Width 13.9 % (11.5-14.5) Platelet Count 638 x10^3/uL (140-400) Neutrophils (%) (Auto) 60 % (31-73) Lymphocytes (%) (Auto) 30 % (24-48) Monocytes (%) (Auto) 8 % (0-9) Eosinophils (%) (Auto) 2 % (0-3) Basophils (%) (Auto) 1 % (0-3) Neutrophils # (Auto) 3.8 x10^3uL (1.8-7.7) Lymphocytes # (Auto) 1.9 x10^3/uL (1.0-4.8) Monocytes # (Auto) 0.5 x10^3/uL (0.0-1.1) Eosinophils # (Auto) 0.1 x10^3/uL (0.0-0.7) Basophils # (Auto) 0.0 x10^3/uL (0.0-0.2) Sodium Level 143 mmol/L (136-145) Potassium Level 3.9 mmol/L (3.5-5.1) Chloride Level 106 mmol/L (98-107) Carbon Dioxide Level 30 mmol/L (21-32) Anion Gap 7 (6-14) Blood Urea Nitrogen 17 mg/dL (8-26) Creatinine 1.1 mg/dL (0.7-1.3) Estimated GFR (Cockcroft-Gault) 68.8 Glucose Level 93 mg/dL (70-99) Calcium Level 9.2 mg/dL (8.5-10.1) Laboratory Tests Test 08/01/18 09:57 White Blood Count 6.3 x10^3/uL (4.0-11.0) Red Blood Count 3.64 x10^6/uL (4.30-5.70) Hemoglobin 11.7 g/dL (13.0-17.5) Hematocrit 34.2 % (39.0-53.0) Mean Corpuscular Volume 94 fL (79-100) Mean Corpuscular Hemoglobin 32 pg (25-35) Mean Corpuscular Hemoglobin Concent 34 g/dL (31-37) Red Cell Distribution Width 13.9 % (11.5-14.5) Platelet Count 638 x10^3/uL (140-400) Neutrophils (%) (Auto) 60 % (31-73) Lymphocytes (%) (Auto) 30 % (24-48) Monocytes (%) (Auto) 8 % (0-9) Eosinophils (%) (Auto) 2 % (0-3) Basophils (%) (Auto) 1 % (0-3) Neutrophils # (Auto) 3.8 x10^3uL (1.8-7.7) Lymphocytes # (Auto) 1.9 x10^3/uL (1.0-4.8) Monocytes # (Auto) 0.5 x10^3/uL (0.0-1.1) Eosinophils # (Auto) 0.1 x10^3/uL (0.0-0.7) Basophils # (Auto) 0.0 x10^3/uL (0.0-0.2) Sodium Level 143 mmol/L (136-145) Potassium Level 3.9 mmol/L (3.5-5.1) Chloride Level 106 mmol/L (98-107) Carbon Dioxide Level 30 mmol/L (21-32) Anion Gap 7 (6-14) Blood Urea Nitrogen 17 mg/dL (8-26) Creatinine 1.1 mg/dL (0.7-1.3) Estimated GFR (Cockcroft-Gault) 68.8 Glucose Level 93 mg/dL (70-99) Calcium Level 9.2 mg/dL (8.5-10.1) Assessment/Plan wound care possible dc today JORGE MOELLER MD 08/01/18 1423: SURGICAL PROGRESS NOTE Assessment/Plan pt seen home today with HH to office Saturday JARRET CLIFTON APRN Aug 01, 2018 10:43 JORGE MOELLER MD Aug 01, 2018 14:23
--- NOTE | 2018-08-01 10:48 | PDOC ---
Infectious Disease Note Subjective Subjective Comfortable, pain controlled - feels better today No fevers Appetite fair Denies N/V/D/SOA/rash Vital Sign Vital Signs Vital Signs Date Time Temp Pulse Resp B/P (MAP) Pulse Ox O2 Delivery O2 Flow Rate FiO2 08/01/18 09:56 18 Room Air 08/01/18 08:57 66 130/85 08/01/18 07:00 97.9 95 97.9 07/31/18 07:52 10.0 Physical Exam PHYSICAL EXAM GENERAL: Propped up in bed, alert, relaxed HEENT: Facial redness, Oral cavity clear NECK: Supple. LUNGS: Clear bilaterally. No wheezing. HEART: S1, S2. ABDOMEN: Soft, nontender, nondistended. EXTREMITIES: Left thigh wounds -improved. Clean with min induration Penroses in place at top of dressing NEUROLOGIC: Alert and oriented x 3, grossly nonfocal. SKIN: No rash. Multiple skin lesions lower extremities - drying PIV Labs Lab Laboratory Tests Test 08/01/18 09:57 White Blood Count 6.3 x10^3/uL (4.0-11.0) Red Blood Count 3.64 x10^6/uL (4.30-5.70) Hemoglobin 11.7 g/dL (13.0-17.5) Hematocrit 34.2 % (39.0-53.0) Mean Corpuscular Volume 94 fL (79-100) Mean Corpuscular Hemoglobin 32 pg (25-35) Mean Corpuscular Hemoglobin Concent 34 g/dL (31-37) Red Cell Distribution Width 13.9 % (11.5-14.5) Platelet Count 638 x10^3/uL (140-400) Neutrophils (%) (Auto) 60 % (31-73) Lymphocytes (%) (Auto) 30 % (24-48) Monocytes (%) (Auto) 8 % (0-9) Eosinophils (%) (Auto) 2 % (0-3) Basophils (%) (Auto) 1 % (0-3) Neutrophils # (Auto) 3.8 x10^3uL (1.8-7.7) Lymphocytes # (Auto) 1.9 x10^3/uL (1.0-4.8) Monocytes # (Auto) 0.5 x10^3/uL (0.0-1.1) Eosinophils # (Auto) 0.1 x10^3/uL (0.0-0.7) Basophils # (Auto) 0.0 x10^3/uL (0.0-0.2) Sodium Level 143 mmol/L (136-145) Potassium Level 3.9 mmol/L (3.5-5.1) Chloride Level 106 mmol/L (98-107) Carbon Dioxide Level 30 mmol/L (21-32) Anion Gap 7 (6-14) Blood Urea Nitrogen 17 mg/dL (8-26) Creatinine 1.1 mg/dL (0.7-1.3) Estimated GFR (Cockcroft-Gault) 68.8 Glucose Level 93 mg/dL (70-99) Calcium Level 9.2 mg/dL (8.5-10.1) Micro Methicillin - resistant Staphylococcus aureus 4+ Based on resistance to oxacillin this isolate would be resistant to all currently available beta-lactam antimicrobial agents, with the exception of the newer cephalosporins with anti-MRSA activity, such as Ceftaroline This isolate does not demonstrate inducible clindamycin resistance in vitro by D test. ANTIMICROBIAL SUSCEPTIBILITY Final Comment S = Susceptible; I = Intermediate; R = Resistant P = Positive; N = Negative MICS are expressed in micrograms per mL Antibiotic RSLT#1 RSLT#2 RSLT#3 RSLT#4 Ciprofloxacin R>=8 Clindamycin S<=0.25 Erythromycin R>=8 Gentamicin S<=0.5 Levofloxacin I =4 Linezolid S =2 Oxacillin R>=4 Penicillin R>=0.5 CONTINUED ON NEXT PAGE RUN DATE: 07/27/18 PAGE 2 RUN TIME: 1506 [facility] [address] [place] [address] Yusuf Law M.D., Doubling Machine Operator SPEC: [id number] PATIENT: KALANI PINEDA [id number] (Continued) Procedure Result ANTIMICROBIAL SUSCEPTIBILITY Final (continued) Rifampin S<=0.5 Tetracycline S<=1 Trimethoprim/Sulfa S<=10 Vancomycin S =1 Microbiology 07/22/18 Blood Culture - Final, Complete NO GROWTH AFTER 5 DAYS 07/25/18 Anaerobic/Aerobic Culture, Resulted Pending 07/25/18 Anaerobic Culture Result 1 (ELFEGO), Resulted Pending 07/25/18 Aerobic Culture, Resulted Pending 07/25/18 Aerobic Culture Result 1 (ELFEGO), Resulted Pending 07/25/18 Gram Stain - Final, Resulted 07/25/18 Gram Stain Result 1 (ELFEGO) - Final, Resulted 07/25/18 Gram Stain Result 2 (ELFEGO) - Final, Resulted Objective Assessment S/p I and D 07/30 of left thigh Severe left lower extremity cellulitis with furuncle left thigh. spontaneously draining, Staph aureus (MRSA) s/p I and D on 07/25. Intra-op cultures pending Multiple pustular lesions over both lower extremities - improving. The patient denies any history of insect bite or trauma. PCN allergy. age of 3, passed out after an injection. Hypertension. History of non-ST elevation myocardial infarction, status post cardiac catheterization and stent placement in 04/2016. Alcohol abuse with hyperbilirubinemia. THC usage by history. Sepsis. resolved Leukocytosis. resolved Plan Plan of Care Cont Zyvox for 7 days - outpatient - Rx written Wound care per Surgery Ok to d/c home F/u with Gen surgery can f/u with ID if needed DEENA AKERS MD Aug 01, 2018 10:48
[2018-08-01 11:00] VITALS: BP 115/76
--- NOTE | 2018-08-01 11:40 | SNU/HH DC ---
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 Pena 1 week TREATMENT/EQUIPMENT ORDERS: Adaptive Equipment Issued: None CERTIFICATION STATEMENT: Certification Statement: Certification Statement: Based on the above finding, I certify that this patient is confined to the home and needs intermittent jail care, physical therapy and/or speech therapy, or continues to need occupational therapy.~ This patient is under my care, and I have initiated the establishment of the plan of care.~ This patient will be followed by myself or a community physician who will periodically review the plan of care. Home Meds Active Scripts Oxycodone/Apap 5-325 (PERCOCET 5-325 MG TABLET ) 1 Each Tablet, 1 TAB PO PRN Q6HRS PRN for PAIN, #18 TAB 0 Refills Prov:RANJAN LANDAVERDE MD 07/28/18 Linezolid (ZYVOX) 600 Mg Tablet, 600 MG PO BID for leg wound, #14 TAB Prov:RANJAN LANDAVERDE MD 07/28/18 Reported Medications Atorvastatin Calcium (ATORVASTATIN CALCIUM) 40 Mg Tablet, 1 TAB PO DAILY for cholesterol, #90 TAB 3 Refills 07/22/18 Lisinopril (LISINOPRIL) 10 Mg Tablet, 1 TAB PO DAILY for blood pressure, #30 TAB 5 Refills 07/22/18 Clopidogrel Bisulfate (CLOPIDOGREL) 75 Mg Tablet, 1 TAB PO DAILY for blood thinner, #90 TAB 1 Refill 07/22/18 Metoprolol Tartrate (METOPROLOL TARTRATE) 25 Mg Tablet, 1 TAB PO BID for blood pressure, #180 TAB 1 Refill 07/22/18 Aspirin (ASPIR-LOW) 81 Mg Tablet.dr, 1 TAB PO DAILY for blood thinner, #30 TAB 3 Refills 07/22/18 Multivitamin (MULTIVITAMINS) 1 Each Tablet, 1 TAB PO DAILY for health, #90 TAB 3 Refills 07/22/18 RANJAN LANDAVERDE MD Aug 01, 2018 11:40
--- NOTE | 2018-08-01 12:18 | PDOC ---
PROGRESS NOTES Chief Complaint Chief Complaint Cellulitis of the L leg History of Present Illness History of Present Illness Patient was resting comfortably in bed today. He has no complaints. He has surgery (07/30)- I & D with hematoma evacuation Vitals Vitals Vital Signs Date Time Temp Pulse Resp B/P (MAP) Pulse Ox O2 Delivery O2 Flow Rate FiO2 08/01/18 11:00 97.8 67 18 115/76 (89) 97 Room Air 97.8 07/31/18 07:52 10.0 Physical Exam Physical Exam GENERAL: Propped up in bed, alert, relaxed HEENT: Facial redness, Oral cavity clear NECK: Supple. LUNGS: Clear bilaterally. No wheezing. HEART: S1, S2. ABDOMEN: Soft, nontender, nondistended. EXTREMITIES: Left thigh wounds -improved. Clean with min induration Penroses in place at top of dressing NEUROLOGIC: Alert and oriented x 3, grossly nonfocal. SKIN: No rash. Multiple skin lesions lower extremities - drying PIV General: Alert, Oriented X3, Cooperative, No acute distress Heart: Regular rate, Normal S1, Normal S2, No murmurs Lungs: Clear (No wheezes, rales, or rhonchi), Other Abdomen: Soft, No tenderness, No masses Extremities: No edema, Normal pulses, Other (left thigh wound, clean, dry, and intact) Skin: Other (wound dressing in place) Labs LABS Laboratory Tests Test 08/01/18 09:57 White Blood Count 6.3 x10^3/uL (4.0-11.0) Red Blood Count 3.64 x10^6/uL (4.30-5.70) Hemoglobin 11.7 g/dL (13.0-17.5) Hematocrit 34.2 % (39.0-53.0) Mean Corpuscular Volume 94 fL (79-100) Mean Corpuscular Hemoglobin 32 pg (25-35) Mean Corpuscular Hemoglobin Concent 34 g/dL (31-37) Red Cell Distribution Width 13.9 % (11.5-14.5) Platelet Count 638 x10^3/uL (140-400) Neutrophils (%) (Auto) 60 % (31-73) Lymphocytes (%) (Auto) 30 % (24-48) Monocytes (%) (Auto) 8 % (0-9) Eosinophils (%) (Auto) 2 % (0-3) Basophils (%) (Auto) 1 % (0-3) Neutrophils # (Auto) 3.8 x10^3uL (1.8-7.7) Lymphocytes # (Auto) 1.9 x10^3/uL (1.0-4.8) Monocytes # (Auto) 0.5 x10^3/uL (0.0-1.1) Eosinophils # (Auto) 0.1 x10^3/uL (0.0-0.7) Basophils # (Auto) 0.0 x10^3/uL (0.0-0.2) Sodium Level 143 mmol/L (136-145) Potassium Level 3.9 mmol/L (3.5-5.1) Chloride Level 106 mmol/L (98-107) Carbon Dioxide Level 30 mmol/L (21-32) Anion Gap 7 (6-14) Blood Urea Nitrogen 17 mg/dL (8-26) Creatinine 1.1 mg/dL (0.7-1.3) Estimated GFR (Cockcroft-Gault) 68.8 Glucose Level 93 mg/dL (70-99) Calcium Level 9.2 mg/dL (8.5-10.1) Assessment and Plan Assessmemt and Plan DC home w/ home health Comment Review of Relevant I have reviewed the following items macario (where applicable) has been applied. Labs Laboratory Tests Test 08/01/18 09:57 White Blood Count 6.3 x10^3/uL (4.0-11.0) Red Blood Count 3.64 x10^6/uL (4.30-5.70) Hemoglobin 11.7 g/dL (13.0-17.5) Hematocrit 34.2 % (39.0-53.0) Mean Corpuscular Volume 94 fL (79-100) Mean Corpuscular Hemoglobin 32 pg (25-35) Mean Corpuscular Hemoglobin Concent 34 g/dL (31-37) Red Cell Distribution Width 13.9 % (11.5-14.5) Platelet Count 638 x10^3/uL (140-400) Neutrophils (%) (Auto) 60 % (31-73) Lymphocytes (%) (Auto) 30 % (24-48) Monocytes (%) (Auto) 8 % (0-9) Eosinophils (%) (Auto) 2 % (0-3) Basophils (%) (Auto) 1 % (0-3) Neutrophils # (Auto) 3.8 x10^3uL (1.8-7.7) Lymphocytes # (Auto) 1.9 x10^3/uL (1.0-4.8) Monocytes # (Auto) 0.5 x10^3/uL (0.0-1.1) Eosinophils # (Auto) 0.1 x10^3/uL (0.0-0.7) Basophils # (Auto) 0.0 x10^3/uL (0.0-0.2) Sodium Level 143 mmol/L (136-145) Potassium Level 3.9 mmol/L (3.5-5.1) Chloride Level 106 mmol/L (98-107) Carbon Dioxide Level 30 mmol/L (21-32) Anion Gap 7 (6-14) Blood Urea Nitrogen 17 mg/dL (8-26) Creatinine 1.1 mg/dL (0.7-1.3) Estimated GFR (Cockcroft-Gault) 68.8 Glucose Level 93 mg/dL (70-99) Calcium Level 9.2 mg/dL (8.5-10.1) Laboratory Tests Test 08/01/18 09:57 White Blood Count 6.3 x10^3/uL (4.0-11.0) Red Blood Count 3.64 x10^6/uL (4.30-5.70) Hemoglobin 11.7 g/dL (13.0-17.5) Hematocrit 34.2 % (39.0-53.0) Mean Corpuscular Volume 94 fL (79-100) Mean Corpuscular Hemoglobin 32 pg (25-35) Mean Corpuscular Hemoglobin Concent 34 g/dL (31-37) Red Cell Distribution Width 13.9 % (11.5-14.5) Platelet Count 638 x10^3/uL (140-400) Neutrophils (%) (Auto) 60 % (31-73) Lymphocytes (%) (Auto) 30 % (24-48) Monocytes (%) (Auto) 8 % (0-9) Eosinophils (%) (Auto) 2 % (0-3) Basophils (%) (Auto) 1 % (0-3) Neutrophils # (Auto) 3.8 x10^3uL (1.8-7.7) Lymphocytes # (Auto) 1.9 x10^3/uL (1.0-4.8) Monocytes # (Auto) 0.5 x10^3/uL (0.0-1.1) Eosinophils # (Auto) 0.1 x10^3/uL (0.0-0.7) Basophils # (Auto) 0.0 x10^3/uL (0.0-0.2) Sodium Level 143 mmol/L (136-145) Potassium Level 3.9 mmol/L (3.5-5.1) Chloride Level 106 mmol/L (98-107) Carbon Dioxide Level 30 mmol/L (21-32) Anion Gap 7 (6-14) Blood Urea Nitrogen 17 mg/dL (8-26) Creatinine 1.1 mg/dL (0.7-1.3) Estimated GFR (Cockcroft-Gault) 68.8 Glucose Level 93 mg/dL (70-99) Calcium Level 9.2 mg/dL (8.5-10.1) Microbiology 07/22/18 Blood Culture - Final, Complete NO GROWTH AFTER 5 DAYS 07/25/18 Anaerobic/Aerobic Culture - Final, Complete 07/25/18 Anaerobic Culture Result 1 (ELFEGO) - Final, Complete 07/25/18 Aerobic Culture - Final, Complete 07/25/18 Aerobic Culture Result 1 (ELFEGO) - Final, Complete 07/25/18 Antimicrobic Susceptibility - Final, Complete 07/25/18 Gram Stain - Final, Complete 07/25/18 Gram Stain Result 1 (ELFEGO) - Final, Complete 07/25/18 Gram Stain Result 2 (ELFEGO) - Final, Complete Medications Current Medications Vancomycin HCl 2 gm/Sodium Chloride 500 ml @ 250 mls/hr 1X ONCE IV Last administered on 07/22/18at 03:23; Start 07/22/18 at 04:00; Stop 07/22/18 at 05:5 9; Status DC Vancomycin HCl (Vanco Per Pharmacy) 1 each PRN DAILY PRN MC SEE COMMENTS Last administered on 07/26/18at 09:47; Start 07/22/18 at 03:15; Stop 07/26/18 at 15:16; Status DC Fentanyl Citrate (Fentanyl 2ml Vial) 100 mcg STK-MED ONCE .ROUTE ; Start 07/22/18 at 04:04; Stop 07/22/18 at 04:05; Status DC Ondansetron HCl (Zofran) 4 mg PRN Q8HRS PRN IV NAUSEA/VOMITING 1ST CHOICE; Start 07/22/18 at 05:00; Stop 07/23/18 at 04:59; Status DC Morphine Sulfate (Morphine Sulfate) 2 mg PRN Q2HR PRN IV SEVERE PAIN Last administered on 07/22/18at 17:07; Start 07/22/18 at 05:00; Stop 07/23/18 at 04:59; Status DC Vancomycin HCl 1.25 gm/Sodium Chloride 250 ml @ 167 mls/hr Q12H IV Last administered on 07/26/18at 03:59; Start 07/22/18 at 16:00; Stop 07/26/18 at 15 :16; Status DC Vancomycin HCl (Vancomycin Trough Level) 1 each 1X ONCE MC Last administered on 07/23/18at 15:30; Start 07/23/18 at 15:30; Stop 07/23/18 at 15:31; Status DC Acetaminophen (Tylenol) 1,000 mg PRN Q6HRS PRN PO fever/ mild pain Last administered on 07/27/18at 14:03; Start 07/22/18 at 07:45 Sodium Chloride 1,000 ml @ 100 mls/hr Q10H IV Last administered on 07/31/18at 13:45; Start 07/22/18 at 09:45 Aspirin (Ecotrin) 81 mg DAILY PO Last administered on 07/28/18at 08:07; Start 07/22/18 at 10:00; Stop 07/28/18 at 12:09; Status DC Atorvastatin Calcium (Lipitor) 40 mg QHS PO Last administered on 07/31/18at 20:55; Start 07/22/18 at 21:00 Lisinopril (Prinivil) 10 mg DAILY PO Last administered on 08/01/18 08:57; Start 07/22/18 at 10:00 Metoprolol Tartrate (Lopressor) 25 mg BID PO Last administered on 08/01/18 08:57; Start 07/22/18 at 10:00 Multivitamins (Thera M Plus) 1 tab DAILY PO Last administered on 4/26/19at 08:56; Start 07/22/18 at 10:00 Clopidogrel Bisulfate (Plavix) 75 mg DAILY PO Last administered on 07/27/18at 07:53; Start 07/22/18 at 12:00; Stop 07/28/18 at 12:09; Status DC Multivitamins 10 ml/Thiamine HCl 100 mg/Folic Acid 1 mg/Sodium Chloride 1,011.2 ml @ 100 mls/ hr 1X ONCE IV Last administered on 07/22/18at 14:45; Start 07/22/18 at 13:00; Stop 07/22/18 at 23:06; Status DC Multivitamins (Thera M Plus) 1 tab DAILY PO ; Start 07/23/18 at 09:00; Status UNV Folic Acid (Folic Acid) 1 mg DAILY PO Last administered on 08/01/18at 09:55; Start 07/23/18 at 09:00 Thiamine HCl 100 mg/Dextrose 51 ml @ 100 mls/hr DAILY IV ; Start 07/23/18 at 09:00; Stop 07/27/18 at 09:31; Status UNV Lorazepam (Ativan) 2 mg Q6H PO Last administered on 07/23/18at 06:06; Start 07/22/18 at 12:00; Stop 07/23/18 at 18:01; Status DC Enoxaparin Sodium (Lovenox 40mg Syringe) 40 mg Q24H SQ Last administered on 07/23/18at 13:24; Start 07/22/18 at 13:00; Stop 07/25/18 at 15:40; Status DC Tetanus/ Diphtheria Toxoids (Tenivac Syringe) 0.5 ml ONCE ONCE VAX IM Last administered on 07/22/18at 14:48; Start 07/22/18 at 13:00; Stop 07/22/18 at 13:01; Status DC Thiamine Mononitrate (Vitamin B-1) 100 mg DAILY PO Last administered on 08/01/18at 08:55; Start 07/23/18 at 09:00 Lactobacillus Rhamnosus (Culturelle) 1 cap BID PO Last administered on 08/01/18at 08:56; Start 07/22/18 at 21:00 Cefepime HCl (Maxipime) 1 gm Q12HR IVP Last administered on 07/26/18at 08:34; Start 07/22/18 at 21:00; Stop 07/26/18 at 15:15; Status DC Linezolid (Zyvox) 600 mg BID PO Last administered on 08/01/18at 08:56; Start 07/22/18 at 21:00 Cefepime HCl (Maxipime) 0.5 gm 1X ONCE IVP Last administered on 07/22/18at 14:49; Start 07/22/18 at 14:30; Stop 07/22/18 at 14:31; Status DC Hydralazine HCl (Apresoline) 25 mg PRN TID PRN PO ELEVATED BP, SEE COMMENTS Last administered on 07/31/18at 15:51; Start 07/24/18 at 10:45 Ondansetron HCl (Zofran) 4 mg PRN Q6HRS PRN IV NAUSEA/VOMITING; Start 07/25/18 at 07:00; Stop 07/26/18 at 06:59; Status DC Morphine Sulfate (Morphine Sulfate) 1 mg PRN Q10MIN PRN IV SEVERE PAIN Last administered on 07/25/18at 23:45; Start 07/25/18 at 07:00; Stop 07/26/18 at 06:59; Status DC Ringer's Solution 1,000 ml @ 30 mls/hr Q24H IV Last administered on 07/25/18at 15:10; Start 07/25/18 at 07:00; Stop 07/25/18 at 18:59; Status DC Hydromorphone HCl (Dilaudid) 0.5 mg PRN Q10MIN PRN IV SEV PAIN, Second choice; Start 07/25/18 at 07:00; Stop 07/26/18 at 06:59; Status DC Prochlorperazine Edisylate (Compazine) 5 mg PACU PRN PRN IV NAUSEA, MRX1; Start 07/25/18 at 07:00; Stop 07/26/18 at 06:59; Status DC Propofol 20 ml @ As Directed STK-MED ONCE IV ; Start 07/25/18 at 11:53; Stop 07/25/18 at 11:54; Status DC Lidocaine HCl (Lidocaine Pf 2% Vial) 5 ml STK-MED ONCE .ROUTE ; Start 07/25/18 at 11:53; Stop 07/25/18 at 11:54; Status DC Ondansetron HCl (Zofran) 4 mg STK-MED ONCE .ROUTE ; Start 07/25/18 at 11:53; Stop 07/25/18 at 11:54; Status DC Fentanyl Citrate (Fentanyl 2ml Vial) 100 mcg STK-MED ONCE .ROUTE ; Start 07/25/18 at 11:53; Stop 07/25/18 at 11:54; Status DC Midazolam HCl (Versed) 2 mg STK-MED ONCE .ROUTE ; Start 07/25/18 at 11:56; Stop 07/25/18 at 11:57; Status DC Sevoflurane (Ultane) 15 ml STK-MED ONCE IH ; Start 07/25/18 at 12:49; Stop 07/25/18 at 12:50; Status DC Fentanyl Citrate (Fentanyl 2ml Vial) 100 mcg STK-MED ONCE .ROUTE ; Start 07/25/18 at 13:24; Stop 07/25/18 at 13:25; Status DC Fentanyl Citrate (Fentanyl 2ml Vial) 50 mcg PRN Q10MIN PRN IV PAIN Last administered on 07/26/18at 00:14; Start 07/25/18 at 13:30; Stop 07/26/18 at 09:44; Status DC Dexamethasone Sodium Phosphate (Decadron) 20 mg STK-MED ONCE .ROUTE ; Start 07/25/18 at 13:47; Stop 07/25/18 at 13:48; Status DC Propofol 20 ml @ As Directed STK-MED ONCE IV ; Start 07/25/18 at 13:47; Stop 07/25/18 at 13:48; Status DC Lidocaine HCl (Lidocaine Pf 2% Vial) 5 ml STK-MED ONCE .ROUTE ; Start 07/25/18 at 13:47; Stop 07/25/18 at 13:48; Status DC Cellulose (Surgicel Hemostat 4x8) 1 each STK-MED ONCE .ROUTE Last administered on 07/25/18at 14:47; Start 07/25/18 at 13:13; Stop 07/25/18 at 14:14; Status DC Sevoflurane (Ultane) 15 ml STK-MED ONCE IH ; Start 07/25/18 at 14:41; Stop 07/25/18 at 14:42; Status DC Cellulose (Surgicel Hemostat 4x8) 1 each STK-MED ONCE .ROUTE ; Start 07/25/18 at 13:48; Stop 07/25/18 at 14:48; Status DC Fentanyl Citrate (Fentanyl 2ml Vial) 50 mcg PRN Q3HRS PRN IV PAIN Last administered on 07/31/18at 15:50; Start 07/26/18 at 02:30 Oxycodone/ Acetaminophen (Percocet 5/325) 1 tab PRN Q4HRS PRN PO MODERATE- SEVERE PAIN Last administered on 08/01/18at 08:56; Start 07/29/18 at 11:15 Sevoflurane (Ultane) 60 ml STK-MED ONCE IH ; Start 07/30/18 at 16:59; Stop 07/30/18 at 17:00; Status DC Dexamethasone Sodium Phosphate (Decadron) 20 mg STK-MED ONCE .ROUTE ; Start 07/30/18 at 16:59; Stop 07/30/18 at 17:00; Status DC Ketorolac Tromethamine (Toradol For Or Only) 30 mg STK-MED ONCE INJ ; Start 07/30/18 at 16:59; Stop 07/30/18 at 17:00; Status DC Ondansetron HCl (Zofran) 4 mg STK-MED ONCE .ROUTE ; Start 07/30/18 at 16:59; Stop 07/30/18 at 17:00; Status DC Lidocaine HCl (Lidocaine Pf 2% Vial) 5 ml STK-MED ONCE .ROUTE ; Start 07/30/18 at 16:59; Stop 07/30/18 at 17:00; Status DC Propofol 20 ml @ As Directed STK-MED ONCE IV ; Start 07/30/18 at 16:59; Stop 07/30/18 at 17:00; Status DC Morphine Sulfate (Morphine Sulfate) 10 mg STK-MED ONCE .ROUTE ; Start 07/30/18 at 17:07; Stop 07/30/18 at 17:08; Status DC Cellulose (Surgicel Hemostat 4x8) 1 each STK-MED ONCE .ROUTE ; Start 07/30/18 at 16:10; Stop 07/30/18 at 17:11; Status DC Phenylephrine HCl (PHENYLEPHRINE in 0.9% NACL PF) 1 mg STK-MED ONCE IV ; Start 07/30/18 at 17:15; Stop 07/30/18 at 17:16; Status DC Cellulose (Surgicel Hemostat 4x8) 1 each STK-MED ONCE TP Last administered on 07/30/18at 17:13; Start 07/30/18 at 17:13; Stop 07/30/18 at 17:40; Status DC Potassium Chloride (Klor-Con) 40 meq 1X ONCE PO Last administered on 07/31/18at 10:15; Start 07/31/18 at 10:00; Stop 07/31/18 at 10:04; Status DC Active Scripts Active Percocet 5-325 Mg Tablet (Oxycodone/Acetaminophen) 1 Each Tablet 1 Tab PO PRN Q6HRS PRN Zyvox (Linezolid) 600 Mg Tablet 600 Mg PO BID Reported Atorvastatin Calcium 40 Mg Tablet 1 Tab PO DAILY Lisinopril 10 Mg Tablet 1 Tab PO DAILY Clopidogrel (Clopidogrel Bisulfate) 75 Mg Tablet 1 Tab PO DAILY Metoprolol Tartrate 25 Mg Tablet 1 Tab PO BID Aspir-Low (Aspirin) 81 Mg Tablet. 1 Tab PO DAILY Multivitamins (Multivitamin) 1 Each Tablet 1 Tab PO DAILY Vitals/I & O Vital Sign - Last 24 Hours 07/31/18 07/31/18 07/31/18 07/31/18 15:00 15:50 15:51 17:58 Temp 97.6 97.6 Pulse 75 Resp 19 B/P (MAP) 112/53 (72) 177/78 Pulse Ox 96 O2 Delivery Room Air Room Air Room Air 07/31/18 07/31/18 07/31/18 07/31/18 19:00 20:00 20:55 21:07 Temp 97.9 97.9 Pulse 78 78 Resp 16 20 B/P (MAP) 136/79 (98) 136/79 Pulse Ox 94 O2 Delivery Room Air Room Air Room Air 07/31/18 08/01/18 08/01/18 08/01/18 23:00 02:22 03:00 07:00 Temp 98.4 98.3 97.9 98.4 98.3 97.9 Pulse 79 75 66 Resp 16 18 16 16 B/P (MAP) 121/92 (102) 119/90 (100) 130/85 (100) Pulse Ox 95 94 95 O2 Delivery Room Air Room Air Room Air Room Air 08/01/18 08/01/18 08/01/1808/01/19 08:00 08:56 08:57 08:57 Pulse 66 66 Resp 18 B/P (MAP) 130/85 130/85 O2 Delivery Room Air Room Air 08/01/18 08/01/18 09:56 11:00 Temp 97.8 97.8 Pulse 67 Resp 18 18 B/P (MAP) 115/76 (89) Pulse Ox 97 O2 Delivery Room Air Room Air Intake and Output 07/31/18 07/31/18 08/01/18 15:00 23:00 07:00 Intake Total 240 ml 220 ml 300 ml Output Total 700 ml 800 ml 1000 ml Balance -460 ml -580 ml -700 ml RANJAN LANDAVERDE MD Aug 01, 2018 12:18
--- NOTE | 2018-08-01 12:22 | PDOC3 ---
Discharge Summary Visit Information Date of Admission: Jul 22, 2018 Date of Discharge: Aug 01, 2018 Admitting Diagnosis: abcess Final Diagnosis severe cellulitis left upper leg/ thigh, w. ángel, req. surg debridement x2 Hypertension CAD, HX NSTEMI s/p cardiac cath and stent placement on 04/30/16 Alcohol abuse. persistent 6 shots/ night THC usage.HX sepsis MRSA cellulitis and abcess Brief Hospital Course Allergies Allergies Coded Allergies Type Severity Reaction Last Updated Verified Penicillins Allergy Severe 07/25/18 Yes I S O L A T I O N *CONTACT* Allergy Unknown 07/28/18 Yes Vital Signs Vital Signs Date Time Temp Pulse Resp B/P (MAP) Pulse Ox O2 Delivery O2 Flow Rate FiO2 08/01/18 11:00 97.8 67 18 115/76 (89) 97 Room Air 97.8 07/31/18 07:52 10.0 Lab Results Laboratory Tests Test 08/01/18 09:57 White Blood Count 6.3 x10^3/uL (4.0-11.0) Red Blood Count 3.64 x10^6/uL (4.30-5.70) Hemoglobin 11.7 g/dL (13.0-17.5) Hematocrit 34.2 % (39.0-53.0) Mean Corpuscular Volume 94 fL (79-100) Mean Corpuscular Hemoglobin 32 pg (25-35) Mean Corpuscular Hemoglobin Concent 34 g/dL (31-37) Red Cell Distribution Width 13.9 % (11.5-14.5) Platelet Count 638 x10^3/uL (140-400) Neutrophils (%) (Auto) 60 % (31-73) Lymphocytes (%) (Auto) 30 % (24-48) Monocytes (%) (Auto) 8 % (0-9) Eosinophils (%) (Auto) 2 % (0-3) Basophils (%) (Auto) 1 % (0-3) Neutrophils # (Auto) 3.8 x10^3uL (1.8-7.7) Lymphocytes # (Auto) 1.9 x10^3/uL (1.0-4.8) Monocytes # (Auto) 0.5 x10^3/uL (0.0-1.1) Eosinophils # (Auto) 0.1 x10^3/uL (0.0-0.7) Basophils # (Auto) 0.0 x10^3/uL (0.0-0.2) Sodium Level 143 mmol/L (136-145) Potassium Level 3.9 mmol/L (3.5-5.1) Chloride Level 106 mmol/L (98-107) Carbon Dioxide Level 30 mmol/L (21-32) Anion Gap 7 (6-14) Blood Urea Nitrogen 17 mg/dL (8-26) Creatinine 1.1 mg/dL (0.7-1.3) Estimated GFR (Cockcroft-Gault) 68.8 Glucose Level 93 mg/dL (70-99) Calcium Level 9.2 mg/dL (8.5-10.1) Laboratory Tests Test 08/01/18 09:57 White Blood Count 6.3 x10^3/uL (4.0-11.0) Red Blood Count 3.64 x10^6/uL (4.30-5.70) Hemoglobin 11.7 g/dL (13.0-17.5) Hematocrit 34.2 % (39.0-53.0) Mean Corpuscular Volume 94 fL (79-100) Mean Corpuscular Hemoglobin 32 pg (25-35) Mean Corpuscular Hemoglobin Concent 34 g/dL (31-37) Red Cell Distribution Width 13.9 % (11.5-14.5) Platelet Count 638 x10^3/uL (140-400) Neutrophils (%) (Auto) 60 % (31-73) Lymphocytes (%) (Auto) 30 % (24-48) Monocytes (%) (Auto) 8 % (0-9) Eosinophils (%) (Auto) 2 % (0-3) Basophils (%) (Auto) 1 % (0-3) Neutrophils # (Auto) 3.8 x10^3uL (1.8-7.7) Lymphocytes # (Auto) 1.9 x10^3/uL (1.0-4.8) Monocytes # (Auto) 0.5 x10^3/uL (0.0-1.1) Eosinophils # (Auto) 0.1 x10^3/uL (0.0-0.7) Basophils # (Auto) 0.0 x10^3/uL (0.0-0.2) Sodium Level 143 mmol/L (136-145) Potassium Level 3.9 mmol/L (3.5-5.1) Chloride Level 106 mmol/L (98-107) Carbon Dioxide Level 30 mmol/L (21-32) Anion Gap 7 (6-14) Blood Urea Nitrogen 17 mg/dL (8-26) Creatinine 1.1 mg/dL (0.7-1.3) Estimated GFR (Cockcroft-Gault) 68.8 Glucose Level 93 mg/dL (70-99) Calcium Level 9.2 mg/dL (8.5-10.1) Brief Hospital Course Mr. Mckinney is a 57 old with history of coronary artery disease, hypertension, history of [place], history of hyperlipidemia, COPD, anxiety, addiction, presented to the ER with left lower extremity redness, swelling, which started as a small blister. He squeezed the lesion and then started draining. The patient also has seen multiple small skin lesions over both the lower extremities. ID consulted, broad abx, to OR, 07/25 and 07/30 for debridement, wound was clearing on DC Discharge Information Condition at Discharge: Improved Follow Up: Weeks Disposition/Orders: D/C to Home w/ HH Scheduled Aspirin (Aspir-Low) 81 Mg Tablet., 1 TAB PO DAILY for blood thinner, #30 Ref 3 (Reported) Entered as Reported by: SADIE GAN on 07/22/18638 Last Taken: Unknown Dose on 07/21/18 Last Action: Continued on 07/22/18938 by JEF PATRICIA RN Atorvastatin Calcium (Atorvastatin Calcium) 40 Mg Tablet, 1 TAB PO DAILY for cholesterol, #90 Ref 3 (Reported) Entered as Reported by: SADIE GAN on 07/22/18638 Last Action: Continued on 07/22/18938 by JEF PATRICIA RN Clopidogrel Bisulfate (Clopidogrel) 75 Mg Tablet, 1 TAB PO DAILY for blood thinner, #90 Ref 1 (Reported) Entered as Reported by: SADIE GAN on 07/22/18638 Last Taken: Unknown Dose on 07/21/18 Last Action: Continued on 07/22/18 1136 by MELINA MAE MD Linezolid (Zyvox) 600 Mg Tablet, 600 MG PO BID for leg wound, #14 Prescribed by: RANJAN LANDAVERDE on 07/28/18958 Lisinopril (Lisinopril) 10 Mg Tablet, 1 TAB PO DAILY for blood pressure, #30 Ref 5 (Reported) Entered as Reported by: SADIE GAN on 07/22/18638 Last Taken: Unknown Dose on 07/21/18 Last Action: Continued on 07/22/18938 by JEF PATRICIA, CHELA Metoprolol Tartrate (Metoprolol Tartrate) 25 Mg Tablet, 1 TAB PO BID for blood pressure, #180 Ref 1 (Reported) Entered as Reported by: SADIE GAN on 07/22/18638 Last Taken: Unknown Dose on 07/21/18 Last Action: Continued on 07/22/18938 by JEF PATRICIA RN Multivitamin (Multivitamins) 1 Each Tablet, 1 TAB PO DAILY for health, #90 Ref 3 (Reported) Entered as Reported by: SADIE GAN on 07/22/18638 Last Taken: Unknown Dose on 07/21/18 Last Action: Converted on 07/22/18938 by JEF PATRICIA RN Scheduled PRN Oxycodone/Apap 5-325 (Percocet 5-325 Mg Tablet ) 1 Each Tablet, 1 TAB PO PRN Q6HRS PRN for PAIN, #18 Ref 0 Prescribed by: RANJAN LANDAVERDE on 07/28/18 1001 Patient Instructions Patient Instructions > 30 min coordination of care RANJAN LANDAVERDE MD Aug 01, 2018 12:22
[2018-08-01 12:25] LABS: % ATYL 7 % (0-0); % BANDS 4 % (0-9); % EOS 1 % (0-5); % LYMPHS 27 % (24-48); % MONOS 10 % (0-10); % MYELOS 1 % (0-0); % SEGS 50 % (35-66)
[2018-08-01 12:27] LABS: PLT ESTIMATE INCREASED (ADEQUATE); POLYCHROMASIA SLIGHT
--- NOTE | 2018-08-01 14:27 | NUR ---
SW following pt. Spoke with pt and agreeable with [facility] as they take his insurance. LAYLA phoned and faxed orders to [facility] and they will see pt on Saturday. Pt aware and agreeable with plans. RN notified.
[2018-08-01 15:00] VITALS: BP 112/75
--- NOTE | 2018-08-01 16:06 | NUR ---
Discharge instructions, medications and prescriptions reviewed with patient. Patient verb. understanding all instructions and denies questions. Patient discharge to home with his with all instructions,prescriptions, belongings and supplies for dressing change. To be followed at home by HH with dressing change per HH on Saturday, and follow up with surgeon on Saturday. Patient and verb. understanding.
== END 2018-08-01 16:12 | disposition home health service (06) | DRG 854 ==
LOC: ER 23:49 → 5 NORTH 07-22 04:46
PROVIDERS: ADMIT Internal Medicine; ATTEND Internal Medicine
PROC: 0Y9 Anatomical Regions, Lower Extremities, Drainage (ICD-10-PCS; principal; 2018-07-29)
PROC: 0JBM0ZZ Excision of Left Upper Leg Subcutaneous Tissue and Fascia, Open Approach (ICD-10-PCS; 2018-07-30)
PROC: 30233R1 Transfusion of Nonautologous Platelets into Peripheral Vein, Percutaneous Approach (ICD-10-PCS; 2018-07-30)
PROC: 0JCM3ZZ Extirpation of Matter from Left Upper Leg Subcutaneous Tissue and Fascia, Percutaneous Approach (ICD-10-PCS; 2018-07-30)
DX: A41.9 Sepsis, unspecified organism (principal); L03.116 Cellulitis of left lower limb; L02.416 Cutaneous abscess of left lower limb; I96 Gangrene, not elsewhere classified; R17 Unspecified jaundice; I10 Essential (primary) hypertension; E78.5 Hyperlipidemia, unspecified; F10.10 Alcohol abuse, uncomplicated; F12.90 Cannabis use, unspecified, uncomplicated; B95.62 Methicillin resistant Staphylococcus aureus infection as the cause of diseases classified elsewhere; F17.210 Nicotine dependence, cigarettes, uncomplicated; I25.10 Atherosclerotic heart disease of native coronary artery without angina pectoris; I25.2 Old myocardial infarction; F41.9 Anxiety disorder, unspecified; J44.9 Chronic obstructive pulmonary disease, unspecified; S70.362A Insect bite (nonvenomous), left thigh, initial encounter; W57.XXXA Bitten or stung by nonvenomous insect and other nonvenomous arthropods, initial encounter; Z82.49 Family history of ischemic heart disease and other diseases of the circulatory system; Z95.5 Presence of coronary angioplasty implant and graft; Z88.0 Allergy status to penicillin; S70.12XA Contusion of left thigh, initial encounter
CPT/HCPCS: 36415; 76881; 80048; 80053; 80202; 82565; 83605; 85007; 85025; 85027; 85610; 86850; 86900; 86901; 87040; 87070; 87071; 87075; 87186; 90471; 90714; 93971; 96365; 96366; A7015; J0692; J1100; J1650; J1885; J2001; J2250; J2270; J2370; J2405; J2704; J3010; J3370; J7030; J7040; J7050; J7120; P9035; 99285-25; A4461